=== PATIENT | male | born 1950 | race Caucasian/White ===

== ENCOUNTER → 2020-08-16 11:00 | Outpatient (BNVA) | payer MEDICARE, SELFPAY | PROVIDERS: Family Provider Nurse Practitioner Family; PCP Nurse Practitioner Family; Visit Provider Nurse Practitioner Family | DX: Z20.828 Contact with and (suspected) exposure to other viral communicable diseases (principal); E11.9 Type 2 diabetes mellitus without complications; D64.9 Anemia, unspecified; I25.110 Atherosclerotic heart disease of native coronary artery with unstable angina pectoris | CPT/HCPCS: 80048; 82728; 83550; 84466; 85025; 85610; 87635 ==

== ENCOUNTER → 2020-08-17 06:33 | Day surgery (SDC) | payer MEDICARE, SELFPAY ==
[2020-08-17] VITALS (10 sets, daily range): BP systolic 128–151; BP diastolic 66–79; PULSE 84–93; RESP 18–24; TEMP 36.2–37.2; O2SAT 97–100; BMI 35.9
--- NOTE | 2020-08-17 08:54 | PC.NURSE ---
Lungs clear per auscultation prior to start. VSS. Education provided to patient of reaction. Verbalized understanding.
--- NOTE | 2020-08-17 09:39 | PC.NURSE ---
Patient to restroom for BM during transfusion. Stated toilet was full of blood.
[2020-08-17] MEDS: sodium chloride 0.9% (100 ml) 100 ML 150 ML ×2 (11:05→13:20)
--- NOTE | 2020-08-17 11:29 | PC.NURSE ---
Lungs remain clear per auscultation after first unit. 2nd unit removed from cooler and started after confirmed. IV access verified with saline flush. Pt tolerating transfusions well. VSS. Denies needs at this time.
--- NOTE | 2020-08-17 12:42 | PC.NURSE ---
Called Dr Velázquez's clinic to inquire if patient needs follow-up labs. Greer Myers nurse stated she will put in lab orders for collection on day of scope next week (). Patient aware. Will put in GI chart.
== END ==
PROVIDERS: PCP Nurse Practitioner Family; Visit Provider Nurse Practitioner Family
DX: D64.9 Anemia, unspecified (principal)
CPT/HCPCS: 36415; 36430; 86850; 86900; 86920; J2704; P9016

== ENCOUNTER 2020-08-23 07:59 | Day surgery (SDC) | payer MEDICARE, SELFPAY ==
[2020-08-21 09:52] VITALS: BMI 35.9
[2020-08-23 08:20] VITALS: BP 166/86; PULSE 87; RESP 18; TEMP 36.8; O2SAT 97
[2020-08-23] MEDS: sodium chloride 0.9% 1,000 ML 30 ML IV (08:31)
--- NOTE | 2020-08-23 08:33 | ANES.PREANE2 ---
Pre-Anesthetic Assessment Pre-Anesthetic Assessment: Height/Weight: Height 1.83 m Weight 120.202 kg Temp Pulse Resp BP Pulse Ox 98.2 F 87 18 166/86 97 08/23/20 08:20 08/23/20 08:20 08/23/20 08:20 08/23/20 08:20 08/23/20 08:20 Preop Diagnosis: panendoscopy Proposed Procedure: Operation Date: 08/23/20 09:00 Proposed Procedures p EGD [id number] D64.9 K62.5(Not Applicable) - Yusuf Caldwell MD s Colonoscopy(Not Applicable) - Yusuf Caldwell MD Was Beta Katya taken within 24 hours: Yes Last intake: Intake Last Liquid Date 08/22/20 Last Liquid Time 22:00 Last Solid Date 08/21/20 Last Solid Time 23:59 Social: Social History: No alcohol and No tobacco Exam: Pre-Anes Outpt Exam: alert, oriented x 3, clear to auscultation bilaterally and regular rate & rhythm Airway: Submandibular: Other (limited) Cervical ROM: Other (limited) MP: 3 Pulmonary: Pulmonary: None reported CV/HEM: CV/HEM: Anemia, CAD and HTN : : None reported Hepatic: Hepatic: None reported GI: Comments: Anemia of undetermined origin; transient lower GI bleed Metabolic: Metabolic: DM and Morbid obesity Musc/skel: Musc/skel: None reported Neuropsych: Neuropsych: None reported Anesthetic Plan: ASA status: 3 Anesthesia: MAC Meds/Allergies Current Medications: Current Medications Generic Name Dose Route Start Last Admin Trade Name Freq PRN Reason Stop Dose Admin Sodium Chloride 1,000 mls @ 30 ml s/hr 08/23/20 07:15 08/23/20 08:31 Sodium Chloride 0.9% IV 08/24/20 07:14 30 mls/hr .Q24H BEA Administration PFSH Anesthesia PFSH: Medical History (Updated 08/17/20 @ 15:59 by Yusuf Caldwell MD) ASHD (arteriosclerotic heart disease) Diabetes Dyslipidemia HTN (hypertension) Surgical History S/P PTCA (percutaneous transluminal coronary angioplasty) Family History Father , AGE 56 CAD (coronary artery disease) Myocardial infarction Social History Smoking and tobacco status: never smoked Household members: spouse Marital status: Data Anesthesia Cardiac Studies: No Data to Display
[2020-08-23 08:34] LABS: Glucose Point of Care 223 mg/dL (70-110)
[2020-08-23 08:47] LABS: Hematocrit 36.2 % (42.0-52.0); Hemoglobin 9.8 g/dL (11.7-16.6)
[2020-08-23 09:52] VITALS: BP 134/67; PULSE 86; RESP 16; TEMP 36.1; O2SAT 96
--- NOTE | 2020-08-23 10:00 | W.PM.OPSUD ---
Surgery/Procedure H&P Update DATE OF PROCEDURE: August 23, 2020 DATE H&P PERFORMED: 08/17/20 H&P UPDATE INFORMATION: I have reviewed H&P completed within last 30 days, I have examined patient prior to procedure and No changes to prior documentation PREOP DIAGNOSIS: panendoscopy PLANNED PROCEDURE: Operation Date: 08/23/20 09:00 Proposed Procedures p EGD [id number] D64.9 K62.5(Not Applicable) - Yusuf Caldwell MD s Colonoscopy(Not Applicable) - Yusuf Caldwell MD
--- NOTE | 2020-08-23 10:02 | CT_ITS ---
WS: [id number] CT CHEST, ABDOMEN AND PELVIS WITH CONTRAST. HISTORY: rectal mass TECHNIQUE: Contiguous 5 mm axial imaging performed through the chest, abdomen and pelvis with IV cont rast, oral contrast has been provided. Coronal and sagittal reformats chest. Coronal and sagittal ref ormats through the abdomen and pelvis. All CT scans at [facility] use at least one of the se dose optimization techniques: automated exposure control; mA and/or kV adjustment per patient size (includes targeted exams where dose is matched to clinical indication); or iterative reconstruction. CONTRAST: Omnipaque 300; 95 mL IV. DLP: 2919.2 mGy.cm COMPARISON: None available. Chest CT: Slightly lobulated 15 mm solid nodule in the superior RIGHT lower lobe. Nodule nearly abuts the major fissure. No additional nodules or pneumonia. Small mediastinal and hilar lymph nodes. No d efinite enlarged lymph nodes. Indeterminate lymph nodes greatest at the LEFT hilum measures up to 12 mm. Heart size is normal. No pericardial or pleural effusion. Abdomen CT: Liver, gallbladder, spleen, pancreas and adrenal glands are negative. There is a small cy st measuring 7 mm along the medial margin of the RIGHT lobe. Mild atherosclerosis aorta. Heavy calcification continues into the RIGHT iliac artery. No renal obstr uction or mass. Parapelvic cysts in the lower pole the LEFT kidney. No adenopathy or ascites. The appendix is normal. No GI tract obstruction. No significant diverticular disease. There is some v pat minimal asymmetric wall thickening at the rectum anteriorly. All thickening measures up to 12 mm. No adjacent lymph nodes or perirectal soft tissue stranding or infiltration. There are several very nonspecific lymph nodes with the largest measuring 12 mm anterior to the L5-S1 disc level. Pelvic CT: No free fluid. Small lymph nodes in the pelvic fat anterior to L5-S1 measuring up to 12 mm . Prostate gland is slightly enlarged encroaching into the posterior bladder. Central prostate gland calcifications. Thoracic and lumbar spine spondylitic changes. No osteoblastic or osteolytic bone disease. CT/CT chest abd pel w con* IMPRESSION: 1. Minimal asymmetric soft tissue thickening at the rectum, anterior wall akua uring up to 12 mm. 2. Indeterminate pelvic lymph nodes, just anterior to the L5-S1 disc space. Th e largest measures 12 mm. 3. RIGHT lower lobe pulmonary nodule measures 15 mm. Metastatic lesion versus primary lung cancer or benign lesion. This can be further evaluated by PET/CT f or [address] follow-up. 4. Indeterminate hilar lymph nodes with the largest on the LEFT measuring 12 m m. 5. No metastatic disease to the liver or adrenal glands.
[2020-08-23 10:19] VITALS: BP 147/81; PULSE 87; RESP 18; O2SAT 95
[2020-08-23 10:40] VITALS: BP 148/73; PULSE 89; RESP 18; O2SAT 96
[2020-08-23 10:51] LABS: Glucose Point of Care 205 mg/dL (70-110)
--- NOTE | 2020-08-23 11:12 | PC.NURSE ---
[address] notified. Pt visiting with spouse.
[2020-08-23] MEDS: iohexol 300 mg/mL 100 mL Btl IV (11:55)
[2020-08-23] MEDS: iohexol 300 mg/mL 50 mL Btl PO (11:56)
[2020-08-23 12:34] LABS: Carcinoembryonic Antigen 15.6 ng/mL (0.0-4.7)
--- NOTE | 2020-08-23 16:27 | ANE.PACU2 ---
Inpatient post-anesthesia follow up: Airway intact: Yes Vital signs: Temperature 97 F Pulse Rate 89 Respiratory Rate 18 Blood Pressure 148/73 Pulse Oximetry 96 Oxygen Delivery Me thod Room Air Oxygen Flow Rate 3 Fraction of Inspir ed Oxygen Hydration adequate: Yes Nausea and vomiting: No Pain level: 2 Mental status: Baseline
[2020-09-06 10:32] LABS: Miscellaneous Test See Scanned Lab Rpt
== END 2020-08-23 11:47 | disposition home or self-care (01) ==
PROVIDERS: Nurse Practitioner Family; PCP Nurse Practitioner Family; Visit Provider Surgery
PROC: 0DJ08ZZ Inspection of Upper Intestinal Tract, Via Natural or Artificial Opening Endoscopic (ICD-10-PCS; CPT 43235; principal; 2020-08-23 09:00)
PROC: 0DJD8ZZ Inspection of Lower Intestinal Tract, Via Natural or Artificial Opening Endoscopic (ICD-10-PCS; CPT 45378; 2020-08-23 09:00)
DX: K92.1 Melena (principal); D64.9 Anemia, unspecified; K25.9 Gastric ulcer, unspecified as acute or chronic, without hemorrhage or perforation; C20 Malignant neoplasm of rectum; K29.50 Unspecified chronic gastritis without bleeding; D12.2 Benign neoplasm of ascending colon; D12.5 Benign neoplasm of sigmoid colon; Z79.82 Long term (current) use of aspirin; Z79.84 Long term (current) use of oral hypoglycemic drugs; E11.9 Type 2 diabetes mellitus without complications; E78.5 Hyperlipidemia, unspecified; I10 Essential (primary) hypertension; E66.9 Obesity, unspecified; Z68.35 Body mass index [BMI] 35.0-35.9, adult; Z82.49 Family history of ischemic heart disease and other diseases of the circulatory system; I25.10 Atherosclerotic heart disease of native coronary artery without angina pectoris; E66.01 Morbid (severe) obesity due to excess calories
CPT/HCPCS: 12345; 36416; 43239; 45380; 45385; 71260; 74177; 82378; 82962; 85014; 85018; 88305; 88341; 88342; J2704; J7030; Q9967

== ENCOUNTER 2020-09-17 10:16 | Outpatient (CLI) | payer MEDICARE, SELFPAY ==
[2020-09-17 10:26] LABS: Hematocrit 32.9 % (42.0-52.0)
== END 2020-09-17 10:17 | disposition home or self-care (01) ==
LOC: LAB 10:18
PROVIDERS: Surgery; PCP Nurse Practitioner Family; Referring Provider Surgery; Visit Provider Internal Medicine Medical Oncology
DX: K62.5 Hemorrhage of anus and rectum (principal)
CPT/HCPCS: 85014; 85018

== ENCOUNTER 2020-09-20 12:47 | Outpatient (CLI) | payer MEDICARE, SELFPAY ==
[2020-09-20 15:10] LABS: Basophils # 0.1 10^3/uL (0.0-0.1); Basophils % 1.2 %; Eosinophils # 0.3 10^3/uL (0.0-0.8); Eosinophils % 3.8 %; Hematocrit 32.9 % (42.0-52.0); Hemoglobin 9.2 g/dL (11.7-16.6); Lymphocytes % 29.4 %; Mean Corpuscular Hemoglobin 20.3 pg (28.0-34.0); Mean Corpuscular Volume 72.6 fL (80-94); Monocytes # 0.5 10^3/uL (0.2-0.9); Monocytes % 7.8 %; Neutrophils # 3.91 10^3/uL (1.8-7.7); Neutrophils % 56.8 %; Nucleated Red Blood Cells % 0 %; Platelet Count 314 10^3/cmm (130-400); Red Blood Count 4.53 10^6/uL (4.1-5.3); Red Cell Distribution Width 21.2 % (12.1-15.1); White Blood Count 6.9 10^3/uL (4.0-10.0)
--- NOTE | 2020-09-20 15:19 | ONC CON_ITS ---
Dr. Abrams New Patient Note Patient: Genaro Robbins Unit #: [id number]: 1950 Dicatated By: Eliel Abrams M.D.Date of Visit: Sep 20, 2020 Onc MED New Patient/Consult Referring Physician: Dr. AMENA JANG M.D. Chief Complaint: Rectal cancer. 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 He had presented to Dr. Velázquez in August with shortness of breath and chest pain. He had been having rectal bleeding since around April or May, which he had presumed was due to hemorrhoids. He was found to be significantly anemic with hemoglobin 7.5 g and hematocrit 29%. The red cell indices were hypochromic/microcytic. His iron saturation was 3.5% and the ferritin was low at 15 ng/mL, consistent with iron deficiency. He was transfused 2 units PRBC and he also began on oral iron supplementation with ferrous sulfate. He was unable to tolerate it due to GI side effects. In the meantime, he was seen by Dr. Caldwell and he underwent EGD and colonoscopy on 08/23/2020. The EGD showed evidence of gastritis with multiple gastric erosions. The colonoscopy showed a 7 mm pedunculated polyp in the ascending colon, a 5 mm sessile polyp in the descending colon, and a 1 cm pedunculated polyp in the sigmoid colon. The rectum showed an ulcerated malignant appearing mass along the right lateral wall approximately 6 cm from the anal verge. The mass was palpable by digital rectal exam. Biopsy of the rectal mass showed moderately differentiated invasive adenocarcinoma. The descending colon polyp was noted to be hyperplastic. The other polyps were tubular adenomas without high-grade dysplasia or malignancy. Gastric biopsy showed mild chronic gastritis. Staging CT scans of the chest, abdomen, and pelvis showed asymmetric soft tissue thickening at the rectum, with the anterior wall measuring up to 12 mm. Indeterminate pelvic lymph nodes were noted just anterior to the L5-S1 disc space, the largest measuring 12 mm. A right lower lobe pulmonary nodule measured 1.5 cm, consistent with metastatic lesion, versus primary lung neoplasm, versus benign lesion. Indeterminant left hilar lymph nodes measured up to 12 mm. There was no evidence of other metastatic disease. His baseline CEA was elevated at 15.6 ng/mL. He had colorectal surgery consultation with Dr. Ranulfo Anguiano on 09/03/2021. Staging MRI of the pelvis on 09/13/2020 was consistent with a T3 primary lesion with suspected involvement in 3/5 mesorectal lymph nodes. He is seen for further management of the rectal cancer. He has felt significantly better following the PRBC transfusion. He still has some fatigue and some shortness of breath, but he is able to work. His ECOG score is 1. His appetite is not as good now, but his weight is stable. He has no fever or night sweats. He still has some shortness of breath. He has had no further chest pain. He has had occasional nausea. His acid reflux symptoms have generally been well controlled with Protonix. He said he had a fair amount of blood in his stool after the MRI procedure, but since then it has been pretty minimal. He has had no other problems with his bowel function. Bladder function also has been okay. He has no significant joint or bone pain. He does not complain of headache, and he has no focal neurologic symptoms. Past Medical History: His medical history includes allergic rhinitis, coronary artery disease, dyslipidemia, gastroesophageal reflux disease, hypertension, and type II diabetes. Past Surgical History: His surgical/procedural history includes colonoscopy in 2019 and coronary angioplasty/stent placement in 2017. Medications: amLODIPine Besylate 1 (2.5 mg) Tablet Oral b.i.d., Aspirin 1 (81 mg) Tablet, chewable Oral daily, Claritin 1 (10 mg) Tablet Oral daily, Crestor 1 (20 mg) Tablet Oral daily, Isosorbide Mononitrate ER 1 (30 mg) Tablet SR 24 HR Oral b.i.d., Lisinopril 1 (5 mg) Tablet Oral b.i.d., metFORMIN HCl 1 (1000 mg) Tablet Oral b.i.d., Metoprolol Succinate ER 1 (50 mg) Tablet SR 24 HR Oral daily, Nitroglycerin Tablet, sublingual Sublingual PRN, Pantoprazole Sodium 1 (40 mg) Tablet, enteric coated Oral daily Allergies: Sulfa Antibiotics Social History: Mr. Robbins is . 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 He is a non-smoker. He does not drink alcohol. Family History: Father of heart disease age 56. Mother at age 76, apparently of pulmonary embolism. Two brothers are in good health. Review Of Symptoms: Constitutional - He generally feels okay, he was feeling very terrible prior to blood transfusions. His energy is fare. 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 His appetite is good and his weight is stable. No fever, night sweats, or hot flashes. ECOG score is 1, Eyes - No change in vision, ENMT - No hearing loss or tinnitus. He has chronic seasonal allergies. No mouth sores. No sore throat or difficulty swallowing, Hematologic/Lymphatic - No abnormal bruising, Respiratory - He was having shortness of breath, but it has also improved since receiving blood transfusion. No cough. No pleuritic pain or hemoptysis, Cardiovascular - He was having chest pain prior to receiving blood transfusions, none since. No palpitations, Gastrointestinal - No nausea or vomiting. No heartburn or acid reflux. No diarrhea or constipation. He has had blood in the stool, Genitourinary (M) - No dysuria or hematuria. No urinary frequency. No urgency or incontinence, Musculoskeletal - No joint or bone pain, Integumentary - No skin eruption, Neurologic - No headaches. He was having dizziness, now resolved. No numbness or tingling. No other focal neurologic symptoms, Psychiatric - No anxiety. He's had some mild depression with diagnosis. No insomnia. Vital Signs: Performed on Sep 20, 2020 13:43: 0, 36.73 (HIGH), 2.42 sq.m, 72 in, 96 %, 96 /min, 18 /min, 153/73 mm(hg) (HIGH), 98.5 F, and 270.8 lbs (HIGH). Physical Examination: Constitutional - He appears to be in good general health, Eyes - Sclerae nonicteric. Conjunctivae clear, ENMT - No lesions noted in the oral cavity, Neck - No mass or thyromegaly, Hematologic/Lymphatic - No cervical, clavicular, or axillary adenopathy, Respiratory - Lungs are clear with good air movement bilaterally, Cardiovascular - Heart rhythm is regular. There is II/ systolic murmur. There is no gallop or rub noted, Abdomen - Soft and non-tender. Liver and spleen are not enlarged. There is no abdominal mass or ascites noted and there is no inguinal adenopathy, Back/Spine - No spine or CVA tenderness noted, Extremities - Slight edema. Pedal pulses are palpable bilaterally, Integumentary - No rashes. No suspicious skin lesions noted, Neurologic - No focal neurologic deficits noted. Historic Problem List: 1. Moderately differentiated invasive adenocarcinoma of the rectum, by clinical evaluation stage at least T3, N1. 2. CT evidence of 1.5 cm right lower lobe pulmonary nodule, clinical significance of which is uncertain. 3. Iron deficiency anemia, presumed to be due to GI blood loss. He has been intolerant of oral iron due to GI side effects. 4. Hypertension. 5. Dyslipidemia. 6. Type 2 diabetes. 7. Coronary artery disease with previous angioplasty/stent placement. 8. GERD. Problems Addressed with this Encounter and Plan: 1. Moderately differentiated invasive adenocarcinoma of the rectum. By clinical evaluation his disease appears to be stage T3, N1. M staging is uncertain due to CT evidence of 1.5 cm right lower lobe pulmonary nodule. The colonoscopy findings and pathology results, as well as the findings on the CT and MRI scans were reviewed with the patient and his . We discussed the clinical implications. I have also discussed the case with Dr. Anguiano. With T3, N1 disease he is recommended to undergo neoadjuvant therapy, and I will plan to utilize a total neoadjuvant regimen, per NCCN guidelines. This will include 3 to 4 months of neoadjuvant chemotherapy with modified FOLFOX followed by radiation. I assume this will include standard long course radiation concurrently with Xeloda for chemosensitization, but that will be determined following further discussion with the radiation oncologist. He will need to undergo placement of Port-A-Cath venous access device for the chemotherapy, and that will be arranged with Dr. Caldwell. In addition, due to the right lower lobe pulmonary nodule, I am going to schedule for staging PET/CT, as a metastatic lesion would potentially alter treatment recommendations. I did review anticipated side effects with the chemotherapy which may include nausea/vomiting, diarrhea, alopecia, fatigue, low blood counts, and neuropathy, among others. At this point, I am anticipating starting his chemotherapy in the latter part of next week. 2. Iron deficiency anemia with intolerance to oral iron. His laboratory studies will be rechecked today and he will be given parenteral iron replacement with Injectafer as indicated. Signed By: Eliel Abrams M.D. <<Signature on File>>
[2020-09-20 15:38] LABS: Alanine Aminotransferase 21 U/L (0-41); Albumin Level 3.9 g/dL (3.5-5.2); Alkaline Phosphatase 69 IU/L (40-130); Anion Gap 12.1 (5-19); Aspartate Amino Transferase 21 U/L (0-40); Blood Urea Nitrogen 13 mg/dL (8-23); Calcium 8.8 mg/dL (8.5-10.5); Carbon Dioxide 26 mmol/L (22-29); Chloride 99 mmol/L (98-107); Ferritin 21 ng/mL (30-400); Globulin 3.4 g/dL (1.3-4.6); Glomerular Filtration Rate 111.5 mL/min (90-130); Glucose 291 mg/dL (65-115); Iron 18 ug/dL (59-158); Osmolality Calculated 287 mOsm/kg (285-295); Percent Saturation 4.6 % (20-50); Potassium 4.1 mmol/L (3.5-5.1); Sodium 133 mmol/L (136-145); Total Bilirubin 0.2 mg/dL (0.15-1.2); Total Iron Binding Capacity 388 mcg/dl; Total Protein 7.3 g/dL (6.6-8.7); Unsaturated Iron Binding 370 ug/dL (112-347)
[2020-09-21 16:34] LABS: Coronavirus Test Green County Not Detected
== END 2020-09-20 12:48 | disposition home or self-care (01) ==
LOC: ONCMED 12:56
PROVIDERS: PCP Nurse Practitioner Family; Visit Provider Internal Medicine Medical Oncology
DX: C20 Malignant neoplasm of rectum (principal); Z20.822 Contact with and (suspected) exposure to COVID-19; R91.1 Solitary pulmonary nodule; D50.9 Iron deficiency anemia, unspecified; I10 Essential (primary) hypertension; E78.5 Hyperlipidemia, unspecified; E11.9 Type 2 diabetes mellitus without complications; I25.10 Atherosclerotic heart disease of native coronary artery without angina pectoris; K21.9 Gastro-esophageal reflux disease without esophagitis; Z95.5 Presence of coronary angioplasty implant and graft; Z95.1 Presence of aortocoronary bypass graft
CPT/HCPCS: 36415; 80053; 82728; 83540; 83550; 85025; 87635; 99205

== ENCOUNTER 2020-09-21 10:15 | Outpatient (CLI) | payer MEDICARE, SELFPAY ==
[2020-09-21] MEDS: ferric carboxy (IVPB) 750 MG in sodium chloride 0.9% (100 ml) 100 ML 460 MG IV (10:35)
[2020-09-21] MEDS: sodium chloride 0.9% (100 ml) 100 ML 400 ML (10:35)
== END 2020-09-21 10:16 | disposition home or self-care (01) ==
PROVIDERS: PCP Nurse Practitioner Family; Visit Provider Internal Medicine Medical Oncology
DX: C20 Malignant neoplasm of rectum (principal); D50.9 Iron deficiency anemia, unspecified
CPT/HCPCS: 96365; 96372; J1439

== ENCOUNTER 2020-09-26 10:57 | Day surgery (SDC) | payer MEDICARE, SELFPAY ==
[2020-09-25 14:29] VITALS: BMI 35.2
--- NOTE | 2020-09-26 | SCC_ITS ---
Procedure Done: Placement of PowerPort in the left subclavian vein 87.5 seconds of fluoroscopic guidance, for a cumulative dose of 12.55 mGy, was provided to Dr. Caldwell by the radiology department. C-arm images of the chest were saved for the patient's permanent record. [facility]
--- NOTE | 2020-09-26 | SC_ITS ---
WS: [id number] C-ARM RADIOGRAPHS CHEST; 2 IMAGES HISTORY: OR PICS COMPARISON: None available. Intraoperative imaging during Port-A-Cath placement through the LEFT subclavian vein. SC/C-arm FL for CVA [id number] IMPRESSION: Intraoperative imaging during Port-A-Cath placement.
--- NOTE | 2020-09-26 10:26 | P.HP_ITS ---
Same Day Surgery H&P Indication for Procedure/HPI DATE OF PROCEDURE: September 26, 2020 CHIEF COMPLAINT/INDICATIONFOR SURGICAL PROCEDURE: port a cath placement PREOP DIAGNOSIS: Rectal cancer PLANNED PROCEDRUE: Operation Date: 09/26/20 12:35 Proposed Procedures p Portacath Placement 36916 c20(Not Applicable) - Yusuf Caldwell MD Medications/Allergies* Home Medications Medication Instructions Recorded Confirmed Type aspirin 81 mg tablet,delayed 81 mg PO DAILY 02/15/20 09/25/20 History release metformin 1,000 mg tablet 1,000 mg PO BID 02/15/20 09/25/20 History rosuvastatin 20 mg PO BEDTIME 08/17/20 09/25/20 History Allergies/Adverse Reactions Allergy/AdvReac Type Severity Reaction Status Date / Time Sulfa (Sulfonamide Allergy ALGY-Rash Verified 09/25/20 14:29 Antibiotics) Pertinent History/Comorbid Conditions* Medical History (Updated 08/17/20 @ 15:59 by Yusuf Caldwell MD) ASHD (arteriosclerotic heart disease) Diabetes Dyslipidemia HTN (hypertension) Surgical History (Updated 08/23/20 @ 09:54 by Yusuf Caldwell MD) H/O esophagogastroduodenoscopy History of colonoscopy with polypectomy S/P PTCA (percutaneous transluminal coronary angioplasty) Family History (Updated 02/15/20 @ 09:51 by Lyly Sanchez RN) Father, AGE 56 CAD (coronary artery disease) Father Myocardial infarction Father Social History Smoking and tobacco status: never smoked Household members: spouse Marital status: Pertinent Exam Findings alert, oriented x 3 and regular rate & rhythm Recommendations Surgery/Procedure today Coding Level of Care Code Acute 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
[2020-09-26 11:11] VITALS: BP 179/78; PULSE 82; RESP 20; TEMP 36.8; O2SAT 97
[2020-09-26] MEDS: sodium chloride 0.9% 1,000 ML 30 ML IV (11:25)
--- NOTE | 2020-09-26 11:25 | ANES.PREANE2 ---
Pre-Anesthetic Assessment Pre-Anesthetic Assessment: Height/Weight: Height 1.83 m Weight 117.934 kg Temp Pulse Resp BP Pulse Ox 98.2 F 82 20 H 179/78 97 09/26/20 11:11 09/26/20 11:11 09/26/20 11:11 09/26/20 11:11 09/26/20 11:11 Preop Diagnosis: Rectal cancer Proposed Procedure: Operation Date: 09/26/20 12:35 Proposed Procedures p Portacath Placement 36150 c20(Not Applicable) - Yusuf Caldwell MD Familial anesthetic complications: none Was Beta Katya taken within 24 hours: Yes Last intake: Intake Last Liquid Date 09/25/20 Last Liquid Time 22:00 Last Solid Date 09/25/20 Last Solid Time 20:00 Social: Social History: No alcohol and No tobacco Exam: Pre-Anes Outpt Exam: alert, oriented x 3, clear to auscultation bilaterally and regular rate & rhythm Airway: Cervical ROM: WNL MP: 3 Dentition: Full CV/HEM: CV/HEM: Anemia, CAD and HTN GI: GI: GERD Metabolic: Metabolic: DM and Morbid obesity Anesthetic Plan: ASA status: 3 Anesthesia: MAC Risk of > 500 ml blood loss (7ml/kg in children): No Meds/Allergies Current Medications: Current Medications Generic Name Dose Route Start Last Admin Trade Name Freq PRN Reason Stop Dose Admin Sodium Chloride 1,000 mls @ 30 ml s/hr 09/26/20 10:45 09/26/20 11:25 Sodium Chloride 0.9% IV 09/27/20 10:44 30 mls/hr .Q24H BEA Administration PFSH Anesthesia PFSH: Medical History ASHD (arteriosclerotic heart disease) Diabetes Dyslipidemia HTN (hypertension) Surgical History H/O esophagogastroduodenoscopy History of colonoscopy with polypectomy S/P PTCA (percutaneous transluminal coronary angioplasty) Family History Father , AGE 56 CAD (coronary artery disease) Myocardial infarction Social History Smoking and tobacco status: never smoked Household members: spouse Marital status: Data Anesthesia Cardiac Studies: No Data to Display
--- NOTE | 2020-09-26 11:29 | ANES.PREANE2 ---
Pre-Anesthetic Assessment Pre-Anesthetic Assessment: Height/Weight: Height 1.83 m Weight 117.934 kg Temp Pulse Resp BP Pulse Ox 98.2 F 82 20 H 179/78 97 09/26/20 11:11 09/26/20 11:11 09/26/20 11:11 09/26/20 11:11 09/26/20 11:11 Preop Diagnosis: Rectal cancer Proposed Procedure: Operation Date: 09/26/20 12:35 Proposed Procedures p Portacath Placement [id number] c20(Not Applicable) - Yusuf Caldwell MD Last intake: Intake Last Liquid Date 09/25/20 Last Liquid Time 22:00 Last Solid Date 09/25/20 Last Solid Time 20:00 PFSH Anesthesia PFSH: Medical History (Updated 09/26/20 @ 11:56 by Yusuf Caldwell MD) ASHD (arteriosclerotic heart disease) Diabetes Dyslipidemia HTN (hypertension) Surgical History (Updated 09/26/20 @ 11:56 by Yusuf Caldwell MD) H/O esophagogastroduodenoscopy History of colonoscopy with polypectomy Port-A-Cath in place (09/26/20) S/P PTCA (percutaneous transluminal coronary angioplasty) Family History Father , AGE 56 CAD (coronary artery disease) Myocardial infarction Social History Smoking and tobacco status: never smoked Household members: spouse Marital status: Data Anesthesia Cardiac Studies: No Data to Display
[2020-09-26] MEDS: lidocaine 1% INJ 20 mL SUBCUT (12:00)
[2020-09-26] MEDS: heparin, porcine 1,000 unit/mL INJ 10 mL 10000 UNIT (12:14)
--- NOTE | 2020-09-26 12:28 | PM.OP ---
Operative Report Date of procedure: September 26, 2020 Pre-op Diagnosis: Rectal cancer Post-op diagnosis: same Procedure Done: Placement of PowerPort in the left subclavian vein Fluoroscopic guidance and interpretation for placement of catheter Pathology: none sent Surgeon: Yusuf Caldwell Anesthesia: MAC Condition: stable Disposition: same day Procedure: The patient was taken to the Operating Room and the chest and neck bilaterally were prepped and draped in a sterile manner after the antibiotic had been administered and shoulder rolls had been placed. A total of 10 mL of 1% lidocaine with 0.5% Marcaine was infiltrated under the clavicle on the left side at the site of the planned entry into the subclavian vein. An introducer needle was then used to access the subclavian vein under the clavicle and after withdrawing blood syringe was removed and a guidewire passed under fluoroscopy into the superior vena cava. The site of the planned port was then marked on the chest and a 15 blade was used to make a 3 cm skin incision this was extended into the subcutaneous tissue using electrocautery and a subcutaneous pocket over the pectoralis fascia was created 2-0 Vicryl suture was used to suture the port to the pectoral fascia in the pocket on 3 sides. The catheter, after having been flushed with hep saline, was attached to the tunneler and a tunnel created between the port site and the subclavian vein entry site. Under fluoroscopy the dilator sheath was passed over the guidewire into the proximal superior vena cava. The inner dilator was removed and the sheath left behind and~ the catheter was introduced through the peel-away sheath with the tip in the superior vena cava. The peel-away sheath was removed. The proximal end of the catheter was cut to the right size and was attached to the port. Using a Means needle the port was accessed, it withdrew blood easily and flushed easily. A final 5cc of heparin was used to flush the PowerPort. The subcutaneous tissue was approximated using interrupted 3-0 Vicryl sutures and the skin at the introducer site and the port site was closed using subcuticular running 4-0 Monocryl sutures. Surgical glue was applied and the patient was stable throughout the procedure. Fluoroscopic guidance and interpretation was performed for introduction of the guidewire in the left subclavian vein, passage of dilator and placement of catheter tip in the distal superior vena cava.
[2020-09-26 12:41] VITALS: BP 155/79; PULSE 82; RESP 18; TEMP 36.7; O2SAT 96
[2020-09-26 12:55] VITALS: BP 131/75; PULSE 86; RESP 18; O2SAT 96
[2020-09-26 13:20] LABS: Glucose Point of Care 188 mg/dL (70-110)
--- NOTE | 2020-09-26 18:36 | ANE.PACU2 ---
Inpatient post-anesthesia follow up: Airway intact: Yes Vital signs: Temperature 98.1 F Pulse Rate 86 Respiratory Rate 18 Blood Pressure 131/75 Pulse Oximetry 96 Oxygen Delivery Me thod Room Air Oxygen Flow Rate Fraction of Inspir ed Oxygen Hydration adequate: Yes Nausea and vomiting: No Pain level: 2 Mental status: Baseline
== END 2020-09-26 13:10 | disposition home or self-care (01) ==
PROVIDERS: PCP Nurse Practitioner Family; Visit Provider Surgery
PROC: (CPT 36561; principal; 2020-09-26 12:25)
DX: C20 Malignant neoplasm of rectum (principal); I25.10 Atherosclerotic heart disease of native coronary artery without angina pectoris; I10 Essential (primary) hypertension; E11.9 Type 2 diabetes mellitus without complications; E66.01 Morbid (severe) obesity due to excess calories; Z68.35 Body mass index [BMI] 35.0-35.9, adult; E78.5 Hyperlipidemia, unspecified
CPT/HCPCS: 36561; 12345; 36416; 77001; 82962; C1788; J0690; J1644; J2250; J2405; J2704; J3010; J3490; J7030

== ENCOUNTER 2020-10-04 05:35 | Outpatient (RCR) | payer MEDICARE, SELFPAY ==
[2020-09-27 08:45] LABS: Basophils # 0.1 10^3/uL (0.0-0.1); Basophils % 1.2 %; Eosinophils # 0.3 10^3/uL (0.0-0.8); Eosinophils % 4.1 %; Hemoglobin 8.9 g/dL (11.7-16.6); Lymphocytes # 1.9 10^3/uL (0.8-4.8); Lymphocytes % 22.8 %; Mean Corpuscular HGB Conc 27.8 g/dL (30.0-36.0); Mean Corpuscular Hemoglobin 21.7 pg (28.0-34.0); Mean Platelet Volume 9.6 fL (7.4-10.4); Monocytes # 0.6 10^3/uL (0.2-0.9); Neutrophils # 5.03 10^3/uL (1.8-7.7); Neutrophils % 61.9 %; Nucleated Red Blood Cells % 0 %; Platelet Count 274 10^3/cmm (130-400); Red Cell Distribution Width 24.6 % (12.1-15.1); White Blood Count 8.1 10^3/uL (4.0-10.0)
[2020-09-27 09:06] LABS: Alanine Aminotransferase 28 U/L (0-41); Albumin Level 3.5 g/dL (3.5-5.2); Alkaline Phosphatase 66 IU/L (40-130); Anion Gap 15.3 (5-19); Aspartate Amino Transferase 22 U/L (0-40); Blood Urea Nitrogen 12 mg/dL (8-23); Calcium 8.4 mg/dL (8.5-10.5); Carbon Dioxide 22 mmol/L (22-29); Chloride 104 mmol/L (98-107); Globulin 3.1 g/dL (1.3-4.6); Glomerular Filtration Rate 111.5 mL/min (90-130); Glucose 280 mg/dL (65-115); Osmolality Calculated 294 mOsm/kg (285-295); Potassium 4.3 mmol/L (3.5-5.1); Sodium 137 mmol/L (136-145); Total Bilirubin 0.3 mg/dL (0.15-1.2); Total Protein 6.6 g/dL (6.6-8.7)
[2020-09-27] MEDS: palonosetron 0.25 mg/5 mL SDV IVP (10:00)
[2020-09-27] MEDS: dextrose 5% 250 ML 75 ML IV (10:00)
[2020-10-04] MEDS: ferric carboxy (IVPB) 750 MG in sodium chloride 0.9% (100 ml) 100 ML 460 MG IV (13:15)
[2020-10-04 13:29] LABS: Basophils # 0.1 10^3/uL (0.0-0.1); Basophils % 1.3 %; Eosinophils # 0.3 10^3/uL (0.0-0.8); Eosinophils % 5.8 %; Hematocrit 32.9 % (42.0-52.0); Hemoglobin 9.3 g/dL (11.7-16.6); Lymphocytes # 2.2 10^3/uL (0.8-4.8); Lymphocytes % 39.6 %; Mean Corpuscular HGB Conc 28.3 g/dL (30.0-36.0); Mean Corpuscular Hemoglobin 22.4 pg (28.0-34.0); Mean Corpuscular Volume 79.1 fL (80-94); Mean Platelet Volume 10.1 fL (7.4-10.4); Monocytes # 0.3 10^3/uL (0.2-0.9); Monocytes % 5.6 %; Neutrophils # 2.54 10^3/uL (1.8-7.7); Neutrophils % 46.1 %; Nucleated Red Blood Cells % 0.5 %; Platelet Count 221 10^3/cmm (130-400); Red Blood Count 4.16 10^6/uL (4.1-5.3); Red Cell Distribution Width 26.2 % (12.1-15.1); White Blood Count 5.5 10^3/uL (4.0-10.0)
[2020-10-04 14:09] LABS: Alanine Aminotransferase 28 U/L (0-41); Albumin Level 3.5 g/dL (3.5-5.2); Alkaline Phosphatase 54 IU/L (40-130); Anion Gap 14.3 (5-19); Aspartate Amino Transferase 24 U/L (0-40); Blood Urea Nitrogen 12 mg/dL (8-23); Calcium 8.5 mg/dL (8.5-10.5); Carbon Dioxide 23 mmol/L (22-29); Chloride 105 mmol/L (98-107); Glomerular Filtration Rate 95.6 mL/min (90-130); Glucose 256 mg/dL (65-115); Osmolality Calculated 295 mOsm/kg (285-295); Potassium 4.3 mmol/L (3.5-5.1); Sodium 138 mmol/L (136-145); Total Bilirubin 0.3 mg/dL (0.15-1.2); Total Protein 6.5 g/dL (6.6-8.7)
--- NOTE | 2020-10-04 18:52 | ONC FU_ITS ---
Dr. Abrams Patient Follow-Up Note Patient: Genaro Robbins Unit #: [id number]: [id number] Dicatated By: Eliel Abrams M.D.Date of Visit:Oct 04, 2020 Onc Med Follow-up/Prog Note Chief Complaint: Rectal cancer. 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 He had presented with iron deficiency anemia in association with rectal bleeding. His initial CBC showed hemoglobin low at 7.5 g and hematocrit 29%. His iron saturation was 3.5% and the ferritin was low at 15 ng/mL, consistent with iron deficiency. He was transfused 2 units PRBC and he also began on oral iron supplementation with ferrous sulfate. He was unable to tolerate it due to GI side effects. In the meantime, he was seen by Dr. Caldwell and he underwent EGD and colonoscopy on 08/23/2020. The EGD showed evidence of gastritis with multiple gastric erosions. The colonoscopy showed a 7 mm pedunculated polyp in the ascending colon, a 5 mm sessile polyp in the descending colon, and a 1 cm pedunculated polyp in the sigmoid colon. The rectum showed an ulcerated malignant appearing mass along the right lateral wall approximately 6 cm from the anal verge. The mass was palpable by digital rectal exam. Biopsy of the rectal mass showed moderately differentiated invasive adenocarcinoma. The descending colon polyp was noted to be hyperplastic. The other polyps were tubular adenomas without high-grade dysplasia or malignancy. Gastric biopsy showed mild chronic gastritis. Staging CT scans of the chest, abdomen, and pelvis showed asymmetric soft tissue thickening at the rectum, with the anterior wall measuring up to 12 mm. Indeterminate pelvic lymph nodes were noted just anterior to the L5-S1 disc space, the largest measuring 12 mm. A right lower lobe pulmonary nodule measured 1.5 cm, consistent with metastatic lesion, versus primary lung neoplasm, versus benign lesion. Indeterminant left hilar lymph nodes measured up to 12 mm. There was no evidence of other metastatic disease. His baseline CEA was elevated at 15.6 ng/mL. He had colorectal surgery consultation with Dr. Ranulfo Anguiano on 09/03/2021. Staging MRI of the pelvis on 09/13/2020 was consistent with a T3 primary lesion with suspected involvement in 3/5 mesorectal lymph nodes. He began cycle 1 of neoadjuvant chemotherapy with modified FOLFOX on 09/27/2020. His staging PET/CT on 09/22/2020 showed circumferential rectal thickening with SUV 12.1, consistent with known primary malignancy. Subcentimeter perirectal lymph nodes were too small to characterize. A 1.0 presacral lymph node had SUV 4.3, consistent with local metastatic disease. The right lower lobe pulmonary nodule measuring 1.7 x 1.8 cm and SUV 2.5. This was felt to be suggestive of a benign finding, but followup was felt to be warranted. Also noted were 4 mm nodules in the left upper lobe and lateral right upper lobe, too small to characterize. There were no other areas of abnormal uptake on that study. With those findings he was recommended to proceed with total neoadjuvant therapy. His other medical illnesses include hypertension, dyslipidemia, type 2 diabetes, coronary artery disease, and GERD. He has had previous angioplasty/stent placement. He is a non-smoker. INTERIM HISTORY: He began cycle 1 of neoadjuvant chemotherapy with modified FOLFOX on 09/27/2020. He experienced no nausea/vomiting or other acute toxicity with the chemotherapy. At day 3 he developed diarrhea, lasting just 1 day, total of 5 loose stools. It resolved with loperamide. Bowel function is otherwise been normal. He has had no bleeding since Thursday night. He felt a little weak and dizzy for a few days. He also developed significant cold sensitivity in his fingers and in his tongue. It has not yet completely resolved. He has had good appetite and is and she has since then come back to normal. He was able to work on Thursday, Thursday, and Thursday. During the course of this evaluation, we discovered that his blood sugars had become significantly more elevated, and he is now going to be starting treatment with glipizide. We also found that he was still significantly anemic. As he had been intolerant of oral iron, he was given an infusion of Injectafer last week and a second Injectafer infusion today. He tolerated these without any adverse effects. Medications: amLODIPine Besylate 1 (2.5 mg) Tablet Oral b.i.d., Aspirin 1 (81 mg) Tablet, chewable Oral daily, Claritin 1 (10 mg) Tablet Oral daily, Crestor 1 (20 mg) Tablet Oral daily, Isosorbide Mononitrate ER 1 (30 mg) Tablet SR 24 HR Oral b.i.d., Lisinopril 1 (5 mg) Tablet Oral b.i.d., metFORMIN HCl 1 (1000 mg) Tablet Oral b.i.d., Metoprolol Succinate ER 1 (50 mg) Tablet SR 24 HR Oral daily, Nitroglycerin Tablet, sublingual Sublingual PRN, Pantoprazole Sodium 1 (40 mg) Tablet, enteric coated Oral daily Allergies: Sulfa Antibiotics Vital Signs: Performed on Oct 04, 2020 14:17 Height - 72.00 in Weight - 263 lbs (LOW) BSA - 2.39 sq.m BMI - 35.67 (HIGH) Temperature - 97.0 F (LOW) Pulse - 76 /min Respiration - 18 /min BP - 130/80 mm(hg) O2 Sat - 98 % Pain - 0 Physical Examination: Constitutional - He looks good generally, Eyes - Sclerae nonicteric. Conjunctivae clear, ENMT - No lesions noted in the oral cavity, Respiratory - Lungs are clear with good air movement bilaterally, Cardiovascular - Heart rhythm is regular. There is II/ systolic murmur. There is no gallop or rub noted, Abdomen - Soft with no mass or hepatosplenomegaly noted, Extremities - No edema, Neurologic - No focal deficits. Lab/Imaging: Test performed on Oct 04, 2020 13:04 Sodium 138 mmol/L Potassium 4.3 mmol/L Chloride 105 mmol/L CO2 23 mmol/L Anion Gap 14.3 BUN 12 mg/dL Creatinine 0.8 mg/dL Cr Clearance (Est) 149.2800 mL/min eGFR 95.6 mL/min Glucose 256 mg/dL Osmolality - Calculated 295 mOsm/kg Calcium 8.5 mg/dL Protein, Total 6.5 g/dL Albumin 3.5 g/dL Globulin 3.0 g/dL Bilirubin, Total 0.3 mg/dL ALT (SGPT) 28 U/L AST (SGOT) 24 U/L Alkaline Phosphatase 54 IU/L WBC 5.5 10 3/uL RBC 4.16 10 6/uL HGB 9.3 g/dL HCT 32.9 % MCV 79.1 fL MCH 22.4 pg MCHC 28.3 g/dL RDW 26.2 % Platelet Count 221 10 3/cmm MPV 10.1 fL Neutrophils 2.54 10 3/uL Lymphocytes 2.2 10 3/uL Monocytes 0.3 10 3/uL Eosinophils 0.3 10 3/uL Basophils 0.1 10 3/uL Neutrophil % 46.1 % Lymphocyte % 39.6 % Monocyte % 5.6 % Eosinophil % 5.8 % Basophils % 1.3 % NRBC % 0.5 % Problem List: 1. Moderately differentiated invasive adenocarcinoma of the rectum, by clinical evaluation stage at least T3, N1. 2. CT evidence of 1.5 cm right lower lobe pulmonary nodule, clinical significance of which is uncertain. 3. Iron deficiency anemia, presumed to be due to GI blood loss. He had been intolerant of oral iron due to GI side effects. 4. Hypertension. 5. Dyslipidemia. 6. Type 2 diabetes. 7. Coronary artery disease with previous angioplasty/stent placement. 8. GERD. Problems Addressed with this Encounter and Plan: 1. Moderately differentiated invasive adenocarcinoma of the rectum. By clinical evaluation his disease appeared to be stage T3, N1. He was recommended to undergo total neoadjuvant therapy. He began cycle 1 of modified FOLFOX chemotherapy on 09/27/2020. Side effects thus far have included mild fatigue, transient diarrhea, and mild neuropathy (cold sensitivity). Overall, he appears to be tolerating treatment well. He is scheduled to return in 1 week for cycle 2 of modified FOLFOX. Assuming his neuropathy symptoms have resolved, it will be administered at full dosages. 2. He had CT evidence of 1.5 cm right lower lobe pulmonary nodule. It showed low-grade FDG uptake by PET, SUV 2.4, suggestive of benign etiology. Follow-up, though, was recommended. 3. Iron deficiency anemia with intolerance to oral iron. He has now completed parenteral iron replacement with 2 infusions of Injectafer. He has had no adverse effects from the infusions. Signed By: Eliel Abrams M.D. <<Signature on File>>
== END 2020-10-07 23:59 | disposition home or self-care (01) ==
LOC: ONCMED 05:35
PROVIDERS: PCP Nurse Practitioner Family; Visit Provider Internal Medicine Medical Oncology
DX: Z51.11 Encounter for antineoplastic chemotherapy (principal); C20 Malignant neoplasm of rectum; R91.1 Solitary pulmonary nodule; D50.9 Iron deficiency anemia, unspecified; Z79.899 Other long term (current) drug therapy
CPT/HCPCS: 80053; 85025; 96365; 96367; 96368; 96413; 96415; 96416; 99214; J0640; J1100; J1439; J2469; J9190; J9263

== ENCOUNTER 2020-10-25 07:00 | Outpatient (RCR) | payer MEDICARE, SELFPAY ==
[2020-10-11 09:12] LABS: Basophils % 0.5 %; Eosinophils # 0.3 10^3/uL (0.0-0.8); Eosinophils % 4.9 %; Hematocrit 35.5 % (42.0-52.0); Hemoglobin 10.4 g/dL (11.7-16.6); Lymphocytes # 1.4 10^3/uL (0.8-4.8); Lymphocytes % 25.2 %; Mean Corpuscular HGB Conc 29.3 g/dL (30.0-36.0); Mean Corpuscular Hemoglobin 24.8 pg (28.0-34.0); Mean Corpuscular Volume 84.7 fL (80-94); Mean Platelet Volume 9.4 fL (7.4-10.4); Monocytes # 0.5 10^3/uL (0.2-0.9); Monocytes % 9.2 %; Neutrophils # 3.31 10^3/uL (1.8-7.7); Neutrophils % 59.7 %; Nucleated Red Blood Cells % 0 %; Platelet Count 206 10^3/cmm (130-400); Red Blood Count 4.19 10^6/uL (4.1-5.3); Red Cell Distribution Width 31.8 % (12.1-15.1); White Blood Count 5.6 10^3/uL (4.0-10.0)
[2020-10-11 09:32] LABS: Alanine Aminotransferase 30 U/L (0-41); Albumin Level 3.9 g/dL (3.5-5.2); Alkaline Phosphatase 61 IU/L (40-130); Anion Gap 13.1 (5-19); Aspartate Amino Transferase 26 U/L (0-40); Blood Urea Nitrogen 9 mg/dL (8-23); Calcium 8.6 mg/dL (8.5-10.5); Carbon Dioxide 23 mmol/L (22-29); Chloride 108 mmol/L (98-107); Globulin 2.9 g/dL (1.3-4.6); Glomerular Filtration Rate 111.5 mL/min (90-130); Glucose 156 mg/dL (65-115); Osmolality Calculated 292 mOsm/kg (285-295); Potassium 4.1 mmol/L (3.5-5.1); Sodium 140 mmol/L (136-145); Total Bilirubin 0.4 mg/dL (0.15-1.2); Total Protein 6.8 g/dL (6.6-8.7)
[2020-10-11] MEDS: dextrose 5% 250 ML 75 ML IV (10:15)
[2020-10-11] MEDS: palonosetron 0.25 mg/5 mL SDV IVP (10:18)
--- NOTE | 2020-10-11 19:10 | ONC FU_ITS ---
Dr. Abrams Patient Follow-Up Note Patient: Genaro Robbins Unit #: [id number]: 1950 Dicatated By: Eliel Abrams M.D.Date of Visit:Oct 11, 2020 Onc Med Follow-up/Prog Note Chief Complaint: Rectal cancer. 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 He had presented with iron deficiency anemia in association with rectal bleeding. His initial CBC showed hemoglobin low at 7.5 g and hematocrit 29%. His iron saturation was 3.5% and the ferritin was low at 15 ng/mL, consistent with iron deficiency. He was transfused 2 units PRBC and he also began on oral iron supplementation with ferrous sulfate. He was unable to tolerate it due to GI side effects. In the meantime, he was seen by Dr. Caldwell and he underwent EGD and colonoscopy on 08/23/2020. The EGD showed evidence of gastritis with multiple gastric erosions. The colonoscopy showed a 7 mm pedunculated polyp in the ascending colon, a 5 mm sessile polyp in the descending colon, and a 1 cm pedunculated polyp in the sigmoid colon. The rectum showed an ulcerated malignant appearing mass along the right lateral wall approximately 6 cm from the anal verge. The mass was palpable by digital rectal exam. Biopsy of the rectal mass showed moderately differentiated invasive adenocarcinoma. The descending colon polyp was noted to be hyperplastic. The other polyps were tubular adenomas without high-grade dysplasia or malignancy. Gastric biopsy showed mild chronic gastritis. Staging CT scans of the chest, abdomen, and pelvis showed asymmetric soft tissue thickening at the rectum, with the anterior wall measuring up to 12 mm. Indeterminate pelvic lymph nodes were noted just anterior to the L5-S1 disc space, the largest measuring 12 mm. A right lower lobe pulmonary nodule measured 1.5 cm, consistent with metastatic lesion, versus primary lung neoplasm, versus benign lesion. Indeterminant left hilar lymph nodes measured up to 12 mm. There was no evidence of other metastatic disease. His baseline CEA was elevated at 15.6 ng/mL. He had colorectal surgery consultation with Dr. Ranulfo Anguiano on 09/03/2021. Staging MRI of the pelvis on 09/13/2020 was consistent with a T3 primary lesion with suspected involvement in 3/5 mesorectal lymph nodes. He began cycle 1 of neoadjuvant chemotherapy with modified FOLFOX on 09/27/2020. His staging PET/CT on 09/22/2020 showed circumferential rectal thickening with SUV 12.1, consistent with known primary malignancy. Subcentimeter perirectal lymph nodes were too small to characterize. A 1.0 presacral lymph node had SUV 4.3, consistent with local metastatic disease. The right lower lobe pulmonary nodule measuring 1.7 x 1.8 cm and SUV 2.5. This was felt to be suggestive of a benign finding, but followup was felt to be warranted. Also noted were 4 mm nodules in the left upper lobe and lateral right upper lobe, too small to characterize. There were no other areas of abnormal uptake on that study. With those findings he was recommended to proceed with total neoadjuvant therapy. His other medical illnesses include hypertension, dyslipidemia, type 2 diabetes, coronary artery disease, and GERD. He has had previous angioplasty/stent placement. He is a non-smoker. INTERIM HISTORY: He began cycle 1 of neoadjuvant chemotherapy with modified FOLFOX on 09/27/2020. He experienced no nausea/vomiting or other acute toxicity with the chemotherapy. He developed some transient diarrhea at day 3. He also developed peripheral neuropathy symptoms, primarily cold sensitivity, but that was beginning to improve by day 8. As he still had moderately severe anemia and he was intolerant of oral iron, he also was given parenteral iron replacement with 2 infusions of Injectafer. He tolerated these well. He is seen for a scheduled visit. He is feeling much better. His energy has improved, particularly during the past 3 days. He is basically back to normal activity. ECOG score is 0. Appetite also is pretty good now. He has no fever or night sweats. He had neuropathy symptoms in his tongue, but those are mostly resolved. He is otherwise not had mouth sores. He has no shortness of breath, cough, or chest pain. He has not been having nausea. He has had a little diarrhea. He has had no further blood in the stool since his pump was unhooked at day 3. He has no complaints. He has a little stiffness in his joints, no significant joint or bone pain. He does not complain of headache or dizziness. He has very minimal residual neuropathy. Medications: amLODIPine Besylate 1 (2.5 mg) Tablet Oral b.i.d., Aspirin 1 (81 mg) Tablet, chewable Oral daily, Claritin 1 (10 mg) Tablet Oral daily, Crestor 1 (20 mg) Tablet Oral daily, glipiZIDE XL 1 (2.5 mg) Tablet SR 24 HR Oral daily, Isosorbide Mononitrate ER 1 (30 mg) Tablet SR 24 HR Oral b.i.d., Lisinopril 1 (5 mg) Tablet Oral b.i.d., metFORMIN HCl 1 (1000 mg) Tablet Oral b.i.d., Metoprolol Succinate ER 1 (50 mg) Tablet SR 24 HR Oral daily, Nitroglycerin Tablet, sublingual Sublingual PRN, Pantoprazole Sodium 1 (40 mg) Tablet, enteric coated Oral daily Allergies: Sulfa Antibiotics Vital Signs: Performed on Oct 11, 2020 09:33 Height - 72.00 in Weight - 267 lbs (HIGH) BSA - 2.41 sq.m BMI - 36.21 (HIGH) Temperature - 147 F (HIGH) Pulse - 84 /min Respiration - 18 /min BP - 147/68 mm(hg) (HIGH) O2 Sat - 98 % Pain - 2 Physical Examination: Constitutional - He looks good generally, Eyes - Sclerae nonicteric. Conjunctivae clear, ENMT - No lesions noted in the oral cavity, Hematologic/Lymphatic - No cervical, clavicular, or axillary adenopathy, Respiratory - Lungs are clear with good air movement bilaterally, Cardiovascular - Heart rhythm is regular. There is no murmur, gallop, or rub noted, Abdomen - Soft. Liver and spleen are not enlarged. There is no abdominal mass or ascites noted and there is no inguinal adenopathy, Extremities - No edema, Neurologic - No focal deficits. Lab/Imaging: Test performed on Oct 11, 2020 08:45 Sodium 140 mmol/L Potassium 4.1 mmol/L Chloride 108 mmol/L CO2 23 mmol/L Anion Gap 13.1 BUN 9 mg/dL Creatinine 0.7 mg/dL Cr Clearance (Est) 170.6000 mL/min eGFR 111.5 mL/min Glucose 156 mg/dL Osmolality - Calculated 292 mOsm/kg Calcium 8.6 mg/dL Protein, Total 6.8 g/dL Albumin 3.9 g/dL Globulin 2.9 g/dL Bilirubin, Total 0.4 mg/dL ALT (SGPT) 30 U/L AST (SGOT) 26 U/L Alkaline Phosphatase 61 IU/L WBC 5.6 10 3/uL RBC 4.19 10 6/uL HGB 10.4 g/dL HCT 35.5 % MCV 84.7 fL MCH 24.8 pg MCHC 29.3 g/dL RDW 31.8 % Platelet Count 206 10 3/cmm MPV 9.4 fL Neutrophils 3.31 10 3/uL Lymphocytes 1.4 10 3/uL Monocytes 0.5 10 3/uL Eosinophils 0.3 10 3/uL Basophils 0.0 10 3/uL Neutrophil % 59.7 % Lymphocyte % 25.2 % Monocyte % 9.2 % Eosinophil % 4.9 % Basophils % 0.5 % NRBC % 0 % Problem List: 1. Moderately differentiated invasive adenocarcinoma of the rectum, by clinical evaluation stage at least T3, N1. 2. CT evidence of 1.5 cm right lower lobe pulmonary nodule, clinical significance of which is uncertain. 3. Iron deficiency anemia, presumed to be due to GI blood loss. He had been intolerant of oral iron due to GI side effects. 4. Hypertension. 5. Dyslipidemia. 6. Type 2 diabetes. 7. Coronary artery disease with previous angioplasty/stent placement. 8. GERD. Problems Addressed with this Encounter and Plan: 1. Moderately differentiated invasive adenocarcinoma of the rectum. By clinical evaluation his disease appeared to be stage T3, N1. He was recommended to undergo total neoadjuvant therapy. He began cycle 1 of modified FOLFOX chemotherapy on 09/27/2020. Side effects were limited to mild fatigue, transient diarrhea, and neuropathy (cold sensitivity). Overall, he tolerated treatment well, though he still has minimal residual neuropathy symptoms. He has had significant clinical improvement. He will proceed now with cycle 2 of modified FOLFOX. Due to the neuropathy, it will be administered with a 1 level dose reduction in the oxaliplatin. He will be scheduled for a follow-up visit in 2 weeks. 2. Iron deficiency anemia with intolerance to oral iron. He was given parenteral iron replacement with 2 infusions of Injectafer. He does appear to be showing some response, though he remains mildly anemic. He may require additional parenteral iron replacement if the anemia does not completely correct. 3. He had CT evidence of 1.5 cm right lower lobe pulmonary nodule. It showed low-grade FDG uptake by PET, SUV 2.4, suggestive of benign etiology. It will require follow-up. 4. Type 2 diabetes. His blood sugars are better controlled now with addition of glipizide. Signed By: Eliel Abrams M.D. <<Signature on File>>
[2020-10-25 09:34] LABS: Basophils # 0.1 10^3/uL (0.0-0.1); Eosinophils # 0.2 10^3/uL (0.0-0.8); Eosinophils % 3.8 %; Hematocrit 38.2 % (42.0-52.0); Hemoglobin 11.6 g/dL (11.7-16.6); Lymphocytes % 40.4 %; Mean Corpuscular HGB Conc 30.4 g/dL (30.0-36.0); Mean Corpuscular Hemoglobin 25.8 pg (28.0-34.0); Mean Corpuscular Volume 85.1 fL (80-94); Mean Platelet Volume 9.8 fL (7.4-10.4); Monocytes # 0.6 10^3/uL (0.2-0.9); Monocytes % 11.1 %; Neutrophils # 2.15 10^3/uL (1.8-7.7); Neutrophils % 42.7 %; Nucleated Red Blood Cells % 0 %; Platelet Count 166 10^3/cmm (130-400); Red Blood Count 4.49 10^6/uL (4.1-5.3)
[2020-10-25 09:50] LABS: Alanine Aminotransferase 38 U/L (0-41); Alkaline Phosphatase 59 IU/L (40-130); Anion Gap 14.9 (5-19); Aspartate Amino Transferase 29 U/L (0-40); Blood Urea Nitrogen 10 mg/dL (8-23); Calcium 8.9 mg/dL (8.5-10.5); Carbon Dioxide 24 mmol/L (22-29); Chloride 103 mmol/L (98-107); Globulin 2.9 g/dL (1.3-4.6); Glomerular Filtration Rate 133.2 mL/min (90-130); Glucose 191 mg/dL (65-115); Osmolality Calculated 288 mOsm/kg (285-295); Potassium 4.9 mmol/L (3.5-5.1); Sodium 137 mmol/L (136-145); Total Bilirubin 0.4 mg/dL (0.15-1.2); Total Protein 6.9 g/dL (6.6-8.7)
[2020-10-25 10:18] LABS: Slide Review Slide Review Perform
[2020-10-25] MEDS: dextrose 5% 250 ML 75 ML (11:00)
[2020-10-25] MEDS: palonosetron 0.25 mg/5 mL SDV IVP (11:00)
[2020-10-25 12:14] LABS: Carcinoembryonic Antigen 15.6 ng/mL (0.0-4.7)
--- NOTE | 2020-10-25 18:03 | ONC FU_ITS ---
Dr. Abrams Patient Follow-Up Note Patient: Genaro Robbins Unit #: [id number]: 1950 Dicatated By: Eliel Abrams M.D.Date of Visit:Oct 25, 2020 Onc Med Follow-up/Prog Note Chief Complaint: Rectal cancer. 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 He had presented with iron deficiency anemia in association with rectal bleeding. His initial CBC showed hemoglobin low at 7.5 g and hematocrit 29%. His iron saturation was 3.5% and the ferritin was low at 15 ng/mL, consistent with iron deficiency. He was transfused 2 units PRBC and he also began on oral iron supplementation with ferrous sulfate. He was unable to tolerate it due to GI side effects. In the meantime, he was seen by Dr. Caldwell and he underwent EGD and colonoscopy on 08/23/2020. The EGD showed evidence of gastritis with multiple gastric erosions. The colonoscopy showed a 7 mm pedunculated polyp in the ascending colon, a 5 mm sessile polyp in the descending colon, and a 1 cm pedunculated polyp in the sigmoid colon. The rectum showed an ulcerated malignant appearing mass along the right lateral wall approximately 6 cm from the anal verge. The mass was palpable by digital rectal exam. Biopsy of the rectal mass showed moderately differentiated invasive adenocarcinoma. The descending colon polyp was noted to be hyperplastic. The other polyps were tubular adenomas without high-grade dysplasia or malignancy. Gastric biopsy showed mild chronic gastritis. Staging CT scans of the chest, abdomen, and pelvis showed asymmetric soft tissue thickening at the rectum, with the anterior wall measuring up to 12 mm. Indeterminate pelvic lymph nodes were noted just anterior to the L5-S1 disc space, the largest measuring 12 mm. A right lower lobe pulmonary nodule measured 1.5 cm, consistent with metastatic lesion, versus primary lung neoplasm, versus benign lesion. Indeterminant left hilar lymph nodes measured up to 12 mm. There was no evidence of other metastatic disease. His baseline CEA was elevated at 15.6 ng/mL. He had colorectal surgery consultation with Dr. Ranulfo Anguiano on 09/03/2021. Staging MRI of the pelvis on 09/13/2020 was consistent with a T3 primary lesion with suspected involvement in 3/5 mesorectal lymph nodes. He began cycle 1 of neoadjuvant chemotherapy with modified FOLFOX on 09/27/2020. His staging PET/CT on 09/22/2020 showed circumferential rectal thickening with SUV 12.1, consistent with known primary malignancy. Subcentimeter perirectal lymph nodes were too small to characterize. A 1.0 presacral lymph node had SUV 4.3, consistent with local metastatic disease. The right lower lobe pulmonary nodule measuring 1.7 x 1.8 cm and SUV 2.5. This was felt to be suggestive of a benign finding, but followup was felt to be warranted. Also noted were 4 mm nodules in the left upper lobe and lateral right upper lobe, too small to characterize. There were no other areas of abnormal uptake on that study. With those findings he was recommended to proceed with total neoadjuvant therapy. His other medical illnesses include hypertension, dyslipidemia, type 2 diabetes, coronary artery disease, and GERD. He has had previous angioplasty/stent placement. He is a non-smoker. INTERIM HISTORY: He began cycle 1 of neoadjuvant chemotherapy with modified FOLFOX on 09/27/2020. He experienced no nausea/vomiting or other acute toxicity with the chemotherapy. He developed some transient diarrhea at day 3. He also developed peripheral neuropathy symptoms, primarily cold sensitivity, but that was beginning to improve by day 8. As he still had moderately severe anemia and he was intolerant of oral iron, he also was given parenteral iron replacement with 2 infusions of Injectafer. He tolerated these well. He then continued with cycle 2 of modified FOLFOX on 10/11/2020. He did require 1 level dose reduction in the oxaliplatin due to the neuropathy. He is seen for a scheduled visit. He has been feeling good generally. He had fatigue and anorexia for a few days after his treatment. His energy is otherwise been close to normal, and he has normal activity. His ECOG score is 0. He has not had fever or night sweats. He did have treatment for oral candidiasis, but that is better now. He has otherwise not had mouth sores. He has no shortness of breath, cough, or chest pain. He colonel he has no GI or complaints. In particular, he has not had diarrhea and he has not been aware of any further rectal bleeding. Recently has had some pain in the right hip area. He otherwise just has mild generalized joint pain. He continues to have some numbness/tingling in his fingers, though he says it has gotten 90% better over the last 3 to 4 days. Medications: amLODIPine Besylate 1 (2.5 mg) Tablet Oral b.i.d., Aspirin 1 (81 mg) Tablet, chewable Oral daily, Claritin 1 (10 mg) Tablet Oral daily, Crestor 1 (20 mg) Tablet Oral daily, glipiZIDE XL 1 (2.5 mg) Tablet SR 24 HR Oral daily, Isosorbide Mononitrate ER 1 (30 mg) Tablet SR 24 HR Oral b.i.d., Lisinopril 1 (5 mg) Tablet Oral b.i.d., metFORMIN HCl 1 (1000 mg) Tablet Oral b.i.d., Metoprolol Succinate ER 1 (50 mg) Tablet SR 24 HR Oral daily, Nitroglycerin Tablet, sublingual Sublingual PRN, Pantoprazole Sodium 1 (40 mg) Tablet, enteric coated Oral daily Allergies: Sulfa Antibiotics Vital Signs: Performed on Oct 25, 2020 10:28 Height - 72.00 in Weight - 264.8 lbs (LOW) BSA - 2.40 sq.m BMI - 35.91 (HIGH) Temperature - 98.0 F (LOW) Pulse - 79 /min Respiration - 18 /min BP - 163/75 mm(hg) (HIGH) O2 Sat - 97 % Pain - 0 Fatigue - 0 Physical Examination: Constitutional - He looks good generally, Eyes - Sclerae nonicteric. Conjunctivae clear, ENMT - No lesions noted in the oral cavity, Hematologic/Lymphatic - No cervical, clavicular, or axillary adenopathy, Respiratory - Lungs are clear with good air movement bilaterally, Cardiovascular - Heart rhythm is regular. There is no murmur, gallop, or rub noted, Abdomen - Soft. Liver and spleen are not enlarged. There is no abdominal mass or ascites noted and there is no inguinal adenopathy, Extremities - No edema, Neurologic - No focal deficits. Lab/Imaging: Test performed on Oct 25, 2020 09:15 Sodium 137 mmol/L Potassium 4.9 mmol/L Chloride 103 mmol/L CO2 24 mmol/L Anion Gap 14.9 BUN 10 mg/dL Creatinine 0.6 mg/dL Cr Clearance (Est) 199.0400 mL/min eGFR 133.2 mL/min Glucose 191 mg/dL Osmolality - Calculated 288 mOsm/kg Calcium 8.9 mg/dL Protein, Total 6.9 g/dL Albumin 4.0 g/dL Globulin 2.9 g/dL Bilirubin, Total 0.4 mg/dL ALT (SGPT) 38 U/L AST (SGOT) 29 U/L Alkaline Phosphatase 59 IU/L WBC 5.0 10 3/uL RBC 4.49 10 6/uL HGB 11.6 g/dL HCT 38.2 % MCV 85.1 fL MCH 25.8 pg MCHC 30.4 g/dL Platelet Count 166 10 3/cmm MPV 9.8 fL Neutrophils 2.15 10 3/uL Lymphocytes 2.0 10 3/uL Monocytes 0.6 10 3/uL Eosinophils 0.2 10 3/uL Basophils 0.1 10 3/uL Neutrophil % 42.7 % Lymphocyte % 40.4 % Monocyte % 11.1 % Eosinophil % 3.8 % Basophils % 1.0 % NRBC % 0 % CBC Slide Review Slide Review Perform SLIDE REVIEW AGREES WITH AUTOMATED RESULTS ST CEA 15.6 ng/mL Problem List: 1. Moderately differentiated invasive adenocarcinoma of the rectum, by clinical evaluation stage at least T3, N1. 2. CT evidence of 1.5 cm right lower lobe pulmonary nodule, clinical significance of which is uncertain. 3. Iron deficiency anemia, presumed to be due to GI blood loss. He had been intolerant of oral iron due to GI side effects. 4. Hypertension. 5. Dyslipidemia. 6. Type 2 diabetes. 7. Coronary artery disease with previous angioplasty/stent placement. 8. GERD. Problems Addressed with this Encounter and Plan: 1. Moderately differentiated invasive adenocarcinoma of the rectum. By clinical evaluation his disease appeared to be stage T3, N1. He was recommended to undergo total neoadjuvant therapy. He began cycle 1 of modified FOLFOX chemotherapy on 09/27/2020. Side effects were limited to mild fatigue, transient diarrhea, and neuropathy (cold sensitivity). Overall, he tolerated treatment well, though at cycle 2 he had some residual neuropathy symptoms, and he was given a one level dose reduction in the oxaliplatin with that cycle. At this point he continues to have mild neuropathy symptoms. Other treatment related side effects have been limited to fatigue and anorexia lasting just a few days after treatment. Overall, he is tolerating the chemotherapy well, and he does appear to have significant clinical improvement. He will proceed now with cycle 3 of modified FOLFOX. The dosages will remain the same. He will be scheduled for a follow-up visit in 2 weeks. 2. Iron deficiency anemia with intolerance to oral iron. He was given parenteral iron replacement with 2 infusions of Injectafer. He is continuing to show response, though he remains mildly anemic. He will be given further parenteral iron replacement as needed. 3. He had CT evidence of 1.5 cm right lower lobe pulmonary nodule. It showed low-grade FDG uptake by PET, SUV 2.4, suggestive of benign etiology. It will require follow-up. Signed By: Eliel Abrams M.D. <<Signature on File>>
== END 2020-11-04 23:59 | disposition home or self-care (01) ==
LOC: ONCMED 07:00
PROVIDERS: Nurse Practitioner; PCP Nurse Practitioner Family; Visit Provider Internal Medicine Medical Oncology
DX: Z51.11 Encounter for antineoplastic chemotherapy (principal); C20 Malignant neoplasm of rectum; R91.1 Solitary pulmonary nodule; D50.0 Iron deficiency anemia secondary to blood loss (chronic); I10 Essential (primary) hypertension; E78.5 Hyperlipidemia, unspecified; E11.59 Type 2 diabetes mellitus with other circulatory complications; I25.10 Atherosclerotic heart disease of native coronary artery without angina pectoris; Z95.5 Presence of coronary angioplasty implant and graft; K21.9 Gastro-esophageal reflux disease without esophagitis; Z79.899 Other long term (current) drug therapy
CPT/HCPCS: 80053; 82378; 85025; 96367; 96368; 96413; 96415; 96416; 99214; J0640; J1100; J2469; J9190; J9263

== ENCOUNTER 2020-11-22 05:24 | Outpatient (RCR) | payer MEDICARE, SELFPAY ==
[2020-11-08 09:12] LABS: Basophils # 0.1 10^3/uL (0.0-0.1); Eosinophils # 0.2 10^3/uL (0.0-0.8); Eosinophils % 3.5 %; Hematocrit 38.6 % (42.0-52.0); Hemoglobin 12.1 g/dL (11.7-16.6); Lymphocytes # 1.6 10^3/uL (0.8-4.8); Lymphocytes % 31.3 %; Mean Corpuscular HGB Conc 31.3 g/dL (30.0-36.0); Mean Corpuscular Hemoglobin 27.8 pg (28.0-34.0); Mean Corpuscular Volume 88.5 fL (80-94); Mean Platelet Volume 10.1 fL (7.4-10.4); Monocytes # 0.6 10^3/uL (0.2-0.9); Monocytes % 12.3 %; Neutrophils # 2.66 10^3/uL (1.8-7.7); Neutrophils % 51.1 %; Nucleated Red Blood Cells % 0 %; Platelet Count 154 10^3/cmm (130-400); Red Blood Count 4.36 10^6/uL (4.1-5.3); White Blood Count 5.2 10^3/uL (4.0-10.0)
[2020-11-08 09:37] LABS: Alanine Aminotransferase 57 U/L (0-41); Alkaline Phosphatase 57 IU/L (40-130); Anion Gap 13.6 (5-19); Aspartate Amino Transferase 45 U/L (0-40); Blood Urea Nitrogen 9 mg/dL (8-23); Carbon Dioxide 24 mmol/L (22-29); Chloride 103 mmol/L (98-107); Globulin 2.8 g/dL (1.3-4.6); Glomerular Filtration Rate 95.6 mL/min (90-130); Glucose 216 mg/dL (65-115); Osmolality Calculated 287 mOsm/kg (285-295); Potassium 4.6 mmol/L (3.5-5.1); Sodium 136 mmol/L (136-145); Total Bilirubin 0.3 mg/dL (0.15-1.2); Total Protein 6.8 g/dL (6.6-8.7)
[2020-11-08 09:47] LABS: Slide Review Slide Review Perform
[2020-11-08] MEDS: dextrose 5% 250 ML 75 ML IV (11:47)
[2020-11-08] MEDS: palonosetron 0.25 mg/5 mL SDV IVP (11:47)
[2020-11-08 12:10] LABS: Ferritin 453 ng/mL (30-400); Iron 76 ug/dL (59-158); Percent Saturation 26.4 % (20-50); Total Iron Binding Capacity 287 mcg/dl; Unsaturated Iron Binding 211 ug/dL (112-347)
--- NOTE | 2020-11-14 09:36 | ONC FU_ITS ---
[facility] Patient Note Patient: Genaro Robbins Unit #: [id number]: 1950 Dictated By: Velvet GaffneyDate of Visit: Nov 08, 2020 Onc MED Follow-Up/Prog Note Chief Complaint: Rectal cancer. 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 He had presented with iron deficiency anemia in association with rectal bleeding. His initial CBC showed hemoglobin low at 7.5 g and hematocrit 29%. His iron saturation was 3.5% and the ferritin was low at 15 ng/mL, consistent with iron deficiency. He was transfused 2 units PRBC and he also began on oral iron supplementation with ferrous sulfate. He was unable to tolerate it due to GI side effects. In the meantime, he was seen by Dr. Caldwell and he underwent EGD and colonoscopy on 08/23/2020. The EGD showed evidence of gastritis with multiple gastric erosions. The colonoscopy showed a 7 mm pedunculated polyp in the ascending colon, a 5 mm sessile polyp in the descending colon, and a 1 cm pedunculated polyp in the sigmoid colon. The rectum showed an ulcerated malignant appearing mass along the right lateral wall approximately 6 cm from the anal verge. The mass was palpable by digital rectal exam. Biopsy of the rectal mass showed moderately differentiated invasive adenocarcinoma. The descending colon polyp was noted to be hyperplastic. The other polyps were tubular adenomas without high-grade dysplasia or malignancy. Gastric biopsy showed mild chronic gastritis. Staging CT scans of the chest, abdomen, and pelvis showed asymmetric soft tissue thickening at the rectum, with the anterior wall measuring up to 12 mm. Indeterminate pelvic lymph nodes were noted just anterior to the L5-S1 disc space, the largest measuring 12 mm. A right lower lobe pulmonary nodule measured 1.5 cm, consistent with metastatic lesion, versus primary lung neoplasm, versus benign lesion. Indeterminant left hilar lymph nodes measured up to 12 mm. There was no evidence of other metastatic disease. His baseline CEA was elevated at 15.6 ng/mL. He had colorectal surgery consultation with Dr. Ranulfo Anguiano on 09/03/2021. Staging MRI of the pelvis on 09/13/2020 was consistent with a T3 primary lesion with suspected involvement in 3/5 mesorectal lymph nodes. He began cycle 1 of neoadjuvant chemotherapy with modified FOLFOX on 09/27/2020. His staging PET/CT on 09/22/2020 showed circumferential rectal thickening with SUV 12.1, consistent with known primary malignancy. Subcentimeter perirectal lymph nodes were too small to characterize. A 1.0 presacral lymph node had SUV 4.3, consistent with local metastatic disease. The right lower lobe pulmonary nodule measuring 1.7 x 1.8 cm and SUV 2.5. This was felt to be suggestive of a benign finding, but followup was felt to be warranted. Also noted were 4 mm nodules in the left upper lobe and lateral right upper lobe, too small to characterize. There were no other areas of abnormal uptake on that study. With those findings he was recommended to proceed with total neoadjuvant therapy. His other medical illnesses include hypertension, dyslipidemia, type 2 diabetes, coronary artery disease, and GERD. He has had previous angioplasty/stent placement. He is a non-smoker. INTERIM HISTORY: He began cycle 1 of neoadjuvant chemotherapy with modified FOLFOX on 09/27/2020. He experienced no nausea/vomiting or other acute toxicity with the chemotherapy. He developed some transient diarrhea at day 3. He also developed peripheral neuropathy symptoms, primarily cold sensitivity, but that was beginning to improve by day 8. As he still had moderately severe anemia and he was intolerant of oral iron, he also was given parenteral iron replacement with 2 infusions of Injectafer. He tolerated these well. He then continued with cycle 2 of modified FOLFOX on 10/11/2020. He did require 1 level dose reduction in the oxaliplatin due to the neuropathy. Mr. Robbins is here today for follow-up. He states overall he feels really good. He has had no fever or chills. He states his appetite is good. He has had some mild nausea which he states is relieved with Pepcid and Gas-X. He has had no vomiting. 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 It is not completely resolved at this point. He is having some numbness and tingling in his fingertips. 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 Mrs. Claros states she is noticed that he has had some hard time buttoning shirt once in it while. 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 He states his bowels are good. He has had no hematochezia. He states he has not had any signs of blood in his stool for several weeks now. His energy is better but he still tires easily but recovers well with rest. He has no new concerns today. His ECOG is 0. Past Medical History: Allergic rhinitis Coronary artery disease Dyslipidemia Gastroesophageal reflux disease Hypertension Type II diabetes Past Surgical History: Covid 19 vaccine in 2020 Colonoscopy in 2019 Flu vaccine in 2019 Coronary angioplasty/stent placement in 2016 Allergies: Sulfa Antibiotics Medications: amLODIPine Besylate 1 (2.5 mg) Tablet Oral b.i.d. Aspirin 1 (81 mg) Tablet, chewable Oral daily Claritin 1 (10 mg) Tablet Oral daily Crestor 1 (20 mg) Tablet Oral daily glipiZIDE XL 1 (2.5 mg) Tablet SR 24 HR Oral daily Isosorbide Mononitrate ER 1 (30 mg) Tablet SR 24 HR Oral b.i.d. Lisinopril 1 (5 mg) Tablet Oral b.i.d. metFORMIN HCl 1 (1000 mg) Tablet Oral b.i.d. Metoprolol Succinate ER 1 (50 mg) Tablet SR 24 HR Oral daily Nitroglycerin Tablet, sublingual Sublingual PRN Pantoprazole Sodium 1 (40 mg) Tablet, enteric coated Oral daily Family History: Mr. Robbins's mother is : Pulmonary Embolism. Mr. Robbins's father is : coronary artery disease. Mr. Robbins has 2 brothers: 2 alive. Father of heart disease age 56. Mother at age 76, apparently of pulmonary embolism. Two brothers are in good health. Social History: Mr. Robbins is . Mr. Robbins has never smoked. He has no history of drinking. 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 He is a non-smoker. He does not drink alcohol. Review Of Symptoms: Constitutional Denies fevers, chills, night sweats, excessive fatigue or weight loss. Allergic/Immunologic No reactions. Eyes Denies significant visual changes. No diplopia. No amaurosis. ENMT Denies changes in hearing, sore throat, mouth sores, difficulty or changes in swallowing ability, and/or sinus drainage. Hematologic/Lymphatic Denies easy bruising or bleeding. The patient denies any tender or palpable lymph nodes. Respiratory Denies dyspnea on exertion, chest pain, cough or hemoptysis. Denies orthopnea. Cardiovascular Denies anginal chest pain, palpitations or orthopnea. Gastrointestinal Denies nausea, vomiting, diarrhea, GI bleeding, or constipation. Denies change in bowel habits and/or stool color, no heartburn or early satiety. Genitourinary (M) Denies hematuria, dysuria, increased frequency, urgency, hesitancy or incontinence. Musculoskeletal Denies joint pain, swelling or redness. No decreased range of motion. Integumentary Denies chronic rashes, inflammation, ulcerations or skin changes. Neurologic Denies headache, blurred vision, and no areas of focal weakness or numbness. Normal gait. No sensory problems. Psychiatric Denies insomnia, depression, jabari or mood swings. Vital Signs: Performed on Nov 08, 2020 10:53 Height - 72.00 in Weight - 263 lbs (LOW) BSA - 2.39 sq.m BMI - 35.67 (HIGH) Temperature - 97.7 F (LOW) Pulse - 75 /min Respiration - 18 /min BP - 144/73 mm(hg) (HIGH) O2 Sat - 95 % (LOW) Pain - 0 Fatigue - 0,0 - Fully active, able to carry on all predisease activities without restrictions. (ECOG) Physical Examination: Constitutional Alert, oriented, no acute distress. Skin pink, warm and dry. Head Normocephalic; atraumatic. Eyes Conjunctivae and sclerae are clear and without icterus. Pupils are reactive and equal. ENMT No oral exudates, ulcers, masses, thrush or mucositis. Oropharynx clear. Tongue normal. Neck Supple without masses or thyromegaly. No jugular venous distension. Hematologic/Lymphatic No petechiae or purpura. No tender or palpable lymph nodes in the cervical or supraclavicular areas. Respiratory Lungs are clear to auscultation without rhonchi or wheezing. Cardiovascular Regular rate and rhythm of heart without murmurs,clicks, gallops or rubs. Abdomen Non-tender, non-distended, no masses or ascites. Good bowel sounds noted in all quads. No guarding or rebound tenderness. No pulsatile masses. Back/Spine Non-tender to palpation. Extremities No visible deformities, no cyanosis, clubbing or edema. Musculoskeletal No tenderness or swelling, normal range of motion without obvious weakness. Integumentary No rashes or lesions. Neurologic No sensory or motor deficits, normal cerebellar function, normal gait. Psychiatric Alert and oriented times three. Coherent speech. Verbalizes understanding of our discussions today. Laboratory:Test performed on Nov 08, 2020 08:51 Ferritin 453 ng/mL Iron 76 mcg/dL Sodium 136 mmol/L Iron Binding Capacity (TIBC) 287 mcg/dl Potassium 4.6 mmol/L % Iron Saturation 26.4 % Chloride 103 mmol/L CO2 24 mmol/L UIBC 211 mcg/dL Anion Gap 13.6 BUN 9 mg/dL Creatinine 0.8 mg/dL Cr Clearance (Est) 149.2800 mL/min eGFR 95.6 mL/min Glucose 216 mg/dL Osmolality - Calculated 287 mOsm/kg Calcium 9.0 mg/dL Protein, Total 6.8 g/dL Albumin 4.0 g/dL Globulin 2.8 g/dL Bilirubin, Total 0.3 mg/dL ALT (SGPT) 57 U/L AST (SGOT) 45 U/L Alkaline Phosphatase 57 IU/L WBC 5.2 10 3/uL RBC 4.36 10 6/uL HGB 12.1 g/dL HCT 38.6 % MCV 88.5 fL MCH 27.8 pg MCHC 31.3 g/dL RDW 25.0 % Platelet Count 154 10 3/cmm MPV 10.1 fL Neutrophils 2.66 10 3/uL Lymphocytes 1.6 10 3/uL Monocytes 0.6 10 3/uL Eosinophils 0.2 10 3/uL Basophils 0.1 10 3/uL Neutrophil % 51.1 % Lymphocyte % 31.3 % Monocyte % 12.3 % Eosinophil % 3.5 % Basophils % 1.0 % NRBC % 0 % CBC Slide Review Slide Review Perform SLIDE REVIEW AGREES WITH AUTOMATED RESULTS ST Test performed on Oct 25, 2020 09:15 CEA 15.6 ng/mL Impression: 1. Moderately differentiated invasive adenocarcinoma of the rectum, by clinical evaluation stage at least T3, N1. 2. CT evidence of 1.5 cm right lower lobe pulmonary nodule, clinical significance of which is uncertain. 3. Iron deficiency anemia, presumed to be due to GI blood loss. He had been intolerant of oral iron due to GI side effects. 4. Hypertension. 5. Dyslipidemia. 6. Type 2 diabetes. 7. Coronary artery disease with previous angioplasty/stent placement. 8. GERD. Plan: 1. Moderately differentiated invasive adenocarcinoma of the rectum. By clinical evaluation his disease appeared to be stage T3, N1. He was recommended to undergo total neoadjuvant therapy. He began cycle 1 of modified FOLFOX chemotherapy on 09/27/2020. Side effects were limited to mild fatigue, transient diarrhea, and neuropathy (cold sensitivity). Overall, he tolerated treatment well, though at cycle 2 he had some residual neuropathy symptoms, and he was given a one level dose reduction in the oxaliplatin with that cycle. At this point he continues to have mild neuropathy symptoms. Other treatment related side effects have been limited to fatigue and anorexia lasting just a few days after treatment. Overall, he is tolerating the chemotherapy well, and he does appear to have significant clinical improvement. A. Proceed now with cycle 4 of modified FOLFOX. I did dose reduce the oxaliplatin 65 mg per metered squared given severity of his peripheral neuropathy and that is not resolving between treatments now. B. Labs from today reviewed in detail discussed with . Mrs. Robbins and a copy was given to them. WBC 5.2, hemoglobin 12.1, platelets 254,000 ANC is 2660. Potassium 4.6 random glucose 216 creatinine 0.8 LFTs reveal an ALT of 57 AST is 45 alkaline phosphatase normal at 57. His CEA from October 25, 2020 was 15.6 which is the same as his baseline at diagnosis. 2. Iron deficiency anemia with intolerance to oral iron. He was given parenteral iron replacement with 2 infusions of Injectafer, With the last dose being given on October 04, 2020. His hemoglobin is now corrected at 12.1. His iron studies were pending at time of visit. 3. Intermittent nausea related to chemotherapy A. Is currently controlled with Pepcid and simethicone. He is advised to continue continue to use this as needed. We did discuss the option of putting him on a PPI daily but he states he does not feel he needs it currently. 4. Follow-up plan A. We will plan to see him back in 2 weeks with CBC CMP. B. Mr. Robbins was instructed to contact us in the interim should questions or problems arise. C. He had CT evidence of 1.5 cm right lower lobe pulmonary nodule. It showed low-grade FDG uptake by PET, SUV 2.4, suggestive of benign etiology. It will require follow-up. Signed By: Velvet Gaffney-, [facility] Eliel Abrams MD <<Signature on File>>
[2020-11-22 08:24] LABS: Basophils # 0.1 10^3/uL (0.0-0.1); Basophils % 1.3 %; Eosinophils # 0.2 10^3/uL (0.0-0.8); Eosinophils % 4.4 %; Hematocrit 39.7 % (42.0-52.0); Hemoglobin 13.1 g/dL (11.7-16.6); Lymphocytes # 1.6 10^3/uL (0.8-4.8); Lymphocytes % 28.7 %; Mean Corpuscular Hemoglobin 29.3 pg (28.0-34.0); Mean Corpuscular Volume 88.8 fL (80-94); Mean Platelet Volume 9.6 fL (7.4-10.4); Monocytes # 0.7 10^3/uL (0.2-0.9); Monocytes % 13.4 %; Neutrophils # 2.81 10^3/uL (1.8-7.7); Neutrophils % 50.9 %; Nucleated Red Blood Cells % 0 %; Platelet Count 151 10^3/cmm (130-400); Red Blood Count 4.47 10^6/uL (4.1-5.3); Red Cell Distribution Width 26.5 % (12.1-15.1); White Blood Count 5.5 10^3/uL (4.0-10.0)
[2020-11-22 08:45] LABS: Carcinoembryonic Antigen 10.5 ng/mL (0.0-4.7)
[2020-11-22 08:56] LABS: Alanine Aminotransferase 43 U/L (0-41); Albumin Level 3.8 g/dL (3.5-5.2); Alkaline Phosphatase 69 IU/L (40-130); Anion Gap 17.1 (5-19); Aspartate Amino Transferase 31 U/L (0-40); Blood Urea Nitrogen 12 mg/dL (8-23); Calcium 8.9 mg/dL (8.5-10.5); Carbon Dioxide 22 mmol/L (22-29); Chloride 103 mmol/L (98-107); Globulin 3.1 g/dL (1.3-4.6); Glomerular Filtration Rate 95.6 mL/min (90-130); Glucose 227 mg/dL (65-115); Osmolality Calculated 293 mOsm/kg (285-295); Potassium 4.1 mmol/L (3.5-5.1); Sodium 138 mmol/L (136-145); Total Bilirubin 0.3 mg/dL (0.15-1.2); Total Protein 6.9 g/dL (6.6-8.7)
[2020-11-22] MEDS: dextrose 5% 250 ML 75 ML IV (10:03)
[2020-11-22] MEDS: palonosetron 0.25 mg/5 mL SDV IVP (10:03)
--- NOTE | 2020-11-22 14:14 | ONC FU_ITS ---
Dr. Abrams Patient Follow-Up Note Patient: Genaro Robbins Unit #: [id number]: [id number] Dicatated By: Eliel Abrams M.D.Date of Visit:Nov 22, 2020 Onc Med Follow-up/Prog Note Chief Complaint: Rectal cancer. 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 He had presented with iron deficiency anemia in association with rectal bleeding. His initial CBC showed hemoglobin low at 7.5 g and hematocrit 29%. His iron saturation was 3.5% and the ferritin was low at 15 ng/mL, consistent with iron deficiency. He was transfused 2 units PRBC and he also began on oral iron supplementation with ferrous sulfate. He was unable to tolerate it due to GI side effects. In the meantime, he was seen by Dr. Caldwell and he underwent EGD and colonoscopy on 08/23/2020. The EGD showed evidence of gastritis with multiple gastric erosions. The colonoscopy showed a 7 mm pedunculated polyp in the ascending colon, a 5 mm sessile polyp in the descending colon, and a 1 cm pedunculated polyp in the sigmoid colon. The rectum showed an ulcerated malignant appearing mass along the right lateral wall approximately 6 cm from the anal verge. The mass was palpable by digital rectal exam. Biopsy of the rectal mass showed moderately differentiated invasive adenocarcinoma. The descending colon polyp was noted to be hyperplastic. The other polyps were tubular adenomas without high-grade dysplasia or malignancy. Gastric biopsy showed mild chronic gastritis. Staging CT scans of the chest, abdomen, and pelvis showed asymmetric soft tissue thickening at the rectum, with the anterior wall measuring up to 12 mm. Indeterminate pelvic lymph nodes were noted just anterior to the L5-S1 disc space, the largest measuring 12 mm. A right lower lobe pulmonary nodule measured 1.5 cm, consistent with metastatic lesion, versus primary lung neoplasm, versus benign lesion. Indeterminant left hilar lymph nodes measured up to 12 mm. There was no evidence of other metastatic disease. His baseline CEA was elevated at 15.6 ng/mL. He had colorectal surgery consultation with Dr. Ranulfo Anguiano on 09/03/2021. Staging MRI of the pelvis on 09/13/2020 was consistent with a T3 primary lesion with suspected involvement in 3/5 mesorectal lymph nodes. He began cycle 1 of neoadjuvant chemotherapy with modified FOLFOX on 09/27/2020. His staging PET/CT on 09/22/2020 showed circumferential rectal thickening with SUV 12.1, consistent with known primary malignancy. Subcentimeter perirectal lymph nodes were too small to characterize. A 1.0 presacral lymph node had SUV 4.3, consistent with local metastatic disease. The right lower lobe pulmonary nodule measuring 1.7 x 1.8 cm and SUV 2.5. This was felt to be suggestive of a benign finding, but followup was felt to be warranted. Also noted were 4 mm nodules in the left upper lobe and lateral right upper lobe, too small to characterize. There were no other areas of abnormal uptake on that study. With those findings he was recommended to proceed with total neoadjuvant therapy. His other medical illnesses include hypertension, dyslipidemia, type 2 diabetes, coronary artery disease, and GERD. He has had previous angioplasty/stent placement. He is a non-smoker. INTERIM HISTORY: He began cycle 1 of neoadjuvant chemotherapy with modified FOLFOX on 09/27/2020. He experienced no nausea/vomiting or other acute toxicity with the chemotherapy. He developed some transient diarrhea at day 3. He also developed peripheral neuropathy symptoms, primarily cold sensitivity, but that was beginning to improve by day 8. As he still had moderately severe anemia and he was intolerant of oral iron, he also was given parenteral iron replacement with 2 infusions of Injectafer. He tolerated these well. He then continued with cycle 2 of modified FOLFOX on 10/11/2020. He did require 1 level dose reduction in the oxaliplatin due to the neuropathy. He then proceeded with cycle 3 on 10/25/2020 and with cycle 4 on 11/08/2020. At that point he did require a second dose reduction in the oxaliplatin, again for neuropathy. He is seen for a scheduled visit. He has been feeling pretty good generally. He has some limitation in his activity, but he is working 3 days a week. ECOG score is 1. He has good appetite. He has no fever or night sweats. He continues to have neuropathy, but mainly just cold sensitivity. Involves his hands and mouth. The symptoms persisted until 3 days ago. He continues to have soreness in his mouth. He has no shortness of breath, cough, or chest pain. He has just very mild nausea. He is having some reflux at night, and he is taking Pepcid along with the pantoprazole. He has just occasional diarrhea. Bladder function has been okay. He has no significant joint or bone pain. Medications: amLODIPine Besylate 1 (2.5 mg) Tablet Oral b.i.d., Aspirin 1 (81 mg) Tablet, chewable Oral daily, Claritin 1 (10 mg) Tablet Oral daily, Crestor 1 (20 mg) Tablet Oral daily, glipiZIDE XL 1 (2.5 mg) Tablet SR 24 HR Oral daily, Isosorbide Mononitrate ER 1 (30 mg) Tablet SR 24 HR Oral b.i.d., Lisinopril 1 (5 mg) Tablet Oral b.i.d., metFORMIN HCl 1 (1000 mg) Tablet Oral b.i.d., Metoprolol Succinate ER 1 (50 mg) Tablet SR 24 HR Oral daily, Nitroglycerin Tablet, sublingual Sublingual PRN, Pantoprazole Sodium 1 (40 mg) Tablet, enteric coated Oral daily Allergies: Sulfa Antibiotics Vital Signs: Performed on Nov 22, 2020 09:09 Height - 72.00 in Weight - 260.6 lbs (LOW) BSA - 2.38 sq.m BMI - 35.34 (HIGH) Temperature - 98 F (LOW) Pulse - 91 /min Respiration - 18 /min BP - 154/73 mm(hg) (HIGH) O2 Sat - 97 % Pain - 0 Fatigue - 4 Physical Examination: Constitutional - He looks good generally, Eyes - Sclerae nonicteric. Conjunctivae clear, ENMT - No lesions noted in the oral cavity, Hematologic/Lymphatic - No cervical, clavicular, or axillary adenopathy, Respiratory - Lungs are clear with good air movement bilaterally, Cardiovascular - Heart rhythm is regular. There is no murmur, gallop, or rub noted, Abdomen - Soft. Liver and spleen are not enlarged. There is no abdominal mass or ascites noted and there is no inguinal adenopathy, Extremities - No edema, Neurologic - No focal neurologic deficits noted. Lab/Imaging: Test performed on Nov 22, 2020 08:09 Sodium 138 mmol/L Potassium 4.1 mmol/L Chloride 103 mmol/L CO2 22 mmol/L Anion Gap 17.1 BUN 12 mg/dL Creatinine 0.8 mg/dL Cr Clearance (Est) 149.2800 mL/min eGFR 95.6 mL/min Glucose 227 mg/dL Osmolality - Calculated 293 mOsm/kg Calcium 8.9 mg/dL Protein, Total 6.9 g/dL Albumin 3.8 g/dL Globulin 3.1 g/dL Bilirubin, Total 0.3 mg/dL ALT (SGPT) 43 U/L AST (SGOT) 31 U/L Alkaline Phosphatase 69 IU/L WBC 5.5 10 3/uL RBC 4.47 10 6/uL HGB 13.1 g/dL HCT 39.7 % MCV 88.8 fL MCH 29.3 pg MCHC 33.0 g/dL RDW 26.5 % Platelet Count 151 10 3/cmm MPV 9.6 fL Neutrophils 2.81 10 3/uL Lymphocytes 1.6 10 3/uL Monocytes 0.7 10 3/uL Eosinophils 0.2 10 3/uL Basophils 0.1 10 3/uL Neutrophil % 50.9 % Lymphocyte % 28.7 % Monocyte % 13.4 % Eosinophil % 4.4 % Basophils % 1.3 % NRBC % 0 % CEA 10.5 ng/mL Problem List: 1. Moderately differentiated invasive adenocarcinoma of the rectum, by clinical evaluation stage at least T3, N1. 2. CT evidence of 1.5 cm right lower lobe pulmonary nodule, clinical significance of which is uncertain. 3. Iron deficiency anemia, presumed to be due to GI blood loss. He had been intolerant of oral iron due to GI side effects. 4. Hypertension. 5. Dyslipidemia. 6. Type 2 diabetes. 7. Coronary artery disease with previous angioplasty/stent placement. 8. GERD. Problems Addressed with this Encounter and Plan: 1. Moderately differentiated invasive adenocarcinoma of the rectum. By clinical evaluation his disease appeared to be stage T3, N1. He was recommended to undergo total neoadjuvant therapy. He began cycle 1 of modified FOLFOX chemotherapy on 09/27/2020. Side effects were limited to mild fatigue, transient diarrhea, and neuropathy (cold sensitivity). Overall, he tolerated treatment well, though at cycle 2 he had some residual neuropathy symptoms, and he was given a 1 level dose reduction in the oxaliplatin with that cycle. He continued with cycle 3 on 10/25/2020 and with cycle 4 on 11/08/2020. At that point he required a second dose reduction in the oxaliplatin, again because of neuropathy. Overall he appears to be doing well clinically, though he continues to have neuropathy symptoms, mainly just cold sensitivity. His CEA level has come down somewhat, though it is still elevated. He will proceed now with cycle 5 of modified FOLFOX. The dosages will remain the same. He will be scheduled for a follow-up visit in 2 weeks. I will plan restaging CT scans after the 6th cycle. 2. Iron deficiency anemia with intolerance to oral iron. He was given parenteral iron replacement with 2 infusions of Injectafer. He has had a good response. 3. He had CT evidence of 1.5 cm right lower lobe pulmonary nodule. It showed low-grade FDG uptake by PET, SUV 2.4, suggestive of benign etiology. It will require follow-up. Signed By: Eliel Abrams M.D. <<Signature on File>>
== END 2020-12-05 23:59 | disposition home or self-care (01) ==
LOC: ONCMED 05:24
PROVIDERS: Nurse Practitioner; PCP Nurse Practitioner Family; Visit Provider Internal Medicine Medical Oncology
DX: Z51.11 Encounter for antineoplastic chemotherapy (principal); C20 Malignant neoplasm of rectum; D50.0 Iron deficiency anemia secondary to blood loss (chronic); I10 Essential (primary) hypertension; E78.5 Hyperlipidemia, unspecified; E11.59 Type 2 diabetes mellitus with other circulatory complications; I25.10 Atherosclerotic heart disease of native coronary artery without angina pectoris; Z95.5 Presence of coronary angioplasty implant and graft; K21.9 Gastro-esophageal reflux disease without esophagitis; Z79.899 Other long term (current) drug therapy
CPT/HCPCS: 80053; 82378; 82728; 83540; 83550; 85025; 96367; 96368; 96413; 96415; 96416; 96417; 99214; 99215; J0640; J1100; J2469; J9190; J9263

== ENCOUNTER 2021-01-03 05:35 | Outpatient (RCR) | payer MEDICARE, SELFPAY ==
[2020-12-06 09:25] LABS: Basophils % 0.5 %; Eosinophils # 0.2 10^3/uL (0.0-0.8); Eosinophils % 3.8 %; Hematocrit 37.9 % (42.0-52.0); Hemoglobin 12.7 g/dL (11.7-16.6); Lymphocytes # 1.5 10^3/uL (0.8-4.8); Lymphocytes % 27.6 %; Mean Corpuscular HGB Conc 33.5 g/dL (30.0-36.0); Mean Corpuscular Hemoglobin 30.5 pg (28.0-34.0); Mean Corpuscular Volume 90.9 fL (80-94); Monocytes # 0.7 10^3/uL (0.2-0.9); Monocytes % 11.8 %; Neutrophils # 3.07 10^3/uL (1.8-7.7); Neutrophils % 55.2 %; Nucleated Red Blood Cells % 0 %; Platelet Count 142 10^3/cmm (130-400); Red Blood Count 4.17 10^6/uL (4.1-5.3); Red Cell Distribution Width 24.9 % (12.1-15.1); White Blood Count 5.6 10^3/uL (4.0-10.0)
[2020-12-06 09:43] LABS: Albumin Level 3.7 g/dL (3.5-5.2); Alkaline Phosphatase 63 IU/L (40-130); Anion Gap 15.9 (5-19); Blood Urea Nitrogen 9 mg/dL (8-23); Calcium 8.5 mg/dL (8.5-10.5); Carbon Dioxide 23 mmol/L (22-29); Chloride 105 mmol/L (98-107); Globulin 2.9 g/dL (1.3-4.6); Glomerular Filtration Rate 133.2 mL/min (90-130); Glucose 168 mg/dL (65-115); Osmolality Calculated 293 mOsm/kg (285-295); Potassium 3.9 mmol/L (3.5-5.1); Sodium 140 mmol/L (136-145); Total Bilirubin 0.3 mg/dL (0.15-1.2); Total Protein 6.6 g/dL (6.6-8.7)
[2020-12-06 11:00] LABS: Alanine Aminotransferase 42 U/L (0-41)
[2020-12-06 11:01] LABS: Aspartate Amino Transferase 30 U/L (0-40)
[2020-12-06] MEDS: sodium chloride 0.9% 500 ML 999 ML IV (11:28)
[2020-12-06] MEDS: palonosetron 0.25 mg/5 mL SDV IV (12:07)
[2020-12-06] MEDS: dextrose 5% 250 ML 75 ML IV (12:07)
[2020-12-06] MEDS: sodium chloride 0.9% 1,000 ML 30 ML IV (16:51)
--- NOTE | 2020-12-14 08:30 | CT_ITS ---
WS: [id number] CT scan of the chest With IV contrast, CT scan of the abdomen and pelvis with IV contrast and oral contrast. Additional two-dimensional coronal and sagittal reconstruction was performed. Clinical Data: RECTAL CANCER FOLLOWUP Comparison: CT chest abdomen and pelvis, 08/23/2020. DLP: 2559.[address] scans at [facility] use at least one of these dose optimization techniques: automat ed exposure control; mA and/or kV adjustment per patient size (includes targeted exams where dose is matched to clinical indication); or iterative reconstruction. Findings: Chest: No masses or effusions are seen. The right lower lobe nodule seen on the prior study is now 0.6 cm a nd is seen best on axial image 37 of 75. The heart size is normal with no pericardial effusion. No pn eumonia or pneumothorax is seen. A left infusion port is noted. The trachea bifurcates normally into the bronchi. The pulmonary arterial system and thoracic aorta demonstrate no abnormalities or dilatations. There is no axillary or significant mediastinal adenopathy. The bony thorax shows no metastatic lesio ns. Abdomen/pelvis: The liver, gallbladder, spleen, adrenal glands and pancreas are normal. There is an small cyst on the medial aspect of the right lobe of the liver unchanged. The kidneys show equal bilateral contrast excretion with no masses, hydronephrosis or renal calculi. The left pararenal cysts are again seen. The abdominal aorta is normal in size with calcification in the wall.. No appendicitis or diverticulitis is seen. Oral contrast is in the stomach and small bowel and there is no bowel dilatation. No abscess, significant adenopathy, ascites, mass, obstruction or free air is seen. The bladder is unremarkable. The prostate has calcification within. No inguinal hernia is seen. No re ctal masses are seen. The bones of the lower thorax, lumbar spine, pelvis, and hips show no metastati c lesions. There is osteoarthritic change of the lumbar spine.. CT/CT chest abd pel w con* Impression: 1. Decrease in size of right lower lobe nodule to 0.6 cm. 2. No evidence of metastatic disease in the chest, abdomen or pelvis.
[2020-12-14] MEDS: iohexol 300 mg/mL 50 mL Btl PO (09:41)
[2020-12-14] MEDS: iohexol 300 mg/mL 100 mL Btl IV (10:15)
--- NOTE | 2020-12-18 06:30 | ONC FU_ITS ---
[facility]ons[facility] Patient Note Patient: Genaro Robbins Unit #: [id number]: 1950 Dictated By: Velvet GaffneyDate of Visit: Dec 06, 2020 Onc MED Follow-Up/Prog Note Chief Complaint: Rectal cancer. 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 He had presented with iron deficiency anemia in association with rectal bleeding. His initial CBC showed hemoglobin low at 7.5 g and hematocrit 29%. His iron saturation was 3.5% and the ferritin was low at 15 ng/mL, consistent with iron deficiency. He was transfused 2 units PRBC and he also began on oral iron supplementation with ferrous sulfate. He was unable to tolerate it due to GI side effects. In the meantime, he was seen by Dr. Caldwell and he underwent EGD and colonoscopy on 08/23/2020. The EGD showed evidence of gastritis with multiple gastric erosions. The colonoscopy showed a 7 mm pedunculated polyp in the ascending colon, a 5 mm sessile polyp in the descending colon, and a 1 cm pedunculated polyp in the sigmoid colon. The rectum showed an ulcerated malignant appearing mass along the right lateral wall approximately 6 cm from the anal verge. The mass was palpable by digital rectal exam. Biopsy of the rectal mass showed moderately differentiated invasive adenocarcinoma. The descending colon polyp was noted to be hyperplastic. The other polyps were tubular adenomas without high-grade dysplasia or malignancy. Gastric biopsy showed mild chronic gastritis. Staging CT scans of the chest, abdomen, and pelvis showed asymmetric soft tissue thickening at the rectum, with the anterior wall measuring up to 12 mm. Indeterminate pelvic lymph nodes were noted just anterior to the L5-S1 disc space, the largest measuring 12 mm. A right lower lobe pulmonary nodule measured 1.5 cm, consistent with metastatic lesion, versus primary lung neoplasm, versus benign lesion. Indeterminant left hilar lymph nodes measured up to 12 mm. There was no evidence of other metastatic disease. His baseline CEA was elevated at 15.6 ng/mL. He had colorectal surgery consultation with Dr. Ranulfo Anguiano on 09/03/2021. Staging MRI of the pelvis on 09/13/2020 was consistent with a T3 primary lesion with suspected involvement in 3/5 mesorectal lymph nodes. He began cycle 1 of neoadjuvant chemotherapy with modified FOLFOX on 09/27/2020. His staging PET/CT on 09/22/2020 showed circumferential rectal thickening with SUV 12.1, consistent with known primary malignancy. Subcentimeter perirectal lymph nodes were too small to characterize. A 1.0 presacral lymph node had SUV 4.3, consistent with local metastatic disease. The right lower lobe pulmonary nodule measuring 1.7 x 1.8 cm and SUV 2.5. This was felt to be suggestive of a benign finding, but followup was felt to be warranted. Also noted were 4 mm nodules in the left upper lobe and lateral right upper lobe, too small to characterize. There were no other areas of abnormal uptake on that study. With those findings he was recommended to proceed with total neoadjuvant therapy. His other medical illnesses include hypertension, dyslipidemia, type 2 diabetes, coronary artery disease, and GERD. He has had previous angioplasty/stent placement. He is a non-smoker. INTERIM HISTORY: He began cycle 1 of neoadjuvant chemotherapy with modified FOLFOX on 09/27/2020. He experienced no nausea/vomiting or other acute toxicity with the chemotherapy. He developed some transient diarrhea at day 3. He also developed peripheral neuropathy symptoms, primarily cold sensitivity, but that was beginning to improve by day 8. As he still had moderately severe anemia and he was intolerant of oral iron, he also was given parenteral iron replacement with 2 infusions of Injectafer. He tolerated these well. He then continued with cycle 2 of modified FOLFOX on 10/11/2020. He did require 1 level dose reduction in the oxaliplatin due to the neuropathy. He then proceeded with cycle 3 on 10/25/2020 and with cycle 4 on 11/08/2020. At that point he did require a second dose reduction in the oxaliplatin, again for neuropathy. Mr. Robbins is here today for follow-up. He is due for cycle 6 modified FOLFOX. He continues to tolerate it well overall. He has had some cold-induced neuropathy but typically resolves prior to his next treatment. He has had slight residual but not enough to affect his activities of daily living. He states it mainly involves his hands in his mouth. Persists for 3 to 4 days post treatment. He states his appetite is good. He continues to work 3 days a week and tolerating this well. He denies any new concerns. He has had no new pain. He denies any fever or chills. He states his breathing is normal for him. He denies any orthopnea or hemoptysis. He denies any nausea or vomiting. He has had some acid reflux at night but this is controlled well with pantoprazole along with occasional Pepcid. He states is not gotten any worse. He has occasional diarrhea but this is controlled with [id number] Imodium if needed. He denies any constipation. He denies any bladder concerns. He denies any significant joint or bone or muscle pain. His ECOG is 1. Past Medical History: Allergic rhinitis Coronary artery disease Dyslipidemia Gastroesophageal reflux disease Hypertension Type II diabetes Past Surgical History: Covid 19 vaccine in 2020 Colonoscopy in 2019 Flu vaccine in 2019 Coronary angioplasty/stent placement in 2017 Allergies: Sulfa Antibiotics Medications: amLODIPine Besylate 1 (2.5 mg) Tablet Oral b.i.d. Aspirin 1 (81 mg) Tablet, chewable Oral daily Claritin 1 (10 mg) Tablet Oral daily Crestor 1 (20 mg) Tablet Oral daily glipiZIDE XL 1 (2.5 mg) Tablet SR 24 HR Oral daily Isosorbide Mononitrate ER 1 (30 mg) Tablet SR 24 HR Oral b.i.d. Lisinopril 1 (5 mg) Tablet Oral b.i.d. metFORMIN HCl 1 (1000 mg) Tablet Oral b.i.d. Metoprolol Succinate ER 1 (50 mg) Tablet SR 24 HR Oral daily Nitroglycerin Tablet, sublingual Sublingual PRN Pantoprazole Sodium 1 (40 mg) Tablet, enteric coated Oral daily Family History: Mr. Robbins's mother is : Pulmonary Embolism. Mr. Robbins's father is : coronary artery disease. Mr. Robbins has 2 brothers: 2 alive. Father of heart disease age 56. Mother at age 76, apparently of pulmonary embolism. Two brothers are in good health. Social History: Mr. Robbins is . Mr. Robbins has never smoked. He has no history of drinking. 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 He is a non-smoker. He does not drink alcohol. Review Of Symptoms: Constitutional Denies fevers, chills, night sweats, excessive fatigue or weight loss. Allergic/Immunologic No reactions. Eyes Denies significant visual changes. No diplopia. No amaurosis. ENMT Denies changes in hearing, sore throat, mouth sores, difficulty or changes in swallowing ability, and/or sinus drainage. Hematologic/Lymphatic Denies easy bruising or bleeding. The patient denies any tender or palpable lymph nodes. Respiratory Denies dyspnea on exertion, chest pain, cough or hemoptysis. Denies orthopnea. Cardiovascular Denies anginal chest pain, palpitations or orthopnea. Gastrointestinal Denies nausea, vomiting, diarrhea, GI bleeding, or constipation. Denies change in bowel habits and/or stool color, no heartburn or early satiety. Genitourinary (M) Denies hematuria, dysuria, increased frequency, urgency, hesitancy or incontinence. Musculoskeletal Denies joint pain, swelling or redness. No decreased range of motion. Integumentary Denies chronic rashes, inflammation, ulcerations or skin changes. Neurologic Denies headache, blurred vision, and no areas of focal weakness or numbness. Normal gait. No sensory problems. Psychiatric Denies insomnia, depression, jabari or mood swings. Vital Signs: Performed on Dec 06, 2020 10:17 Height - 72.00 in Weight - 261.4 lbs (HIGH) BSA - 2.39 sq.m BMI - 35.45 (HIGH) Temperature - 97.6 F (LOW) Pulse - 71 /min Respiration - 17 /min BP - 147/76 mm(hg) (HIGH) O2 Sat - 98 % Pain - 0,0 - Fully active, able to carry on all predisease activities without restrictions. (ECOG) Physical Examination: Constitutional Alert, oriented, no acute distress. Skin pink, warm and dry. Head Normocephalic; atraumatic. Eyes Conjunctivae and sclerae are clear and without icterus. Pupils are reactive and equal. Neck Supple without masses or thyromegaly. No jugular venous distension. Hematologic/Lymphatic No petechiae or purpura. No tender or palpable lymph nodes in the cervical or supraclavicular areas. Respiratory Lungs are clear to auscultation without rhonchi or wheezing. Cardiovascular Regular rate and rhythm of heart without murmurs,clicks, gallops or rubs. Abdomen Non-tender, non-distended, no masses or ascites. Good bowel sounds noted in all quads. No guarding or rebound tenderness. No pulsatile masses. Back/Spine Non-tender to palpation. Extremities No visible deformities, no cyanosis, clubbing or edema. Musculoskeletal No tenderness or swelling, normal range of motion without obvious weakness. Integumentary No rashes or lesions. Neurologic No sensory or motor deficits, normal cerebellar function, normal gait. Psychiatric Alert and oriented times three. Coherent speech. Verbalizes understanding of our discussions today. Laboratory:Test performed on Dec 06, 2020 09:00 Sodium 140 mmol/L Potassium 3.9 mmol/L Chloride 105 mmol/L CO2 23 mmol/L Anion Gap 15.9 BUN 9 mg/dL Creatinine 0.6 mg/dL Cr Clearance (Est) 199.0400 mL/min eGFR 133.2 mL/min Glucose 168 mg/dL Osmolality - Calculated 293 mOsm/kg Calcium 8.5 mg/dL Protein, Total 6.6 g/dL Albumin 3.7 g/dL Globulin 2.9 g/dL Bilirubin, Total 0.3 mg/dL ALT (SGPT) 42 U/L AST (SGOT) 30 U/L Alkaline Phosphatase 63 IU/L WBC 5.6 10 3/uL RBC 4.17 10 6/uL HGB 12.7 g/dL HCT 37.9 % MCV 90.9 fL MCH 30.5 pg MCHC 33.5 g/dL RDW 24.9 % Platelet Count 142 10 3/cmm MPV 10.0 fL Neutrophils 3.07 10 3/uL Lymphocytes 1.5 10 3/uL Monocytes 0.7 10 3/uL Eosinophils 0.2 10 3/uL Basophils 0.0 10 3/uL Neutrophil % 55.2 % Lymphocyte % 27.6 % Monocyte % 11.8 % Eosinophil % 3.8 % Basophils % 0.5 % NRBC % 0 % Test performed on Nov 22, 2020 08:09 CEA 10.5 ng/mL Test performed on Nov 08, 2020 08:51 Ferritin 453 ng/mL Iron 76 mcg/dL Iron Binding Capacity (TIBC) 287 mcg/dl % Iron Saturation 26.4 % UIBC 211 mcg/dL CBC Slide Review Slide Review Perform SLIDE REVIEW AGREES WITH AUTOMATED RESULTS ST Impression: 1. Moderately differentiated invasive adenocarcinoma of the rectum, by clinical evaluation stage at least T3, N1. 2. CT evidence of 1.5 cm right lower lobe pulmonary nodule, clinical significance of which is uncertain. 3. Iron deficiency anemia, presumed to be due to GI blood loss. He had been intolerant of oral iron due to GI side effects. 4. Hypertension. 5. Dyslipidemia. 6. Type 2 diabetes. 7. Coronary artery disease with previous angioplasty/stent placement. 8. GERD. Plan: 1. Moderately differentiated invasive adenocarcinoma of the rectum. By clinical evaluation his disease appeared to be stage T3, N1. He was recommended to undergo total neoadjuvant therapy. He began cycle 1 of modified FOLFOX chemotherapy on 09/27/2020. Side effects were limited to mild fatigue, transient diarrhea, and neuropathy (cold sensitivity). Overall, he tolerated treatment well, though at cycle 2 he had some residual neuropathy symptoms, and he was given a 1 level dose reduction in the oxaliplatin with that cycle. He continued with cycle 3 on 10/25/2020 and with cycle 4 on 11/08/2020. At that point he required a second dose reduction in the oxaliplatin, again because of neuropathy. Overall he appears to be doing well clinically, though he continues to have neuropathy symptoms, mainly just cold sensitivity. His CEA level has come down somewhat, though it is still elevated. His last level on November 22, 2020 was 10.5. A. Proceed with cycle 6 FOLFOX. His oxaliplatin dosing has been reduced to 65 mg per metered squared. It will remain the same at that today. B. He will continue antiemetics with Dex and Aloxi as this is working well with him. C. Today's labs reviewed in detail and discussed with Mr. Mrs. Robbins and a copy was given to them. WBC 5.6, hemoglobin 12.7, platelets 142,000 ANC is 3070. Potassium 3.9, random glucose 168 creatinine 0.6 LFTs are normal. Last CEA on 11/22/2020 was 10.5. His weight is stable to 61 today[address] D[address] His last CT of the chest abdomen pelvis with contrast was on 08/23/2020. He is due for restaging after his sixth cycle of FOLFOX which is today. E. He will have refill of his oxycodone 5 mg 1 to 2 tablets for trial of his neuropathy pain. A prescription was authorized per Dr. Abrams's written prescription for #10 for trial. Mr. Albert will let us know how this is working for him. 2. Iron deficiency anemia with intolerance to oral iron. A. He was given parenteral iron replacement with 2 infusions of Injectafer. He has had a good response. His hemoglobin is 12.7 today. 3. He had CT evidence of 1.5 cm right lower lobe pulmonary nodule. It showed low-grade FDG uptake by PET, SUV 2.4, suggestive of benign etiology. It will require follow-up. A. He is due for CT of the chest abdomen pelvis after this cycle. 4. Follow-up plan A. He will have restaging imaging with CT of the chest abdomen pelvis with contrast prior to his next visit in 2 weeks. B. He will be due for CBC CMP CEA and follow-up visit for consideration of chemotherapy and review of his restaging imaging in 2 weeks. C. Mr. Robbins was instructed to contact us in the interim should questions or problems arise. Signed By: Velvet Gaffney-, [facility] Eliel Abrams MD <<Signature on File>>
[2020-12-20 08:28] LABS: Basophils # 0.1 10^3/uL (0.0-0.1); Basophils % 0.9 %; Eosinophils # 0.2 10^3/uL (0.0-0.8); Eosinophils % 3.5 %; Hematocrit 39.7 % (42.0-52.0); Hemoglobin 13.2 g/dL (11.7-16.6); Lymphocytes # 1.6 10^3/uL (0.8-4.8); Lymphocytes % 28.9 %; Mean Corpuscular HGB Conc 33.2 g/dL (30.0-36.0); Mean Corpuscular Hemoglobin 31.3 pg (28.0-34.0); Mean Corpuscular Volume 94.1 fL (80-94); Mean Platelet Volume 9.5 fL (7.4-10.4); Monocytes # 0.6 10^3/uL (0.2-0.9); Monocytes % 11.3 %; Neutrophils # 3.08 10^3/uL (1.8-7.7); Neutrophils % 54.3 %; Nucleated Red Blood Cells % 0 %; Platelet Count 150 10^3/cmm (130-400); Red Blood Count 4.22 10^6/uL (4.1-5.3); Red Cell Distribution Width 22.8 % (12.1-15.1); White Blood Count 5.7 10^3/uL (4.0-10.0)
[2020-12-20 08:55] LABS: Carcinoembryonic Antigen 11.6 ng/mL (0.0-4.7)
[2020-12-20 09:06] LABS: Alanine Aminotransferase 55 U/L (0-41); Albumin Level 4.1 g/dL (3.5-5.2); Alkaline Phosphatase 66 IU/L (40-130); Anion Gap 15.6 (5-19); Aspartate Amino Transferase 47 U/L (0-40); Blood Urea Nitrogen 7 mg/dL (8-23); Calcium 8.5 mg/dL (8.5-10.5); Carbon Dioxide 23 mmol/L (22-29); Chloride 106 mmol/L (98-107); Globulin 2.5 g/dL (1.3-4.6); Glomerular Filtration Rate 111.5 mL/min (90-130); Glucose 152 mg/dL (65-115); Osmolality Calculated 293 mOsm/kg (285-295); Potassium 3.6 mmol/L (3.5-5.1); Sodium 141 mmol/L (136-145); Total Bilirubin 0.3 mg/dL (0.15-1.2); Total Protein 6.6 g/dL (6.6-8.7)
[2020-12-20] MEDS: dextrose 5% 250 ML 75 ML IV (10:30)
[2020-12-20] MEDS: palonosetron 0.25 mg/5 mL SDV IV (10:30)
--- NOTE | 2021-01-03 00:31 | ONC FU_ITS ---
[facility] Patient Note Patient: Genaro Robbins Unit #: [id number]: 1950 Dictated By: Velvet GaffneyDate of Visit: Dec 20, 2020 Onc MED Follow-Up/Prog Note Chief Complaint: Rectal cancer. 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 He had presented with iron deficiency anemia in association with rectal bleeding. His initial CBC showed hemoglobin low at 7.5 g and hematocrit 29%. His iron saturation was 3.5% and the ferritin was low at 15 ng/mL, consistent with iron deficiency. He was transfused 2 units PRBC and he also began on oral iron supplementation with ferrous sulfate. He was unable to tolerate it due to GI side effects. In the meantime, he was seen by Dr. Caldwell and he underwent EGD and colonoscopy on 08/23/2020. The EGD showed evidence of gastritis with multiple gastric erosions. The colonoscopy showed a 7 mm pedunculated polyp in the ascending colon, a 5 mm sessile polyp in the descending colon, and a 1 cm pedunculated polyp in the sigmoid colon. The rectum showed an ulcerated malignant appearing mass along the right lateral wall approximately 6 cm from the anal verge. The mass was palpable by digital rectal exam. Biopsy of the rectal mass showed moderately differentiated invasive adenocarcinoma. The descending colon polyp was noted to be hyperplastic. The other polyps were tubular adenomas without high-grade dysplasia or malignancy. Gastric biopsy showed mild chronic gastritis. Staging CT scans of the chest, abdomen, and pelvis showed asymmetric soft tissue thickening at the rectum, with the anterior wall measuring up to 12 mm. Indeterminate pelvic lymph nodes were noted just anterior to the L5-S1 disc space, the largest measuring 12 mm. A right lower lobe pulmonary nodule measured 1.5 cm, consistent with metastatic lesion, versus primary lung neoplasm, versus benign lesion. Indeterminant left hilar lymph nodes measured up to 12 mm. There was no evidence of other metastatic disease. His baseline CEA was elevated at 15.6 ng/mL. He had colorectal surgery consultation with Dr. Ranulfo Anguiano on 09/03/2021. Staging MRI of the pelvis on 09/13/2020 was consistent with a T3 primary lesion with suspected involvement in 3/5 mesorectal lymph nodes. He began cycle 1 of neoadjuvant chemotherapy with modified FOLFOX on 09/27/2020. His staging PET/CT on 09/22/2020 showed circumferential rectal thickening with SUV 12.1, consistent with known primary malignancy. Subcentimeter perirectal lymph nodes were too small to characterize. A 1.0 presacral lymph node had SUV 4.3, consistent with local metastatic disease. The right lower lobe pulmonary nodule measuring 1.7 x 1.8 cm and SUV 2.5. This was felt to be suggestive of a benign finding, but followup was felt to be warranted. Also noted were 4 mm nodules in the left upper lobe and lateral right upper lobe, too small to characterize. There were no other areas of abnormal uptake on that study. With those findings he was recommended to proceed with total neoadjuvant therapy. His other medical illnesses include hypertension, dyslipidemia, type 2 diabetes, coronary artery disease, and GERD. He has had previous angioplasty/stent placement. He is a non-smoker. INTERIM HISTORY: He began cycle 1 of neoadjuvant chemotherapy with modified FOLFOX on 09/27/2020. He experienced no nausea/vomiting or other acute toxicity with the chemotherapy. He developed some transient diarrhea at day 3. He also developed peripheral neuropathy symptoms, primarily cold sensitivity, but that was beginning to improve by day 8. As he still had moderately severe anemia and he was intolerant of oral iron, he also was given parenteral iron replacement with 2 infusions of Injectafer. He tolerated these well. He then continued with cycle 2 of modified FOLFOX on 10/11/2020. He did require 1 level dose reduction in the oxaliplatin due to the neuropathy. He then proceeded with cycle 3 on 10/25/2020 and with cycle 4 on 11/08/2020. At that point he did require a second dose reduction in the oxaliplatin, again for neuropathy. Mr. Robbins had follow-up CT of the chest abdomen pelvis with contrast on December 14, 2020. The impression overall was decrease in the size the right lower lobe nodule to 0.6 cm; no evidence of metastatic disease in the chest, abdomen or pelvis. The right lower lobe nodule measured 1.7 x 1.8 cm on his PET/CT from September 22, 2020. There was no report of the rectal thickening. On the CT from December 14, 2020. After discussing his PET CT results with Dr. Abrams, Dr. Abrams has recommended that Mr. Robbins proceed with 8 cycles of chemotherapy then most likely repeat his pelvic MRI for closer monitoring of the rectal thickening. After the eighth cycle of of chemotherapy and the MRI has been obtained we will plan to send him for radiation therapy with concurrent Xeloda at 875 mg per metered squared twice daily while on the Xeloda. Mr. Robbins is here today for follow-up. He is due for cycle 7 modified FOLFOX. He states it mainly involves his hands in his mouth. Persists for 3 to 4 days post treatment. He has had significant neuropathy so much so that his oxaliplatin dose was reduced again after completion of cycle 3. He had required a dose reduction after the first cycle due to the neuropathy as well. He is now at the second dose reduction. He states that his fingers are better but he still has neuropathy. He states his most significant for 3 to 5 days after treatment and is almost gone by the time he comes back for his next treatment. He states otherwise he is doing well. He denies any nausea or vomiting. He states he is eating good. He continues to work 3 days a week and tolerates this well. He has had some acid reflux at night but this is controlled well with pantoprazole along with occasional Pepcid. He states is not gotten any worse. He has occasional diarrhea but this is controlled with [id number] Imodium if needed. He denies any constipation. He denies any bladder concerns. He denies any significant joint or bone or muscle pain. His ECOG is 1. Past Medical History: Allergic rhinitis Coronary artery disease Dyslipidemia Gastroesophageal reflux disease Hypertension Type II diabetes Past Surgical History: Covid 19 vaccine in 2020 Colonoscopy in 2019 Flu vaccine in 2019 Coronary angioplasty/stent placement in 2016 Allergies: Sulfa Antibiotics Medications: amLODIPine Besylate 1 (2.5 mg) Tablet Oral b.i.d. Aspirin 1 (81 mg) Tablet, chewable Oral daily Claritin 1 (10 mg) Tablet Oral daily Crestor 1 (20 mg) Tablet Oral daily glipiZIDE XL 1 (2.5 mg) Tablet SR 24 HR Oral daily Isosorbide Mononitrate ER 1 (30 mg) Tablet SR 24 HR Oral b.i.d. Lisinopril 1 (5 mg) Tablet Oral b.i.d. metFORMIN HCl 1 (1000 mg) Tablet Oral b.i.d. Metoprolol Succinate ER 1 (50 mg) Tablet SR 24 HR Oral daily Nitroglycerin Tablet, sublingual Sublingual PRN Pantoprazole Sodium 1 (40 mg) Tablet, enteric coated Oral daily Family History: Mr. Robbins's mother is : Pulmonary Embolism. Mr. Robbins's father is : coronary artery disease. Mr. Robbins has 2 brothers: 2 alive. Father of heart disease age 56. Mother at age 76, apparently of pulmonary embolism. Two brothers are in good health. Social History: Mr. Robbins is . Mr. Robbins has never smoked. He has no history of drinking. 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 He is a non-smoker. He does not drink alcohol. Review Of Symptoms: Vital Signs: Performed on Dec 20, 2020 14:25 Height - 72.00 in Temperature - 97.7 F (LOW) Pulse - 87 /min Respiration - 18 /min BP - 191/79 mm(hg) (HIGH) O2 Sat - 99 % Pain - 0 Performed on Dec 20, 2020 08:00 Height - 72.00 in Weight - 261 lbs (LOW) BSA - 2.39 sq.m BMI - 35.40 (HIGH) Temperature - 98.2 F (LOW) Pulse - 79 /min Respiration - 18 /min BP - 172/80 mm(hg) (HIGH) O2 Sat - 99 % Pain - 0,0 - Fully active, able to carry on all predisease activities without restrictions. (ECOG) Physical Examination: Constitutional Alert, oriented, no acute distress. Skin pink, warm and dry. Head Normocephalic; atraumatic. Eyes Conjunctivae and sclerae are clear and without icterus. Pupils are reactive and equal. Neck Supple without masses or thyromegaly. No jugular venous distension. Hematologic/Lymphatic No petechiae or purpura. No tender or palpable lymph nodes in the cervical or supraclavicular areas. Respiratory Lungs are clear to auscultation without rhonchi or wheezing. Cardiovascular Regular rate and rhythm of heart without murmurs,clicks, gallops or rubs. Back/Spine Non-tender to palpation. Extremities No visible deformities, no cyanosis, clubbing or edema. Musculoskeletal No tenderness or swelling, normal range of motion without obvious weakness. Integumentary No rashes or lesions. Neurologic No sensory or motor deficits, normal cerebellar function, normal gait. Psychiatric Alert and oriented times three. Coherent speech. Verbalizes understanding of our discussions today. Laboratory:Test performed on Dec 20, 2020 08:10 Sodium 141 mmol/L Potassium 3.6 mmol/L Chloride 106 mmol/L CO2 23 mmol/L Anion Gap 15.6 BUN 7 mg/dL Creatinine 0.7 mg/dL Cr Clearance (Est) 170.6000 mL/min eGFR 111.5 mL/min Glucose 152 mg/dL Osmolality - Calculated 293 mOsm/kg Calcium 8.5 mg/dL Protein, Total 6.6 g/dL Albumin 4.1 g/dL Globulin 2.5 g/dL Bilirubin, Total 0.3 mg/dL ALT (SGPT) 55 U/L AST (SGOT) 47 U/L Alkaline Phosphatase 66 IU/L WBC 5.7 10 3/uL RBC 4.22 10 6/uL HGB 13.2 g/dL HCT 39.7 % MCV 94.1 fL MCH 31.3 pg MCHC 33.2 g/dL RDW 22.8 % Platelet Count 150 10 3/cmm MPV 9.5 fL Neutrophils 3.08 10 3/uL Lymphocytes 1.6 10 3/uL Monocytes 0.6 10 3/uL Eosinophils 0.2 10 3/uL Basophils 0.1 10 3/uL Neutrophil % 54.3 % Lymphocyte % 28.9 % Monocyte % 11.3 % Eosinophil % 3.5 % Basophils % 0.9 % NRBC % 0 % CEA 11.6 ng/mL Test performed on Nov 08, 2020 08:51 Ferritin 453 ng/mL Iron 76 mcg/dL Iron Binding Capacity (TIBC) 287 mcg/dl % Iron Saturation 26.4 % UIBC 211 mcg/dL CBC Slide Review Slide Review Perform SLIDE REVIEW AGREES WITH AUTOMATED RESULTS ST Impression: 1. Moderately differentiated invasive adenocarcinoma of the rectum, by clinical evaluation stage at least T3, N1. 2. CT evidence of 1.5 cm right lower lobe pulmonary nodule, clinical significance of which is uncertain. 3. Iron deficiency anemia, presumed to be due to GI blood loss. He had been intolerant of oral iron due to GI side effects. 4. Hypertension. 5. Dyslipidemia. 6. Type 2 diabetes. 7. Coronary artery disease with previous angioplasty/stent placement. 8. GERD. Plan: 1. Moderately differentiated invasive adenocarcinoma of the rectum. By clinical evaluation his disease appeared to be stage T3, N1. He was recommended to undergo total neoadjuvant therapy. He began cycle 1 of modified FOLFOX chemotherapy on 09/27/2020. Side effects were limited to mild fatigue, transient diarrhea, and neuropathy (cold sensitivity). Overall, he tolerated treatment well, though at cycle 2 he had some residual neuropathy symptoms, and he was given a 1 level dose reduction in the oxaliplatin with that cycle. He continued with cycle 3 on 10/25/2020 and with cycle 4 on 11/08/2020. At that point he required a second dose reduction in the oxaliplatin, again because of neuropathy. Overall he appears to be doing well clinically, though he continues to have neuropathy symptoms, mainly just cold sensitivity. His CEA level has come down somewhat, though it is still elevated. His last level on November 22, 2020 was 10.5. Mr. Robbins had follow-up CT of the chest abdomen pelvis with contrast on December 14, 2020. The impression overall was decrease in the size the right lower lobe nodule to 0.6 cm; no evidence of metastatic disease in the chest, abdomen or pelvis. The right lower lobe nodule measured 1.7 x 1.8 cm on his PET/CT from September 22, 2020. There was no report of the rectal thickening. On the CT from December 14, 2020. After discussing his PET CT results with Dr. Abrams, Dr. Abrams has recommended that Mr. Robbins proceed with 8 cycles of chemotherapy then most likely repeat his pelvic MRI for closer monitoring of the rectal thickening. After the eighth cycle of of chemotherapy and the MRI has been obtained we will plan to send him for radiation therapy with concurrent Xeloda at 875 mg per metered squared twice daily while on the Xeloda. A. Proceed with cycle 7 FOLFOX. His oxaliplatin dosing has been reduced to 65 mg per metered squared. It will remain the same at that today. B. He will continue antiemetics with Dex and Aloxi as this is working well with him. C. Today's labs reviewed in detail and discussed with Mr. Mrs. Robbins and a copy was given to them. WBC 5.7, hemoglobin 13.2, platelets 150,000, ANC is 3080. Potassium 3.6 creatinine 0.7 random glucose 153 ALT is 55 AST is 46 alk phos is 66. His CEA is 11.6. D. His last CT of the chest abdomen pelvis with contrast was on 12/14/2020. It did show improvement in his lung nodule it was decreased at 2.6 cm and had previously been reported on the PET CT from September 22, 2020 at 1.7 x 1.8 cm. He is due for An MRI of the pelvis with and without contrast. This has been requested for the [facility] where his last MRI with and without contrast was on September 15, 2020. 2. Iron deficiency anemia with intolerance to oral iron. A. He was given parenteral iron replacement with 2 infusions of Injectafer with the last dose being on October 04, 2020. B. He has had good response. His hemoglobin is 13.2 today. 3. He had CT evidence of 1.5 cm right lower lobe pulmonary nodule. It showed low-grade FDG uptake by PET, SUV 2.4, suggestive of benign etiology. Review of this pulmonary nodule was included in his recent CT of the chest abdomen pelvis. The CT nodule did show improvement in size down to 0.6 cm. 4. Follow-up plan A. He will be due for CBC CMP and follow-up visit for consideration of cycle 8 chemotherapy. B. After improvement of his CT of the chest abdomen pelvis as noted above. The plan will be to complete 8 cycles of the IV chemotherapy. He will then be referred to radiation oncology and the plan will be for him to have concurrent chemoradiation with Xeloda (capecitabine) at 825 mg twice daily while on radiation therapy. C. Mr. Robbins was instructed to contact us in the interim should questions or problems arise. Total time spent in review of Mr. Robbins follow-up CT reports, discussion (along with Dr. Abrams) with Mr. Mrs. Robbins regarding the findings, determining plan of care and follow-up plan as well as answering questions regarding chemotherapy and the follow-up plan as well as post visit documentation was 60 minutes. Signed By: Velvet Gaffney-SHANAE, AOCNP Eliel Abrams MD <<Signature on File>>
[2021-01-03 09:52] LABS: Basophils # 0.1 10^3/uL (0.0-0.1); Basophils % 0.9 %; Eosinophils # 0.1 10^3/uL (0.0-0.8); Eosinophils % 1.8 %; Hemoglobin 12.7 g/dL (11.7-16.6); Lymphocytes # 1.7 10^3/uL (0.8-4.8); Lymphocytes % 31.1 %; Mean Corpuscular HGB Conc 33.4 g/dL (30.0-36.0); Mean Corpuscular Hemoglobin 32.2 pg (28.0-34.0); Mean Corpuscular Volume 96.4 fL (80-94); Mean Platelet Volume 9.5 fL (7.4-10.4); Monocytes # 0.7 10^3/uL (0.2-0.9); Monocytes % 12.8 %; Neutrophils # 2.86 10^3/uL (1.8-7.7); Neutrophils % 52.1 %; Nucleated Red Blood Cells % 0 %; Platelet Count 146 10^3/cmm (130-400); Red Blood Count 3.94 10^6/uL (4.1-5.3); Red Cell Distribution Width 19.2 % (12.1-15.1); White Blood Count 5.5 10^3/uL (4.0-10.0)
[2021-01-03 10:23] LABS: Alanine Aminotransferase 26 U/L (0-41); Albumin Level 3.7 g/dL (3.5-5.2); Alkaline Phosphatase 60 IU/L (40-130); Aspartate Amino Transferase 28 U/L (0-40); Blood Urea Nitrogen 10 mg/dL (8-23); Calcium 8.1 mg/dL (8.5-10.5); Carbon Dioxide 25 mmol/L (22-29); Chloride 107 mmol/L (98-107); Globulin 2.9 g/dL (1.3-4.6); Glomerular Filtration Rate 95.6 mL/min (90-130); Glucose 113 mg/dL (65-115); Osmolality Calculated 294 mOsm/kg (285-295); Sodium 142 mmol/L (136-145); Total Bilirubin 0.4 mg/dL (0.15-1.2); Total Protein 6.6 g/dL (6.6-8.7)
[2021-01-03] MEDS: sodium chloride 0.9% 250 ML 75 ML IV (11:55)
[2021-01-03] MEDS: palonosetron 0.25 mg/5 mL SDV IV (11:57)
--- NOTE | 2021-01-15 13:15 | ONC FU_ITS ---
[facility] Patient Note Patient: Genaro Robbins Unit #: [id number]: 1950 Dictated By: Velvet GaffneyDate of Visit: Jan 03, 2021 Onc MED Follow-Up/Prog Note Chief Complaint: Rectal cancer. 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 He had presented with iron deficiency anemia in association with rectal bleeding. His initial CBC showed hemoglobin low at 7.5 g and hematocrit 29%. His iron saturation was 3.5% and the ferritin was low at 15 ng/mL, consistent with iron deficiency. He was transfused 2 units PRBC and he also began on oral iron supplementation with ferrous sulfate. He was unable to tolerate it due to GI side effects. In the meantime, he was seen by Dr. Caldwell and he underwent EGD and colonoscopy on 08/23/2020. The EGD showed evidence of gastritis with multiple gastric erosions. The colonoscopy showed a 7 mm pedunculated polyp in the ascending colon, a 5 mm sessile polyp in the descending colon, and a 1 cm pedunculated polyp in the sigmoid colon. The rectum showed an ulcerated malignant appearing mass along the right lateral wall approximately 6 cm from the anal verge. The mass was palpable by digital rectal exam. Biopsy of the rectal mass showed moderately differentiated invasive adenocarcinoma. The descending colon polyp was noted to be hyperplastic. The other polyps were tubular adenomas without high-grade dysplasia or malignancy. Gastric biopsy showed mild chronic gastritis. Staging CT scans of the chest, abdomen, and pelvis showed asymmetric soft tissue thickening at the rectum, with the anterior wall measuring up to 12 mm. Indeterminate pelvic lymph nodes were noted just anterior to the L5-S1 disc space, the largest measuring 12 mm. A right lower lobe pulmonary nodule measured 1.5 cm, consistent with metastatic lesion, versus primary lung neoplasm, versus benign lesion. Indeterminant left hilar lymph nodes measured up to 12 mm. There was no evidence of other metastatic disease. His baseline CEA was elevated at 15.6 ng/mL. He had colorectal surgery consultation with Dr. Ranulfo Anguiano on 09/03/2021. Staging MRI of the pelvis on 09/13/2020 was consistent with a T3 primary lesion with suspected involvement in 3/5 mesorectal lymph nodes. He began cycle 1 of neoadjuvant chemotherapy with modified FOLFOX on 09/27/2020. His staging PET/CT on 09/22/2020 showed circumferential rectal thickening with SUV 12.1, consistent with known primary malignancy. Subcentimeter perirectal lymph nodes were too small to characterize. A 1.0 presacral lymph node had SUV 4.3, consistent with local metastatic disease. The right lower lobe pulmonary nodule measuring 1.7 x 1.8 cm and SUV 2.5. This was felt to be suggestive of a benign finding, but followup was felt to be warranted. Also noted were 4 mm nodules in the left upper lobe and lateral right upper lobe, too small to characterize. There were no other areas of abnormal uptake on that study. With those findings he was recommended to proceed with total neoadjuvant therapy. His other medical illnesses include hypertension, dyslipidemia, type 2 diabetes, coronary artery disease, and GERD. He has had previous angioplasty/stent placement. He is a non-smoker. INTERIM HISTORY: He began cycle 1 of neoadjuvant chemotherapy with modified FOLFOX on 09/27/2020. He experienced no nausea/vomiting or other acute toxicity with the chemotherapy. He developed some transient diarrhea at day 3. He also developed peripheral neuropathy symptoms, primarily cold sensitivity, but that was beginning to improve by day 8. As he still had moderately severe anemia and he was intolerant of oral iron, he also was given parenteral iron replacement with 2 infusions of Injectafer. He tolerated these well. He then continued with cycle 2 of modified FOLFOX on 10/11/2020. He did require 1 level dose reduction in the oxaliplatin due to the neuropathy. He then proceeded with cycle 3 on 10/25/2020 and with cycle 4 on 11/08/2020. At that point he did require a second dose reduction in the oxaliplatin, again for neuropathy. Mr. Robbins had follow-up CT of the chest abdomen pelvis with contrast on December 14, 2020. The impression overall was decrease in the size the right lower lobe nodule to 0.6 cm; no evidence of metastatic disease in the chest, abdomen or pelvis. The right lower lobe nodule measured 1.7 x 1.8 cm on his PET/CT from September 22, 2020. There was no report of the rectal thickening. On the CT from December 14, 2020. After discussing his PET CT results with Dr. Abrams, Dr. Abrams has recommended that Mr. Robbins proceed with 8 cycles of chemotherapy then most likely repeat his pelvic MRI for closer monitoring of the rectal thickening. After the eighth cycle of of chemotherapy and the MRI has been obtained we will plan to send him for radiation therapy with concurrent Xeloda at 875 mg per metered squared twice daily while on the Xeloda. Mr. Robbins is here today for follow-up. He is due for cycle 8 modified FOLFOX. He has had reduction of the oxaliplatin dosing due to significant neuropathy. This is his last planned cycle of treatment. He is due for repeat MRI of the pelvis with the next 1-2 weeks. 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 He has trouble touching anything cold and that he has significant neuropathy. He cannot drink any cold liquids either. He had slight diarrhea but states it was manageable. He denies any abdominal pain. He denies any fever or chills. He denies mouth sores, sore throat or difficulty swallowing. He had no nausea or vomiting. He denies any constipation. He states his energy is good. 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 His ECOG is 0. Past Medical History: Allergic rhinitis Coronary artery disease Dyslipidemia Gastroesophageal reflux disease Hypertension Type II diabetes Past Surgical History: Covid 19 vaccine in 2020 Colonoscopy in 2019 Flu vaccine in 2019 Coronary angioplasty/stent placement in 2016 Allergies: Sulfa Antibiotics Medications: amLODIPine Besylate 1 (2.5 mg) Tablet Oral b.i.d. Aspirin 1 (81 mg) Tablet, chewable Oral daily Claritin 1 (10 mg) Tablet Oral daily Crestor 1 (20 mg) Tablet Oral daily glipiZIDE XL 1 (2.5 mg) Tablet SR 24 HR Oral daily Isosorbide Mononitrate ER 1 (30 mg) Tablet SR 24 HR Oral b.i.d. Lisinopril 1 (5 mg) Tablet Oral b.i.d. metFORMIN HCl 1 (1000 mg) Tablet Oral b.i.d. Metoprolol Succinate ER 1 (50 mg) Tablet SR 24 HR Oral daily Nitroglycerin Tablet, sublingual Sublingual PRN Pantoprazole Sodium 1 (40 mg) Tablet, enteric coated Oral daily Family History: Mr. Robbins's mother is : Pulmonary Embolism. Mr. Robbins's father is : coronary artery disease. Mr. Robbins has 2 brothers: 2 alive. Father of heart disease age 56. Mother at age 76, apparently of pulmonary embolism. Two brothers are in good health. Social History: Mr. Robbins is . Mr. Robbins has never smoked. He has no history of drinking. 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 He is a non-smoker. He does not drink alcohol. Review Of Symptoms: <See Above> Vital Signs: Performed on Jan 03, 2021 10:58 Height - 72.00 in Weight - 261.8 lbs (HIGH) BSA - 2.39 sq.m BMI - 35.51 (HIGH) Temperature - 97.7 F (LOW) Pulse - 80 /min Respiration - 18 /min BP - 158/71 mm(hg) (HIGH) O2 Sat - 98 % Pain - 0,1 - No physically strenuous activity, but ambulatory and able to carry out light or sedentary work (e.g. office work, light house work). (ECOG) Physical Examination: Constitutional Alert, oriented, no acute distress. Skin pink, warm and dry. Head Normocephalic; atraumatic. Eyes Conjunctivae and sclerae are clear and without icterus. Pupils are reactive and equal. ENMT No oral exudates, ulcers, masses, thrush or mucositis. Oropharynx clear. Tongue normal. Neck Supple without masses or thyromegaly. No jugular venous distension. Hematologic/Lymphatic No petechiae or purpura. No tender or palpable lymph nodes in the cervical or supraclavicular areas. Respiratory Lungs are clear to auscultation without rhonchi or wheezing. Cardiovascular Regular rate and rhythm of heart without murmurs,clicks, gallops or rubs. Abdomen Non-tender, non-distended, no masses or ascites. Good bowel sounds noted in all quads. No guarding or rebound tenderness. No pulsatile masses. Back/Spine Non-tender to palpation. Extremities No visible deformities, no cyanosis, clubbing or edema. Musculoskeletal No tenderness or swelling, normal range of motion without obvious weakness. Integumentary No rashes or lesions. Neurologic No sensory or motor deficits, normal cerebellar function, normal gait. Psychiatric Alert and oriented times three. Coherent speech. Verbalizes understanding of our discussions today. Laboratory:Test performed on Jan 03, 2021 09:15 Sodium 142 mmol/L Potassium 4.0 mmol/L Chloride 107 mmol/L CO2 25 mmol/L Anion Gap 14.0 BUN 10 mg/dL Creatinine 0.8 mg/dL Cr Clearance (Est) 149.2800 mL/min eGFR 95.6 mL/min Glucose 113 mg/dL Osmolality - Calculated 294 mOsm/kg Calcium 8.1 mg/dL Protein, Total 6.6 g/dL Albumin 3.7 g/dL Globulin 2.9 g/dL Bilirubin, Total 0.4 mg/dL ALT (SGPT) 26 U/L AST (SGOT) 28 U/L Alkaline Phosphatase 60 IU/L WBC 5.5 10 3/uL RBC 3.94 10 6/uL HGB 12.7 g/dL HCT 38.0 % MCV 96.4 fL MCH 32.2 pg MCHC 33.4 g/dL RDW 19.2 % Platelet Count 146 10 3/cmm MPV 9.5 fL Neutrophils 2.86 10 3/uL Lymphocytes 1.7 10 3/uL Monocytes 0.7 10 3/uL Eosinophils 0.1 10 3/uL Basophils 0.1 10 3/uL Neutrophil % 52.1 % Lymphocyte % 31.1 % Monocyte % 12.8 % Eosinophil % 1.8 % Basophils % 0.9 % NRBC % 0 % Test performed on Dec 20, 2020 08:10 CEA 11.6 ng/mL Test performed on Nov 08, 2020 08:51 Ferritin 453 ng/mL Iron 76 mcg/dL Iron Binding Capacity (TIBC) 287 mcg/dl % Iron Saturation 26.4 % UIBC 211 mcg/dL CBC Slide Review Slide Review Perform SLIDE REVIEW AGREES WITH AUTOMATED RESULTS ST Impression: 1. Moderately differentiated invasive adenocarcinoma of the rectum, by clinical evaluation stage at least T3, N1. 2. CT evidence of 1.5 cm right lower lobe pulmonary nodule, clinical significance of which is uncertain. 3. Iron deficiency anemia, presumed to be due to GI blood loss. He had been intolerant of oral iron due to GI side effects. 4. Hypertension. 5. Dyslipidemia. 6. Type 2 diabetes. 7. Coronary artery disease with previous angioplasty/stent placement. 8. GERD. Plan/Problems Addressed at this Visit: 1. Moderately differentiated invasive adenocarcinoma of the rectum. By clinical evaluation his disease appeared to be stage T3, N1. He was recommended to undergo total neoadjuvant therapy. He began cycle 1 of modified FOLFOX chemotherapy on 09/27/2020. Side effects were limited to mild fatigue, transient diarrhea, and neuropathy (cold sensitivity). Overall, he tolerated treatment well, though at cycle 2 he had some residual neuropathy symptoms, and he was given a 1 level dose reduction in the oxaliplatin with that cycle. He continued with cycle 3 on 10/25/2020 and with cycle 4 on 11/08/2020. At that point he required a second dose reduction in the oxaliplatin, again because of neuropathy. Overall he appears to be doing well clinically, though he continues to have neuropathy symptoms, mainly just cold sensitivity. His CEA level has come down somewhat, though it is still elevated. His last level on November 22, 2020 was 10.5. Mr. Robbins had follow-up CT of the chest abdomen pelvis with contrast on December 14, 2020. The impression overall was decrease in the size the right lower lobe nodule to 0.6 cm; no evidence of metastatic disease in the chest, abdomen or pelvis. The right lower lobe nodule measured 1.7 x 1.8 cm on his PET/CT from September 22, 2020. There was no report of the rectal thickening. On the CT from December 14, 2020. After discussing his PET CT results with Dr. Abrams, Dr. Abrams has recommended that Mr. Robbins proceed with 8 cycles of chemotherapy then most likely repeat his pelvic MRI for closer monitoring of the rectal thickening. After the eighth cycle of of chemotherapy and the MRI has been obtained we will plan to send him for radiation therapy with concurrent Xeloda at 875 mg per metered squared twice daily while on the Xeloda. A. Proceed with cycle 8 FOLFOX. The oxaliplatin will be omitted due to the severity and persistence of his cold-induced neuropathy. B. He will continue antiemetics with Dex and Aloxi as this is working well with him. C. Today's labs reviewed in detail and discussed with Mr. Mrs. Robbins and a copy was given to them. WBC 5.5, hemoglobin 12.7, platelets 246,000 ANC is 2860. Potassium 4.0 random glucose 113 creatinine 0.8 LFTs are normal his CEA from 12/20/2020 was 11.6. D. His last CT of the chest abdomen pelvis with contrast was on 12/14/2020. It did show improvement in his lung nodule it was decreased at 2.6 cm and had previously been reported on the PET CT from September 22, 2020 at 1.7 x 1.8 cm. He is due for An MRI of the pelvis with and without contrast. This has been requested for the [facility] where his last MRI with and without contrast was on September 15, 2020. 2. Iron deficiency anemia with intolerance to oral iron. A. He was given parenteral iron replacement with 2 infusions of Injectafer with the last dose being on October 04, 2020. B. He has had good response. His hemoglobin is 12.7 today. 3. He had CT evidence of 1.5 cm right lower lobe pulmonary nodule. It showed low-grade FDG uptake by PET, SUV 2.4, suggestive of benign etiology. Review of this pulmonary nodule was included in his recent CT of the chest abdomen pelvis. The CT nodule did show improvement in size down to 0.6 cm. 4. Follow-up plan A. We will plan to see him back in [address] Abrams to review his MRI of the pelvis and determine further plan of care. B. I have asked that he return with a CBC CMP and CEA at that time. C. Mr. Robbins instructed to contact us in interim should questions or problems arise. Signed By: Velvet Gaffney-, AOCNP Eliel Abrams MD <<Signature on File>>
== END 2021-01-04 23:59 | disposition home or self-care (01) ==
LOC: ONCMED 05:35
PROVIDERS: PCP Nurse Practitioner Family; Visit Provider Nurse Practitioner
DX: Z51.11 Encounter for antineoplastic chemotherapy (principal); C20 Malignant neoplasm of rectum; D50.0 Iron deficiency anemia secondary to blood loss (chronic); J30.9 Allergic rhinitis, unspecified; E11.59 Type 2 diabetes mellitus with other circulatory complications; I25.10 Atherosclerotic heart disease of native coronary artery without angina pectoris; E78.5 Hyperlipidemia, unspecified; K21.9 Gastro-esophageal reflux disease without esophagitis; I10 Essential (primary) hypertension; Z79.899 Other long term (current) drug therapy
CPT/HCPCS: 71260; 74177; 80053; 82378; 85025; 96361; 96367; 96368; 96375; 96411; 96413; 96415; 96416; 99214; 99215; J0640; J1100; J2469; J7030; J7040; J7050; J9190; J9263; Q9967

== ENCOUNTER 2021-01-24 06:27 | Outpatient (RCR) | payer MEDICARE, SELFPAY ==
[2021-01-24 15:02] LABS: Basophils # 0.1 10^3/uL (0.0-0.1); Basophils % 1.1 %; Eosinophils # 0.1 10^3/uL (0.0-0.8); Eosinophils % 0.6 %; Hematocrit 41.4 % (42.0-52.0); Hemoglobin 13.5 g/dL (11.7-16.6); Lymphocytes # 1.2 10^3/uL (0.8-4.8); Lymphocytes % 15.7 %; Mean Corpuscular HGB Conc 32.6 g/dL (30.0-36.0); Mean Corpuscular Volume 101.2 fL (80-94); Mean Platelet Volume 10.5 fL (7.4-10.4); Monocytes # 0.8 10^3/uL (0.2-0.9); Monocytes % 10.7 %; Neutrophils # 5.29 10^3/uL (1.8-7.7); Neutrophils % 67.7 %; Nucleated Red Blood Cells % 0 %; Platelet Count 224 10^3/cmm (130-400); Red Blood Count 4.09 10^6/uL (4.1-5.3); Red Cell Distribution Width 15.9 % (12.1-15.1); White Blood Count 7.8 10^3/uL (4.0-10.0)
[2021-01-24 15:29] LABS: Carcinoembryonic Antigen 12.1 ng/mL (0.0-4.7)
[2021-01-24 15:43] LABS: Alanine Aminotransferase 30 U/L (0-41); Albumin Level 4.1 g/dL (3.5-5.2); Alkaline Phosphatase 71 IU/L (40-130); Anion Gap 16.2 (5-19); Aspartate Amino Transferase 36 U/L (0-40); Blood Urea Nitrogen 13 mg/dL (8-23); Calcium 8.4 mg/dL (8.5-10.5); Carbon Dioxide 23 mmol/L (22-29); Chloride 106 mmol/L (98-107); Globulin 2.7 g/dL (1.3-4.6); Glomerular Filtration Rate 95.6 mL/min (90-130); Glucose 263 mg/dL (65-115); Osmolality Calculated 301 mOsm/kg (285-295); Potassium 4.2 mmol/L (3.5-5.1); Sodium 141 mmol/L (136-145); Total Bilirubin 0.4 mg/dL (0.15-1.2); Total Protein 6.8 g/dL (6.6-8.7)
--- NOTE | 2021-01-25 08:25 | ONC FU_ITS ---
Dr. Abrams Patient Follow-Up Note Patient: Genaro Robbins Unit #: [id number]: 1950 Dicatated By: Eliel Abrams M.D.Date of Visit:January 24, 2021 Onc Med Follow-up/Prog Note Chief Complaint: Rectal cancer. 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 He had presented with iron deficiency anemia in association with rectal bleeding. His initial CBC showed hemoglobin low at 7.5 g and hematocrit 29%. His iron saturation was 3.5% and the ferritin was low at 15 ng/mL, consistent with iron deficiency. He was transfused 2 units PRBC and he also began on oral iron supplementation with ferrous sulfate. He was unable to tolerate it due to GI side effects. In the meantime, he was seen by Dr. Caldwell and he underwent EGD and colonoscopy on 08/23/2020. The EGD showed evidence of gastritis with multiple gastric erosions. The colonoscopy showed a 7 mm pedunculated polyp in the ascending colon, a 5 mm sessile polyp in the descending colon, and a 1 cm pedunculated polyp in the sigmoid colon. The rectum showed an ulcerated malignant appearing mass along the right lateral wall approximately 6 cm from the anal verge. The mass was palpable by digital rectal exam. Biopsy of the rectal mass showed moderately differentiated invasive adenocarcinoma. The descending colon polyp was noted to be hyperplastic. The other polyps were tubular adenomas without high-grade dysplasia or malignancy. Gastric biopsy showed mild chronic gastritis. Staging CT scans of the chest, abdomen, and pelvis showed asymmetric soft tissue thickening at the rectum, with the anterior wall measuring up to 12 mm. Indeterminate pelvic lymph nodes were noted just anterior to the L5-S1 disc space, the largest measuring 12 mm. A right lower lobe pulmonary nodule measured 1.5 cm, consistent with metastatic lesion, versus primary lung neoplasm, versus benign lesion. Indeterminant left hilar lymph nodes measured up to 12 mm. There was no evidence of other metastatic disease. His baseline CEA was elevated at 15.6 ng/mL. He had colorectal surgery consultation with Dr. Ranulfo Anguiano on 09/03/2021. Staging MRI of the pelvis on 09/13/2020 was consistent with a T3 primary lesion with suspected involvement in 3/5 mesorectal lymph nodes. He began cycle 1 of neoadjuvant chemotherapy with modified FOLFOX on 09/27/2020. His staging PET/CT on 09/22/2020 showed circumferential rectal thickening with SUV 12.1, consistent with known primary malignancy. Subcentimeter perirectal lymph nodes were too small to characterize. A 1.0 presacral lymph node had SUV 4.3, consistent with local metastatic disease. The right lower lobe pulmonary nodule measuring 1.7 x 1.8 cm and SUV 2.5. This was felt to be suggestive of a benign finding, but followup was felt to be warranted. Also noted were 4 mm nodules in the left upper lobe and lateral right upper lobe, too small to characterize. There were no other areas of abnormal uptake on that study. With those findings he was recommended to proceed with total neoadjuvant therapy. His other medical illnesses include hypertension, dyslipidemia, type 2 diabetes, coronary artery disease, and GERD. He has had previous angioplasty/stent placement. He is a non-smoker. INTERIM HISTORY: He began cycle 1 of neoadjuvant chemotherapy with modified FOLFOX on 09/27/2020. He experienced no nausea/vomiting or other acute toxicity with the chemotherapy. He developed some transient diarrhea at day 3. He also developed peripheral neuropathy symptoms, primarily cold sensitivity, but that was beginning to improve by day 8. As he still had moderately severe anemia and he was intolerant of oral iron, he also was given parenteral iron replacement with 2 infusions of Injectafer. He tolerated these well. He then continued with cycle 2 of modified FOLFOX on 10/11/2020. He did require 1 level dose reduction in the oxaliplatin due to the neuropathy. He then proceeded with cycle 3 on 10/25/2020 and with cycle 4 on 11/08/2020. At that point he did require a second dose reduction in the oxaliplatin, again for neuropathy. He then continued treatment at 2-week intervals. He completed his 8th cycle of modified FOLFOX on 01/03/2021, and with that cycle the oxaliplatin was omitted because of worsening neuropathy. His repeat MRI of the pelvis on 01/17/2021 showed residual mass in the rectum beginning at 7.9 cm from the anal verge and extending for a length of 4.4 cm. The thickest part of the tumor had decreased from 1.7 cm to 0.9 cm. A new focal oval thickening measuring 1.0 cm was noted. By MR criteria it was categorized as a T3b primary lesion. The shortest distance of tumor to MRF or anticipated CRM was measured at 7.5 mm. A total of 5 lymph nodes were identified, for which appeared to be suspicious for local regional node involvement. These had shown moderate decrease in size compared to the pretreatment study. He is seen now for a follow-up visit. He still has some fatigue, but he has had improvement in his activity tolerance and he is doing quite a bit of work now. ECOG score is 1. He has good appetite. He has no fever or night sweats. He still complains of some soreness on his tongue, attributable to thrush. He has been managing it with nystatin and/or fluconazole, though not on a consistent basis. He has no shortness of breath, cough, or chest pain. He has just occasional acid reflux. He has no other GI complaints. Bowel function lately has been good and he has had no recurrence of rectal bleeding. He has no complaints with bladder function. He has had some pain in his lower back on the right side/right hip area. He does not complain of headache or dizziness. 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 Medications: amLODIPine Besylate 1 (2.5 mg) Tablet Oral b.i.d., Aspirin 1 (81 mg) Tablet, chewable Oral daily, Claritin 1 (10 mg) Tablet Oral daily, Crestor 1 (20 mg) Tablet Oral daily, glipiZIDE XL 1 (5 mg) Tablet SR 24 HR Oral b.i.d., Isosorbide Mononitrate ER 1 (30 mg) Tablet SR 24 HR Oral b.i.d., Lisinopril 1 (5 mg) Tablet Oral b.i.d., metFORMIN HCl 1 (1000 mg) Tablet Oral b.i.d., Metoprolol Succinate ER 1 (50 mg) Tablet SR 24 HR Oral b.i.d., Nitroglycerin Tablet, sublingual Sublingual PRN, Pantoprazole Sodium 1 (40 mg) Tablet, enteric coated Oral daily Allergies: Sulfa Antibiotics Vital Signs: Performed on January 24, 2021 15:48 Height - 72.00 in Weight - 258.2 lbs (LOW) BSA - 2.37 sq.m BMI - 35.02 (HIGH) Temperature - 98.2 F (LOW) Pulse - 82 /min Respiration - 18 /min BP - 169/82 mm(hg) (HIGH) O2 Sat - 98 % Pain - 3 Fatigue - 3 Physical Examination: Constitutional - He looks good generally, Eyes - Sclerae nonicteric. Conjunctivae clear, ENMT - There is a slight coating on his tongue. There are no other lesions noted in the oral cavity, Hematologic/Lymphatic - No cervical, clavicular, or axillary adenopathy, Respiratory - Lungs are clear with good air movement bilaterally, Cardiovascular - Heart rhythm is regular. There is no murmur, gallop, or rub noted, Abdomen - Soft. Liver and spleen are not enlarged. There is no abdominal mass or ascites noted and there is no inguinal adenopathy, Extremities - No edema, Neurologic - No focal neurologic deficits noted. Lab/Imaging: Test performed on January 24, 2021 14:18 Sodium 141 mmol/L Potassium 4.2 mmol/L Chloride 106 mmol/L CO2 23 mmol/L Anion Gap 16.2 BUN 13 mg/dL Creatinine 0.8 mg/dL Cr Clearance (Est) 149.2800 mL/min eGFR 95.6 mL/min Glucose 263 mg/dL Osmolality - Calculated 301 mOsm/kg Calcium 8.4 mg/dL Protein, Total 6.8 g/dL Albumin 4.1 g/dL Globulin 2.7 g/dL Bilirubin, Total 0.4 mg/dL ALT (SGPT) 30 U/L AST (SGOT) 36 U/L Alkaline Phosphatase 71 IU/L WBC 7.8 10 3/uL RBC 4.09 10 6/uL HGB 13.5 g/dL HCT 41.4 % MCV 101.2 fL MCH 33.0 pg MCHC 32.6 g/dL RDW 15.9 % Platelet Count 224 10 3/cmm MPV 10.5 fL Neutrophils 5.29 10 3/uL Lymphocytes 1.2 10 3/uL Monocytes 0.8 10 3/uL Eosinophils 0.1 10 3/uL Basophils 0.1 10 3/uL Neutrophil % 67.7 % Lymphocyte % 15.7 % Monocyte % 10.7 % Eosinophil % 0.6 % Basophils % 1.1 % NRBC % 0 % CEA 12.1 ng/mL Problem List: 1. Moderately differentiated invasive adenocarcinoma of the rectum, by clinical evaluation stage at least T3, N1. 2. CT evidence of 1.5 cm right lower lobe pulmonary nodule, clinical significance of which is uncertain. 3. Iron deficiency anemia, presumed to be due to GI blood loss. He had been intolerant of oral iron due to GI side effects. 4. Hypertension. 5. Dyslipidemia. 6. Type 2 diabetes. 7. Coronary artery disease with previous angioplasty/stent placement. 8. GERD. Problems Addressed with this Encounter and Plan: 1. 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 By clinical evaluation his disease appeared to be stage T3, N1. He was recommended to undergo total neoadjuvant therapy. He began initial treatment with 8 cycles of modified FOLFOX from 09/27/2020 through 01/03/2021. Side effects included fatigue and neuropathy. The neuropathy was severe enough to necessitate 2 dose reductions in the oxaliplatin, and it was omitted with the 8th cycle. His repeat MRI does show some evidence of response, though not dramatic. His clinical staging is T3b, N1, and possibly M1a depending on the status of the pulmonary nodule. He will proceed now with chemoradiation and he willbe referred to Dr. Romero for radiation oncology consultation. I will plan to utilize Xeloda for the chemosensitization. He will then be reevaluated for surgery when the chemoradiation is completed. 2. He had CT evidence of 1.5 cm right lower lobe pulmonary nodule. It showed low-grade FDG uptake by PET, SUV 2.4, suggestive of benign etiology. Repeat CT scans on 12/14/2020 did show a significant decrease in the right lower lobe pulmonary nodule to 0.6 cm, suggestive of a metastatic lesion with response to chemotherapy. There was no evidence of other metastatic disease. His chest CT will now be repeated. If it appears likely that it is a metastatic lesion, it would potentially be amenable to resection or to SBRT. 3. Iron deficiency anemia with intolerance to oral iron. He was given parenteral iron replacement with 2 infusions of Injectafer. He has had a good response. Signed By: Eliel Abrams M.D. <<Signature on File>>
== END 2021-01-31 07:45 | disposition home or self-care (01) ==
LOC: ONCMED 06:27
PROVIDERS: PCP Nurse Practitioner Family; Visit Provider Internal Medicine Medical Oncology
DX: C20 Malignant neoplasm of rectum (principal); C78.01 Secondary malignant neoplasm of right lung; D50.0 Iron deficiency anemia secondary to blood loss (chronic); I10 Essential (primary) hypertension; E78.5 Hyperlipidemia, unspecified; E11.59 Type 2 diabetes mellitus with other circulatory complications; I25.10 Atherosclerotic heart disease of native coronary artery without angina pectoris; K21.9 Gastro-esophageal reflux disease without esophagitis; Z79.899 Other long term (current) drug therapy; Z92.21 Personal history of antineoplastic chemotherapy; Z92.3 Personal history of irradiation
CPT/HCPCS: 36591; 80053; 82378; 85025; 99214

== ENCOUNTER 2021-01-31 07:48 | Outpatient (CLI) | payer MEDICARE, SELFPAY ==
--- NOTE | 2021-01-31 08:00 | CT_ITS ---
WS: [id number] CT CHEST WITH INTRAVENOUS CONTRAST HISTORY: LUNG NODULE TECHNIQUE: Contiguous 5 mm axial imaging performed on the thorax. Coronal and sagittal reformats are submitted. All CT scans at use at least one of these dose optimization techniq ues: automated exposure control; mA and/or kV adjustment per patient size (includes targeted exams wh ere dose is matched to clinical indication); or iterative reconstruction. CONTRAST: Omnipaque 300; 95 mL IV. DLP: 1061.71 mGy.cm COMPARISON: PET/CT 09/22/2020, 12 08/23/2020 and 12/14/2020. Lungs and central airway: Previously described nodule in the RIGHT lower lobe has decreased in size f rom 15 to 5 mm since 08/23/2020. New scattered irregular opacification is now present in the posterio r RIGHT upper lobe. Multifocal areas of nodularity increased opacification. No additional abnormaliti es. Pleura: Normal. No pleural effusion. Heart and pericardium: Normal size heart with no pericardial effusion. Mediastinum and stepan: Small mediastinal and hilar lymph nodes. Lymph nodes have not changed since 12/14. There is a subcarinal lymph node with a calcification. This lymph node has a maximum diameter of 13 mm without significant increase in size. Additional RIGHT hilar lymph node at 14 mm. Vessels: Normal size aorta and pulmonary artery. Nonocclusive filling defect within segmental branchi ng of the RIGHT lower lobe pulmonary artery. Chest wall and lower neck: Left-sided Mediport. Upper abdomen: Mild hepatic steatosis. Stable low-attenuation 12 mm lesion in the medial RIGHT lobe o f the liver. No adrenal masses. Osseous structures: No destructive process. CT/CT chest w con* [id number] IMPRESSION: 1. Significant decrease in size nodule in the RIGHT lower lobe since 0. Pulmonary nodule has decreased from 15 to 5 mm. 2. New irregular and micronodular opacifications in the posterior RIGHT upper lobe. Probably pneumonia. 3. Nonocclusive segmental branch RIGHT lower lobe pulmonary artery emboli. 4. Mediastinal and hilar lymph nodes are unchanged and indeterminate. The larg est measures 14 mm at the RIGHT hilum. Notified Eliel Abrams MD at 01/31/2021 10:09 AM.
[2021-01-31] MEDS: iohexol 300 mg/mL 100 mL Btl IV (08:24)
== END 2021-01-31 07:49 | disposition home or self-care (01) ==
PROVIDERS: PCP Nurse Practitioner Family; Visit Provider Internal Medicine Medical Oncology
DX: C20 Malignant neoplasm of rectum (principal); R91.1 Solitary pulmonary nodule; I26.99 Other pulmonary embolism without acute cor pulmonale
CPT/HCPCS: 71260

== ENCOUNTER 2021-01-31 08:52 | Outpatient (RCR) | payer MEDICARE, SELFPAY ==
--- NOTE | 2021-01-31 17:28 | N.ONRAD NP_ITS ---
Radiation Oncology New Patient Visit Patient: Genaro Robbins MR#: [id number] : 1950> Age: 70> Sex: Male> Dictated by: Dr. Pascual Schwab Date of Service: 01/31/2021 Referring Physician(s) : Diagnosis: C20 - malignant neoplasm of rectum, Diagnosed 09/20/2020 (active), stage x, t3, n1b. Radiotherapy to date: Summary > No prior radiation therapy. Chief Complaint / History of Present Illness: Stage IV (T3 N1 M1) adenocarcinoma the rectum associated with a likely solitary right lung metastasis at diagnosis. He has been on preoperative neoadjuvant systemic chemotherapy alone with FOLFOX. We are now asked to see him regarding preoperative radiation with Xeloda followed by consideration of surgical resection of his primary lesion and possible SBRT to the solitary lung nodule. 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 Colonoscopy in August 2020 revealed a malignant rectal mass biopsy which confirmed moderately differentiated invasive adenocarcinoma staging evaluation with CT scan of the chest abdomen pelvis revealed thickening of the rectum indeterminate pelvic lymph nodes and a 15 mm right lower lobe pulmonary nodule consistent with a metastatic lesion. Following this he underwent neoadjuvant chemotherapy with FOLFOX treatment required dose reduction of oxaliplatin due to neuropathy. Follow-up MRI scan of the pelvis from January 2021 revealed residual mass in the rectum with reduced mural thickening and persistent regional lymph nodes suspicious for patrick involvement which showed some decrease in size when compared to pretreatment imaging He just underwent repeat CT scan of the chest today January 31, 2021 this revealed the right lung nodule had decreased in size from 15 down to 5 mm inferior to this there was a nodular irregular infiltrate consistent with a regional localized pneumonia or pneumonitic process. As well there was a nonocclusive right lower lobe segmental filling defect in the pulmonary artery consistent with a localized pulmonary embolus As result of these findings Dr. Abrams has instituted antibiotics and anticoagulant therapy today. Following his neoadjuvant chemotherapy his neuropathy has nearly completely resolved. 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 At [employer]. 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 He has stable weight appetite and energy level. He has 1 episode of diarrhea every 2 weeks he has had 2 episodes of mild rectal bleeding with good normal caliber of stools. Current Medications: AmLODIPine Besylate, aspirin, claritin, crestor, dexamethasone, fluorouracil, glipiZIDE XL, isosorbide Mononitrate ER, leucovorin Calcium, lisinopril, lORazepam, metFORMIN HCl, metoprolol Succinate ER, nitroglycerin, novoLOG, ondansetron HCl, oxaliplatin, oxyCODONE HCl, palonosetron HCl, pantoprazole Sodium, prochlorperazine Maleate. Allergies: Sulfa Antibiotics. Medical History: - Allergic rhinitis, - coronary artery disease, - dyslipidemia, - gastroesophageal reflux disease, - hypertension, - type II diabetes. No history of collagen vascular disease. No previous radiation therapy. Surgical History: Colonoscopy on 08/23/2020, coronary angioplasty/stent placement in 2017, covid 19 vaccine in 11/2020 and flu vaccine in 06/2020. Family History: Father is having experienced coronary artery disease. Mother is having experienced Pulmonary Embolism. Brother is alive. Brother is alive. Father of heart disease age 56. Mother at age 76, apparently of pulmonary embolism. Two brothers are in good health. Social History: Last screened on 01/31/2021 - Never smoked. Last screened on 01/31/2021 - Never drank. Current Complaints / Review of Systems: . Vital Signs: Performed on 01/31/2021 9:10 AM BMI - 35.208 kg/m2 (high), Height - 72.00 in, Weight - 259.6 lbs, Temperature - 98.4 f, Pulse - 84, Respiration - 18, O2 Sat - 98 %, Pain - 0, Fatigue - 0 and BP - 131/ 74 mm(hg). Physical Exam: Robust pleasant gentleman in no acute distress. Oral cavity revealed excellent dentition. Lymph nodes he had no palpable cervical or supraclavicular adenopathy. He had a port placed in the left infraclavicular space. Lungs were clear to auscultation. Heart was regular murmur gallop. Abdominal examination unremarkable. Extremities revealed no clubbing cyanosis or edema. Performance Status: 0 - Fully active, able to carry on all predisease activities without restrictions. (ECOG) Pathology: Primary, c20 - malignant neoplasm of rectum, Diagnosed 09/20/2020 (active) stage x, t3, n1b. Lab: Test performed on 11/08/2020 8:51 AM Ferritin - 453 ng/ml (high), Test performed on 01/24/2021 2:18 PM RBC - 4.09 10 6/ul (low), HCT - 41.4 % (low), MCV - 101.2 fl (high), RDW - 15.9 % (high), MPV - 10.5 fl (high), Cr Clearance (Est) - 149.2800 ml/min (high), Glucose - 263 mg/dl (high), Osmolality - Calculated - 301 mosm/kg (high), Calcium - 8.4 mg/dl (low) and CEA - 12.1 ng/ml (high). Imaging: See HPI Impression: In summary my impression is that of stage IV (T3 N1 M1) adenocarcinoma of the rectum. He has oligometastatic disease confined to the right lung with good response of that nodule to chemotherapy. He now has a new infiltrate below this level consistent with a localized pneumonia. He also has a tiny pulmonary embolus on that side as well seen on the CT scan obtained earlier today. Dr Abrams has begun antibiotics and anticoagulant for these findings. At this time I recommend preoperative pelvic radiation therapy with sensitizing Xeloda chemotherapy. Following this he will be assessed for primary resection of his lesion. I recommend local aggressive treatment as he has oligometastatic disease confined to a single lung nodule. Following all of this treatment to the primary we would then reevaluate for the consideration of SBRT focal radiation to the solitary lung nodule that thus far has responded to systemic chemotherapy. I discussed this with the patient and his and Dr. Abrams. He will return next week for simulation for the pelvis with Dr. Romero and initiate this treatment with Xeloda over a 5-week course of therapy. At this thank you for allowing us to participate in his evaluation. Plan: Signed by: 01/31/2021 5:26:56 PM <<Signature on File>> Time spent with patient: CPT Code: CPT Code:
== END 2021-02-04 23:59 | disposition home or self-care (01) ==
LOC: ONCMED 08:52
PROVIDERS: PCP Nurse Practitioner Family; Visit Provider Internal Medicine Medical Oncology
DX: C20 Malignant neoplasm of rectum (principal); R91.1 Solitary pulmonary nodule; D50.9 Iron deficiency anemia, unspecified; G62.0 Drug-induced polyneuropathy; T45.1X5A Adverse effect of antineoplastic and immunosuppressive drugs, initial encounter; J30.9 Allergic rhinitis, unspecified; I25.10 Atherosclerotic heart disease of native coronary artery without angina pectoris; E78.5 Hyperlipidemia, unspecified; K21.9 Gastro-esophageal reflux disease without esophagitis; E11.9 Type 2 diabetes mellitus without complications; Z92.21 Personal history of antineoplastic chemotherapy; Z79.899 Other long term (current) drug therapy; Z79.2 Long term (current) use of antibiotics; Z79.01 Long term (current) use of anticoagulants; I26.99 Other pulmonary embolism without acute cor pulmonale
CPT/HCPCS: 71260; 99205

== ENCOUNTER 2021-03-06 05:48 | Outpatient (RCR) | payer MEDICARE, SELFPAY ==
--- NOTE | 2021-02-07 | CT_ITS ---
Radiation Therapy Planning CT images; total exam DLP: 2913.08 mGy-cm MTDD
--- NOTE | 2021-02-25 08:50 | ONCRAD TMN_ITS ---
Radiation Oncology Treatment Management Note Patient Name: Genaro Robbins Date of : 1950 Date of Service: 02/25/2021 Attending Physician: Gregory Romero M.D. Genaro Robbins is a 70 year old white male diagnosed with a clinical stage IIIB (T3N1b) moderately differentiated adenocarcinoma of the rectum. He has completed eight cycles of neoadjuvant modified FOLFOX (September 27, 2020 through January 03, 2021). The patient has received 6 Gy of a prescribed 50 Jimenez with an intensity modulated radiotherapy plan utilizing a step and shoot treatment technique. He has been prescribed daily oral chemotherapy consisting of capecitabine (1000 mg/m2). Upon review of systems, he denied any gastrointestinal complaints related to radiotherapy. On physical examination, the patient weighed 265 lbs. His temperature was 98.7 ???F with a blood pressure of 149/79 mmHg. His pulse was 85 bpm and the respiratory rate was 18. No erythema within the treatment flores. Continue pelvic radiotherapy as prescribed. Signed by: Dr. Gregory Romero 02/25/2021 8:48:49 AM
--- NOTE | 2021-03-04 08:44 | ONCRAD TMN_ITS ---
Radiation Oncology Treatment Management Note Patient Name: Genaro Robbins Date of : 1950 Date of Service: 03/04/2021 Attending Physician: Gregory Romero M.D. Genaro Robbins is a 70 year old white male diagnosed with a clinical stage IIIB (T3N1b) moderately differentiated adenocarcinoma of the rectum. He has completed eight cycles of neoadjuvant modified FOLFOX (September 27, 2020 through January 03, 2021). The patient has received 16 Gy of a prescribed 50 Jimenez with an intensity modulated radiotherapy plan utilizing a step and shoot treatment technique. He has been prescribed daily oral chemotherapy consisting of capecitabine (1000 mg/m2). Upon review of systems, he denied any gastrointestinal complaints related to radiotherapy. On physical examination, the patient weighed 269 lbs. His temperature was 98.3 ???F with a blood pressure of 140/73 mmHg. His pulse was 68 bpm and the respiratory rate was 18. No erythema within the treatment flores. Continue pelvic radiotherapy as planned. Signed by: Dr. Gregory Romero 03/04/2021 8:42:17 AM
[2021-03-06 08:57] LABS: Basophils % 0.8 %; Eosinophils # 0.2 10^3/uL (0.0-0.8); Eosinophils % 5.4 %; Hematocrit 35.9 % (42.0-52.0); Lymphocytes # 0.8 10^3/uL (0.8-4.8); Lymphocytes % 21.1 %; Mean Corpuscular HGB Conc 33.4 g/dL (30.0-36.0); Mean Corpuscular Hemoglobin 33.5 pg (28.0-34.0); Mean Corpuscular Volume 100.3 fL (80-94); Mean Platelet Volume 10.7 fL (7.4-10.4); Monocytes # 0.4 10^3/uL (0.2-0.9); Monocytes % 10.7 %; Neutrophils # 2.13 10^3/uL (1.8-7.7); Nucleated Red Blood Cells % 0 %; Platelet Count 143 10^3/cmm (130-400); Red Blood Count 3.58 10^6/uL (4.1-5.3); Red Cell Distribution Width 13.7 % (12.1-15.1); White Blood Count 3.6 10^3/uL (4.0-10.0)
[2021-03-06 09:15] LABS: Alanine Aminotransferase 40 U/L (0-41); Albumin Level 3.6 g/dL (3.5-5.2); Alkaline Phosphatase 58 IU/L (40-130); Anion Gap 16.7 (5-19); Aspartate Amino Transferase 33 U/L (0-40); Blood Urea Nitrogen 9 mg/dL (8-23); Calcium 7.7 mg/dL (8.5-10.5); Carbon Dioxide 22 mmol/L (22-29); Chloride 103 mmol/L (98-107); Globulin 2.4 g/dL (1.3-4.6); Glomerular Filtration Rate 111.5 mL/min (90-130); Glucose 210 mg/dL (65-115); Osmolality Calculated 291 mOsm/kg (285-295); Potassium 3.7 mmol/L (3.5-5.1); Sodium 138 mmol/L (136-145); Total Bilirubin 0.4 mg/dL (0.15-1.2)
--- NOTE | 2021-03-11 23:51 | ONC FU_ITS ---
Gregory Gonsalez Patient Note Patient: Genaro Robbins Unit #: [id number]: 1950 Dictated By: Velvet GaffneyDate of Visit: Feb 21, 2021 Onc MED Follow-Up/Prog Note Chief Complaint: Rectal cancer. 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 He had presented with iron deficiency anemia in association with rectal bleeding. His initial CBC showed hemoglobin low at 7.5 g and hematocrit 29%. His iron saturation was 3.5% and the ferritin was low at 15 ng/mL, consistent with iron deficiency. He was transfused 2 units PRBC and he also began on oral iron supplementation with ferrous sulfate. He was unable to tolerate it due to GI side effects. In the meantime, he was seen by Dr. Caldwell and he underwent EGD and colonoscopy on 08/23/2020. The EGD showed evidence of gastritis with multiple gastric erosions. The colonoscopy showed a 7 mm pedunculated polyp in the ascending colon, a 5 mm sessile polyp in the descending colon, and a 1 cm pedunculated polyp in the sigmoid colon. The rectum showed an ulcerated malignant appearing mass along the right lateral wall approximately 6 cm from the anal verge. The mass was palpable by digital rectal exam. Biopsy of the rectal mass showed moderately differentiated invasive adenocarcinoma. The descending colon polyp was noted to be hyperplastic. The other polyps were tubular adenomas without high-grade dysplasia or malignancy. Gastric biopsy showed mild chronic gastritis. Staging CT scans of the chest, abdomen, and pelvis showed asymmetric soft tissue thickening at the rectum, with the anterior wall measuring up to 12 mm. Indeterminate pelvic lymph nodes were noted just anterior to the L5-S1 disc space, the largest measuring 12 mm. A right lower lobe pulmonary nodule measured 1.5 cm, consistent with metastatic lesion, versus primary lung neoplasm, versus benign lesion. Indeterminant left hilar lymph nodes measured up to 12 mm. There was no evidence of other metastatic disease. His baseline CEA was elevated at 15.6 ng/mL. He had colorectal surgery consultation with Dr. Ranulfo Anguiano on 09/03/2021. Staging MRI of the pelvis on 09/13/2020 was consistent with a T3 primary lesion with suspected involvement in 3/5 mesorectal lymph nodes. He began cycle 1 of neoadjuvant chemotherapy with modified FOLFOX on 09/27/2020. His staging PET/CT on 09/22/2020 showed circumferential rectal thickening with SUV 12.1, consistent with known primary malignancy. Subcentimeter perirectal lymph nodes were too small to characterize. A 1.0 presacral lymph node had SUV 4.3, consistent with local metastatic disease. The right lower lobe pulmonary nodule measuring 1.7 x 1.8 cm and SUV 2.5. This was felt to be suggestive of a benign finding, but followup was felt to be warranted. Also noted were 4 mm nodules in the left upper lobe and lateral right upper lobe, too small to characterize. There were no other areas of abnormal uptake on that study. With those findings he was recommended to proceed with total neoadjuvant therapy. His other medical illnesses include hypertension, dyslipidemia, type 2 diabetes, coronary artery disease, and GERD. He has had previous angioplasty/stent placement. He is a non-smoker. INTERIM HISTORY: He began cycle 1 of neoadjuvant chemotherapy with modified FOLFOX on 09/27/2020. He experienced no nausea/vomiting or other acute toxicity with the chemotherapy. He developed some transient diarrhea at day 3. He also developed peripheral neuropathy symptoms, primarily cold sensitivity, but that was beginning to improve by day 8. As he still had moderately severe anemia and he was intolerant of oral iron, he also was given parenteral iron replacement with 2 infusions of Injectafer. He tolerated these well. He then continued with cycle 2 of modified FOLFOX on 10/11/2020. He did require 1 level dose reduction in the oxaliplatin due to the neuropathy. He then proceeded with cycle 3 on 10/25/2020 and with cycle 4 on 11/08/2020. At that point he did require a second dose reduction in the oxaliplatin, again for neuropathy. He then continued treatment at 2-week intervals. He completed his 8th cycle of modified FOLFOX on 01/03/2021, and with that cycle the oxaliplatin was omitted because of worsening neuropathy. His repeat MRI of the pelvis on 01/17/2021 showed residual mass in the rectum beginning at 7.9 cm from the anal verge and extending for a length of 4.4 cm. The thickest part of the tumor had decreased from 1.7 cm to 0.9 cm. A new focal oval thickening measuring 1.0 cm was noted. By MR criteria it was categorized as a T3b primary lesion. The shortest distance of tumor to MRF or anticipated CRM was measured at 7.5 mm. A total of 5 lymph nodes were identified, for which appeared to be suspicious for local regional node involvement. These had shown moderate decrease in size compared to the pretreatment study. Mr. Robbins has been referred to Dr. Romero in radiation oncology for combined chemoradiation. We will utilize Xeloda for chemosensitization. He will be referred for surgery when their chemoradiation is complete. He is here today to begin his first cycle of capecitabine (Xeloda). He states overall he is doing well. 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 He has no concerns at this time. He is aware that he will take it twice daily on the days of radiation only. He denies any concerns today. He has had no increase in fatigue. 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 He does tire easily but recovers well with rest. He denies any mouth sores, sore throat or difficulty swallowing. He has had no fever or chills or any signs of infection. He denies any nausea or vomiting. His appetite is good. He denies any diarrhea or constipation. He denies any worsening of his peripheral neuropathy but states he still feels it in his fingers and toes at times but sometimes his fingers are worse. It is not affecting with his ADLs at this point but he notices it is still there. He has occasional numbness in his mouth as well seems to think that is getting some better. He states the neuropathy is no worse overall. His ECOG is 0 Past Medical History: Allergic rhinitis Coronary artery disease Dyslipidemia Gastroesophageal reflux disease Hypertension Type II diabetes Past Surgical History: Covid 19 vaccine in 2020 Colonoscopy in 2019 Flu vaccine in 2019 Coronary angioplasty/stent placement in 2017 Allergies: Sulfa Antibiotics Medications: amLODIPine Besylate 1 (2.5 mg) Tablet Oral b.i.d. Aspirin 1 (81 mg) Tablet, chewable Oral daily Claritin 1 (10 mg) Tablet Oral daily Crestor 1 (20 mg) Tablet Oral daily glipiZIDE XL 1 (5 mg) Tablet SR 24 HR Oral b.i.d. Isosorbide Mononitrate ER 1 (30 mg) Tablet SR 24 HR Oral b.i.d. Lisinopril 1 (5 mg) Tablet Oral b.i.d. metFORMIN HCl 1 (1000 mg) Tablet Oral b.i.d. Metoprolol Succinate ER 1 (50 mg) Tablet SR 24 HR Oral b.i.d. Nitroglycerin Tablet, sublingual Sublingual PRN Pantoprazole Sodium 1 (40 mg) Tablet, enteric coated Oral daily Family History: Mr. Robbins's mother is : Pulmonary Embolism. Mr. Robbins's father is : coronary artery disease. Mr. Robbins has 2 brothers: 2 alive. Father of heart disease age 56. Mother at age 76, apparently of pulmonary embolism. Two brothers are in good health. Social History: Mr. Robbins is . Mr. Robbins has never smoked. He has no history of drinking. 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 He is a non-smoker. He does not drink alcohol. Review Of Symptoms: <See Above> Vital Signs: Performed on Feb 21, 2021 15:09 Height - 72.00 in Weight - 268.6 lbs (HIGH) BSA - 2.41 sq.m BMI - 36.43 (HIGH) Temperature - 98.9 F (HIGH) Pulse - 91 /min Respiration - 18 /min BP - 170/70 mm(hg) (HIGH) O2 Sat - 97 % Pain - 0 Fatigue - 0,0 - Fully active, able to carry on all predisease activities without restrictions. (ECOG) Physical Examination: Constitutional Alert, oriented, no acute distress. Skin pink, warm and dry. Head Normocephalic; atraumatic. Eyes Conjunctivae and sclerae are clear and without icterus. Pupils are reactive and equal. Neck Supple without masses or thyromegaly. No jugular venous distension. Hematologic/Lymphatic No petechiae or purpura. No tender or palpable lymph nodes in the cervical or supraclavicular areas. Respiratory Lungs are clear to auscultation without rhonchi or wheezing. Cardiovascular Regular rate and rhythm of heart without murmurs,clicks, gallops or rubs. Back/Spine Non-tender to palpation. Musculoskeletal No tenderness or swelling, normal range of motion without obvious weakness. Integumentary No rashes or lesions. Neurologic No sensory or motor deficits, normal cerebellar function, normal gait. Psychiatric Alert and oriented times three. Coherent speech. Verbalizes understanding of our discussions today. Laboratory:Test performed on January 24, 2021 14:18 Sodium 141 mmol/L Potassium 4.2 mmol/L Chloride 106 mmol/L CO2 23 mmol/L Anion Gap 16.2 BUN 13 mg/dL Creatinine 0.8 mg/dL Cr Clearance (Est) 149.2800 mL/min eGFR 95.6 mL/min Glucose 263 mg/dL Osmolality - Calculated 301 mOsm/kg Calcium 8.4 mg/dL Protein, Total 6.8 g/dL Albumin 4.1 g/dL Globulin 2.7 g/dL Bilirubin, Total 0.4 mg/dL ALT (SGPT) 30 U/L AST (SGOT) 36 U/L Alkaline Phosphatase 71 IU/L WBC 7.8 10 3/uL RBC 4.09 10 6/uL HGB 13.5 g/dL HCT 41.4 % MCV 101.2 fL MCH 33.0 pg MCHC 32.6 g/dL RDW 15.9 % Platelet Count 224 10 3/cmm MPV 10.5 fL Neutrophils 5.29 10 3/uL Lymphocytes 1.2 10 3/uL Monocytes 0.8 10 3/uL Eosinophils 0.1 10 3/uL Basophils 0.1 10 3/uL Neutrophil % 67.7 % Lymphocyte % 15.7 % Monocyte % 10.7 % Eosinophil % 0.6 % Basophils % 1.1 % NRBC % 0 % CEA 12.1 ng/mL Test performed on Nov 08, 2020 08:51 Ferritin 453 ng/mL Iron 76 mcg/dL Iron Binding Capacity (TIBC) 287 mcg/dl % Iron Saturation 26.4 % UIBC 211 mcg/dL CBC Slide Review Slide Review Perform SLIDE REVIEW AGREES WITH AUTOMATED RESULTS ST Impression: 1. Moderately differentiated invasive adenocarcinoma of the rectum, by clinical evaluation stage at least T3, N1. 2. CT evidence of 1.5 cm right lower lobe pulmonary nodule, clinical significance of which is uncertain. 3. Iron deficiency anemia, presumed to be due to GI blood loss. He had been intolerant of oral iron due to GI side effects. 4. Hypertension. 5. Dyslipidemia. 6. Type 2 diabetes. 7. Coronary artery disease with previous angioplasty/stent placement. 8. GERD. Plan/Problems Addressed at this Visit: 1. 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 By clinical evaluation his disease appeared to be stage T3, N1. He was recommended to undergo total neoadjuvant therapy. He began initial treatment with 8 cycles of modified FOLFOX from 09/27/2020 through 01/03/2021. Side effects included fatigue and neuropathy. The neuropathy was severe enough to necessitate 2 dose reductions in the oxaliplatin, and it was omitted with the 8th cycle. His repeat MRI does show some evidence of response, though not dramatic. His clinical staging is T3b, N1, and possibly M1a depending on the status of the pulmonary nodule. He will proceed now with chemoradiation and he willbe referred to Dr. Romero for radiation oncology consultation. I will plan to utilize Xeloda for the chemosensitization. He will then be reevaluated for surgery when the chemoradiation is completed. A. Begin capecitabine today at 2000 mg twice daily on the days of radiation only. B. AVOID GRAPEFRUIT PRODUCTS WITH XELODA. C. He will need baseline CBC CMP and CEA D. He will have weekly visits as well as CBC CMP for evaluation of the capecitabine while he is on radiation therapy. E. Once he completes chemoradiation he will be referred for possible surgery. 2. He had CT evidence of 1.5 cm right lower lobe pulmonary nodule. It showed low-grade FDG uptake by PET, SUV 2.4, suggestive of benign etiology. Repeat CT scans on 12/14/2020 did show a significant decrease in the right lower lobe pulmonary nodule to 0.6 cm, suggestive of a metastatic lesion with response to chemotherapy. There was no evidence of other metastatic disease. His chest CT will now be repeated. If it appears likely that it is a metastatic lesion, it would potentially be amenable to resection or to SBRT. 3. Iron deficiency anemia with intolerance to oral iron. He was given parenteral iron replacement with 2 infusions of Injectafer. He has had a good response. His last hemoglobin on January 24, 2021 was 13.5. 4. He wishes to obtain his capecitabine through his local retail pharmacy. 5. Chemotherapy teaching A. The patient and family were informed of chemotherapy plan and specific drugs were discussed. We also discussed how chemotherapy works and identified common side effects including alopecia; myelosuppression-including neutropenia, anemia, thrombocytopenia; peripheral neuropathy; fatigue; nausea; diarrhea; constipation; bleeding or bruising; skin changes-rash/dryness-PPE/fissures/skin peeling; mouth sores; drug hypersensitivity/allergic reactions or anaphylaxis and increased risk of blood clots. They have also been informed how to contact the clinic with side effects or symptoms, including but not limited to fever greater than 100.4???, chills, sore throat, bleeding or bruising that is not explained or mouth sores, cough, nasal discharge, diarrhea, constipation, nausea and/or vomiting not relieved with medications on hand at home, as well as any other concern or question they may have. Our hours are 8:00 a.m. to 4:30 p.m. on Thursday through and 8-12:00 on Thursday. However, someone is auto transmission mechanic 24 hours per day and they have been advised to contact the [facility] at if it is after hours. We have also discussed potential long-term side effects of chemotherapy including secondary cancers, infertility, pulmonary complications, cardiac complications, and again peripheral neuropathy. We have discussed that they certainly need to let us know before taking any antioxidants or herbal or further dietary supplements, as we are unsure of how these agents react with chemotherapy and we request that they avoid these products for now. They were informed that it is okay to take multivitamins at normal doses. They verbally state that they understand to take all medications as directed by their healthcare provider unless otherwise indicated. Instructions for oral care with baking soda and salt water rinses as well as a guide for use of [id number] medication were provided with the treatment plan. They have been given a written patient treatment plan, of which a copy is in the chart, as well as specific drug information. They have no questions and verbalized understanding and are willing to proceed with chemotherapy at this time. Signed By: Velvet Gaffney-, CNP Eliel Abrams MD <<Signature on File>>
== END 2021-03-06 23:59 | disposition home or self-care (01) ==
LOC: ONCMED 05:48
PROVIDERS: Absent Provider Radiology Radiation Oncology; PCP Nurse Practitioner Family; Visit Provider Internal Medicine Medical Oncology
DX: Z51.0 Encounter for antineoplastic radiation therapy (principal); C20 Malignant neoplasm of rectum; D50.0 Iron deficiency anemia secondary to blood loss (chronic); J30.9 Allergic rhinitis, unspecified; E11.59 Type 2 diabetes mellitus with other circulatory complications; I25.10 Atherosclerotic heart disease of native coronary artery without angina pectoris; E78.5 Hyperlipidemia, unspecified; K21.9 Gastro-esophageal reflux disease without esophagitis; I10 Essential (primary) hypertension; R91.1 Solitary pulmonary nodule; Z95.5 Presence of coronary angioplasty implant and graft; Z79.899 Other long term (current) drug therapy
CPT/HCPCS: 36591; 77300; 77301; 77334; 77336; 77338; 77386; 77470; 80053; 85025; 99214; Q9967

== ENCOUNTER 2021-04-04 14:00 | Outpatient (RCR) | payer MEDICARE, SELFPAY ==
--- NOTE | 2021-03-07 16:27 | ONC FU_ITS ---
Dr. Abrams Patient Follow-Up Note Patient: Genaro Robbins Unit #: [id number]: [id number] Dicatated By: Eliel Abrams M.D.Date of Visit:Mar 07, 2021 Onc Med Follow-up/Prog Note Chief Complaint: Rectal cancer. 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 He had presented with iron deficiency anemia in association with rectal bleeding. His initial CBC showed hemoglobin low at 7.5 g and hematocrit 29%. His iron saturation was 3.5% and the ferritin was low at 15 ng/mL, consistent with iron deficiency. He was transfused 2 units PRBC and he also began on oral iron supplementation with ferrous sulfate. He was unable to tolerate it due to GI side effects. In the meantime, he was seen by Dr. Caldwell and he underwent EGD and colonoscopy on 08/23/2020. The EGD showed evidence of gastritis with multiple gastric erosions. The colonoscopy showed a 7 mm pedunculated polyp in the ascending colon, a 5 mm sessile polyp in the descending colon, and a 1 cm pedunculated polyp in the sigmoid colon. The rectum showed an ulcerated malignant appearing mass along the right lateral wall approximately 6 cm from the anal verge. The mass was palpable by digital rectal exam. Biopsy of the rectal mass showed moderately differentiated invasive adenocarcinoma. The descending colon polyp was noted to be hyperplastic. The other polyps were tubular adenomas without high-grade dysplasia or malignancy. Gastric biopsy showed mild chronic gastritis. Staging CT scans of the chest, abdomen, and pelvis showed asymmetric soft tissue thickening at the rectum, with the anterior wall measuring up to 12 mm. Indeterminate pelvic lymph nodes were noted just anterior to the L5-S1 disc space, the largest measuring 12 mm. A right lower lobe pulmonary nodule measured 1.5 cm, consistent with metastatic lesion, versus primary lung neoplasm, versus benign lesion. Indeterminant left hilar lymph nodes measured up to 12 mm. There was no evidence of other metastatic disease. His baseline CEA was elevated at 15.6 ng/mL. He had colorectal surgery consultation with Dr. Ranulfo Anguiano on 09/03/2021. Staging MRI of the pelvis on 09/13/2020 was consistent with a T3 primary lesion with suspected involvement in 3/5 mesorectal lymph nodes. He began cycle 1 of neoadjuvant chemotherapy with modified FOLFOX on 09/27/2020. His staging PET/CT on 09/22/2020 showed circumferential rectal thickening with SUV 12.1, consistent with known primary malignancy. Subcentimeter perirectal lymph nodes were too small to characterize. A 1.0 presacral lymph node had SUV 4.3, consistent with local metastatic disease. The right lower lobe pulmonary nodule measuring 1.7 x 1.8 cm and SUV 2.5. This was felt to be suggestive of a benign finding, but followup was felt to be warranted. Also noted were 4 mm nodules in the left upper lobe and lateral right upper lobe, too small to characterize. There were no other areas of abnormal uptake on that study. With those findings he was recommended to proceed with total neoadjuvant therapy. His other medical illnesses include hypertension, dyslipidemia, type 2 diabetes, coronary artery disease, and GERD. He has had previous angioplasty/stent placement. He is a non-smoker. INTERIM HISTORY: He began cycle 1 of neoadjuvant chemotherapy with modified FOLFOX on 09/27/2020. He experienced no nausea/vomiting or other acute toxicity with the chemotherapy. He developed some transient diarrhea at day 3. He also developed peripheral neuropathy symptoms, primarily cold sensitivity, but that was beginning to improve by day 8. As he still had moderately severe anemia and he was intolerant of oral iron, he also was given parenteral iron replacement with 2 infusions of Injectafer. He tolerated these well. He then continued with cycle 2 of modified FOLFOX on 10/11/2020. He did require 1 level dose reduction in the oxaliplatin due to the neuropathy. He then proceeded with cycle 3 on 10/25/2020 and with cycle 4 on 11/08/2020. At that point he did require a second dose reduction in the oxaliplatin, again for neuropathy. He then continued treatment at 2-week intervals. He completed his 8th cycle of modified FOLFOX on 01/03/2021, and with that cycle the oxaliplatin was omitted because of worsening neuropathy. His repeat MRI of the pelvis on 01/17/2021 showed residual mass in the rectum beginning at 7.9 cm from the anal verge and extending for a length of 4.4 cm. The thickest part of the tumor had decreased from 1.7 cm to 0.9 cm. A new focal oval thickening measuring 1.0 cm was noted. By MR criteria it was categorized as a T3b primary lesion. The shortest distance of tumor to MRF or anticipated CRM was measured at 7.5 mm. A total of 5 lymph nodes were identified, for which appeared to be suspicious for local regional node involvement. These had shown moderate decrease in size compared to the pretreatment study. On 02/21/2021 he began chemoradiation utilizing capecitabine for chemosensitization. His capecitabine dosage calculated to 2000 mg twice daily. He is seen for a follow-up visit. Thus far he is tolerating his chemoradiation well. He has been having some diarrhea, but with maximum 2-3 stools per 24 hours. He is managing it adequately with loperamide. He says he is starting to get a little bit tired. He is still working. ECOG score is 0. He has good appetite. He has no fever or night sweats. He has not had sore mouth or sore throat. He has no shortness of breath, cough, or chest pain. He has had just occasional nausea. He has no complaints. He has been having some joint pain, mainly in the hips. He does not complain of headache or dizziness. He is still having neuropathy symptoms, worse in the hands than the feet. Medications: amLODIPine Besylate 1 (2.5 mg) Tablet Oral b.i.d., Aspirin 1 (81 mg) Tablet, chewable Oral daily, Claritin 1 (10 mg) Tablet Oral daily, Crestor 1 (20 mg) Tablet Oral daily, glipiZIDE XL 1 (5 mg) Tablet SR 24 HR Oral b.i.d., Isosorbide Mononitrate ER 1 (30 mg) Tablet SR 24 HR Oral b.i.d., Lisinopril 1 (5 mg) Tablet Oral b.i.d., metFORMIN HCl 1 (1000 mg) Tablet Oral b.i.d., Metoprolol Succinate ER 1 (50 mg) Tablet SR 24 HR Oral b.i.d., Nitroglycerin Tablet, sublingual Sublingual PRN, Pantoprazole Sodium 1 (40 mg) Tablet, enteric coated Oral daily Allergies: Sulfa Antibiotics Vital Signs: Performed on Mar 07, 2021 08:54 Height - 72.00 in Weight - 272.6 lbs (HIGH) BSA - 2.43 sq.m BMI - 36.97 (HIGH) Temperature - 97.2 F (LOW) Pulse - 74 /min Respiration - 18 /min BP - 150/80 mm(hg) (HIGH) O2 Sat - 98 % Pain - 0 Physical Examination: Constitutional - He looks good generally, Eyes - Sclerae nonicteric. Conjunctivae clear, ENMT - No lesions noted in the oral cavity, Hematologic/Lymphatic - No cervical, clavicular, or axillary adenopathy, Respiratory - Lungs are clear with good air movement bilaterally, Cardiovascular - Heart rhythm is regular. There is no murmur, gallop, or rub noted, Abdomen - Soft. Liver and spleen are not enlarged. There is no abdominal mass or ascites noted and there is no inguinal adenopathy, Extremities - No edema, Neurologic - No focal neurologic deficits noted. Lab/Imaging: CBC shows hemoglobin 12.0 g, white blood cell count 3600, and platelet count 143,000. The absolute neutrophil count is 2100. Comprehensive metabolic profile is unremarkable. Problem List: 1. Moderately differentiated invasive adenocarcinoma of the rectum, by clinical evaluation stage at least T3, N1. 2. CT evidence of 1.5 cm right lower lobe pulmonary nodule, clinical significance of which is uncertain. 3. Iron deficiency anemia, presumed to be due to GI blood loss. He had been intolerant of oral iron due to GI side effects. 4. Hypertension. 5. Dyslipidemia. 6. Type 2 diabetes. 7. Coronary artery disease with previous angioplasty/stent placement. 8. GERD. Problems Addressed with this Encounter and Plan: 1. 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 By clinical evaluation his disease appeared to be stage T3, N1. He was recommended to undergo total neoadjuvant therapy. He began initial treatment with 8 cycles of modified FOLFOX from 09/27/2020 through 01/03/2021. Side effects included fatigue and neuropathy. The neuropathy was severe enough to necessitate 2 dose reductions in the oxaliplatin, and it was omitted with the 8th cycle. His repeat MRI did show some evidence of response, though not dramatic. His clinical staging was T3b, N1, and possibly M1a depending on the status of the pulmonary nodule. On 02/22/2020 when he began chemoradiation utilizing capecitabine for chemosensitization. His capecitabine dosage calculated to 2000 mg twice daily. He has mild fatigue and he also is having some diarrhea, though it is being managed adequately with loperamide. He also has mild neutropenia now. Overall, he is tolerating treatment with acceptable toxicity. For now he will continue the capecitabine at 2000 mg twice daily on days of radiation. He will require a dose reduction if there is further decline in his blood counts or worsening of diarrhea. His blood count will be rechecked next week and I will see him again in 2 weeks. 2. He had CT evidence of 1.5 cm right lower lobe pulmonary nodule. It showed low-grade FDG uptake by PET, SUV 2.4, suggestive of benign etiology. Repeat CT scans on 12/14/2020 did show a significant decrease in the right lower lobe pulmonary nodule to 0.6 cm, suggestive of a metastatic lesion with response to chemotherapy. There was no evidence of other metastatic disease. His chest CT will now be repeated. If it appears likely that it is a metastatic lesion, it would potentially be amenable to resection or to SBRT. Signed By: Eliel Abrams M.D. <<Signature on File>>
--- NOTE | 2021-03-12 08:51 | ONCRAD TMN_ITS ---
Radiation Oncology Treatment Management Note Patient Name: Genaro Robbins Date of : 1950 Date of Service: 03/12/2021 Attending Physician: Gregory Romero M.D. Genaro Robbins is a 70 year old white male diagnosed with a clinical stage IIIB (T3N1b) moderately differentiated adenocarcinoma of the rectum. He has completed eight cycles of neoadjuvant modified FOLFOX (September 27, 2020 through January 03, 2021). The patient has received 26 Gy of a prescribed 50 Jimenez with an intensity modulated radiotherapy plan utilizing a step and shoot treatment technique. He has been prescribed daily oral chemotherapy consisting of capecitabine (1000 mg/m2). Upon review of systems, he denied any gastrointestinal complaints related to radiotherapy. On physical examination, the patient weighed 269 lbs. His temperature was 97.7 ???F with a blood pressure of 169/87 mmHg. His pulse was 71 bpm and the respiratory rate was 18. No erythema within the treatment flores. Continue pelvic radiotherapy as prescribed. Signed by: Dr. Gregory Romero 03/12/2021 8:50:29 AM
[2021-03-12 09:17] LABS: Basophils # 0.1 10^3/uL (0.0-0.1); Basophils % 1.2 %; Eosinophils # 0.2 10^3/uL (0.0-0.8); Eosinophils % 4.1 %; Hemoglobin 11.7 g/dL (11.7-16.6); Lymphocytes # 0.6 10^3/uL (0.8-4.8); Lymphocytes % 15.1 %; Mean Corpuscular HGB Conc 33.4 g/dL (30.0-36.0); Mean Corpuscular Hemoglobin 33.5 pg (28.0-34.0); Mean Corpuscular Volume 100.3 fL (80-94); Mean Platelet Volume 10.2 fL (7.4-10.4); Monocytes # 0.4 10^3/uL (0.2-0.9); Monocytes % 9.5 %; Neutrophils # 2.65 10^3/uL (1.8-7.7); Neutrophils % 64.5 %; Platelet Count 165 10^3/cmm (130-400); Red Blood Count 3.49 10^6/uL (4.1-5.3); Red Cell Distribution Width 14.4 % (12.1-15.1); White Blood Count 4.1 10^3/uL (4.0-10.0)
[2021-03-12 09:50] LABS: Slide Review Slide Review Perform
--- NOTE | 2021-03-18 08:44 | ONCRAD TMN_ITS ---
Radiation Oncology Treatment Management Note Patient Name: Genaro Robbins Date of : 1950 Date of Service: 03/18/2021 Attending Physician: Gregory Romero M.D. Genaro Robbins is a 70 year old white male diagnosed with a clinical stage IIIB (T3N1b) moderately differentiated adenocarcinoma of the rectum. He has completed eight cycles of neoadjuvant modified FOLFOX (September 27, 2020 through January 03, 2021). The patient has received 34 Gy of a prescribed 50 Jimenez with an intensity modulated radiotherapy plan utilizing a step and shoot treatment technique. He has been prescribed daily oral chemotherapy consisting of capecitabine (1000 mg/m2). Upon review of systems, he denied any gastrointestinal complaints related to radiotherapy. On physical examination, the patient weighed 270 lbs. His temperature was 97.9 ???F with a blood pressure of 166/80 mmHg. His pulse was 72 bpm and the respiratory rate was 18. No erythema within the treatment flores. Continue pelvic radiotherapy as planned. Signed by: Dr. Gregory Romero 03/18/2021 8:43:29 AM
[2021-03-20 08:36] LABS: Basophils % 1.1 %; Eosinophils # 0.1 10^3/uL (0.0-0.8); Eosinophils % 3.8 %; Hematocrit 35.6 % (42.0-52.0); Hemoglobin 11.9 g/dL (11.7-16.6); Lymphocytes # 0.5 10^3/uL (0.8-4.8); Lymphocytes % 14.8 %; Mean Corpuscular HGB Conc 33.4 g/dL (30.0-36.0); Mean Corpuscular Hemoglobin 34.4 pg (28.0-34.0); Mean Corpuscular Volume 102.9 fL (80-94); Mean Platelet Volume 9.8 fL (7.4-10.4); Monocytes # 0.5 10^3/uL (0.2-0.9); Neutrophils # 2.28 10^3/uL (1.8-7.7); Neutrophils % 62.7 %; Nucleated Red Blood Cells % 0 %; Platelet Count 150 10^3/cmm (130-400); Red Blood Count 3.46 10^6/uL (4.1-5.3); Red Cell Distribution Width 15.8 % (12.1-15.1); White Blood Count 3.6 10^3/uL (4.0-10.0)
[2021-03-20 09:03] LABS: Alanine Aminotransferase 30 U/L (0-41); Albumin Level 3.8 g/dL (3.5-5.2); Alkaline Phosphatase 51 IU/L (40-130); Anion Gap 14.3 (5-19); Aspartate Amino Transferase 35 U/L (0-40); Blood Urea Nitrogen 10 mg/dL (8-23); Calcium 8.2 mg/dL (8.5-10.5); Carbon Dioxide 25 mmol/L (22-29); Chloride 103 mmol/L (98-107); Globulin 2.7 g/dL (1.3-4.6); Glomerular Filtration Rate 111.5 mL/min (90-130); Glucose 187 mg/dL (65-115); Osmolality Calculated 290 mOsm/kg (285-295); Potassium 4.3 mmol/L (3.5-5.1); Sodium 138 mmol/L (136-145); Total Bilirubin 0.5 mg/dL (0.15-1.2); Total Protein 6.5 g/dL (6.6-8.7)
--- NOTE | 2021-03-22 06:25 | ONC FU_ITS ---
Dr. Abrams Patient Follow-Up Note Patient: Genaro Robbins Unit #: [id number]: 1950 Dicatated By: Eliel Abrams M.D.Date of Visit:Mar 21, 2021 Onc Med Follow-up/Prog Note Chief Complaint: Rectal cancer. 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 He had presented with iron deficiency anemia in association with rectal bleeding. His initial CBC showed hemoglobin low at 7.5 g and hematocrit 29%. His iron saturation was 3.5% and the ferritin was low at 15 ng/mL, consistent with iron deficiency. He was transfused 2 units PRBC and he also began on oral iron supplementation with ferrous sulfate. He was unable to tolerate it due to GI side effects. In the meantime, he was seen by Dr. Caldwell and he underwent EGD and colonoscopy on 08/23/2020. The EGD showed evidence of gastritis with multiple gastric erosions. The colonoscopy showed a 7 mm pedunculated polyp in the ascending colon, a 5 mm sessile polyp in the descending colon, and a 1 cm pedunculated polyp in the sigmoid colon. The rectum showed an ulcerated malignant appearing mass along the right lateral wall approximately 6 cm from the anal verge. The mass was palpable by digital rectal exam. Biopsy of the rectal mass showed moderately differentiated invasive adenocarcinoma. The descending colon polyp was noted to be hyperplastic. The other polyps were tubular adenomas without high-grade dysplasia or malignancy. Gastric biopsy showed mild chronic gastritis. Staging CT scans of the chest, abdomen, and pelvis showed asymmetric soft tissue thickening at the rectum, with the anterior wall measuring up to 12 mm. Indeterminate pelvic lymph nodes were noted just anterior to the L5-S1 disc space, the largest measuring 12 mm. A right lower lobe pulmonary nodule measured 1.5 cm, consistent with metastatic lesion, versus primary lung neoplasm, versus benign lesion. Indeterminant left hilar lymph nodes measured up to 12 mm. There was no evidence of other metastatic disease. His baseline CEA was elevated at 15.6 ng/mL. He had colorectal surgery consultation with Dr. Ranulfo Anguiano on 09/03/2021. Staging MRI of the pelvis on 09/13/2020 was consistent with a T3 primary lesion with suspected involvement in 3/5 mesorectal lymph nodes. He began cycle 1 of neoadjuvant chemotherapy with modified FOLFOX on 09/27/2020. His staging PET/CT on 09/22/2020 showed circumferential rectal thickening with SUV 12.1, consistent with known primary malignancy. Subcentimeter perirectal lymph nodes were too small to characterize. A 1.0 presacral lymph node had SUV 4.3, consistent with local metastatic disease. The right lower lobe pulmonary nodule measuring 1.7 x 1.8 cm and SUV 2.5. This was felt to be suggestive of a benign finding, but followup was felt to be warranted. Also noted were 4 mm nodules in the left upper lobe and lateral right upper lobe, too small to characterize. There were no other areas of abnormal uptake on that study. With those findings he was recommended to proceed with total neoadjuvant therapy. His other medical illnesses include hypertension, dyslipidemia, type 2 diabetes, coronary artery disease, and GERD. He has had previous angioplasty/stent placement. He is a non-smoker. INTERIM HISTORY: He began cycle 1 of neoadjuvant chemotherapy with modified FOLFOX on 09/27/2020. He experienced no nausea/vomiting or other acute toxicity with the chemotherapy. He developed some transient diarrhea at day 3. He also developed peripheral neuropathy symptoms, primarily cold sensitivity, but that was beginning to improve by day 8. As he still had moderately severe anemia and he was intolerant of oral iron, he also was given parenteral iron replacement with 2 infusions of Injectafer. He tolerated these well. He then continued with cycle 2 of modified FOLFOX on 10/11/2020. He did require 1 level dose reduction in the oxaliplatin due to the neuropathy. He then proceeded with cycle 3 on 10/25/2020 and with cycle 4 on 11/08/2020. At that point he did require a second dose reduction in the oxaliplatin, again for neuropathy. He then continued treatment at 2-week intervals. He completed his 8th cycle of modified FOLFOX on 01/03/2021, and with that cycle the oxaliplatin was omitted because of worsening neuropathy. His repeat MRI of the pelvis on 01/17/2021 showed residual mass in the rectum beginning at 7.9 cm from the anal verge and extending for a length of 4.4 cm. The thickest part of the tumor had decreased from 1.7 cm to 0.9 cm. A new focal oval thickening measuring 1.0 cm was noted. By MR criteria it was categorized as a T3b primary lesion. The shortest distance of tumor to MRF or anticipated CRM was measured at 7.5 mm. A total of 5 lymph nodes were identified, for which appeared to be suspicious for local regional node involvement. These had shown moderate decrease in size compared to the pretreatment study. On 02/21/2021 he began chemoradiation utilizing capecitabine for chemosensitization. His capecitabine dosage calculated to 2000 mg twice daily. He is seen for a follow-up visit. He is now nearing the completion of his chemoradiation. He continues to tolerate the treatment well. He does get a little bit tired, but he is still working. ECOG score 0. He has good appetite. He has no fever or night sweats. He has had no mouth sores. He has no shortness of breath, cough, or chest pain. He has not been having nausea. He has some diarrhea, estimated 2-3 times per week. It is managed adequately with Imodium. He does have more frequent urination now. He continues to have some pain in his right lower back/hip area when he is walking or standing. He has no other joint or bone pain. He does not complain of headache or dizziness. He still has some residual neuropathy, mainly in his hands. Medications: amLODIPine Besylate 1 (2.5 mg) Tablet Oral b.i.d., Aspirin 1 (81 mg) Tablet, chewable Oral daily, Claritin 1 (10 mg) Tablet Oral daily, Crestor 1 (20 mg) Tablet Oral daily, glipiZIDE XL 1 (5 mg) Tablet SR 24 HR Oral b.i.d., Isosorbide Mononitrate ER 1 (30 mg) Tablet SR 24 HR Oral b.i.d., Lisinopril 1 (5 mg) Tablet Oral b.i.d., metFORMIN HCl 1 (1000 mg) Tablet Oral b.i.d., Metoprolol Succinate ER 1 (50 mg) Tablet SR 24 HR Oral b.i.d., Nitroglycerin Tablet, sublingual Sublingual PRN, Pantoprazole Sodium 1 (40 mg) Tablet, enteric coated Oral daily Allergies: Sulfa Antibiotics Vital Signs: Performed on Mar 21, 2021 08:38 Height - 72.00 in Weight - 269.6 lbs (LOW) BSA - 2.42 sq.m BMI - 36.56 (HIGH) Temperature - 98.0 F (LOW) Pulse - 76 /min Respiration - 18 /min BP - 173/83 mm(hg) (HIGH) O2 Sat - 98 % Pain - 0 Fatigue - 5 Physical Examination: Constitutional - He looks good generally, Eyes - Sclerae nonicteric. Conjunctivae clear, ENMT - No lesions noted in the oral cavity, Hematologic/Lymphatic - No cervical, clavicular, or axillary adenopathy, Respiratory - Lungs are clear with good air movement bilaterally, Cardiovascular - Heart rhythm is regular. There is no murmur, gallop, or rub noted, Abdomen - Soft. Liver and spleen are not enlarged. There is no abdominal mass or ascites noted and there is no inguinal adenopathy, Extremities - No edema, Neurologic - No focal neurologic deficits noted. Lab/Imaging: CBC shows hemoglobin 11.9 g, white blood cell count 3600, and platelet count 150,000. Comprehensive metabolic profile is unremarkable. Problem List: 1. Moderately differentiated invasive adenocarcinoma of the rectum, by clinical evaluation stage at least T3, N1. 2. CT evidence of 1.5 cm right lower lobe pulmonary nodule, clinical significance of which is uncertain. 3. Iron deficiency anemia, presumed to be due to GI blood loss. He had been intolerant of oral iron due to GI side effects. 4. Hypertension. 5. Dyslipidemia. 6. Type 2 diabetes. 7. Coronary artery disease with previous angioplasty/stent placement. 8. GERD. 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 By clinical evaluation his disease appeared to be stage T3, N1. He was recommended to undergo total neoadjuvant therapy. He began initial treatment with 8 cycles of modified FOLFOX from 09/27/2020 through 01/03/2021. Side effects included fatigue and neuropathy. The neuropathy was severe enough to necessitate 2 dose reductions in the oxaliplatin, and it was omitted with the 8th cycle. His repeat MRI did show some evidence of response, though not dramatic. His clinical staging was T3b, N1. His initial CT scans had shown a 1.5 cm right lower lobe pulmonary nodule. It had low-grade FDG uptake by PET with SUV 2.4, suggestive of benign etiology. However, his repeat chest CT on 12/14/2020 did show a significant decrease in the size of the nodule to 0.6 cm, which was more suggestive of a metastatic lesion showing response to chemotherapy, and thus stage M1a disease. On 02/21/2021 when he began chemoradiation utilizing capecitabine for chemosensitization. His capecitabine dosage calculated to 2000 mg twice daily. He has mild fatigue and he also is having some diarrhea, though it is being managed adequately with loperamide. He also has mild neutropenia now. Overall, he has been tolerating treatment with acceptable toxicity. His blood counts remain adequate. He will continue capecitabine at 2000 mg twice daily on days of radiation. He will be scheduled for restaging CT scans 2 weeks following completion of treatment, at which point I will contact Dr. Anguiano to arrange for further follow-up, including further management of the pulmonary nodule. Signed By: Eliel Abrams M.D. <<Signature on File>>
--- NOTE | 2021-03-25 10:38 | ONCRAD TMN_ITS ---
Radiation Oncology Weekly Treatment Management Patient: Itzel Narayan MR#: [id number] : 1950> Attending Physician: Dr. Thomas Torres Date of Service: 03/25/2021 Referring Physician(s) : Diagnosis: C20 - Malignant neoplasm of rectum, Diagnosed 09/20/2020 (Active) Stage X, T3, N1b Radiotherapy to date: Course: Rectal Ca 2020, Treatment Site: Rectal Ca, Ref. ID: [id number], Energy: 15X, Dose/Fx (cGy): 200, #Fx: , Dose Correction (cGy): 0, Total Dose (cGy): 4,400, Start Date: 02/21/2021, Elapsed Days: 32 Reason for visit: The patient is being seen today as part of their regularly scheduled weekly on treatment visits to assess for acute toxicities from radiotherapy. Review of Systems: Doing well with minimal side effects. He has isolated episodes of diarrhea 2 to 3 days/week. The diarrhea resolves with 1 Imodium. He has noticed slight frequency related to the bladder. No dysuria, pyuria, or hematuria. Nocturia is 0. Vital Signs: Performed on 03/25/2021 8:42 AM BMI - 36.158 kg/m2 (high), Height - 72.00 in, Weight - 266.6 lbs, Temperature - 97.6 f, Pulse - 69, Respiration - 20, O2 Sat - 98 %, Pain - 0 and BP - 153/ 81 mm(hg)(high/). Physical Exam: He is alert and oriented. There is no skin reaction of the anterior pelvic wall or inguinal areas. Scrotal and penis appear normal. Exam of the intergluteal fold area and perineum reveals no skin reaction or lesions. Imaging: Radiation therapy imaging related to accurate target localization (i.e. KV, MV and CBCT) was reviewed. Appropriate changes, if any, were made to ensure treatment accuracy. Plan: Continue treatment as planned. He finishes in 3 more sessions. He states that a scan is planned for next week. I recommended he call Dr. Treadwell's nurse and inform her of the date of treatment completion as well as the date of the scan and then schedule an appointment. He did inform me that he is going for a 1 week [place] at the end of April. That should work well with the surgery schedule but I told him he would probably have surgery pretty soon after that vacation. Signed by: Dr. Thomas Torres 03/25/2021 10:36:13 AM
[2021-04-04 11:30] LABS: Eosinophils # 0.2 10^3/uL (0.0-0.8); Eosinophils % 4.5 %; Hematocrit 34.9 % (42.0-52.0); Hemoglobin 11.6 g/dL (11.7-16.6); Lymphocytes # 0.5 10^3/uL (0.8-4.8); Lymphocytes % 12.1 %; Mean Corpuscular HGB Conc 33.2 g/dL (30.0-36.0); Mean Corpuscular Hemoglobin 34.3 pg (28.0-34.0); Mean Corpuscular Volume 103.3 fL (80-94); Mean Platelet Volume 9.8 fL (7.4-10.4); Monocytes # 0.5 10^3/uL (0.2-0.9); Monocytes % 12.3 %; Neutrophils # 2.61 10^3/uL (1.8-7.7); Neutrophils % 68.5 %; Nucleated Red Blood Cells % 0 %; Platelet Count 157 10^3/cmm (130-400); Red Blood Count 3.38 10^6/uL (4.1-5.3); Red Cell Distribution Width 17.2 % (12.1-15.1); White Blood Count 3.8 10^3/uL (4.0-10.0)
[2021-04-04 12:08] LABS: Carcinoembryonic Antigen 7.4 ng/mL (0.0-4.7)
[2021-04-04 12:19] LABS: Alanine Aminotransferase 33 U/L (0-41); Albumin Level 3.8 g/dL (3.5-5.2); Alkaline Phosphatase 50 IU/L (40-130); Anion Gap 12.8 (5-19); Aspartate Amino Transferase 37 U/L (0-40); Blood Urea Nitrogen 7 mg/dL (8-23); Calcium 8.3 mg/dL (8.5-10.5); Carbon Dioxide 25 mmol/L (22-29); Chloride 104 mmol/L (98-107); Globulin 2.4 g/dL (1.3-4.6); Glomerular Filtration Rate 133.2 mL/min (90-130); Glucose 122 mg/dL (65-115); Osmolality Calculated 285 mOsm/kg (285-295); Potassium 3.8 mmol/L (3.5-5.1); Sodium 138 mmol/L (136-145); Total Bilirubin 0.5 mg/dL (0.15-1.2); Total Protein 6.2 g/dL (6.6-8.7)
--- NOTE | 2021-04-04 12:36 | CT_ITS ---
WS: [id number] Exam: CT chest abd pel w con* Date/Time of Exam: 04/04/2021 12:43 PM Reason For Exam: RECTAL CANCER, PULMONARY NODULE DLP: 2374.[address] scans at [facility] use at least one of these dose optimization techniques: automat ed exposure control; mA and/or kV adjustment per patient size (includes targeted exams where dose is matched to clinical indication); or iterative reconstruction. Comparison 12/14/2020. Also compared to most recent chest CT 01/31/2021 CT scan of the chest with contrast. A residual 9 mm nodular infiltrate is seen in the right upper lobe. Previously noted remaining infilt rates and nodules in the right lung have resolved. The left lung is clear. No pleural or pericardial effusion. Stable appearing mediastinal lymph nodes. The airway is patent. The thoracic aorta is sonja l in caliber. There may be a small amount of nonoccluding from this within a segmental arterial branc h to the right lower lobe. The central pulmonary arteries are clear. No destructive bone lesions are seen. Degenerative changes and spondylosis of the dorsal spine. CT/CT chest abd pel w con* IMPRESSION: 1. Residual 9 mm nodular infiltrate in the right upper lobe. Remaining nodules and infiltrates have resolved since prior study. 2. Stable appearing lymph nodes in the mediastinum. 3. No new suspicious mass identified. 4. Questionable tiny amount of nonocclusive chronic thrombus identified within a segmental artery branch the right lower lobe. The central pulmonary arteries are clear. CT scan of the abdomen and pelvis with IV contrast. There was no evidence of nodule or mass in the liver. A 12 mm cyst is seen manjinder g the medial margin of the right hepatic lobe. Normal gallbladder. The stomach, spleen, and pancreas appear normal. The abdominal aorta is normal in caliber. Normal adrenal glands and kidneys. Small bowel loops are not dilated. No free a ir. No lymphadenopathy. Normal appendix visualized. No significant large bowel abnormality demonstrated. No mass or lymphadenopathy in the pelvis. Unremarkabl e urinary bladder and prostate gland. No destructive bone lesions are seen. The abdominal wall is intact. Moderately advanced spinal canal stenosis at L3-4 an d L4-5. IMPRESSION: 1. No mass, lymphadenopathy or acute finding in the abdomen or pelvis. 2. Additional nonacute findings which are stable.
[2021-04-04] MEDS: iohexol 300 mg/mL 50 mL Btl PO (12:39)
[2021-04-04] MEDS: iohexol 300 mg/mL 100 mL Btl IV (14:18)
== END 2021-04-06 23:59 | disposition home or self-care (01) ==
LOC: ONCMED 14:00
PROVIDERS: Internal Medicine Medical Oncology; Absent Provider Radiology Radiation Oncology; PCP Nurse Practitioner Family; Visit Provider Specialist
DX: Z51.0 Encounter for antineoplastic radiation therapy (principal); C20 Malignant neoplasm of rectum; C78.01 Secondary malignant neoplasm of right lung; D50.0 Iron deficiency anemia secondary to blood loss (chronic); I10 Essential (primary) hypertension; E78.5 Hyperlipidemia, unspecified; E11.59 Type 2 diabetes mellitus with other circulatory complications; I25.10 Atherosclerotic heart disease of native coronary artery without angina pectoris; Z95.5 Presence of coronary angioplasty implant and graft; K21.9 Gastro-esophageal reflux disease without esophagitis; Z79.899 Other long term (current) drug therapy
CPT/HCPCS: 36415; 36591; 71260; 74177; 77336; 77386; 80053; 82378; 85025; 99214; Q9967

== ENCOUNTER 2021-04-11 05:59 | Outpatient (RCR) | payer MEDICARE, SELFPAY ==
--- NOTE | 2021-04-12 10:47 | ONC FU_ITS ---
Dr. Abrams Patient Follow-Up Note Patient: Genaro Robbins Unit #: [id number]: 1950 Dicatated By: Eliel Abrams M.D.Date of Visit:Apr 11, 2021 Onc Med Follow-up/Prog Note Chief Complaint: Rectal cancer. 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 He had presented with iron deficiency anemia in association with rectal bleeding. His initial CBC showed hemoglobin low at 7.5 g and hematocrit 29%. His iron saturation was 3.5% and the ferritin was low at 15 ng/mL, consistent with iron deficiency. He was transfused 2 units PRBC and he also began on oral iron supplementation with ferrous sulfate. He was unable to tolerate it due to GI side effects. In the meantime, he was seen by Dr. Caldwell and he underwent EGD and colonoscopy on 08/23/2020. The EGD showed evidence of gastritis with multiple gastric erosions. The colonoscopy showed a 7 mm pedunculated polyp in the ascending colon, a 5 mm sessile polyp in the descending colon, and a 1 cm pedunculated polyp in the sigmoid colon. The rectum showed an ulcerated malignant appearing mass along the right lateral wall approximately 6 cm from the anal verge. The mass was palpable by digital rectal exam. Biopsy of the rectal mass showed moderately differentiated invasive adenocarcinoma. The descending colon polyp was noted to be hyperplastic. The other polyps were tubular adenomas without high-grade dysplasia or malignancy. Gastric biopsy showed mild chronic gastritis. Staging CT scans of the chest, abdomen, and pelvis showed asymmetric soft tissue thickening at the rectum, with the anterior wall measuring up to 12 mm. Indeterminate pelvic lymph nodes were noted just anterior to the L5-S1 disc space, the largest measuring 12 mm. A right lower lobe pulmonary nodule measured 1.5 cm, consistent with metastatic lesion, versus primary lung neoplasm, versus benign lesion. Indeterminant left hilar lymph nodes measured up to 12 mm. There was no evidence of other metastatic disease. His baseline CEA was elevated at 15.6 ng/mL. He had colorectal surgery consultation with Dr. Ranulfo Anguiano on 09/03/2021. Staging MRI of the pelvis on 09/13/2020 was consistent with a T3 primary lesion with suspected involvement in 3/5 mesorectal lymph nodes. He began cycle 1 of neoadjuvant chemotherapy with modified FOLFOX on 09/27/2020. His staging PET/CT on 09/22/2020 showed circumferential rectal thickening with SUV 12.1, consistent with known primary malignancy. Subcentimeter perirectal lymph nodes were too small to characterize. A 1.0 presacral lymph node had SUV 4.3, consistent with local metastatic disease. The right lower lobe pulmonary nodule measuring 1.7 x 1.8 cm and SUV 2.5. This was felt to be suggestive of a benign finding, but followup was felt to be warranted. Also noted were 4 mm nodules in the left upper lobe and lateral right upper lobe, too small to characterize. There were no other areas of abnormal uptake on that study. With those findings he was recommended to proceed with total neoadjuvant therapy. From 09/27/2020 through 01/03/2021 he completed 8 cycles of modified FOLFOX. He required dose reductions in the oxaliplatin for neuropathy, and with cycle 8 it had to be omitted. During that time, he was given parenteral iron replacement with Injectafer for the iron deficiency anemia. His repeat MRI of the pelvis on 01/17/2021 showed residual mass in the rectum beginning at 7.9 cm from the anal verge and extending for a length of 4.4 cm. The thickest part of the tumor had decreased from 1.7 cm to 0.9 cm. A new focal oval thickening measuring 1.0 cm was noted. By MR criteria it was categorized as a T3b primary lesion. The shortest distance of tumor to MRF or anticipated CRM was measured at 7.5 mm. A total of 5 lymph nodes were identified, for which appeared to be suspicious for local regional node involvement. These had shown moderate decrease in size compared to the pretreatment study. Restaging chest CT on 01/31/2021 showed significant decrease in the right lower lobe pulmonary nodule measuring 5 mm compared to 15 mm on the August 2020 study. New scattered irregular opacifications in the posterior right upper lobe were felt to be most likely inflammatory in nature. Small mediastinal and hilar lymph nodes were unchanged from prior studies. A nonocclusive filling defect was noted within the segmental branching right lower lobe pulmonary artery. With those findings, he was given empiric antibiotic therapy with Levaquin. He also was started on anticoagulation with apixaban, but it was stopped after a couple of doses because of increased bleeding. On 02/21/2021 he began chemoradiation utilizing capecitabine for chemosensitization. He completed radiation on 03/28/2021 to a total dose of 5000 cGy, administered in 25 fractions. He tolerated the treatment very well. His other medical illnesses include hypertension, dyslipidemia, type 2 diabetes, coronary artery disease, and GERD. He has had previous angioplasty/stent placement. He is a non-smoker. INTERIM HISTORY: Restaging CT scans of the chest, abdomen, and pelvis on 04/04/2021 showed residual 9 mm nodular infiltrate in the right upper lobe at the site of the previous right upper lobe nodule. The remaining nodules and infiltrates were noted to have resolved. The mediastinal lymph nodes appeared stable. There is no mass or lymphadenopathy noted within the abdomen or pelvis. There was still a questionable tiny amount of nonocclusive chronic thrombus identified within a segmental artery branch to the right lower lobe. He is seen for a follow-up visit. He has been feeling good generally. He still has pretty good energy and activity tolerance, and he has still been working. He had developed pretty significant diarrhea towards the end of his radiation, but that has continued to gradually improve since he finished treatment. He is using Imodium just occasionally. Recently has had some lower back pain on the right side. He continues to have significant neuropathy, worse in the feet than the hands. It is tolerable, though. Medications: amLODIPine Besylate 1 (2.5 mg) Tablet Oral b.i.d., Aspirin 1 (81 mg) Tablet, chewable Oral daily, Claritin 1 (10 mg) Tablet Oral daily, Crestor 1 (20 mg) Tablet Oral daily, glipiZIDE XL 1 (5 mg) Tablet SR 24 HR Oral b.i.d., Isosorbide Mononitrate ER 1 (30 mg) Tablet SR 24 HR Oral b.i.d., Lisinopril 1 (5 mg) Tablet Oral b.i.d., metFORMIN HCl 1 (1000 mg) Tablet Oral b.i.d., Metoprolol Succinate ER 1 (50 mg) Tablet SR 24 HR Oral b.i.d., Nitroglycerin Tablet, sublingual Sublingual PRN, Pantoprazole Sodium 1 (40 mg) Tablet, enteric coated Oral daily Allergies: Sulfa Antibiotics Vital Signs: Performed on Apr 11, 2021 08:43 Height - 72.00 in Weight - 265.8 lbs (LOW) BSA - 2.40 sq.m BMI - 36.05 (HIGH) Temperature - 98 F (LOW) Pulse - 69 /min Respiration - 18 /min BP - 169/79 mm(hg) (HIGH) O2 Sat - 97 % Pain - 0 Fatigue - 2 Lab/Imaging: Test performed on Apr 04, 2021 11:10 Sodium 138 mmol/L Potassium 3.8 mmol/L Chloride 104 mmol/L CO2 25 mmol/L Anion Gap 12.8 BUN 7 mg/dL Creatinine 0.6 mg/dL Cr Clearance (Est) 190.8100 mL/min eGFR 133.2 mL/min Glucose 122 mg/dL Osmolality - Calculated 285 mOsm/kg Calcium 8.3 mg/dL Protein, Total 6.2 g/dL Albumin 3.8 g/dL Globulin 2.4 g/dL Bilirubin, Total 0.5 mg/dL ALT (SGPT) 33 U/L AST (SGOT) 37 U/L Alkaline Phosphatase 50 IU/L WBC 3.8 10 3/uL RBC 3.38 10 6/uL HGB 11.6 g/dL HCT 34.9 % MCV 103.3 fL MCH 34.3 pg MCHC 33.2 g/dL RDW 17.2 % Platelet Count 157 10 3/cmm MPV 9.8 fL Neutrophils 2.61 10 3/uL Lymphocytes 0.5 10 3/uL Monocytes 0.5 10 3/uL Eosinophils 0.2 10 3/uL Basophils 0.0 10 3/uL Neutrophil % 68.5 % Lymphocyte % 12.1 % Monocyte % 12.3 % Eosinophil % 4.5 % Basophils % 1.0 % NRBC % 0 % CEA 7.4 ng/mL Problem List: 1. Moderately differentiated invasive adenocarcinoma of the rectum, by clinical evaluation stage at least T3, N1. 2. There was CT evidence of 1.5 cm right lower lobe pulmonary nodule, initially of uncertain clinical significance. 3. Iron deficiency anemia, presumed to be due to GI blood loss. He had been intolerant of oral iron due to GI side effects. 4. Hypertension. 5. Dyslipidemia. 6. Type 2 diabetes. 7. Coronary artery disease with previous angioplasty/stent placement. 8. GERD. Problems Addressed with this Encounter and Plan: 1. 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 By clinical evaluation his disease appeared to be stage a least T3, N1. He was recommended to undergo total neoadjuvant therapy. He began initial treatment with 8 cycles of modified FOLFOX from 09/27/2020 through 01/03/2021. Side effects included fatigue and neuropathy. The neuropathy was severe enough to necessitate 2 dose reductions in the oxaliplatin, and it was omitted with the 8th cycle. His repeat MRI did show some evidence of response, though not dramatic. His clinical staging was T3b, N1. On 02/21/2021 when he began chemoradiation utilizing capecitabine for chemosensitization. He completed radiation on 03/28/2021 to a total dose of 5000 cGy, administered in 25 fractions. He tolerated the treatment very well. I will now contact Dr. Anguiano to arrange for further surgical follow-up. 2. His initial CT scans had shown a 1.5 cm right lower lobe pulmonary nodule. It had low-grade FDG uptake by PET with SUV 2.4, suggestive of benign etiology. However, his followup chest CT scans have shown a significant decrease in the size of the nodule, which is highly suggestive of a metastatic lesion showing response to chemotherapy, and thus stage M1a disease. On my review of the current CT scan, the degree of improvement is underestimated by measurement, and based on the appearance of the residual opacity in that area it is unclear to what extent there may be residual malignancy. I also will confer with Dr. Anguiano regarding management of the suspected pulmonary metastatic lesion, options for which would include surgical resection versus SBRT. 3. There was evidence of nonocclusive pulmonary artery embolism on his January [address] He began on anticoagulation with apixaban, but it was stopped after 2 doses becasue of increased bleeding. He has since then been taking aspirin prophylactically. Signed By: Eliel Abrams M.D. <<Signature on File>>
== END 2021-05-07 23:59 | disposition home or self-care (01) ==
LOC: ONCMED 05:59
PROVIDERS: Absent Provider Radiology Radiation Oncology; PCP Nurse Practitioner Family; Visit Provider Internal Medicine Medical Oncology
DX: C20 Malignant neoplasm of rectum (principal); C78.01 Secondary malignant neoplasm of right lung; D50.0 Iron deficiency anemia secondary to blood loss (chronic); I10 Essential (primary) hypertension; E78.5 Hyperlipidemia, unspecified; E11.59 Type 2 diabetes mellitus with other circulatory complications; I25.10 Atherosclerotic heart disease of native coronary artery without angina pectoris; Z95.5 Presence of coronary angioplasty implant and graft; K21.9 Gastro-esophageal reflux disease without esophagitis; Z86.711 Personal history of pulmonary embolism; Z79.82 Long term (current) use of aspirin; Z79.899 Other long term (current) drug therapy; Z92.3 Personal history of irradiation
CPT/HCPCS: 99215

== ENCOUNTER 2021-05-23 10:17 | Outpatient (CLI) | payer MEDICARE, SELFPAY ==
--- NOTE | 2021-05-23 10:24 | USCV_ITS ---
Genaro Robbins Age: 71 Gender: M : 1950 Exam Date: 05/23/2021 10:34 Ordering Phys: Jacki Velázquez MD ([email or web address]) Technologist: Chica Franco Exam Location: [facility] Indication: ANGIA BP: 130 / 80 HR: 73 Rhythm: Sinus Technical Quality: Adequate MEASUREMENTS (Male / Female) Normal Values 2D ECHO LV Diastolic Diameter PLAX 4.9 cm 4.2 - 5.9 / 3.9 - 5.3 cm LV Systolic Diameter PLAX 3.0 cm IVS Diastolic Thickness 2.0 cm 0.6 - 1.0 / 0.6 - 0.9 cm IVS Systolic Thickness 1.9 cm LVPW Diastolic Thickness 1.8 cm 0.6 - 1.0 / 0.6 - 0.9 cm LVPW Systolic Thickness 2.1 cm LVOT Diameter 2.0 cm LV Ejection Fraction 2D Teich 68.3 % LV Ejection Fraction MOD 2C 47.0 % LV Ejection Fraction 2C AL 43.9 % LA Diameter 3.1 cm LA Width 2.7 cm LA Height 5.0 cm RA Width 3.0 cm RA Height 4.4 cm Aorta at Sinotubular Diameter 2.7 cm M-MODE Aortic Annulus Diameter 2.6 cm LA Ao Ratio MM 1.3 MV E Point Septal Separation 0.6 cm DOPPLER AV Peak Velocity 189.0 cm/s LVOT Peak Velocity 103.0 cm/s AV Area Cont Eq vti 1.8 cm squared AV Area Cont Eq pk 1.8 cm squared MV Peak Velocity 90.0 cm/s MV Area PHT 4.9 cm squared Mitral E to A Ratio 0.8 MV E' Velocity 39.0 cm/s Mitral E to MV E' Ratio 9.5 Mitral E to LV E' Lateral Ratio 9.1 Mitral E to LV E' Septal Ratio 9.9 TR Peak Velocity 210.4 cm/s TR Peak Gradient 17.7 mmHg TR Mean Velocity 191.1 cm/s TR Mean Gradient 14.6 mmHg TR Velocity Time Integral 63.7 cm TV Peak E Velocity 45.0 cm/s Right Atrial Pressure 3.0 mmHg Pulmonary Artery Systolic Pressu 20.7 mmHg PV Peak Velocity 168.0 cm/s RV Acceleration Time 0.1 s RV Ejection Time 0.3 s RV AcT/ET 0.2 FINDINGS Left Ventricle Normal left ventricular cavity size. Normal left ventricular systolic function. No regional wall motion abnormalities. Left ventricular ejection fraction is estimated at 60 %. Grade I/IV diastolic dysfunction (abnormal relaxation filling pattern), normal to mildly elevated filling pressures. Right Ventricle The right ventricle is normal in size and function. Right Atrium The right atrium is normal in size. Left Atrium The left atrium is normal in size. Mitral Valve Structurally normal mitral valve without significant stenosis or prolapse. There is no mitral regurgitation. Aortic Valve Structurally normal aortic valve without significant sclerosis or stenosis. There is no aortic regurgitation. Tricuspid Valve Structurally normal tricuspid valve without significant stenosis or regurgitation. Pulmonary artery systolic pressure is normal. Pulmonic Valve Structurally normal pulmonic valve without significant stenosis. There is no pulmonic regurgitation. Pericardium Normal pericardium without effusion. Aorta Normal ascending aorta dimension. CONCLUSIONS 1-Normal left ventricular cavity size. Normal left ventricular systolic function. No regional wall motion abnormalities. Left ventricular ejection fraction is estimated at 60 %. Grade I/IV diastolic dysfunction (abnormal relaxation filling pattern), normal to mildly elevated filling pressures. 2-No significant valve abnormalities. 3-There is no pericardial effusion. 4-Pulmonary artery systolic pressure is within normal limits. 5-Right atrial pressure is around 5 mm of mercury. 6-No significant change since the prior echocardiogram study of 10/25/2017. Jacki Velázquez MD (Electronically Signed) Final Date: 24 May 2021 14:43 S
--- NOTE | 2021-05-23 10:31 | ECG_ITS ---
[facility] Test Date: 2021-05-23 Pat Name: Genaro Robbins Department: Room: Gender: Male [employer]: : 1950 Requested By: Jacki Velázquez Order Number: [id number] MD: JACKI VELÁZQUEZ Interpretive Statements NAME OF STUDY: LEXISCAN SESTAMIBI STRESS TEST INDICATION: Chest Pain/SURGICAL CLEARANCE, NOTE: Please note that this is the electrocardiogram portion of the Lexiscan/Sestamibi stress test. The perfusion scan will be documented separately. DATA: Baseline heart rate was 71 beats per minute. Baseline blood pressure was 148/83 millimeters of mercury. Target heart rate was 149. Maximum heart rate achieved was 99. which was 66 % of the predicted target heart rate. Maximum blood pressure was 156/99 millimeters of mercury. The reason for ending the test was completion of the protocol. The patient did not experience any symptoms. ELECTROCARDIOGRAM: BASELINE: Sinus rhythm. Normal axis. Otherwise, no ST-T changes suggestive of ischemia noted. No arrhythmia noted. EXERCISE: After Lexiscan injection, no ST-T changes suggestive of ischemic noted. No arrhythmia noted. CONCLUSION: Please note due to baseline abnormality of the EKG specificity and sensitivity of the EKG portion of LexiScan MIBI stress test will be low 1. EKG not suggestive of ischemia 2. Lexiscan injection unremarkable. 3. Perfusion scan will be documented separately. Electronically Signed On 05-24-2021 14:47:25 CDT by JACKI VELÁZQUEZ [email or web address]
--- NOTE | 2021-05-23 10:31 | NMCV_ITS ---
NM leonel perf SPECT r/s* [id number] Itzel Genaro Age: 71 Gender: M : 1950 Exam Date: 05/23/2021 11:49 Ordering Phys: Jacki Velázquez MD ([email or web address]) Technologist: AWILDA Ta Exam Location: [facility] Indications: PRE OP CHEST PAIN STRESS TEST Please see separate stress test [facility] for full findings IMAGE PROTOCOL Rest/Stress 1 Lexiscan Day Radiopharmaceutical Dose (mCi) Administration Site Administered by Rest: Tc-99m 10.9 IV AWILDA Ta Sestamibi Stress:Tc-99m 32.9 IV AWILDA Ta Sestamibi Rest: 23-May-2021 60 Discovery 630 Stress: 23-May-2021 30 Discovery 630 0.4mg Lexiscan. Supine position only as patient was unable to lay prone. SPECT RESULTS Technical Quality: Excellent Raw Data Analysis: Normal Image Corrections: No attenuation or motion correction applied Summed Stress Score: 5 Summed Rest Score: 0 Summed Difference Score: 5 PERFUSION FINDINGS Large area of patchy decreased tracer uptake noted in basal to distal inferior and inferolateral wall over the rest images which improved over stress images suggestive of artifact FUNCTIONAL RESULTS (calculated via Gated SPECT) Stress Image LV EF (%): 53 Stress EDV (mL):135 TID: 0.89 Stress ESV (mL):64 Rest Image LV EF (%): 55 FUNCTIONAL FINDINGS: There is normal left ventricular systolic function. IMPRESSIONS This study is negative for ischemia. EKG segment will be documented separately. Jacki Velázquez MD (Electronically Signed) Final Date: 24 May 2021 14:36 S
[2021-05-23 10:35] VITALS: BMI 35.8
[2021-05-23] MEDS: regadenoson 0.4 Mg/5 ml Syringe IVP (12:20)
[2021-05-23 12:49] VITALS: BP 144/80; PULSE 92
== END 2021-05-23 10:18 | disposition home or self-care (01) ==
LOC: RAD 10:20 → CDL 10:31
PROVIDERS: PCP Nurse Practitioner Family; Visit Provider Internal Medicine Cardiovascular Disease
DX: Z01.818 Encounter for other preprocedural examination (principal); I20.0 Unstable angina; R07.9 Chest pain, unspecified; Z20.822 Contact with and (suspected) exposure to COVID-19
CPT/HCPCS: 78452; 87635; 93017; 93306; A9500; J2785

== ENCOUNTER 2021-06-27 08:02 | Outpatient (CLI) | payer MEDICARE, SELFPAY ==
[2021-06-27 09:09] LABS: Basophils # 0.1 10^3/uL (0.0-0.1); Basophils % 0.7 %; Eosinophils # 0.4 10^3/uL (0.0-0.8); Eosinophils % 4.2 %; Hematocrit 39.3 % (42.0-52.0); Hemoglobin 12.9 g/dL (11.7-16.6); Lymphocytes # 1.7 10^3/uL (0.8-4.8); Lymphocytes % 17.2 %; Mean Corpuscular HGB Conc 32.8 g/dL (30.0-36.0); Mean Corpuscular Hemoglobin 31.6 pg (28.0-34.0); Mean Corpuscular Volume 96.3 fl (80-94); Mean Platelet Volume 9.4 fL (7.4-10.4); Monocytes # 0.8 10^3/uL (0.2-0.9); Monocytes % 8.5 %; Neutrophils # 6.54 10^3/uL (1.8-7.7); Neutrophils % 67.1 %; Nucleated Red Blood Cells % 0 %; Platelet Count 293 10^3/cmm (130-400); Red Blood Count 4.08 10^6/uL (4.1-5.3); White Blood Count 9.8 10^3/uL (4.0-10.0)
[2021-06-27 09:45] LABS: Carcinoembryonic Antigen 3.9 ng/mL (0.0-4.7)
[2021-06-27 09:56] LABS: Alanine Aminotransferase 35 U/L (0-41); Alkaline Phosphatase 72 IU/L (40-130); Anion Gap 18.1 (5-19); Aspartate Amino Transferase 24 U/L (0-40); Blood Urea Nitrogen 20 mg/dL (8-23); Calcium 9.2 mg/dL (8.5-10.5); Carbon Dioxide 21 mmol/L (22-29); Chloride 97 mmol/L (98-107); Globulin 3.7 g/dL (1.3-4.6); Glucose 187 mg/dL (65-115); Magnesium 1.5 mg/dL (1.7-2.3); Osmolality Calculated 280 mOsm/kg (285-295); Phosphorus 2.9 mg/dL (2.5-4.5); Potassium 5.1 mmol/L (3.5-5.1); Sodium 131 mmol/L (136-145); Total Bilirubin 0.2 mg/dL (0.15-1.2); Total Protein 7.7 g/dL (6.6-8.7)
[2021-06-27] MEDS: sodium chloride 0.9% 1,000 ML 999 ML IV (10:40)
--- NOTE | 2021-06-27 13:05 | ONC FU_ITS ---
Dr. Abrams Patient Follow-Up Note Patient: Genaro Robbins Unit #: [id number]: 1950 Dicatated By: Eliel Abrams M.D.Date of Visit:Jun 27, 2021 Onc Med Follow-up/Prog Note Chief Complaint: Rectal cancer. 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 He had presented with iron deficiency anemia in association with rectal bleeding. His initial CBC showed hemoglobin low at 7.5 g and hematocrit 29%. His iron saturation was 3.5% and the ferritin was low at 15 ng/mL, consistent with iron deficiency. He was transfused 2 units PRBC and he also began on oral iron supplementation with ferrous sulfate. He was unable to tolerate it due to GI side effects. In the meantime, he was seen by Dr. Caldwell and he underwent EGD and colonoscopy on 08/23/2020. The EGD showed evidence of gastritis with multiple gastric erosions. The colonoscopy showed a 7 mm pedunculated polyp in the ascending colon, a 5 mm sessile polyp in the descending colon, and a 1 cm pedunculated polyp in the sigmoid colon. The rectum showed an ulcerated malignant appearing mass along the right lateral wall approximately 6 cm from the anal verge. The mass was palpable by digital rectal exam. Biopsy of the rectal mass showed moderately differentiated invasive adenocarcinoma. The descending colon polyp was noted to be hyperplastic. The other polyps were tubular adenomas without high-grade dysplasia or malignancy. Gastric biopsy showed mild chronic gastritis. Staging CT scans of the chest, abdomen, and pelvis showed asymmetric soft tissue thickening at the rectum, with the anterior wall measuring up to 12 mm. Indeterminate pelvic lymph nodes were noted just anterior to the L5-S1 disc space, the largest measuring 12 mm. A right lower lobe pulmonary nodule measured 1.5 cm, consistent with metastatic lesion, versus primary lung neoplasm, versus benign lesion. Indeterminant left hilar lymph nodes measured up to 12 mm. There was no evidence of other metastatic disease. His baseline CEA was elevated at 15.6 ng/mL. He had colorectal surgery consultation with Dr. Ranulfo Anguiano on 09/03/2021. Staging MRI of the pelvis on 09/13/2020 was consistent with a T3 primary lesion with suspected involvement in 3/5 mesorectal lymph nodes. He began cycle 1 of neoadjuvant chemotherapy with modified FOLFOX on 09/27/2020. His staging PET/CT on 09/22/2020 showed circumferential rectal thickening with SUV 12.1, consistent with known primary malignancy. Subcentimeter perirectal lymph nodes were too small to characterize. A 1.0 presacral lymph node had SUV 4.3, consistent with local metastatic disease. The right lower lobe pulmonary nodule measuring 1.7 x 1.8 cm and SUV 2.5. This was felt to be suggestive of a benign finding, but followup was felt to be warranted. Also noted were 4 mm nodules in the left upper lobe and lateral right upper lobe, too small to characterize. There were no other areas of abnormal uptake on that study. With those findings he was recommended to proceed with total neoadjuvant therapy. From 09/27/2020 through 01/03/2021 he completed 8 cycles of modified FOLFOX. He required dose reductions in the oxaliplatin for neuropathy, and with cycle 8 it had to be omitted. During that time, he was given parenteral iron replacement with Injectafer for the iron deficiency anemia. His repeat MRI of the pelvis on 01/17/2021 showed residual mass in the rectum beginning at 7.9 cm from the anal verge and extending for a length of 4.4 cm. The thickest part of the tumor had decreased from 1.7 cm to 0.9 cm. A new focal oval thickening measuring 1.0 cm was noted. By MR criteria it was categorized as a T3b primary lesion. The shortest distance of tumor to MRF or anticipated CRM was measured at 7.5 mm. A total of 5 lymph nodes were identified, for which appeared to be suspicious for local regional node involvement. These had shown moderate decrease in size compared to the pretreatment study. Restaging chest CT on 01/31/2021 showed significant decrease in the right lower lobe pulmonary nodule measuring 5 mm compared to 15 mm on the August 2020 study. New scattered irregular opacifications in the posterior right upper lobe were felt to be most likely inflammatory in nature. Small mediastinal and hilar lymph nodes were unchanged from prior studies. A nonocclusive filling defect was noted within the segmental branching right lower lobe pulmonary artery. With those findings, he was given empiric antibiotic therapy with Levaquin. He also was started on anticoagulation with apixaban, but it was stopped after a couple of doses because of increased bleeding. On 02/21/2021 he began chemoradiation utilizing capecitabine for chemosensitization. He completed radiation on 03/28/2021 to a total dose of 5000 cGy, administered in 25 fractions. He tolerated the treatment very well. His other medical illnesses include hypertension, dyslipidemia, type 2 diabetes, coronary artery disease, and GERD. He has had previous angioplasty/stent placement. He is a non-smoker. INTERIM HISTORY: Restaging CT scans of the chest, abdomen, and pelvis on 04/04/2021 showed residual 9 mm nodular infiltrate in the right upper lobe at the site of the previous right upper lobe nodule. The remaining nodules and infiltrates were noted to have resolved. The mediastinal lymph nodes appeared stable. There was no mass or lymphadenopathy noted within the abdomen or pelvis. There was still a questionable tiny amount of nonocclusive chronic thrombus identified within a segmental artery branch to the right lower lobe. On 05/28/2021 he underwent robotic assisted laparoscopic low anterior resection with ileostomy placement. Grossly there was no evidence of metastatic disease. Pathology showed grade 2 invasive adenocarcinoma with invasion through the muscularis propria into the pericolorectal tissue. The residual tumor measured 1.9 cm in greatest dimension. There was evidence for lymphovascular invasion. The margins were uninvolved. The distance from the radial margin was 0.4 cm. The treatment effect was score 2. There was involvement in 5/12 lymph nodes. Pathologic staging was ypT3, ypN2a. He is seen for a follow-up visit. He has had somewhat of a difficult postoperative recovery with persistent weakness/fatigue and with some apparent diarrhea. Last week he did require some IV hydration for hyperkalemia. He still complains that he cannot bounce back with his energy, but he is up and around. His ECOG score is 2. Appetite also is not as good, but he is eating. He does not have fever or night sweats. He has had no mouth sores. He has no shortness of breath, cough, or chest pain. He has not been having nausea or acid reflux symptoms. He still has some soreness in the abdominal area, he does tend to have liquid stool. He has been taking some loperamide to slow it down. Bladder function has been okay. He complains of soreness in his tailbone area and also in his right hip area. He does not complain of headache. He has a little bit of orthostatic lightheadedness. He still has residual neuropathy in his hands and feet. Medications: amLODIPine Besylate 1 (2.5 mg) Tablet Oral b.i.d., Aspirin 1 (81 mg) Tablet, chewable Oral daily, Claritin 1 (10 mg) Tablet Oral daily, Crestor 1 (20 mg) Tablet Oral daily, glipiZIDE XL 1 (5 mg) Tablet SR 24 HR Oral b.i.d., Isosorbide Mononitrate ER 1 (30 mg) Tablet SR 24 HR Oral b.i.d., Lisinopril 1 (5 mg) Tablet Oral b.i.d., metFORMIN HCl 1 (1000 mg) Tablet Oral b.i.d., Metoprolol Succinate ER 1 (50 mg) Tablet SR 24 HR Oral b.i.d., Nitroglycerin Tablet, sublingual Sublingual PRN, Pantoprazole Sodium 1 (40 mg) Tablet, enteric coated Oral daily Allergies: Sulfa Antibiotics Vital Signs: Performed on Jun 27, 2021 08:12 Height - 72.00 in Weight - 243.8 lbs (LOW) BSA - 2.32 sq.m BMI - 33.07 (HIGH) Temperature - 96.4 F (LOW) Pulse - 113 /min (HIGH) Respiration - 18 /min BP - 139/79 mm(hg) O2 Sat - 98 % Pain - 0 Fatigue - 8 Physical Examination: Constitutional - He appears somewhat weak generally, Eyes - Sclerae nonicteric. Conjunctivae clear, ENMT - No lesions noted in the oral cavity, Hematologic/Lymphatic - No cervical, clavicular, or axillary adenopathy, Respiratory - Lungs are clear with good air movement bilaterally, Cardiovascular - Heart rhythm is regular. There is no murmur, gallop, or rub noted, Abdomen - Soft. There is mild abdominal tenderness, particularly in the right lower quadrant area. The incisions appear to be healing in the ostomy site looks okay. Liver and spleen are not enlarged. There is no abdominal mass or ascites noted and there is no inguinal adenopathy, Extremities - No edema, Neurologic - No focal neurologic deficits noted. Lab/Imaging: Test performed on Jun 27, 2021 08:46 Magnesium 1.5 mg/dL Phosphorus 2.9 mg/dL Sodium 131 mmol/L Potassium 5.1 mmol/L Chloride 97 mmol/L CO2 21 mmol/L Anion Gap 18.1 BUN 20 mg/dL Creatinine 1.0 mg/dL Cr Clearance (Est) 112.8500 mL/min Glucose 187 mg/dL Osmolality - Calculated 280 mOsm/kg Calcium 9.2 mg/dL Protein, Total 7.7 g/dL Albumin 4.0 g/dL Globulin 3.7 g/dL Bilirubin, Total 0.2 mg/dL ALT (SGPT) 35 U/L AST (SGOT) 24 U/L Alkaline Phosphatase 72 IU/L WBC 9.8 10 3/uL RBC 4.08 10 6/uL HGB 12.9 g/dL HCT 39.3 % MCV 96.3 fl MCH 31.6 pg MCHC 32.8 g/dL RDW 13.0 % Platelet Count 293 10 3/cmm MPV 9.4 fL Neutrophils 6.54 10 3/uL Lymphocytes 1.7 10 3/uL Monocytes 0.8 10 3/uL Eosinophils 0.4 10 3/uL Basophils 0.1 10 3/uL Neutrophil % 67.1 % Lymphocyte % 17.2 % Monocyte % 8.5 % Eosinophil % 4.2 % Basophils % 0.7 % NRBC % 0 % CEA 3.9 ng/mL Problem List: 1. Moderately differentiated invasive adenocarcinoma of the rectum, by clinical evaluation stage at least T3, N1. 2. There was CT evidence of 1.5 cm right lower lobe pulmonary nodule, initially of uncertain clinical significance. 3. Iron deficiency anemia, presumed to be due to GI blood loss. He had been intolerant of oral iron due to GI side effects. 4. Hypertension. 5. Dyslipidemia. 6. Type 2 diabetes. 7. Coronary artery disease with previous angioplasty/stent placement. 8. GERD. Problems Addressed with this Encounter and Plan: 1. 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 By clinical evaluation his disease appeared to be stage a least T3, N1. He was recommended to undergo total neoadjuvant therapy. He began initial treatment with 8 cycles of modified FOLFOX from 09/27/2020 through 01/03/2021. Side effects included fatigue and neuropathy. The neuropathy was severe enough to necessitate 2 dose reductions in the oxaliplatin, and it was omitted with the 8th cycle. His repeat MRI did show some evidence of response, though not dramatic. His clinical staging was T3b, N1. On 02/21/2021 when he began chemoradiation utilizing capecitabine for chemosensitization. He completed radiation on 03/28/2021 to a total dose of 5000 cGy, administered in 25 fractions. He tolerated the treatment very well. On 05/28/2021 he underwent robotic assisted laparoscopic low anterior resection with ileostomy placement. Grossly there was no evidence of metastatic disease. Pathology showed grade 2 invasive adenocarcinoma with invasion through the muscularis propria into the pericolorectal tissue. The residual tumor measured 1.9 cm in greatest dimension. There was evidence for lymphovascular invasion. The margins were uninvolved. The distance from the radial margin was 0.4 cm. The treatment effect was score 2. There was involvement in 5/12 lymph nodes. Pathologic staging was ypT3, ypN2a. He has been showing somewhat of a difficult postoperative recovery, and last week he did require IV fluids for hyperkalemia. His current laboratory studies show a slight decline in renal function, though remains adequate. Potassium is just slightly elevated. He will be given additional IV hydration today and he can receive further IV hydration at home, as indicated. He will continue symptomatic management with loperamide as needed, and he also will be given a prescription for immediate release oxycodone to take as needed. As he was given total neoadjuvant therapy, there is no indication for further treatment for the rectal cancer, and I will otherwise just plan to see him for a follow-up visit in 1 month. 2[address] His initial CT scans had shown a 1.5 cm right lower lobe pulmonary nodule. It had low-grade FDG uptake by PET with SUV 2.4, suggestive of benign etiology. However, his followup chest CT scans had shown a significant decrease in the size of the nodule, which was highly suggestive of a metastatic lesion showing response to chemotherapy, and thus stage M1a disease. He will require ongoing surveillance for the pulmonary nodule, and he will be referred for SBRT as indicated. 3. There was evidence of nonocclusive pulmonary artery embolism on his January [address] He began on anticoagulation with apixaban, but it was stopped after 2 doses becasue of increased bleeding. He has continued taking aspirin prophylactically. Signed By: Eliel Abrams M.D. <<Signature on File>>
== END 2021-06-27 08:03 | disposition home or self-care (01) ==
PROVIDERS: PCP Nurse Practitioner Family; Visit Provider Internal Medicine Medical Oncology
DX: C20 Malignant neoplasm of rectum (principal); R91.1 Solitary pulmonary nodule; D50.0 Iron deficiency anemia secondary to blood loss (chronic); I10 Essential (primary) hypertension; E78.5 Hyperlipidemia, unspecified; E11.59 Type 2 diabetes mellitus with other circulatory complications; I25.10 Atherosclerotic heart disease of native coronary artery without angina pectoris; Z95.5 Presence of coronary angioplasty implant and graft; Z79.899 Other long term (current) drug therapy; Z79.82 Long term (current) use of aspirin; Z92.21 Personal history of antineoplastic chemotherapy; Z92.3 Personal history of irradiation
CPT/HCPCS: 80053; 82378; 83735; 84100; 85025; 96360; 99214; J7030

== ENCOUNTER 2021-07-03 06:41 | Outpatient (CLI) | payer MEDICARE, SELFPAY ==
[2021-07-03] MEDS: sodium chloride 0.9% 1,000 ML 999 ML IV (14:00)
== END 2021-07-03 06:42 | disposition home or self-care (01) ==
PROVIDERS: PCP Nurse Practitioner Family; Visit Provider Internal Medicine Medical Oncology
DX: C20 Malignant neoplasm of rectum (principal); D50.9 Iron deficiency anemia, unspecified; Z79.899 Other long term (current) drug therapy
CPT/HCPCS: 96360; J7030

== ENCOUNTER 2021-07-05 08:09 | Outpatient (CLI) | payer MEDICARE, SELFPAY ==
[2021-07-05] MEDS: sodium chloride 0.9% 1,000 ML 999 ML IV (09:02)
== END 2021-07-05 08:10 | disposition home or self-care (01) ==
LOC: ONCMED 08:10
PROVIDERS: PCP Nurse Practitioner Family; Visit Provider Internal Medicine Medical Oncology
DX: C20 Malignant neoplasm of rectum (principal); D50.9 Iron deficiency anemia, unspecified; Z79.899 Other long term (current) drug therapy
CPT/HCPCS: 96360; J7030

== ENCOUNTER 2021-07-26 06:26 | Outpatient (RCR) | payer MEDICARE, SELFPAY ==
[2021-07-08] MEDS: sodium chloride 0.9% 1,000 ML 999 ML IV (08:43)
[2021-07-08 09:03] LABS: Basophils # 0.1 10^3/uL (0.0-0.1); Basophils % 0.5 %; Eosinophils # 0.3 10^3/uL (0.0-0.8); Eosinophils % 3.3 %; Hematocrit 39.1 % (42.0-52.0); Hemoglobin 12.8 g/dL (11.7-16.6); Lymphocytes # 1.5 10^3/uL (0.8-4.8); Lymphocytes % 16.4 %; Mean Corpuscular HGB Conc 32.7 g/dL (30.0-36.0); Mean Corpuscular Hemoglobin 31.8 pg (28.0-34.0); Mean Platelet Volume 9.5 fL (7.4-10.4); Monocytes # 0.8 10^3/uL (0.2-0.9); Monocytes % 8.9 %; Neutrophils # 6.34 10^3/uL (1.8-7.7); Neutrophils % 69.3 %; Nucleated Red Blood Cells % 0 %; Platelet Count 273 10^3/cmm (130-400); Red Blood Count 4.03 10^6/uL (4.1-5.3); White Blood Count 9.2 10^3/uL (4.0-10.0)
[2021-07-08 09:27] LABS: Alanine Aminotransferase 40 U/L (0-41); Albumin Level 3.9 g/dL (3.5-5.2); Alkaline Phosphatase 77 IU/L (40-130); Anion Gap 20.1 (5-19); Aspartate Amino Transferase 28 U/L (0-40); Blood Urea Nitrogen 36 mg/dL (8-23); Calcium 9.1 mg/dL (8.5-10.5); Carbon Dioxide 18 mmol/L (22-29); Chloride 100 mmol/L (98-107); Globulin 3.5 g/dL (1.3-4.6); Glucose 195 mg/dL (65-115); Osmolality Calculated 290 mOsm/kg (285-295); Potassium 5.1 mmol/L (3.5-5.1); Sodium 133 mmol/L (136-145); Total Bilirubin 0.2 mg/dL (0.15-1.2); Total Protein 7.4 g/dL (6.6-8.7)
[2021-07-10] MEDS: sodium chloride 0.9% 1,000 ML 999 ML IV (08:30)
[2021-07-15] MEDS: sodium chloride 0.9% 1,000 ML 999 ML IV (08:32)
[2021-07-17] MEDS: sodium chloride 0.9% 1,000 ML 999 ML IV (08:30)
[2021-07-19] MEDS: sodium chloride 0.9% 1,000 ML 999 ML IV (08:20)
[2021-07-24] MEDS: sodium chloride 0.9% 1,000 ML 999 ML IV (10:27)
[2021-07-26] MEDS: sodium chloride 0.9% 1,000 ML 999 ML IV (11:00)
[2021-07-26 11:20] LABS: Basophils # 0.1 10^3/uL (0.0-0.1); Eosinophils # 0.2 10^3/uL (0.0-0.8); Eosinophils % 3.8 %; Hematocrit 34.1 % (42.0-52.0); Hemoglobin 11.5 g/dL (11.7-16.6); Lymphocytes # 0.8 10^3/uL (0.8-4.8); Lymphocytes % 15.5 %; Mean Corpuscular HGB Conc 33.7 g/dL (30.0-36.0); Mean Corpuscular Hemoglobin 31.4 pg (28.0-34.0); Mean Corpuscular Volume 93.2 fl (80-94); Mean Platelet Volume 9.9 fL (7.4-10.4); Monocytes # 0.4 10^3/uL (0.2-0.9); Monocytes % 8.4 %; Neutrophils # 3.64 10^3/uL (1.8-7.7); Nucleated Red Blood Cells % 0 %; Platelet Count 193 10^3/cmm (130-400); Red Blood Count 3.66 10^6/uL (4.1-5.3); Red Cell Distribution Width 13.4 % (12.1-15.1); White Blood Count 5.2 10^3/uL (4.0-10.0)
[2021-07-26 11:48] LABS: Alanine Aminotransferase 36 U/L (0-41); Albumin Level 3.8 g/dL (3.5-5.2); Alkaline Phosphatase 58 IU/L (40-130); Anion Gap 18.5 (5-19); Aspartate Amino Transferase 29 U/L (0-40); Blood Urea Nitrogen 14 mg/dL (8-23); Calcium 8.3 mg/dL (8.5-10.5); Carbon Dioxide 18 mmol/L (22-29); Chloride 107 mmol/L (98-107); Globulin 3.1 g/dL (1.3-4.6); Glucose 183 mg/dL (65-115); Osmolality Calculated 293 mOsm/kg (285-295); Potassium 4.5 mmol/L (3.5-5.1); Sodium 139 mmol/L (136-145); Total Bilirubin 0.2 mg/dL (0.15-1.2); Total Protein 6.9 g/dL (6.6-8.7)
--- NOTE | 2021-07-26 12:48 | ONC FU_ITS ---
Dr. Abrams Patient Follow-Up Note Patient: Genaro Robbins Unit #: [id number]: 1950 Dicatated By: Eliel Abrams M.D.Date of Visit:Jul 26, 2021 Onc Med Follow-up/Prog Note Chief Complaint: Rectal cancer. 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 He had presented with iron deficiency anemia in association with rectal bleeding. His initial CBC showed hemoglobin low at 7.5 g and hematocrit 29%. His iron saturation was 3.5% and the ferritin was low at 15 ng/mL, consistent with iron deficiency. He was transfused 2 units PRBC and he also began on oral iron supplementation with ferrous sulfate. He was unable to tolerate it due to GI side effects. In the meantime, he was seen by Dr. Caldwell and he underwent EGD and colonoscopy on 08/23/2020. The EGD showed evidence of gastritis with multiple gastric erosions. The colonoscopy showed a 7 mm pedunculated polyp in the ascending colon, a 5 mm sessile polyp in the descending colon, and a 1 cm pedunculated polyp in the sigmoid colon. The rectum showed an ulcerated malignant appearing mass along the right lateral wall approximately 6 cm from the anal verge. The mass was palpable by digital rectal exam. Biopsy of the rectal mass showed moderately differentiated invasive adenocarcinoma. The descending colon polyp was noted to be hyperplastic. The other polyps were tubular adenomas without high-grade dysplasia or malignancy. Gastric biopsy showed mild chronic gastritis. Staging CT scans of the chest, abdomen, and pelvis showed asymmetric soft tissue thickening at the rectum, with the anterior wall measuring up to 12 mm. Indeterminate pelvic lymph nodes were noted just anterior to the L5-S1 disc space, the largest measuring 12 mm. A right lower lobe pulmonary nodule measured 1.5 cm, consistent with metastatic lesion, versus primary lung neoplasm, versus benign lesion. Indeterminant left hilar lymph nodes measured up to 12 mm. There was no evidence of other metastatic disease. His baseline CEA was elevated at 15.6 ng/mL. He had colorectal surgery consultation with Dr. Ranulfo Anguiano on 09/03/2021. Staging MRI of the pelvis on 09/13/2020 was consistent with a T3 primary lesion with suspected involvement in 3/5 mesorectal lymph nodes. He began cycle 1 of neoadjuvant chemotherapy with modified FOLFOX on 09/27/2020. His staging PET/CT on 09/22/2020 showed circumferential rectal thickening with SUV 12.1, consistent with known primary malignancy. Subcentimeter perirectal lymph nodes were too small to characterize. A 1.0 presacral lymph node had SUV 4.3, consistent with local metastatic disease. The right lower lobe pulmonary nodule measuring 1.7 x 1.8 cm and SUV 2.5. This was felt to be suggestive of a benign finding, but followup was felt to be warranted. Also noted were 4 mm nodules in the left upper lobe and lateral right upper lobe, too small to characterize. There were no other areas of abnormal uptake on that study. With those findings he was recommended to proceed with total neoadjuvant therapy. From 09/27/2020 through 01/03/2021 he completed 8 cycles of modified FOLFOX. He required dose reductions in the oxaliplatin for neuropathy, and with cycle 8 it had to be omitted. During that time, he was given parenteral iron replacement with Injectafer for the iron deficiency anemia. His repeat MRI of the pelvis on 01/17/2021 showed residual mass in the rectum beginning at 7.9 cm from the anal verge and extending for a length of 4.4 cm. The thickest part of the tumor had decreased from 1.7 cm to 0.9 cm. A new focal oval thickening measuring 1.0 cm was noted. By MR criteria it was categorized as a T3b primary lesion. The shortest distance of tumor to MRF or anticipated CRM was measured at 7.5 mm. A total of 5 lymph nodes were identified, for which appeared to be suspicious for local regional node involvement. These had shown moderate decrease in size compared to the pretreatment study. Restaging chest CT on 01/31/2021 showed significant decrease in the right lower lobe pulmonary nodule measuring 5 mm compared to 15 mm on the August 2020 study. New scattered irregular opacifications in the posterior right upper lobe were felt to be most likely inflammatory in nature. Small mediastinal and hilar lymph nodes were unchanged from prior studies. A nonocclusive filling defect was noted within the segmental branching right lower lobe pulmonary artery. With those findings, he was given empiric antibiotic therapy with Levaquin. He also was started on anticoagulation with apixaban, but it was stopped after a couple of doses because of increased bleeding. On 02/21/2021 he began chemoradiation utilizing capecitabine for chemosensitization. He completed radiation on 03/28/2021 to a total dose of 5000 cGy, administered in 25 fractions. He tolerated the treatment very well. His other medical illnesses include hypertension, dyslipidemia, type 2 diabetes, coronary artery disease, and GERD. He has had previous angioplasty/stent placement. He is a non-smoker. INTERIM HISTORY: Restaging CT scans of the chest, abdomen, and pelvis on 04/04/2021 showed residual 9 mm nodular infiltrate in the right upper lobe at the site of the previous right upper lobe nodule. The remaining nodules and infiltrates were noted to have resolved. The mediastinal lymph nodes appeared stable. There was no mass or lymphadenopathy noted within the abdomen or pelvis. There was still a questionable tiny amount of nonocclusive chronic thrombus identified within a segmental artery branch to the right lower lobe. On 05/28/2021 he underwent robotic assisted laparoscopic low anterior resection with ileostomy placement. Grossly there was no evidence of metastatic disease. Pathology showed grade 2 invasive adenocarcinoma with invasion through the muscularis propria into the pericolorectal tissue. The residual tumor measured 1.9 cm in greatest dimension. There was evidence for lymphovascular invasion. The margins were uninvolved. The distance from the radial margin was 0.4 cm. The treatment effect was score 2. There was involvement in 5/12 lymph nodes. Pathologic staging was ypT3, ypN2a. He initially had somewhat of a difficult postoperative recovery with persistent weakness/fatigue and with some diarrhea. He had required IV hydration for hyperkalemia. At his follow-up on 06/27/2021 his creatinine was back down to 1.0 mg/dL. His potassium is still borderline high and he was still not feeling very good. He did opt to continue some outpatient IV hydration. He is seen now for a follow-up visit. He is feeling much better now with improved energy/activity tolerance. His ECOG score is 1. His bowel function improved significantly after stopping metformin, and since then his blood sugars have not really been any higher. He has good appetite. He has not had fever or night sweats. He has not had sore mouth or throat. He does not complain of cough, and he has not been having shortness of breath or chest pain. He has no other GI or complaints. He has a little bit of pain in the right hip area posteriorly. He continues to have neuropathy, worse in his feet than in his hands. His hands are beginning to show some improvement. Medications: amLODIPine Besylate 1 (2.5 mg) Tablet Oral b.i.d., Aspirin 1 (81 mg) Tablet, chewable Oral daily, Claritin 1 (10 mg) Tablet Oral daily, Crestor 1 (20 mg) Tablet Oral daily, glipiZIDE XL 1 (5 mg) Tablet SR 24 HR Oral b.i.d., Isosorbide Mononitrate ER 1 (30 mg) Tablet SR 24 HR Oral b.i.d., Lisinopril 1 (5 mg) Tablet Oral b.i.d., metFORMIN HCl 1 (1000 mg) Tablet Oral b.i.d., Metoprolol Succinate ER 1 (50 mg) Tablet SR 24 HR Oral b.i.d., Nitroglycerin Tablet, sublingual Sublingual PRN, Pantoprazole Sodium 1 (40 mg) Tablet, enteric coated Oral daily Allergies: Sulfa Antibiotics Vital Signs: Performed on Jul 26, 2021 11:00 Height - 72.00 in Temperature - 98 F (LOW) Pulse - 73 /min Respiration - 16 /min BP - 127/61 mm(hg) O2 Sat - 99 % Pain - 0 Physical Examination: Constitutional - He looks good generally, Eyes - Sclerae nonicteric. Conjunctivae clear, ENMT - No lesions noted in the oral cavity, Hematologic/Lymphatic - No cervical, clavicular, or axillary adenopathy, Respiratory - Lungs are clear with good air movement bilaterally, Cardiovascular - Heart rhythm is regular. There is no murmur, gallop, or rub noted, Abdomen - Soft. The incisions appear well healed. The ostomy site looks good. Liver and spleen are not enlarged. There is no abdominal mass or ascites noted and there is no inguinal adenopathy, Extremities - No edema, Neurologic - No focal neurologic deficits noted. Lab/Imaging: Test performed on Jul 26, 2021 10:57 Sodium 139 mmol/L Potassium 4.5 mmol/L Chloride 107 mmol/L CO2 18 mmol/L Anion Gap 18.5 BUN 14 mg/dL Creatinine 0.8 mg/dL Cr Clearance (Est) 132.4700 mL/min Glucose 183 mg/dL Osmolality - Calculated 293 mOsm/kg Calcium 8.3 mg/dL Protein, Total 6.9 g/dL Albumin 3.8 g/dL Globulin 3.1 g/dL Bilirubin, Total 0.2 mg/dL ALT (SGPT) 36 U/L AST (SGOT) 29 U/L Alkaline Phosphatase 58 IU/L WBC 5.2 10 3/uL RBC 3.66 10 6/uL HGB 11.5 g/dL HCT 34.1 % MCV 93.2 fl MCH 31.4 pg MCHC 33.7 g/dL RDW 13.4 % Platelet Count 193 10 3/cmm MPV 9.9 fL Neutrophils 3.64 10 3/uL Lymphocytes 0.8 10 3/uL Monocytes 0.4 10 3/uL Eosinophils 0.2 10 3/uL Basophils 0.1 10 3/uL Neutrophil % 70.0 % Lymphocyte % 15.5 % Monocyte % 8.4 % Eosinophil % 3.8 % Basophils % 1.0 % NRBC % 0 % Problem List: 1. Moderately differentiated invasive adenocarcinoma of the rectum, by clinical evaluation stage at least T3, N1. 2. There was CT evidence of 1.5 cm right lower lobe pulmonary nodule, initially of uncertain clinical significance. 3. Iron deficiency anemia, presumed to be due to GI blood loss. He had been intolerant of oral iron due to GI side effects. 4. Hypertension. 5. Dyslipidemia. 6. Type 2 diabetes. 7. Coronary artery disease with previous angioplasty/stent placement. 8. GERD. 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 By clinical evaluation his disease appeared to be stage a least T3, N1. He was recommended to undergo total neoadjuvant therapy. He began initial treatment with 8 cycles of modified FOLFOX from 09/27/2020 through 01/03/2021. Side effects included fatigue and neuropathy. The neuropathy was severe enough to necessitate 2 dose reductions in the oxaliplatin, and it was omitted with the 8th cycle. His repeat MRI did show some evidence of response, though not dramatic. His clinical staging was T3b, N1. On 02/21/2021 when he began chemoradiation utilizing capecitabine for chemosensitization. He completed radiation on 03/28/2021 to a total dose of 5000 cGy, administered in 25 fractions. He tolerated the treatment very well. On 05/28/2021 he underwent robotic assisted laparoscopic low anterior resection with ileostomy placement. Grossly there was no evidence of metastatic disease. Pathology showed grade 2 invasive adenocarcinoma with invasion through the muscularis propria into the pericolorectal tissue. The residual tumor measured 1.9 cm in greatest dimension. There was evidence for lymphovascular invasion. The margins were uninvolved. The distance from the radial margin was 0.4 cm. The treatment effect was score 2. There was involvement in 5/12 lymph nodes. Pathologic staging was ypT3, ypN2a. His initial CT scans had shown a 1.5 cm right lower lobe pulmonary nodule. It had low-grade FDG uptake by PET with SUV 2.4, suggestive of benign etiology. However, his followup chest CT scans had shown a significant decrease in the size of the nodule, which was highly suggestive of a metastatic lesion showing response to chemotherapy, and thus stage M1a disease. As a single site of metastatic involvement, it would potentially be amenable to treatment with SBRT or surgical resection. As such, he will be scheduled now for restaging CT scans. He will have further evaluation as indicated. In the meantime, he is scheduled to see Dr. Anguiano again in the early part of August for scheduling his reanastomosis surgery. Signed By: Eliel Abrams M.D. <<Signature on File>>
== END 2021-08-06 23:59 | disposition home or self-care (01) ==
LOC: ONCMED 06:26
PROVIDERS: PCP Nurse Practitioner Family; Visit Provider Internal Medicine Medical Oncology
DX: C20 Malignant neoplasm of rectum (principal); C78.01 Secondary malignant neoplasm of right lung; D50.0 Iron deficiency anemia secondary to blood loss (chronic); I10 Essential (primary) hypertension; E78.5 Hyperlipidemia, unspecified; E11.59 Type 2 diabetes mellitus with other circulatory complications; I25.10 Atherosclerotic heart disease of native coronary artery without angina pectoris; Z95.5 Presence of coronary angioplasty implant and graft; K21.9 Gastro-esophageal reflux disease without esophagitis; Z79.899 Other long term (current) drug therapy; Z92.21 Personal history of antineoplastic chemotherapy; Z92.3 Personal history of irradiation
CPT/HCPCS: 80053; 85025; 96360; 99214; J7030

== ENCOUNTER 2021-08-07 06:32 | Outpatient (RCR) | payer MEDICARE, SELFPAY ==
[2021-08-07] MEDS: sodium chloride 0.9% 1,000 ML 999 ML IV (09:00)
== END 2021-08-08 09:00 | disposition home or self-care (01) ==
LOC: ONCMED 06:32
PROVIDERS: PCP Nurse Practitioner Family; Visit Provider Internal Medicine Medical Oncology
DX: C20 Malignant neoplasm of rectum (principal); Z79.899 Other long term (current) drug therapy
CPT/HCPCS: 96360; J7030

== ENCOUNTER 2021-08-08 09:28 | Outpatient (CLI) | payer MEDICARE, SELFPAY ==
--- NOTE | 2021-08-08 | CT_ITS ---
WS: [id number] CT CHEST, ABDOMEN AND PELVIS WITH CONTRAST HISTORY: RECTAL NEOPLASM, prior bowel resection with ileostomy. TECHNIQUE: Contiguous 5 mm axial imaging performed through the chest, abdomen and pelvis with IV cont rast, oral contrast has been provided. Coronal and sagittal reformats chest. Coronal and sagittal ref ormats through the abdomen and pelvis. All CT scans at [facility] use at least one of these d ose optimization techniques: automated exposure control; mA and/or kV adjustment per patient size (in cludes targeted exams where dose is matched to clinical indication); or iterative reconstruction. CONTRAST: Omnipaque 350; 95 mL IV. DLP: 2535.03 mGycm COMPARISON: 04/04/2021 and 12/14/2020, 08/23/[address]: Subsolid opacification in the RIGHT upper lobe described on the most recent examination has essentially resolved. Increasing size of the previously described lobulated soft tissue mass in the RIGHT lower lobe which abuts the inferior minor fissure. This may be several small confluent nodes or a single lobulated nodule measuring 1.5 x 0.9 cm. This nodule in the RIGHT lower lobe was present on the study of 08/23/2020 but nearly completely resolved on 04/04/2021. Now this nodule has increased i n size and return to size similar to 08/23/2020. No pleural effusion. Heart size is normal. There are very few small mediastinal and hilar lymph nodes. Mild atherosclerosis aorta. Abdomen CT: Mild diffuse low attenuation from the liver from hepatic steatosis. Again noted is a 13 m m low-attenuation nodule in the medial RIGHT lobe of the liver which is stable over multiple prior st udies. No metastatic disease is evident. Gallbladder and spleen are negative. Normal pancreas. No adr enal mass. Kidneys are normal size. Parapelvic cyst lower pole LEFT kidney. Mild atherosclerosis of t he aorta. No aneurysm. Ileostomy site in the RIGHT mid abdomen. There is no obstruction at the ileostomy site. Anastomotic s utures at the rectum are now evident at the rectum. No increasing soft tissue noted at the anastomoti c region. Presacral soft tissue thickening is probably postoperative or postradiation. There is very mild stranding in the mesorectal fat. The mesorectal fascia is slightly thickened but no nodules. Lym ph node noted within the RIGHT mesorectal fat on the prior study is no longer present. Presacral lymp h nodes that were best identified on a CT of 08/23/2020 have resolved completely. No retroperitoneal or iliac lymph nodes. Pelvic CT: Urinary bladder is well distended. Prostate gland is very slightly enlarged with central p rostate calcifications. No inguinal lymph nodes. Mild asymmetry of the seminal vesicles with the RIGH T being larger than the LEFT which is unchanged. No osteoblastic or osteolytic changes within the bones. CT/CT chest abd pel w con* IMPRESSION: 1. RIGHT lower lobe nodule which abuts the inferior RIGHT major fissure measur es 1.5 x 0.9 cm. This nodule nearly completely resolved on 04/04/2021 but now page s returned to a size similar to the study of 08/23/2020. PET/CT was indetermina te but thought to be benign. Due to the increase in size metastatic lesion shou ld be reconsidered. 2. Previously described subsolid opacification in the RIGHT upper lobe is no l onger present. 3. Rectal anastomotic sutures are now noted. No adjacent soft tissue mass. 4. Previously seen RIGHT mesorectal fat lymph node and the high presacral lymp h nodes have resolved. 5. No new lymph nodes in the pelvis.
[2021-08-08] MEDS: iohexol 350 mg/mL 100 mL Btl IV (12:12)
[2021-08-08] MEDS: iohexol 300 mg/mL 50 mL Btl PO (12:13)
== END 2021-08-08 09:29 | disposition home or self-care (01) ==
PROVIDERS: PCP Nurse Practitioner Family; Visit Provider Internal Medicine Medical Oncology
DX: C20 Malignant neoplasm of rectum (principal); R91.1 Solitary pulmonary nodule
CPT/HCPCS: 71260; 74177; Q9967

== ENCOUNTER 2021-09-04 06:31 | Outpatient (RCR) | payer MEDICARE, SELFPAY ==
[2021-08-09] MEDS: sodium chloride 0.9% 1,000 ML 999 ML IV (08:35)
[2021-08-09 09:04] LABS: Basophils # 0.1 10^3/uL (0.0-0.1); Basophils % 1.2 %; Eosinophils # 0.4 10^3/uL (0.0-0.8); Eosinophils % 6.2 %; Hematocrit 36.7 % (42.0-52.0); Hemoglobin 12.1 g/dL (11.7-16.6); Lymphocytes # 1.1 10^3/uL (0.8-4.8); Lymphocytes % 19.5 %; Mean Corpuscular Hemoglobin 31.7 pg (28.0-34.0); Mean Corpuscular Volume 96.1 fl (80-94); Mean Platelet Volume 9.8 fL (7.4-10.4); Monocytes # 0.6 10^3/uL (0.2-0.9); Monocytes % 9.9 %; Neutrophils # 3.42 10^3/uL (1.8-7.7); Neutrophils % 60.9 %; Nucleated Red Blood Cells % 0 %; Platelet Count 197 10^3/cmm (130-400); Red Blood Count 3.82 10^6/uL (4.1-5.3); Red Cell Distribution Width 13.9 % (12.1-15.1); White Blood Count 5.6 10^3/uL (4.0-10.0)
[2021-08-09 09:25] LABS: Alanine Aminotransferase 52 U/L (0-41); Albumin Level 3.8 g/dL (3.5-5.2); Alkaline Phosphatase 72 IU/L (40-130); Anion Gap 16.8 (5-19); Aspartate Amino Transferase 41 U/L (0-40); Blood Urea Nitrogen 17 mg/dL (8-23); Calcium 8.8 mg/dL (8.5-10.5); Carbon Dioxide 21 mmol/L (22-29); Chloride 104 mmol/L (98-107); Glucose 214 mg/dL (65-115); Osmolality Calculated 292 mOsm/kg (285-295); Potassium 4.8 mmol/L (3.5-5.1); Sodium 137 mmol/L (136-145); Total Bilirubin 0.3 mg/dL (0.15-1.2); Total Protein 6.8 g/dL (6.6-8.7)
--- NOTE | 2021-08-09 09:31 | N.ONRAD NP_ITS ---
Radiation Oncology Consultation Patient Name: Genaro Robbins Date of : 1950 Date of Service: 08/09/2021 Attending Physician: Gregory Romero M.D. Genaro Robbins was seen for consultation this morning at the request of Eliel Abrams M.D. regarding possible stereotactic ablative body radiotherapy for the management of his metastatic colon cancer. He was diagnosed with a clinical stage IIIB (T3N1b) moderately differentiated adenocarcinoma of the rectum. He completed eight cycles of neoadjuvant modified FOLFOX (September 27, 2020 through January 03, 2021) and chemoradiation (February 21, 2021 through March 28, 2021). A prescribed dose of 50 Gy was delivered in 25 fractions with concurrent Xeloda. A robotic extended low anterior resection with a laparoscopic loop ileostomy was performed by Ranulfo Anguiano M.D. on May 28, 2021. A 1.9 cm, grade adenocarcinoma invading through the muscularis propria into the pericolorectal tissue was identified with all surgical margins uninvolved by malignancy. A total of twelve lymph nodes were harvested with five harboring metastatic disease. Treatment effect was present with cancer showing evidence of tumor regression (partial response, score 2). Final pathological stage was yIIIB (T3a YN2A). A surveillance CT scan ordered on August 08, 2021 demonstrated an increase in size of a right lower lobe lung mass measuring 1.5 cm x 0.9 cm. The nodule was deviously identified in August 2020. Following neoadjuvant chemotherapy, the nodule was almost completely resolved. The patient was evaluated for stereotactic ablative body radiotherapy to the left upper lobe pulmonary nodule. I discussed with Mr. Robbins the role of surgery or stereotactic ablative body radiotherapy for the management of resectable metachronous metastases according to the National comprehensive cancer network guidelines. I also reviewed the SABR-COMET trial that enrolled patients with a controlled primary malignancy and 1-5 metastatic lesions to SBRT or palliative standard of care. This radiotherapy modality provided a 22-month median overall survival benefit in comparison to palliative management. I will request a thoracic surgery consultation. I would anticipate an ultra-hypofractionated course of stereotactic radiotherapy if surgery is not recommended. A 4-dimensional computed tomographic radiotherapy planning will be acquired to delineate the gross tumor volume preceding implementation of treatment. Potential toxicities of stereotactic body radiotherapy to the lung were reviewed. The patient has verbalized understanding and would like to proceed as recommended. His medical treatment plan was discussed with Eliel Abrams M.D. Signed by: Dr. Gregory Romero 08/09/2021 9:29:41 AM
[2021-08-09 10:55] LABS: Carcinoembryonic Antigen 5.1 ng/mL (0.0-4.7)
[2021-08-15] MEDS: sodium chloride 0.9% 1,000 ML 999 ML IV (12:45)
[2021-08-23] MEDS: sodium chloride 0.9% 1,000 ML 999 ML IV (08:45)
[2021-08-27] MEDS: sodium chloride 0.9% 1,000 ML 999 ML IV (08:30)
[2021-08-29] MEDS: sodium chloride 0.9% 1,000 ML 999 ML IV (08:30)
[2021-09-02] MEDS: sodium chloride 0.9% 1,000 ML 999 ML IV (08:33)
[2021-09-02 08:47] LABS: Basophils # 0.1 10^3/uL (0.0-0.1); Basophils % 1.4 %; Eosinophils # 0.8 10^3/uL (0.0-0.8); Eosinophils % 11.8 %; Hematocrit 36.8 % (42.0-52.0); Hemoglobin 12.3 g/dL (11.7-16.6); Lymphocytes # 1.1 10^3/uL (0.8-4.8); Lymphocytes % 16.5 %; Mean Corpuscular HGB Conc 33.4 g/dL (30.0-36.0); Mean Corpuscular Hemoglobin 31.5 pg (28.0-34.0); Mean Corpuscular Volume 94.1 fl (80-94); Mean Platelet Volume 10.2 fL (7.4-10.4); Monocytes # 0.5 10^3/uL (0.2-0.9); Neutrophils # 3.99 10^3/uL (1.8-7.7); Neutrophils % 60.4 %; Nucleated Red Blood Cells % 0 %; Platelet Count 201 10^3/cmm (130-400); Red Blood Count 3.91 10^6/uL (4.1-5.3); Red Cell Distribution Width 15.2 % (12.1-15.1); White Blood Count 6.6 10^3/uL (4.0-10.0)
[2021-09-02 09:09] LABS: Alanine Aminotransferase 39 U/L (0-41); Albumin Level 3.7 g/dL (3.5-5.2); Alkaline Phosphatase 75 IU/L (40-130); Anion Gap 14.7 (5-19); Aspartate Amino Transferase 26 U/L (0-40); Blood Urea Nitrogen 22 mg/dL (8-23); Calcium 8.4 mg/dL (8.5-10.5); Carbon Dioxide 19 mmol/L (22-29); Chloride 106 mmol/L (98-107); Globulin 2.9 g/dL (1.3-4.6); Glucose 241 mg/dL (65-115); Osmolality Calculated 291 mOsm/kg (285-295); Potassium 4.7 mmol/L (3.5-5.1); Sodium 135 mmol/L (136-145); Total Bilirubin 0.3 mg/dL (0.15-1.2); Total Protein 6.6 g/dL (6.6-8.7)
[2021-09-04] MEDS: sodium chloride 0.9% 1,000 ML 999 ML IV (08:36)
== END 2021-09-06 23:59 | disposition home or self-care (01) ==
LOC: ONCMED 06:31
PROVIDERS: PCP Nurse Practitioner Family; Visit Provider Internal Medicine Medical Oncology
DX: C20 Malignant neoplasm of rectum (principal); C78.01 Secondary malignant neoplasm of right lung; R59.0 Localized enlarged lymph nodes; Z79.899 Other long term (current) drug therapy
CPT/HCPCS: 80053; 82378; 85025; 96360; 99024; J7030

== ENCOUNTER 2021-09-27 14:35 | Outpatient (RCR) | payer MEDICARE, SELFPAY ==
[2021-09-10] MEDS: sodium chloride 0.9% 1,000 ML 999 ML IV (08:54)
[2021-09-27] MEDS: sodium chloride 0.9% 1,000 ML 999 ML IV (08:34)
== END 2021-10-07 23:59 | disposition home or self-care (01) ==
LOC: ONCMED 14:35
PROVIDERS: PCP Nurse Practitioner Family; Visit Provider Internal Medicine Medical Oncology
DX: C20 Malignant neoplasm of rectum (principal); D50.9 Iron deficiency anemia, unspecified; Z79.899 Other long term (current) drug therapy
CPT/HCPCS: 96360; J7030

== ENCOUNTER 2021-10-08 08:10 | Outpatient (RCR) | payer MEDICARE, SELFPAY ==
[2021-10-08] MEDS: sodium chloride 0.9% 1,000 ML 999 ML IV (08:34)
== END 2021-11-04 23:59 | disposition home or self-care (01) ==
LOC: ONCMED 08:10
PROVIDERS: PCP Nurse Practitioner Family; Visit Provider Internal Medicine Medical Oncology
DX: C20 Malignant neoplasm of rectum (principal); Z79.899 Other long term (current) drug therapy
CPT/HCPCS: 96360; J7030

== ENCOUNTER → 2021-10-14 11:01 | Outpatient (BNVA) | payer MEDICARE, SELFPAY | PROVIDERS: PCP Nurse Practitioner Family; Visit Provider Internal Medicine | DX: Z01.818 Encounter for other preprocedural examination (principal); Z20.822 Contact with and (suspected) exposure to COVID-19 | CPT/HCPCS: 87635 ==

== ENCOUNTER 2021-11-07 08:39 | Outpatient (CLI) | payer MEDICARE, SELFPAY ==
--- NOTE | 2021-11-07 09:15 | CT_ITS ---
WS: [id number] CT CHEST, ABDOMEN AND PELVIS WITH CONTRAST HISTORY: RECTAL CANCER TECHNIQUE: Contiguous 5 mm axial imaging performed through the chest, abdomen and pelvis with IV cont rast, oral contrast has been provided. Coronal and sagittal reformats chest. Coronal and sagittal ref ormats through the abdomen and pelvis. All CT scans at [facility] use at least one of these d ose optimization techniques: automated exposure control; mA and/or kV adjustment per patient size (in cludes targeted exams where dose is matched to clinical indication); or iterative reconstruction. CONTRAST: Omnipaque 300; 95 mL IV. DLP: 1865.90 mGy.cm COMPARISON: 08/08/2021, 04/04/[address]: Continued increase in size of a lobulated nodule in the RIGHT lower lobe abutting the major fissure. Nodule measures 21 x 15 mm as compared to 15 x 9 mm on the prior study. Highly suspicious f or metastatic site. No additional pulmonary nodule or mass. No pericardial or pleural effusion. Cardi ac chambers are very mildly enlarged. RIGHT hilar lymph node measures 11 mm, similar to the prior helen dy. There are small mediastinal and hilar lymph nodes otherwise. Again noted is a thin linear line in the proximal LEFT lower lobe pulmonary artery which is been present on prior studies probably repres ents a chronic thrombus. Small hiatal hernia. No osteoblastic or osteolytic bone disease chest. Abdomen CT: Liver is normal size. Very vague low-attenuation nodule in the RIGHT lobe of the liver, i mage 21 of series 5 measures 8 mm. There is in the additional subcapsular hypoechoic nodule measuring 11 mm in the RIGHT lobe which is stable. Portal vein is negative. No bile duct dilatation. Normal ga llbladder and spleen. Negative pancreas and adrenal glands. No renal mass or obstruction. Mild athero sclerosis aorta. No adenopathy or ascites. Soft tissue inflammation and a few foci air along the ante rior RIGHT abdominal wall subcutaneous tissue. This is inflammation measuring 2.8 x 5.4 cm. May be an injection site. No GI tract obstruction. Normally distended stomach. Normal small bowel. On only a couple images ther e is soft tissue continuity between the LEFT seminal vesicle in the rectal wall. There is mild soft t issue thickening. There was a fat plane in this area noted on the prior examination. That that knee p harriet is no longer present. Pelvic CT: No free fluid or adenopathy. CT/CT chest abd pel w con* IMPRESSION: 1. Continued increase in size of the RIGHT lower lobe lobulated pulmonary nodu le now measuring 21 x 15 mm as compared to 15 x 9 mm. Highly suspicious for met astatic site. 2. Increased soft tissue between the rectum and the LEFT seminal vesicle. No f at plane is present. Cannot exclude recurrent rectal neoplasm. Consider evaluat ion by colonoscopy or short-term CT follow-up. 3. No significant adenopathy within the chest, abdomen or pelvis. 4. Vague hypoechoic dense lesion in the RIGHT lobe of the liver too small to c haracterize. Could potentially be an early metastatic site. 5. Rectal sutures are stable. There is presacral soft tissue thickening which is unchanged.
[2021-11-07] MEDS: iohexol 300 mg/mL 100 mL Btl IV (11:22)
[2021-11-07] MEDS: iohexol 300 mg/mL 50 mL Btl PO (11:23)
[2021-11-07 11:34] LABS: Blood Urea Nitrogen 10 mg/dL (8-23)
== END 2021-11-07 08:40 | disposition home or self-care (01) ==
LOC: RAD 08:42
PROVIDERS: PCP Nurse Practitioner Family; Visit Provider Internal Medicine Medical Oncology
DX: C20 Malignant neoplasm of rectum (principal); R91.1 Solitary pulmonary nodule
CPT/HCPCS: 71260; 74177; 80053; 82565; 84520

== ENCOUNTER 2021-12-05 06:45 | Outpatient (RCR) | payer MEDICARE, SELFPAY ==
[2021-11-13 10:47] LABS: Basophils # 0.1 10^3/uL (0.0-0.1); Basophils % 1.4 %; Eosinophils # 0.3 10^3/uL (0.0-0.8); Eosinophils % 5.7 %; Hematocrit 36.7 % (42.0-52.0); Hemoglobin 11.9 g/dL (11.7-16.6); Lymphocytes # 0.9 10^3/uL (0.8-4.8); Lymphocytes % 17.7 %; Mean Corpuscular HGB Conc 32.4 g/dL (30.0-36.0); Mean Corpuscular Hemoglobin 31.6 pg (28.0-34.0); Mean Corpuscular Volume 97.6 fl (80-94); Mean Platelet Volume 10.2 fL (7.4-10.4); Monocytes # 0.5 10^3/uL (0.2-0.9); Monocytes % 10.9 %; Neutrophils # 3.08 10^3/uL (1.8-7.7); Neutrophils % 63.3 %; Nucleated Red Blood Cells % 0 %; Platelet Count 180 10^3/cmm (130-400); Red Blood Count 3.76 10^6/uL (4.1-5.3); Red Cell Distribution Width 12.9 % (12.1-15.1); White Blood Count 4.9 10^3/uL (4.0-10.0)
[2021-11-13 11:20] LABS: Carcinoembryonic Antigen 14.5 ng/mL (0.0-4.7)
[2021-11-13 11:31] LABS: Alanine Aminotransferase 16 U/L (0-41); Albumin Level 3.9 g/dL (3.5-5.2); Alkaline Phosphatase 66 IU/L (40-130); Aspartate Amino Transferase 15 U/L (0-40); Blood Urea Nitrogen 11 mg/dL (8-23); Carbon Dioxide 25 mmol/L (22-29); Chloride 103 mmol/L (98-107); Globulin 2.5 g/dL (1.3-4.6); Glucose 313 mg/dL (65-115); Osmolality Calculated 299 mOsm/kg (285-295); Sodium 139 mmol/L (136-145); Total Bilirubin 0.2 mg/dL (0.15-1.2); Total Protein 6.4 g/dL (6.6-8.7)
--- NOTE | 2021-11-16 10:18 | ONC FU_ITS ---
Dr. Abrams Patient Follow-Up Note Patient: Genaro Robbins Unit #: [id number]: 1950 Dicatated By: Eliel Abrams M.D.Date of Visit:Nov 13, 2021 Onc Med Follow-up/Prog Note Chief Complaint: Rectal cancer. 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 He had presented with iron deficiency anemia in association with rectal bleeding. His initial CBC showed hemoglobin low at 7.5 g and hematocrit 29%. His iron saturation was 3.5% and the ferritin was low at 15 ng/mL, consistent with iron deficiency. He was transfused 2 units PRBC and he also began on oral iron supplementation with ferrous sulfate. He was unable to tolerate it due to GI side effects. In the meantime, he was seen by Dr. Caldwell and he underwent EGD and colonoscopy on 08/23/2020. The EGD showed evidence of gastritis with multiple gastric erosions. The colonoscopy showed a 7 mm pedunculated polyp in the ascending colon, a 5 mm sessile polyp in the descending colon, and a 1 cm pedunculated polyp in the sigmoid colon. The rectum showed an ulcerated malignant appearing mass along the right lateral wall approximately 6 cm from the anal verge. The mass was palpable by digital rectal exam. Biopsy of the rectal mass showed moderately differentiated invasive adenocarcinoma. The descending colon polyp was noted to be hyperplastic. The other polyps were tubular adenomas without high-grade dysplasia or malignancy. Gastric biopsy showed mild chronic gastritis. Staging CT scans of the chest, abdomen, and pelvis showed asymmetric soft tissue thickening at the rectum, with the anterior wall measuring up to 12 mm. Indeterminate pelvic lymph nodes were noted just anterior to the L5-S1 disc space, the largest measuring 12 mm. A right lower lobe pulmonary nodule measured 1.5 cm, consistent with metastatic lesion, versus primary lung neoplasm, versus benign lesion. Indeterminant left hilar lymph nodes measured up to 12 mm. There was no evidence of other metastatic disease. His baseline CEA was elevated at 15.6 ng/mL. He had colorectal surgery consultation with Dr. Ranulfo Anguiano on 09/03/2021. Staging MRI of the pelvis on 09/13/2020 was consistent with a T3 primary lesion with suspected involvement in 3/5 mesorectal lymph nodes. His staging PET/CT on 09/22/2020 showed circumferential rectal thickening with SUV 12.1, consistent with known primary malignancy. Subcentimeter perirectal lymph nodes were too small to characterize. A 1.0 presacral lymph node had SUV 4.3, consistent with local metastatic disease. The right lower lobe pulmonary nodule measuring 1.7 x 1.8 cm and SUV 2.5. This was felt to be suggestive of a benign finding, but followup was felt to be warranted. Also noted were 4 mm nodules in the left upper lobe and lateral right upper lobe, too small to characterize. There were no other areas of abnormal uptake on that study. With those findings he was recommended to proceed with total neoadjuvant therapy. From 09/27/2020 through 01/03/2021 he completed 8 cycles of modified FOLFOX. He required dose reductions in the oxaliplatin for neuropathy, and with cycle 8 it had to be omitted. During that time, he was given parenteral iron replacement with Injectafer for the iron deficiency anemia. His repeat MRI of the pelvis on 01/17/2021 showed residual mass in the rectum beginning at 7.9 cm from the anal verge and extending for a length of 4.4 cm. The thickest part of the tumor had decreased from 1.7 cm to 0.9 cm. A new focal oval thickening measuring 1.0 cm was noted. By MR criteria it was categorized as a T3b primary lesion. The shortest distance of tumor to MRF or anticipated CRM was measured at 7.5 mm. A total of 5 lymph nodes were identified, for which appeared to be suspicious for local regional node involvement. These had shown moderate decrease in size compared to the pretreatment study. Restaging chest CT on 01/31/2021 showed significant decrease in the right lower lobe pulmonary nodule measuring 5 mm compared to 15 mm on the August 2020 study. New scattered irregular opacifications in the posterior right upper lobe were felt to be most likely inflammatory in nature. Small mediastinal and hilar lymph nodes were unchanged from prior studies. A nonocclusive filling defect was noted within the segmental branching right lower lobe pulmonary artery. With those findings, he was given empiric antibiotic therapy with Levaquin. He also was started on anticoagulation with apixaban, but it was stopped after a couple of doses because of increased bleeding. On 02/21/2021 he began radiation concurrently with capecitabine. He completed radiation on 03/28/2021 to a total dose of 5000 cGy, administered in 25 fractions. He tolerated the treatment very well. Restaging CT scans of the chest, abdomen, and pelvis on 04/04/2021 showed residual 9 mm nodular infiltrate in the right upper lobe at the site of the previous right upper lobe nodule. The remaining nodules and infiltrates were noted to have resolved. The mediastinal lymph nodes appeared stable. There was no mass or lymphadenopathy noted within the abdomen or pelvis. There was still a questionable tiny amount of nonocclusive chronic thrombus identified within a segmental artery branch to the right lower lobe. On 05/28/2021 he underwent robotic assisted laparoscopic low anterior resection with ileostomy placement. Grossly there was no evidence of metastatic disease. Pathology showed grade 2 invasive adenocarcinoma with invasion through the muscularis propria into the pericolorectal tissue. The residual tumor measured 1.9 cm in greatest dimension. There was evidence for lymphovascular invasion. The margins were uninvolved. The distance from the radial margin was 0.4 cm. The treatment effect was score 2. There was involvement in 5/12 lymph nodes. Pathologic staging was ypT3, ypN2a. At that point it was assumed that the right lower lobe pulmonary nodule represented a solitary site of metastatic disease, thus stage AGUSTIN (ypT3, ypN2a, M1a). His other medical illnesses include hypertension, dyslipidemia, type 2 diabetes, coronary artery disease, and GERD. He has had previous angioplasty/stent placement. He is a non-smoker. INTERIM HISTORY: During the postoperative recovery, he had further radiation oncology consultation with Dr. Romero as well as surgical consultation with Dr. Carter regarding management of the pulmonary nodule. Due to having a somewhat difficult postop recovery, he opted to do delay that treatment. On 10/15/2021 he underwent closure of the loop ileostomy. Restaging CT scans of the chest, abdomen, and pelvis on 11/07/2021 showed continued increase in the size of the right lower lobe pulmonary nodule measuring 2.1 x 1.5 cm compared to 1.5 x 0.9 cm in August 2021, highly suspicious for a metastatic site. There was noted to be increased soft tissue between the rectum and left seminal vesicle with recurrent rectal neoplasm not excluded. A vague hypoechoic dense lesion in the right lobe of the liver was too small to characterize. Again an early metastatic site was not excluded. He is seen for a follow-up visit. He has been feeling pretty good generally, though his activity is still somewhat limited following the recent surgery. His ECOG score is 1. He has good appetite. He has no fever or night sweats. He has having difficulty with the vision in his right eye. He has not had sore mouth or throat. He does not complain of cough, and he has not been having shortness of breath or chest pain. He is having some difficulty adjusting to the bowel reanastomosis, but he is managing it adequately with Citrucel. He has no other GI or complaints. He has no significant joint or bone pain. He does not complain of headache or dizziness. 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 Medications: amLODIPine Besylate 1 (2.5 mg) Tablet Oral b.i.d., Aspirin 1 (81 mg) Tablet, chewable Oral daily, Claritin 1 (10 mg) Tablet Oral daily, Crestor 1 (20 mg) Tablet Oral daily, glipiZIDE XL 1 (5 mg) Tablet SR 24 HR Oral b.i.d., Isosorbide Mononitrate ER 1 (30 mg) Tablet SR 24 HR Oral b.i.d., Lisinopril 1 (5 mg) Tablet Oral b.i.d., Metoprolol Succinate ER 1 (50 mg) Tablet SR 24 HR Oral b.i.d., Nitroglycerin Tablet, sublingual Sublingual PRN, oxyCODONE HCl 1 Tablet (of 10 mg) Oral q 6 hours PRN, Pantoprazole Sodium 1 (40 mg) Tablet, enteric coated Oral daily Allergies: Sulfa Antibiotics Vital Signs: Performed on Nov 13, 2021 14:11 Height - 72.00 in BP - 182/80 mm(hg) (HIGH) Performed on Nov 13, 2021 14:11 Height - 72.00 in BP - 205/98 mm(hg) (HIGH) Performed on Nov 13, 2021 14:10 Height - 72.00 in Weight - 259.8 lbs (HIGH) BSA - 2.38 sq.m BMI - 35.24 (HIGH) Temperature - 98.2 F (LOW) Pulse - 92 /min Respiration - 18 /min BP - 209/95 mm(hg) (HIGH) O2 Sat - 97 % Pain - 0 Fatigue - 5 Physical Examination: Constitutional - He looks good generally, Eyes - Sclerae nonicteric. Conjunctivae clear, ENMT - No lesions noted in the oral cavity, Hematologic/Lymphatic - No cervical, clavicular, or axillary adenopathy, Respiratory - Lungs are clear with good air movement bilaterally, Cardiovascular - Heart rhythm is regular with occasional premature beats. There is no murmur, gallop, or rub noted, Abdomen - Soft. There is still tenderness at the surgical site in the right upper quadrant. Liver and spleen are not enlarged. There is no abdominal mass or ascites noted and there is no inguinal adenopathy, Extremities - There is 2-3+ lower extremity edema bilaterally, Neurologic - No focal neurologic deficits noted. Lab/Imaging: Test performed on Nov 13, 2021 10:35 Sodium 139 mmol/L Potassium 4.0 mmol/L Chloride 103 mmol/L CO2 25 mmol/L Anion Gap 15.0 BUN 11 mg/dL Creatinine 0.8 mg/dL Cr Clearance (Est) 141.17 mL/min Glucose 313 mg/dL Osmolality - Calculated 299 mOsm/kg Calcium 9.0 mg/dL Protein, Total 6.4 g/dL Albumin 3.9 g/dL Globulin 2.5 g/dL Bilirubin, Total 0.2 mg/dL ALT (SGPT) 16 U/L AST (SGOT) 15 U/L Alkaline Phosphatase 66 IU/L WBC 4.9 10 3/uL RBC 3.76 10 6/uL HGB 11.9 g/dL HCT 36.7 % MCV 97.6 fl MCH 31.6 pg MCHC 32.4 g/dL RDW 12.9 % Platelet Count 180 10 3/cmm MPV 10.2 fL Neutrophils 3.08 10 3/uL Lymphocytes 0.9 10 3/uL Monocytes 0.5 10 3/uL Eosinophils 0.3 10 3/uL Basophils 0.1 10 3/uL Neutrophil % 63.3 % Lymphocyte % 17.7 % Monocyte % 10.9 % Eosinophil % 5.7 % Basophils % 1.4 % NRBC % 0 % CEA 14.5 ng/mL Problem List: 1. Moderately differentiated invasive adenocarcinoma of the rectum, stage AGUSTIN (ypT3, ypN2a, M1a). 2. There was CT evidence of 1.5 cm right lower lobe pulmonary nodule, initially of uncertain clinical significance. 3. Iron deficiency anemia, presumed to be due to GI blood loss. He had been intolerant of oral iron due to GI side effects. 4. Hypertension. 5. Dyslipidemia. 6. Type 2 diabetes. 7. Coronary artery disease with previous angioplasty/stent placement. 8. GERD. Problems Addressed with this Encounter and Plan: 1. 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 By clinical evaluation his disease appeared to be stage a least T3, N1. He was recommended to undergo total neoadjuvant therapy. He began initial treatment with 8 cycles of modified FOLFOX from 09/27/2020 through 01/03/2021. Side effects included fatigue and neuropathy. The neuropathy was severe enough to necessitate 2 dose reductions in the oxaliplatin, and it was omitted with the 8th cycle. His repeat MRI did show some evidence of response, though not dramatic. On 02/21/2021 when he began chemoradiation utilizing capecitabine for chemosensitization. He completed radiation on 03/28/2021 to a total dose of 5000 cGy, administered in 25 fractions. He tolerated the treatment very well. His restaging CT scans on 04/04/2021 showed a significant decrease in the right lower lobe pulmonary nodule, highly suggestive of a metastatic lesion showing response to chemotherapy. On 05/28/2021 he underwent robotic assisted laparoscopic low anterior resection with ileostomy placement. Grossly there was no evidence of metastatic disease. Pathology showed grade 2 invasive adenocarcinoma with invasion through the muscularis propria into the pericolorectal tissue. The residual tumor measured 1.9 cm in greatest dimension. There was evidence for lymphovascular invasion. The margins were uninvolved. The distance from the radial margin was 0.4 cm. The treatment effect was score 2. There was involvement in 5/12 lymph nodes. Pathologic staging was ypT3, ypN2a, and with the right lower lobe pulmonary nodule presumed metastatic, his disease was Stage AGUSTIN (ypT3, ypN2a, M1a). He underwent closure of the loop ileostomy on 10/15/2021. He had opted to defer treatment of the right lower lobe pulmonary metastatic lesion until after that procedure. As such, I will now have him see Dr. Romero again for the SBRT. As he has developed significant lower extremity edema, will have him start furosemide 20 mg daily. I will tentatively plan a follow-up visit in 1 month. 2. 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 He has not been taking gabapentin because it had caused significant sedation. As such, I will have him restart the gabapentin, but taking 600 mg just at bedtime, and I will have him start duloxetine, initially at 30 mg daily. Signed By: Eliel Abrams M.D. <<Signature on File>>
--- NOTE | 2021-11-25 | CT_ITS ---
Radiation Therapy Planning CT images; total exam DLP: 789.07 mGy-cm MTDD
--- NOTE | 2021-12-05 09:46 | N.ONRD TS_ITS ---
Stereotactic Ablative Radiotherapy Treatment Summary Patient Name: Genaro Robbins Date of : 1950 Date of Service: 12/05/2021 Attending Physician: Gregory Romero M.D. Genaro Robbins has completed stereotactic ablative body radiotherapy for the management of a metastatic rectal cancer. He was diagnosed with a clinical stage IIIB (T3N1b) moderately differentiated adenocarcinoma of the rectum. He completed eight cycles of neoadjuvant modified FOLFOX (September 27, 2020 through January 03, 2021) and chemoradiation (February 21, 2021 through March 28, 2021). A prescribed dose of 50 Gy was delivered in 25 fractions with concurrent Xeloda. A robotic extended low anterior resection with a laparoscopic loop ileostomy was performed by Ranulfo Anguiano M.D. on May 28, 2021. A 1.9 cm, grade adenocarcinoma invading through the muscularis propria into the pericolorectal tissue was identified with all surgical margins uninvolved by malignancy. A total of twelve lymph nodes were harvested with five harboring metastatic disease. Treatment effect was present with cancer showing evidence of tumor regression (partial response, score 2). Final pathological stage was yIIIB (T3aN2A). A surveillance CT scan ordered on August 08, 2021 demonstrated an increase in size of a right lower lobe lung mass measuring 1.5 cm x 0.9 cm. SABR was delivered between the dates of November 29, 2021 through December 05, 2021. A prescribed dose of 54 Gy was delivered in three fractions encompassing 7 elapsed days. The right lower-lobe lesion was treated utilizing an intensity modulated radiotherapy plan with a step and shoot treatment technique. The plan required seven gantry angles (10???, 160???, 180???, 210???, 240???, 290???, and 320??? with a collimator rotation of 0??? in a partial arc design. The field sizes measured spanned 5.3 cm x 5 cm to 5.8 cm x 6 cm. The SSDs measured a minimum of 83.3 cm to a maximum of 88.9 cm. The ports delivered 854 MU, 694 MU, 789 MU, 699 MU, 1024 MU, and 1119 MU corresponding to the gantry angles described. Low energy photons were prescribed. All treatments were performed with the [employer] linear accelerator and an isocentric technique. The dose was calculated by Anisotropic Analytic Algorithm with the plan normalized to deliver 100% of the prescription dose to 95% of the planning target volume. Signed by: Dr. Gregory Romero 12/05/2021 9:45:51 AM
--- NOTE | 2021-12-05 09:46 | ONCRAD TMN_ITS ---
Stereotactic Ablative Radiotherapy Treatment Management Note Patient Name: Genaro Robbins Date of : 1950 Date of Service: 12/05/2021 Attending Physician: Gregory Romero M.D. Genaro Robbins is a 71 year-old white male diagnosed with metastatic rectal cancer. He was diagnosed with a clinical stage IIIB (T3N1b) moderately differentiated adenocarcinoma of the rectum. He completed eight cycles of neoadjuvant modified FOLFOX (September 27, 2020 through January 03, 2021) and chemoradiation (February 21, 2021 through March 28, 2021). A prescribed dose of 50 Gy was delivered in 25 fractions with concurrent Xeloda. A robotic extended low anterior resection with a laparoscopic loop ileostomy was performed by Ranulfo Anguiano M.D. on May 28, 2021. A 1.9 cm, grade adenocarcinoma invading through the muscularis propria into the pericolorectal tissue was identified with all surgical margins uninvolved by malignancy. A total of twelve lymph nodes were harvested with five harboring metastatic disease. Treatment effect was present with cancer showing evidence of tumor regression (partial response, score 2). Final pathological stage was yIIIB (T3aN2A). A surveillance CT scan ordered on August 08, 2021 demonstrated an increase in size of a right lower lobe lung mass measuring 1.5 cm x 0.9 cm. The patient has received 54 Gy of a prescribed 54 Jimenez (SABR) delivered with an intensity modulated radiotherapy plan utilizing a step and shoot treatment technique. Upon review of systems, he denied any changes in his pulmonary function. On physical examination, the patient weighed 247 lbs. His temperature was 97.5 ???F and the blood pressure was 162/77 mmHg. The pulse was 68 bpm and his respiratory rate was 16. There was no erythema within the treatment flores. Stereotactic ablative body radiotherapy was completed today. He will return for post-radiotherapy evaluation in 1 month. Signed by: Dr. Gregory Romero 12/05/2021 9:45:43 AM
== END 2021-12-05 23:59 | disposition home or self-care (01) ==
LOC: ONCMED 06:45
PROVIDERS: Internal Medicine Medical Oncology; PCP Nurse Practitioner Family; Visit Provider Radiology Radiation Oncology
DX: Z51.0 Encounter for antineoplastic radiation therapy (principal); C20 Malignant neoplasm of rectum; C78.01 Secondary malignant neoplasm of right lung; D50.0 Iron deficiency anemia secondary to blood loss (chronic); E11.59 Type 2 diabetes mellitus with other circulatory complications; I25.10 Atherosclerotic heart disease of native coronary artery without angina pectoris; I10 Essential (primary) hypertension; E78.5 Hyperlipidemia, unspecified; K21.9 Gastro-esophageal reflux disease without esophagitis; Z95.5 Presence of coronary angioplasty implant and graft; Z79.899 Other long term (current) drug therapy
CPT/HCPCS: 36591; 77300; 77301; 77334; 77338; 77373; 77470; 80053; 82378; 85025; 99214

== ENCOUNTER 2022-01-10 09:18 | Oncology outpatient (recurring) (ONCR) | payer MEDICARE, SELFPAY ==
--- NOTE | 2022-01-10 08:46 | ONCRAD EPV_ITS ---
Radiation Oncology Follow-Up Note Patient Name: Genaro Robbins Date of : 1950 Date of Service: 01/10/2022 Attending Physician: Gregory Romero M.D. Genaro Robbins returned to my office this morning for a routinely scheduled follow-up appointment. He completed stereotactic ablative body radiotherapy in November for the management of a management of a metastatic rectal cancer. He was diagnosed with a clinical stage IIIB (T3N1b) moderately differentiated adenocarcinoma of the rectum. He completed eight cycles of neoadjuvant modified FOLFOX (September 27, 2020 through January 03, 2021) and chemoradiation (February 21, 2021 through March 28, 2021). A prescribed dose of 50 Gy was delivered in 25 fractions with concurrent Xeloda. A robotic extended low anterior resection with a laparoscopic loop ileostomy was performed by Ranulfo Anguiano M.D. on May 28, 2021. A 1.9 cm, grade adenocarcinoma invading through the muscularis propria into the pericolorectal tissue was identified with all surgical margins uninvolved by malignancy. A total of twelve lymph nodes were harvested with five harboring metastatic disease. Treatment effect was present with cancer showing evidence of tumor regression (partial response, score 2). Final pathological stage was yIIIB (T3aN2A). A surveillance CT scan ordered on August 08, 2021 demonstrated an increase in size of a right lower lobe lung mass measuring 1.5 cm x 0.9 cm. SABR was delivered between the dates of November 29, 2021 through December 05, 2021. A prescribed dose of 54 Gy was delivered in three fractions encompassing 7 elapsed days. On review of systems, he patient denied any new pulmonary complaints. On physical examination, he weighed 253 lbs. The temperature was 97.5???F and his blood pressure was 132/81 mmHg. The pulse was 83 bpm and his respiratory rate was 18 breaths per minute. Oxygen saturation while breathing room air was 98%. Brnchovesicular breath sounds were auscultated. In summary, Mr. Robbins returned for a routine post radiotherapy follow-up. There were no sequelae from treatment. He will continue follow-up with medical oncology. Signed by: Gregory Romero 01/10/2022 8:45:33 AM
== END 2022-02-04 23:59 | disposition home or self-care (01) ==
PROVIDERS: PCP Nurse Practitioner Family; Visit Provider Radiology Radiation Oncology
DX: C20 Malignant neoplasm of rectum (principal); C78.01 Secondary malignant neoplasm of right lung; D50.9 Iron deficiency anemia, unspecified; G62.0 Drug-induced polyneuropathy; T45.1X5A Adverse effect of antineoplastic and immunosuppressive drugs, initial encounter; Z79.899 Other long term (current) drug therapy; Z92.21 Personal history of antineoplastic chemotherapy; Z92.3 Personal history of irradiation; Z53.9 Procedure and treatment not carried out, unspecified reason
CPT/HCPCS: 96523; 99214; 99999

== ENCOUNTER 2022-02-14 08:29 | Oncology outpatient (recurring) (ONCR) | payer MEDICARE, SELFPAY ==
[2022-02-14 08:54] LABS: Basophils # 0.1 10^3/uL (0.0-0.1); Basophils % 1.2 %; Eosinophils # 0.7 10^3/uL (0.0-0.8); Eosinophils % 10.3 %; Hematocrit 38.7 % (42.0-52.0); Hemoglobin 13.4 g/dL (11.7-16.6); Lymphocytes # 1.1 10^3/uL (0.8-4.8); Lymphocytes % 16.9 %; Mean Corpuscular HGB Conc 34.6 g/dL (30.0-36.0); Mean Corpuscular Hemoglobin 31.6 pg (28.0-34.0); Mean Corpuscular Volume 91.3 fl (80-94); Mean Platelet Volume 9.9 fL (7.4-10.4); Monocytes # 0.7 10^3/uL (0.2-0.9); Monocytes % 10.6 %; Neutrophils # 3.87 10^3/uL (1.8-7.7); Neutrophils % 59.3 %; Nucleated Red Blood Cells % 0 %; Platelet Count 214 10^3/cmm (130-400); Red Blood Count 4.24 10^6/uL (4.1-5.3); Red Cell Distribution Width 13.8 % (12.1-15.1); White Blood Count 6.5 10^3/uL (4.0-10.0)
[2022-02-14 09:17] LABS: Carcinoembryonic Antigen 22.4 ng/mL (0.0-4.7)
[2022-02-14 09:28] LABS: Alanine Aminotransferase 22 U/L (0-41); Albumin Level 3.8 g/dL (3.5-5.2); Alkaline Phosphatase 78 IU/L (40-130); Anion Gap 16.2 (5-19); Aspartate Amino Transferase 17 U/L (0-40); Blood Urea Nitrogen 19 mg/dL (8-23); Calcium 8.9 mg/dL (8.5-10.5); Carbon Dioxide 24 mmol/L (22-29); Chloride 98 mmol/L (98-107); Globulin 3.2 g/dL (1.3-4.6); Glucose 237 mg/dL (65-115); Osmolality Calculated 288 mOsm/kg (285-295); Potassium 4.2 mmol/L (3.5-5.1); Sodium 134 mmol/L (136-145); Total Bilirubin 0.3 mg/dL (0.15-1.2)
== END 2022-03-06 23:59 | disposition home or self-care (01) ==
PROVIDERS: Internal Medicine Medical Oncology; PCP Nurse Practitioner Family; Visit Provider Radiology Radiation Oncology
DX: C20 Malignant neoplasm of rectum (principal)
CPT/HCPCS: 36591; 80053; 82378; 85025

== ENCOUNTER 2022-04-10 10:03 | Oncology outpatient (recurring) (ONCR) | payer MEDICARE, SELFPAY ==
[2022-04-10 10:30] VITALS: BP 132/69; PULSE 74; RESP 18; TEMP 36.7; O2SAT 98
== END 2022-05-07 23:59 | disposition home or self-care (01) ==
PROVIDERS: PCP Nurse Practitioner Family; Visit Provider Radiology Radiation Oncology
DX: Z45.2 Encounter for adjustment and management of vascular access device (principal)
CPT/HCPCS: 96523

== ENCOUNTER 2022-07-10 14:25 | Oncology outpatient (recurring) (ONCR) | payer MEDICARE, SELFPAY ==
[2022-07-10 15:49] LABS: Basophils # 0.1 10^3/uL (0.0-0.1); Eosinophils # 0.4 10^3/uL (0.0-0.8); Eosinophils % 7.4 %; Hematocrit 38.2 % (42.0-52.0); Hemoglobin 12.6 g/dL (11.7-16.6); Lymphocytes % 18.4 %; Mean Corpuscular Hemoglobin 31.6 pg (28.0-34.0); Mean Corpuscular Volume 95.7 fl (80-94); Mean Platelet Volume 9.6 fL (7.4-10.4); Monocytes # 0.5 10^3/uL (0.2-0.9); Monocytes % 9.7 %; Neutrophils # 3.23 10^3/uL (1.8-7.7); Neutrophils % 61.4 %; Nucleated Red Blood Cells % 0 %; Platelet Count 167 10^3/cmm (130-400); Red Blood Count 3.99 10^6/uL (4.1-5.3); Red Cell Distribution Width 13.8 % (12.1-15.1); White Blood Count 5.3 10^3/uL (4.0-10.0)
[2022-07-10 16:43] LABS: Carcinoembryonic Antigen 10.7 ng/mL (0.0-4.7)
[2022-07-10 16:59] LABS: Alanine Aminotransferase 28 U/L (0-41); Albumin Level 3.7 g/dL (3.5-5.2); Alkaline Phosphatase 63 U/L (40-130); Anion Gap 13.8 (5-19); Aspartate Amino Transferase 22 U/L (0-40); Blood Urea Nitrogen 17 mg/dL (8-23); Calcium 8.8 mg/dL (8.5-10.5); Carbon Dioxide 25 mmol/L (22-29); Chloride 99 mmol/L (98-107); Globulin 2.6 g/dL (1.3-4.6); Glucose 266 mg/dL (65-115); Osmolality Calculated 289 mOsm/kg (285-295); Potassium 3.8 mmol/L (3.5-5.1); Sodium 134 mmol/L (136-145); Total Bilirubin 0.3 mg/dL (0.15-1.2); Total Protein 6.3 g/dL (6.6-8.7)
== END 2022-08-06 23:59 | disposition home or self-care (01) ==
PROVIDERS: Nurse Practitioner; PCP Nurse Practitioner Family; Visit Provider Internal Medicine Medical Oncology
DX: C20 Malignant neoplasm of rectum; C78.01 Secondary malignant neoplasm of right lung; M62.81 Muscle weakness (generalized); M54.41 Lumbago with sciatica, right side; Z92.21 Personal history of antineoplastic chemotherapy; Z92.3 Personal history of irradiation
CPT/HCPCS: 36591; 80053; 82378; 85025; 99214

== ENCOUNTER 2022-08-15 08:41 | Oncology outpatient (recurring) (ONCR) | payer MEDICARE, SELFPAY | END 2022-09-06 23:59 | disposition home or self-care (01) | LOC: ONCMED 08:41 | PROVIDERS: PCP Nurse Practitioner Family; Visit Provider Internal Medicine Medical Oncology | DX: Z45.2 Encounter for adjustment and management of vascular access device; Z95.828 Presence of other vascular implants and grafts | CPT/HCPCS: 96523 ==

== ENCOUNTER 2022-09-27 10:04 | Outpatient (CLI) | payer MEDICARE, SELFPAY ==
--- NOTE | 2022-09-27 | PETR_ITS ---
PROCEDURE INFORMATION: Exam: PET/CT Skull Base to Mid-thigh Exam date and time: 09/27/2022 11:09 AM Age: 72 years old Clinical indication: Condition or disease; Primary cancer: Secondary malignant neoplasm of RT lung. He completed sbrt to the right lower lobe lung lesion on 12/05/2021. 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 By clinical evaluation his disease appeared to be stage a least t3, n1 at initial diagnosis in August 2020. However, based on surgical pathology and enlarging right lower lobe pulmonary nodule, his disease was ultimately determined to be stage bekah (ypt3, ypn2a, m1a). His treatment included neoadjuvant modified folfox for 8 cycles followed by chemoradiation, which he completed in March 2021. On 05/28/2021 he underwent robotic assisted laparoscopic low anterior resection with ileostomy placement. Grossly there was no evidence of metastatic disease. Pathology showed grade 2 invasive adenocarcinoma with invasion through the muscularis propria into the pericolorectal tissue. His restaging CT scans in November 2021 showed a vague hypodensity in the right hepatic lobe. That area showed mild fdg uptake on his subsequent pet/ct. He was then referred to Dr. Angelo, and he underwent an ablation procedure to the right hepatic lobe lesion. Prior surgery; Surgery type: Ileostomy, ablation RT hepatic lobe, sbrt RT lower lobe lung LABS AND CLINICAL REPORTS: Glucose: 200 mg/dl Treatment strategy for malignancy (PET staging): Restaging (PS) TECHNIQUE: Imaging protocol: Following at least four-hour fasting and following the injection of F-18-FDG, low dose CT images were obtained. Then, PET images were obtained. Attenuation corrected images were constructed using the CT scan. Fused images of PET and CT were reviewed. The standardized uptake values (SUV) reported below are maximum values within a region of interest, expressed in gm/ml. Exam includes orbital meatal line to mid-thigh. Radiopharmaceutical: 13.56 mCi F-18 FDG (Fluorodeoxyglucose), IV. Time of imaging post radiopharmaceutical administration: 1 hour Injection site: Left hand COMPARISON: PT PET Scan 02/22/2022 9:[address] chest abdomen pelvis from 09/11/2022 FINDINGS: Tubes, catheters and devices: Left-sided Port-A-Cath terminates in the distal SVC. Brain: Visualized brain has normal physiologic uptake. Pharynx: No abnormal uptake. Larynx: No abnormal uptake. Lungs, pleura and trachea: A 1 cm nodule in the superior segment of the right lower lobe on image [address] from 09/11/2022 but new since PET dated 02/22/2022. There is no associated FDG uptake. Evolving post treatment changes in the right lung base. Heart: Normal physiologic uptake. Mediastinal space: No abnormal uptake. Liver: Tiny site of increased FDG uptake within the right hepatic lobe with SUV max 5.7 on image 66. There is no FDG uptake in the region of the ablated right hepatic lobe lesion. Gallbladder and bile ducts: No abnormal uptake. Pancreas: No abnormal uptake. Spleen: No abnormal uptake. Adrenal glands: No abnormal uptake. Kidneys and ureters: Normal physiologic uptake. Stomach and bowel: No abnormal uptake. Vasculature: No abnormal uptake. Lymph nodes: No abnormal uptake. No lymphadenopathy in the head, neck, chest, abdomen, pelvis, and extremities. Bones/joints: No abnormal uptake in the visualized axial and appendicular skeleton. Soft tissues: No abnormal uptake in the visualized head, neck, chest, abdomen, pelvis, and extremities. Other findings: Postsurgical changes of low anterior resection. PET[facility] SUBSEQ [id number] IMPRESSION: 1. Tiny site of increased FDG uptake within the right hepatic lobe with SUV max 5.7 on image 66. A tiny metastatic lesion at this site is not excluded. Liver MRI could further evaluate. 2. No FDG uptake at the site of the ablated right hepatic lobe lesion. 3. A 1 cm nodule in the superior segment of the right lower lobe appears similar to CT from 09/11/2022 but new since PET dated 02/22/2022. Though there is no associated FDG uptake, a small pulmonary metastasis is not excluded. Recommend close attention on follow-up.
== END 2022-09-27 10:05 | disposition home or self-care (01) ==
LOC: RAD 09-29 05:54
PROVIDERS: PCP Nurse Practitioner Family; Visit Provider Internal Medicine Medical Oncology
DX: C78.01 Secondary malignant neoplasm of right lung (principal)
CPT/HCPCS: 78815; A9552

== ENCOUNTER 2022-10-02 12:59 | Outpatient (CLI) | payer MEDICARE, SELFPAY ==
--- NOTE | 2022-10-02 13:00 | MR_ITS ---
WS: [id number] MRI BRAIN WITH AND WITHOUT CONTRAST HISTORY: Rectal Cancer Staging COMPARISON: None available. TECHNIQUE: Multiplanar imaging performed through the brain with MultiHance 20 ml's IV. No acute infarcts are seen. Jimenez-white matter differentiation is well preserved. Moderate small vesse l ischemic changes in the periventricular and subcortical white matter. Changes are symmetric. No hem orrhage or mass effect. No prior infarct. Mild atrophy. No susceptibility artifacts or prior lacunar infarcts. Ventricles and extra-axial spaces are normal. Clivus and pituitary gland are normal. Visualized posterior fossa and brainstem are also normal. Postcontrast images are negative for masses or vascular malformations. Dural venous sinuses are normal. Paranasal sinuses: Well aerated with no significant disease. Mastoid air cells: Normal. Calvarium and scalp: Normal. MR/MR head wo/w con [id number] IMPRESSION: 1. No metastatic disease to the brain. 2. Moderate small vessel ischemic changes. 3. No prior infarct.
[2022-10-02] MEDS: gadobenate dimeglumine 20 mL vial IV (13:52)
== END 2022-10-02 13:00 | disposition home or self-care (01) ==
LOC: RAD 13:02
PROVIDERS: PCP Nurse Practitioner Family; Visit Provider Internal Medicine Medical Oncology
DX: C20 Malignant neoplasm of rectum (principal)
CPT/HCPCS: 70553; A9577

== ENCOUNTER 2022-10-30 11:27 | Oncology outpatient (recurring) (ONCR) | payer MEDICARE, SELFPAY ==
[2022-10-30 12:54] LABS: Basophils # 0.1 10^3/uL (0.0-0.1); Basophils % 1.1 %; Eosinophils # 0.4 10^3/uL (0.0-0.8); Eosinophils % 6.8 %; Hematocrit 38.1 % (42.0-52.0); Hemoglobin 12.3 g/dL (11.7-16.6); Lymphocytes # 1.2 10^3/uL (0.8-4.8); Lymphocytes % 22.8 %; Mean Corpuscular HGB Conc 32.3 g/dL (30.0-36.0); Mean Corpuscular Hemoglobin 30.8 pg (28.0-34.0); Mean Corpuscular Volume 95.5 fl (80-94); Mean Platelet Volume 10.2 fL (7.4-10.4); Monocytes # 0.6 10^3/uL (0.2-0.9); Neutrophils # 2.97 10^3/uL (1.8-7.7); Neutrophils % 56.4 %; Nucleated Red Blood Cells % 0 %; Platelet Count 191 10^3/cmm (130-400); Red Blood Count 3.99 10^6/uL (4.1-5.3); Red Cell Distribution Width 13.3 % (12.1-15.1); White Blood Count 5.3 10^3/uL (4.0-10.0)
[2022-10-30 13:14] LABS: Alanine Aminotransferase 40 U/L (0-41); Albumin Level 3.8 g/dL (3.5-5.2); Alkaline Phosphatase 65 U/L (40-130); Anion Gap 15.3 (5-19); Aspartate Amino Transferase 34 U/L (0-40); Blood Urea Nitrogen 14 mg/dL (8-23); Calcium 8.7 mg/dL (8.5-10.5); Carbon Dioxide 25 mmol/L (22-29); Chloride 103 mmol/L (98-107); Globulin 2.7 g/dL (1.3-4.6); Glucose 208 mg/dL (65-115); Osmolality Calculated 295 mOsm/kg (285-295); Potassium 4.3 mmol/L (3.5-5.1); Sodium 139 mmol/L (136-145); Total Bilirubin 0.3 mg/dL (0.15-1.2); Total Protein 6.5 g/dL (6.6-8.7)
[2022-10-30 14:12] LABS: Carcinoembryonic Antigen 15.9 ng/mL (0.0-4.7)
== END 2022-11-04 23:59 | disposition home or self-care (01) ==
PROVIDERS: PCP Nurse Practitioner Family; Visit Provider Internal Medicine Medical Oncology
DX: C20 Malignant neoplasm of rectum (principal); C78.01 Secondary malignant neoplasm of right lung; Z90.49 Acquired absence of other specified parts of digestive tract; C77.8 Secondary and unspecified malignant neoplasm of lymph nodes of multiple regions; C78.7 Secondary malignant neoplasm of liver and intrahepatic bile duct; R97.0 Elevated carcinoembryonic antigen [CEA]
CPT/HCPCS: 36591; 80053; 82378; 85025; 99214

== ENCOUNTER 2023-01-01 08:00 | Oncology outpatient (recurring) (ONCR) | payer MEDICARE, SELFPAY ==
[2022-12-18 15:36] VITALS: BP 148/74; PULSE 93; TEMP 37.3; O2SAT 97
[2022-12-18 15:51] LABS: Basophils # 0.1 10^3/uL (0.0-0.1); Eosinophils # 0.2 10^3/uL (0.0-0.8); Eosinophils % 3.1 %; Hematocrit 38.5 % (42.0-52.0); Hemoglobin 12.5 g/dL (11.7-16.6); Lymphocytes # 1.3 10^3/uL (0.8-4.8); Lymphocytes % 21.7 %; Mean Corpuscular HGB Conc 32.5 g/dL (30.0-36.0); Mean Corpuscular Hemoglobin 30.6 pg (28.0-34.0); Mean Corpuscular Volume 94.4 fl (80-94); Monocytes # 0.8 10^3/uL (0.2-0.9); Neutrophils # 3.44 10^3/uL (1.8-7.7); Neutrophils % 59.6 %; Nucleated Red Blood Cells % 0 %; Platelet Count 183 10^3/cmm (130-400); Red Blood Count 4.08 10^6/uL (4.1-5.3); White Blood Count 5.8 10^3/uL (4.0-10.0)
[2022-12-18 16:14] LABS: Carcinoembryonic Antigen 26.9 ng/mL (0.0-4.7)
[2022-12-18 16:26] LABS: Alanine Aminotransferase 54 U/L (0-41); Albumin Level 3.6 g/dL (3.5-5.2); Alkaline Phosphatase 59 U/L (40-130); Anion Gap 16.1 (5-19); Aspartate Amino Transferase 45 U/L (0-40); Blood Urea Nitrogen 16 mg/dL (8-23); Calcium 7.9 mg/dL (8.5-10.5); Carbon Dioxide 21 mmol/L (22-29); Chloride 101 mmol/L (98-107); Globulin 3.1 g/dL (1.3-4.6); Glucose 241 mg/dL (65-115); Osmolality Calculated 287 mOsm/kg (285-295); Potassium 4.1 mmol/L (3.5-5.1); Sodium 134 mmol/L (136-145); Total Bilirubin 0.2 mg/dL (0.15-1.2); Total Protein 6.7 g/dL (6.6-8.7)
[2023-01-01 08:30] LABS: Add Urine Microscopic? NO; Charge for UA Resulting for Rev
[2023-01-01 08:35] LABS: Basophils # 0.1 10^3/uL (0.0-0.1); Basophils % 0.8 %; Eosinophils # 0.4 10^3/uL (0.0-0.8); Eosinophils % 5.3 %; Hematocrit 37.1 % (42.0-52.0); Hemoglobin 12.4 g/dL (11.7-16.6); Lymphocytes # 1.1 10^3/uL (0.8-4.8); Lymphocytes % 15.5 %; Mean Corpuscular HGB Conc 33.4 g/dL (30.0-36.0); Mean Corpuscular Hemoglobin 31.7 pg (28.0-34.0); Mean Corpuscular Volume 94.9 fl (80-94); Mean Platelet Volume 9.7 fL (7.4-10.4); Monocytes # 0.7 10^3/uL (0.2-0.9); Monocytes % 9.2 %; Neutrophils # 4.82 10^3/uL (1.8-7.7); Neutrophils % 67.2 %; Nucleated Red Blood Cells % 0 %; Platelet Count 219 10^3/cmm (130-400); Red Blood Count 3.91 10^6/uL (4.1-5.3); White Blood Count 7.2 10^3/uL (4.0-10.0)
[2023-01-01 08:43] LABS: Bilirubin Urine Neg (Negative); Blood Urine Neg (Negative); Glucose Urine UA 4+ (Normal); Ketones Urine Negative (Negative); Leukocyte Esterase Urine Negative (Negative); Nitrate Urine Negative (Negative); Protein Urine Neg (Negative); Urine Appearance Clear (CLEAR); Urine Color Yellow (Yellow); Urobilinogen Urine Neg (Negative); pH Urine 5 (5-7)
[2023-01-01 08:52] LABS: Alanine Aminotransferase 29 U/L (0-41); Albumin Level 3.8 g/dL (3.5-5.2); Alkaline Phosphatase 64 U/L (40-130); Anion Gap 15.4 (5-19); Aspartate Amino Transferase 22 U/L (0-40); Blood Urea Nitrogen 16 mg/dL (8-23); Calcium 8.6 mg/dL (8.5-10.5); Carbon Dioxide 23 mmol/L (22-29); Chloride 103 mmol/L (98-107); Globulin 2.8 g/dL (1.3-4.6); Glucose 340 mg/dL (65-115); Osmolality Calculated 299 mOsm/kg (285-295); Potassium 4.4 mmol/L (3.5-5.1); Sodium 137 mmol/L (136-145); Total Bilirubin 0.3 mg/dL (0.15-1.2); Total Protein 6.6 g/dL (6.6-8.7)
[2023-01-01 10:33] VITALS: BMI 36.3
[2023-01-01] MEDS: sodium chloride 0.9% 250 ML 75 ML IV (11:16)
[2023-01-01] MEDS: insulin lispro 100 unit/1 mL SUBCUT (11:18)
[2023-01-01] MEDS: atropine 1 mg/mL SDV 1 mL 0.4 MG IV (12:37)
[2023-01-01] MEDS: palonosetron 0.25 mg/5 mL SDV IVP (12:38)
[2023-01-01] MEDS: leucovorin 960 MG in dextrose 5% 250 ML 166.67 MG IV (13:22)
[2023-01-01] MEDS: FLUOROURACIL IV (15:15)
[2023-01-01] MEDS: SODIUM CHLORIDE IV (15:15)
[2023-01-01] MEDS: ELASTOMERIC PUMP PUMP IV (15:15)
[2023-01-01 16:12] VITALS: BP 158/88; PULSE 74; RESP 18; TEMP 36.6; O2SAT 98
== END 2023-01-04 23:59 | disposition home or self-care (01) ==
PROVIDERS: PCP Nurse Practitioner Family; Visit Provider Internal Medicine Medical Oncology
DX: Z51.11 Encounter for antineoplastic chemotherapy (principal); C20 Malignant neoplasm of rectum
CPT/HCPCS: 36591; 80053; 81003; 82378; 85025; 96368; 96372; 96375; 96413; 96415; 96416; 96417; 99214; J0461; J0640; J1100; J1815; J2469; J7050; J7060; J9190; J9206; Q5107

== ENCOUNTER 2023-01-29 08:00 | Oncology outpatient (recurring) (ONCR) | payer MEDICARE, SELFPAY ==
[2023-01-08 09:00] VITALS: BP 121/78; PULSE 78; RESP 18; TEMP 36.8; O2SAT 99
[2023-01-08] MEDS: sodium chloride 0.9% 1,000 ML 999 ML IV (09:19)
[2023-01-08 09:32] LABS: Basophils % 0.7 %; Eosinophils # 0.3 10^3/uL (0.0-0.8); Eosinophils % 11.5 %; Hematocrit 36.5 % (42.0-52.0); Hemoglobin 11.8 g/dL (11.7-16.6); Lymphocytes # 0.8 10^3/uL (0.8-4.8); Lymphocytes % 30.7 %; Mean Corpuscular HGB Conc 32.3 g/dL (30.0-36.0); Mean Corpuscular Hemoglobin 30.1 pg (28.0-34.0); Mean Corpuscular Volume 93.1 fl (80-94); Mean Platelet Volume 9.9 fL (7.4-10.4); Monocytes # 0.1 10^3/uL (0.2-0.9); Monocytes % 3.3 %; Neutrophils # 1.43 10^3/uL (1.8-7.7); Neutrophils % 53.1 %; Nucleated Red Blood Cells % 0 %; Platelet Count 129 10^3/cmm (130-400); Red Blood Count 3.92 10^6/uL (4.1-5.3); Red Cell Distribution Width 13.4 % (12.1-15.1); White Blood Count 2.7 10^3/uL (4.0-10.0)
[2023-01-08 09:54] LABS: Alanine Aminotransferase 23 U/L (0-41); Albumin Level 3.6 g/dL (3.5-5.2); Alkaline Phosphatase 55 U/L (40-130); Anion Gap 14.3 (5-19); Aspartate Amino Transferase 22 U/L (0-40); Blood Urea Nitrogen 17 mg/dL (8-23); Calcium 7.5 mg/dL (8.5-10.5); Carbon Dioxide 23 mmol/L (22-29); Chloride 104 mmol/L (98-107); Globulin 2.7 g/dL (1.3-4.6); Glucose 207 mg/dL (65-115); Osmolality Calculated 292 mOsm/kg (285-295); Potassium 4.3 mmol/L (3.5-5.1); Sodium 137 mmol/L (136-145); Total Bilirubin 0.4 mg/dL (0.15-1.2); Total Protein 6.3 g/dL (6.6-8.7)
[2023-01-08 10:40] VITALS: BP 119/69; PULSE 97; RESP 16; TEMP 36.2; O2SAT 98
--- NOTE | 2023-01-08 13:28 | PC.NURSE ---
Patient called with lab results from today. requested a copy for their daughter to milk pickup driver today.
[2023-01-15 08:59] LABS: Eosinophils # 0.5 10^3/uL (0.0-0.8); Eosinophils % 15.7 %; Hematocrit 34.2 % (42.0-52.0); Hemoglobin 11.1 g/dL (11.7-16.6); Lymphocytes # 0.9 10^3/uL (0.8-4.8); Lymphocytes % 29.1 %; Mean Corpuscular HGB Conc 32.5 g/dL (30.0-36.0); Mean Corpuscular Hemoglobin 30.8 pg (28.0-34.0); Mean Platelet Volume 9.3 fL (7.4-10.4); Monocytes # 0.3 10^3/uL (0.2-0.9); Monocytes % 9.2 %; Neutrophils # 1.36 10^3/uL (1.8-7.7); Neutrophils % 44.3 %; Nucleated Red Blood Cells % 0 %; Platelet Count 216 10^3/cmm (130-400); Red Cell Distribution Width 14.3 % (12.1-15.1); White Blood Count 3.1 10^3/uL (4.0-10.0)
[2023-01-15 09:11] LABS: Alanine Aminotransferase 24 U/L (0-41); Albumin Level 3.5 g/dL (3.5-5.2); Alkaline Phosphatase 64 U/L (40-130); Anion Gap 13.4 (5-19); Aspartate Amino Transferase 27 U/L (0-40); Blood Urea Nitrogen 15 mg/dL (8-23); Calcium 8.6 mg/dL (8.5-10.5); Carbon Dioxide 25 mmol/L (22-29); Chloride 104 mmol/L (98-107); Globulin 2.8 g/dL (1.3-4.6); Glucose 240 mg/dL (65-115); Osmolality Calculated 295 mOsm/kg (285-295); Potassium 4.4 mmol/L (3.5-5.1); Sodium 138 mmol/L (136-145); Total Bilirubin 0.3 mg/dL (0.15-1.2); Total Protein 6.3 g/dL (6.6-8.7)
[2023-01-15] MEDS: palonosetron 0.25 mg/5 mL SDV IVP (11:28)
[2023-01-15] MEDS: sodium chloride 0.9% (100 ml) 100 ML 75 ML (12:23)
[2023-01-15] MEDS: atropine 1 mg/mL SDV 1 mL 0.4 MG IV (13:07)
[2023-01-15] MEDS: IRINOTECAN IV (13:09)
[2023-01-15] MEDS: DEXTROSE 5% IV (13:09)
[2023-01-15] MEDS: leucovorin 960 MG in dextrose 5% 250 ML 166.67 MG IV (13:10)
[2023-01-15] MEDS: FLUOROURACIL IV (15:34)
[2023-01-15] MEDS: SODIUM CHLORIDE IV (15:34)
[2023-01-15] MEDS: ELASTOMERIC PUMP PUMP IV (15:34)
--- NOTE | 2023-01-15 17:20 | PC.NURSE ---
Patients daughters are registered nurses with the ability to disconnecting the 5FU pump and will give him 1000ml normal saline for nausea and diarrhea symptoms at home. chelsea
[2023-01-15] MEDS: sodium chloride 0.9% 1,000 ML 75 ML IV (17:29)
[2023-01-22 08:40] VITALS: BP 126/74; PULSE 85; RESP 20; TEMP 36.5; O2SAT 97
[2023-01-22 09:31] LABS: Basophils # 0.1 10^3/uL (0.0-0.1); Basophils % 2.3 %; Eosinophils # 0.1 10^3/uL (0.0-0.8); Eosinophils % 4.2 %; Hematocrit 33.3 % (42.0-52.0); Hemoglobin 10.7 g/dL (11.7-16.6); Lymphocytes # 0.7 10^3/uL (0.8-4.8); Lymphocytes % 33.3 %; Mean Corpuscular HGB Conc 32.1 g/dL (30.0-36.0); Mean Corpuscular Hemoglobin 30.2 pg (28.0-34.0); Mean Corpuscular Volume 94.1 fl (80-94); Mean Platelet Volume 9.6 fL (7.4-10.4); Monocytes # 0.1 10^3/uL (0.2-0.9); Monocytes % 6.1 %; Neutrophils # 1.14 10^3/uL (1.8-7.7); Neutrophils % 53.6 %; Nucleated Red Blood Cells % 0 %; Platelet Count 174 10^3/cmm (130-400); Red Blood Count 3.54 10^6/uL (4.1-5.3); Red Cell Distribution Width 13.6 % (12.1-15.1); White Blood Count 2.1 10^3/uL (4.0-10.0)
--- NOTE | 2023-01-22 15:47 | PC.NURSE ---
Patient called with lab results, his daughter to come by and last picker a copy of todays results.
[2023-01-29 07:52] VITALS: BMI 35.1
[2023-01-29 08:04] VITALS: BP 116/67; PULSE 94; RESP 18; TEMP 36.4; O2SAT 96
[2023-01-29 08:11] LABS: Hematocrit 34.7 % (42.0-52.0); Hemoglobin 11.2 g/dL (11.7-16.6); Mean Corpuscular HGB Conc 32.3 g/dL (30.0-36.0); Mean Corpuscular Hemoglobin 30.8 pg (28.0-34.0); Mean Corpuscular Volume 95.3 fl (80-94); Mean Platelet Volume 9.7 fL (7.4-10.4); Platelet Count 230 10^3/cmm (130-400); Red Blood Count 3.64 10^6/uL (4.1-5.3); Red Cell Distribution Width 14.7 % (12.1-15.1); White Blood Count 2.4 10^3/uL (4.0-10.0)
[2023-01-29 08:33] LABS: Alanine Aminotransferase 30 U/L (0-41); Albumin Level 3.7 g/dL (3.5-5.2); Alkaline Phosphatase 77 U/L (40-130); Aspartate Amino Transferase 35 U/L (0-40); Blood Urea Nitrogen 17 mg/dL (8-23); Calcium 8.6 mg/dL (8.5-10.5); Carbon Dioxide 25 mmol/L (22-29); Chloride 103 mmol/L (98-107); Globulin 2.9 g/dL (1.3-4.6); Glucose 214 mg/dL (65-115); Osmolality Calculated 294 mOsm/kg (285-295); Sodium 138 mmol/L (136-145); Total Bilirubin 0.3 mg/dL (0.15-1.2); Total Protein 6.6 g/dL (6.6-8.7)
[2023-01-29 08:43] LABS: Anion Gap 14.7 (5-19); Potassium 4.7 mmol/L (3.5-5.1)
[2023-01-29 09:10] LABS: Carcinoembryonic Antigen 16.2 ng/mL (0.0-4.7)
[2023-01-29 09:34] LABS: Absolute Eosinophils 0.1 10^3/cmm (0.0-0.7); Absolute Segmented Neutrophil 0.8 10/cmm (1.6-7.1); Band Neutrophils Absolute 0.1 10^3/cmm (0.0-1.2); Eosinophils 7 %; Lymphocytes 39 %; Lymphocytes Absolute 1.2 10^3/cmm (1.2-3.4); Monocytes Absolute 0.1 10^3/cmm (0.1-0.6); Segmented Neutrophils 33 %; Slide Review Slide Review Perform; Total Cells Counted 100 (0-100)
[2023-01-29 09:35] LABS: Platelet Estimate Normal (Normal)
[2023-01-29 09:36] LABS: Absolute Neutrophil 0.9 10^3/cmm (1.4-6.5)
[2023-01-29 10:13] VITALS: BP 111/65; PULSE 89; RESP 18; TEMP 36.4; O2SAT 97
== END 2023-02-04 23:59 | disposition home or self-care (01) ==
PROVIDERS: PCP Nurse Practitioner Family; Visit Provider Internal Medicine Medical Oncology
DX: C20 Malignant neoplasm of rectum (principal); C78.01 Secondary malignant neoplasm of right lung; R19.7 Diarrhea, unspecified; D70.1 Agranulocytosis secondary to cancer chemotherapy; T45.1X5A Adverse effect of antineoplastic and immunosuppressive drugs, initial encounter; Z79.899 Other long term (current) drug therapy
CPT/HCPCS: 80053; 82378; 85007; 85025; 96361; 96367; 96368; 96374; 96375; 96413; 96415; 96416; 96417; 99214; J0461; J0640; J1100; J1642; J2469; J7030; J7060; J9190; J9206; Q5107

== ENCOUNTER 2023-02-06 11:30 | Oncology outpatient (recurring) (ONCR) | payer MEDICARE, SELFPAY ==
[2023-02-05 08:40] VITALS: BP 109/78; PULSE 67; RESP 18; TEMP 36.6; O2SAT 98
[2023-02-05 09:06] LABS: Basophils # 0.1 10^3/uL (0.0-0.1); Basophils % 1.7 %; Eosinophils # 0.7 10^3/uL (0.0-0.8); Eosinophils % 8.3 %; Hematocrit 36.8 % (42.0-52.0); Hemoglobin 11.9 g/dL (11.7-16.6); Lymphocytes # 1.3 10^3/uL (0.8-4.8); Lymphocytes % 16.1 %; Mean Corpuscular HGB Conc 32.3 g/dL (30.0-36.0); Mean Corpuscular Hemoglobin 30.5 pg (28.0-34.0); Mean Corpuscular Volume 94.4 fl (80-94); Mean Platelet Volume 9.6 fL (7.4-10.4); Monocytes # 0.9 10^3/uL (0.2-0.9); Neutrophils % 53.7 %; Nucleated Red Blood Cells % 0 %; Platelet Count 308 10^3/cmm (130-400); Red Cell Distribution Width 15.3 % (12.1-15.1); White Blood Count 7.8 10^3/uL (4.0-10.0)
[2023-02-05 09:37] LABS: Alanine Aminotransferase 33 U/L (0-41); Albumin Level 3.9 g/dL (3.5-5.2); Alkaline Phosphatase 76 U/L (40-130); Anion Gap 16.9 (5-19); Aspartate Amino Transferase 36 U/L (0-40); Blood Urea Nitrogen 19 mg/dL (8-23); Calcium 8.7 mg/dL (8.5-10.5); Carbon Dioxide 24 mmol/L (22-29); Chloride 103 mmol/L (98-107); Globulin 2.9 g/dL (1.3-4.6); Glucose 217 mg/dL (65-115); Osmolality Calculated 297 mOsm/kg (285-295); Potassium 4.9 mmol/L (3.5-5.1); Sodium 139 mmol/L (136-145); Total Bilirubin 0.3 mg/dL (0.15-1.2); Total Protein 6.8 g/dL (6.6-8.7)
[2023-02-05 09:39] LABS: Slide Review Slide Review Perform
[2023-02-05] MEDS: dextrose 5% 250 ML 75 ML IV (10:33)
[2023-02-05] MEDS: palonosetron 0.25 mg/5 mL SDV IVP (10:33)
[2023-02-05] MEDS: atropine 1 mg/mL SDV 1 mL 0.4 MG IV (12:20)
[2023-02-05] MEDS: leucovorin 960 MG in dextrose 5% 250 ML 166.67 MG IV (12:32)
[2023-02-05] MEDS: SODIUM CHLORIDE IV (14:32)
[2023-02-05] MEDS: ELASTOMERIC PUMP PUMP IV (14:32)
[2023-02-05] MEDS: FLUOROURACIL IV (14:32)
[2023-02-05 14:35] VITALS: BP 124/78; PULSE 67; RESP 18; TEMP 36.6; O2SAT 98
[2023-02-06] MEDS: pegfilgrastim 6 mg/0.6 mL Kit (onpro) SUBCUT (12:22)
[2023-02-06 12:25] VITALS: BP 124/64; PULSE 86; RESP 16; TEMP 36.9; O2SAT 98
== END 2023-02-06 23:59 | disposition home or self-care (01) ==
PROVIDERS: PCP Nurse Practitioner Family; Visit Provider Internal Medicine Medical Oncology
DX: C20 Malignant neoplasm of rectum (principal)
CPT/HCPCS: 80053; 85025; 96367; 96368; 96372; 96375; 96413; 96415; 96416; 96417; J0461; J0640; J1100; J1642; J2469; J2506; J7060; J9190; J9206; Q5107

== ENCOUNTER 2023-03-05 07:30 | Oncology outpatient (recurring) (ONCR) | payer MEDICARE, OTHER, SELFPAY ==
[2023-02-12 08:13] VITALS: BP 137/76; PULSE 99; RESP 16; TEMP 36.3; O2SAT 95; BMI 33.3
[2023-02-12 08:26] LABS: Hematocrit 34.8 % (42.0-52.0); Hemoglobin 11.3 g/dL (11.7-16.6); Mean Corpuscular HGB Conc 32.5 g/dL (30.0-36.0); Mean Corpuscular Hemoglobin 30.9 pg (28.0-34.0); Mean Corpuscular Volume 95.1 fl (80-94); Mean Platelet Volume 10.1 fL (7.4-10.4); Platelet Count 155 10^3/cmm (130-400); Red Blood Count 3.66 10^6/uL (4.1-5.3); Red Cell Distribution Width 15.2 % (12.1-15.1); White Blood Count 16.7 10^3/uL (4.0-10.0)
[2023-02-12] MEDS: sodium chloride 0.9% 1,000 ML 999 ML IV (08:29)
[2023-02-12 08:46] LABS: Alanine Aminotransferase 21 U/L (0-41); Albumin Level 3.7 g/dL (3.5-5.2); Alkaline Phosphatase 154 U/L (40-130); Aspartate Amino Transferase 19 U/L (0-40); Blood Urea Nitrogen 31 mg/dL (8-23); Calcium 8.4 mg/dL (8.5-10.5); Carbon Dioxide 21 mmol/L (22-29); Chloride 102 mmol/L (98-107); Globulin 2.8 g/dL (1.3-4.6); Glucose 209 mg/dL (65-115); Osmolality Calculated 295 mOsm/kg (285-295); Sodium 136 mmol/L (136-145); Total Bilirubin 0.5 mg/dL (0.15-1.2); Total Protein 6.5 g/dL (6.6-8.7)
[2023-02-12 09:31] LABS: Absolute Eosinophils 0.1 10^3/cmm (0.0-0.7); Absolute Neutrophil 14.7 10^3/cmm (1.4-6.5); Absolute Segmented Neutrophil 13.9 10/cmm (1.6-7.1); Band Neutrophils Absolute 0.8 10^3/cmm (0.0-1.2); Eosinophils 1 %; Lymphocytes 8 %; Lymphocytes Absolute 1.5 10^3/cmm (1.2-3.4); Macrocytosis 1+; Monocytes Absolute 0.3 10^3/cmm (0.1-0.6); Platelet Estimate Normal (Normal); Segmented Neutrophils 83 %; Total Cells Counted 100 (0-100)
[2023-02-12 10:00] VITALS: BP 117/63; PULSE 101; RESP 16; TEMP 36.7; O2SAT 100
[2023-02-19 07:56] VITALS: BP 127/76; PULSE 96; RESP 18; TEMP 35.7; O2SAT 99
[2023-02-19 08:25] LABS: Hematocrit 35.2 % (42.0-52.0); Hemoglobin 11.3 g/dL (11.7-16.6); Mean Corpuscular HGB Conc 32.1 g/dL (30.0-36.0); Mean Corpuscular Hemoglobin 30.9 pg (28.0-34.0); Mean Corpuscular Volume 96.2 fl (80-94); Mean Platelet Volume 10.2 fL (7.4-10.4); Platelet Count 175 10^3/cmm (130-400); Red Blood Count 3.66 10^6/uL (4.1-5.3); Red Cell Distribution Width 15.9 % (12.1-15.1); White Blood Count 18.4 10^3/uL (4.0-10.0)
[2023-02-19 08:51] LABS: Alanine Aminotransferase 25 U/L (0-41); Albumin Level 3.7 g/dL (3.5-5.2); Alkaline Phosphatase 156 U/L (40-130); Anion Gap 16.7 (5-19); Aspartate Amino Transferase 23 U/L (0-40); Blood Urea Nitrogen 25 mg/dL (8-23); Calcium 8.4 mg/dL (8.5-10.5); Carbon Dioxide 21 mmol/L (22-29); Chloride 104 mmol/L (98-107); Creatinine Clr Calc Pharmacy 72.7723; Globulin 2.9 g/dL (1.3-4.6); Glucose 170 mg/dL (65-115); Osmolality Calculated 292 mOsm/kg (285-295); Potassium 4.7 mmol/L (3.5-5.1); Sodium 137 mmol/L (136-145); Total Bilirubin 0.2 mg/dL (0.15-1.2); Total Protein 6.6 g/dL (6.6-8.7)
[2023-02-19 09:18] LABS: Slide Review Slide Review Perform
[2023-02-19 09:19] LABS: Absolute Segmented Neutrophil 14.4 10/cmm (1.6-7.1); Segmented Neutrophils 78 %; Total Cells Counted 100 (0-100)
[2023-02-19 09:20] LABS: Absolute Eosinophils 0.1 10^3/cmm (0.0-0.7); Absolute Neutrophil 15.8 10^3/cmm (1.4-6.5); Band Neutrophils Absolute 1.5 10^3/cmm (0.0-1.2); Eosinophils 1 %; Lymphocytes 9 %; Lymphocytes Absolute 1.7 10^3/cmm (1.2-3.4); Monocytes Absolute 0.4 10^3/cmm (0.1-0.6); Platelet Estimate Normal (Normal)
[2023-02-19 09:21] LABS: Anisocytosis Trace
[2023-02-19 09:56] LABS: Carcinoembryonic Antigen 11.9 ng/mL (0.0-4.7)
[2023-02-19] MEDS: sodium chloride 0.9% 250 ML IV (10:37)
[2023-02-19] MEDS: palonosetron 0.25 mg/5 mL SDV IVP (10:40)
[2023-02-19] MEDS: dextrose 5% 250 ML 100 ML IV (12:01)
[2023-02-19] MEDS: atropine 1 mg/mL SDV 1 mL 0.4 MG IV (12:01)
[2023-02-19] MEDS: leucovorin 960 MG in dextrose 5% 250 ML 166.67 MG IV (12:05)
[2023-02-19] MEDS: irinotecan 300 MG, irinotecan 40 MG in dextrose 5% 250 ML 178 MG IV (12:05)
[2023-02-19] MEDS: ELASTOMERIC PUMP PUMP IV (13:52)
[2023-02-19] MEDS: FLUOROURACIL IV (13:52)
[2023-02-19] MEDS: SODIUM CHLORIDE IV (13:52)
--- NOTE | 2023-02-19 16:30 | PC.NURSE ---
Heparin flush sent home with pt for family to deaccess chemo pump. THU
[2023-02-19 16:31] VITALS: BP 120/65; PULSE 88; TEMP 36.6; O2SAT 96
[2023-02-26 08:30] VITALS: BP 110/73; PULSE 96; RESP 18; TEMP 36.3; O2SAT 99
[2023-02-26 09:04] VITALS: BMI 28.8
[2023-02-26] MEDS: sodium chloride 0.9% 1,000 ML 999 ML IV (09:09)
[2023-02-26 10:33] VITALS: BP 144/66; PULSE 106; RESP 18; TEMP 36.3; O2SAT 99
[2023-03-05 07:32] VITALS: BP 143/77; PULSE 98; RESP 18; TEMP 36.8; O2SAT 97
[2023-03-05 07:44] LABS: Basophils # 0.1 10^3/uL (0.0-0.1); Basophils % 1.4 %; Eosinophils # 0.4 10^3/uL (0.0-0.8); Eosinophils % 12.3 %; Hematocrit 31.2 % (42.0-52.0); Lymphocytes % 27.5 %; Mean Corpuscular HGB Conc 32.1 g/dL (30.0-36.0); Mean Corpuscular Hemoglobin 30.4 pg (28.0-34.0); Mean Corpuscular Volume 94.8 fl (80-94); Mean Platelet Volume 8.9 fL (7.4-10.4); Monocytes # 0.5 10^3/uL (0.2-0.9); Monocytes % 12.9 %; Neutrophils # 1.58 10^3/uL (1.8-7.7); Neutrophils % 44.2 %; Nucleated Red Blood Cells % 0 %; Platelet Count 284 10^3/cmm (130-400); Red Blood Count 3.29 10^6/uL (4.1-5.3); Red Cell Distribution Width 16.7 % (12.1-15.1); White Blood Count 3.6 10^3/uL (4.0-10.0)
[2023-03-05 08:02] LABS: Alanine Aminotransferase 22 U/L (0-41); Albumin Level 3.5 g/dL (3.5-5.2); Alkaline Phosphatase 66 U/L (40-130); Anion Gap 17.6 (5-19); Aspartate Amino Transferase 24 U/L (0-40); Blood Urea Nitrogen 14 mg/dL (8-23); Calcium 9.4 mg/dL (8.5-10.5); Carbon Dioxide 21 mmol/L (22-29); Chloride 109 mmol/L (98-107); Globulin 2.9 g/dL (1.3-4.6); Glucose 158 mg/dL (65-115); Osmolality Calculated 300 mOsm/kg (285-295); Potassium 4.6 mmol/L (3.5-5.1); Sodium 143 mmol/L (136-145); Total Bilirubin 0.3 mg/dL (0.15-1.2); Total Protein 6.4 g/dL (6.6-8.7)
[2023-03-05] MEDS: dextrose 5% 250 ML 75 ML IV (10:14)
[2023-03-05] MEDS: palonosetron 0.25 mg/5 mL SDV IVP (10:15)
[2023-03-05] MEDS: atropine 1 mg/mL SDV 1 mL 0.4 MG IV (12:17)
[2023-03-05] MEDS: leucovorin 960 MG in dextrose 5% 250 ML 166.67 MG IV (12:22)
[2023-03-05] MEDS: IRINOTECAN IV (12:23)
[2023-03-05] MEDS: DEXTROSE 5% IV (12:23)
[2023-03-05] MEDS: fluorouraciL 3,750 MG, elastomeric pump 1 PUMP in sodium chloride 0.9% (100 ml) 17 ML IV (14:38)
[2023-03-05 14:45] VITALS: BP 128/74; PULSE 96; RESP 18; TEMP 36.2; O2SAT 95
== END 2023-03-05 23:59 | disposition home or self-care (01) ==
PROVIDERS: PCP Nurse Practitioner Family; Visit Provider Internal Medicine Medical Oncology
DX: C20 Malignant neoplasm of rectum (principal); C78.01 Secondary malignant neoplasm of right lung; Z51.11 Encounter for antineoplastic chemotherapy; D70.1 Agranulocytosis secondary to cancer chemotherapy; T45.1X5A Adverse effect of antineoplastic and immunosuppressive drugs, initial encounter; K12.31 Oral mucositis (ulcerative) due to antineoplastic therapy; R11.2 Nausea with vomiting, unspecified; K20.90 Esophagitis, unspecified without bleeding; K52.1 Toxic gastroenteritis and colitis; Z79.899 Other long term (current) drug therapy; Z87.891 Personal history of nicotine dependence; G89.3 Neoplasm related pain (acute) (chronic); Z79.891 Long term (current) use of opiate analgesic
CPT/HCPCS: 80053; 82378; 85007; 85025; 96360; 96367; 96368; 96375; 96413; 96415; 96416; 96417; 99214; J0461; J0640; J1100; J1642; J2469; J7030; J7050; J7060; J9190; J9206; Q5107

== ENCOUNTER 2023-03-06 06:00 | Oncology outpatient (recurring) (ONCR) | payer MEDICARE, SELFPAY ==
[2023-03-06] MEDS: pegfilgrastim 6 mg/0.6 mL Kit (onpro) SUBCUT (11:44)
== END 2023-03-06 23:59 | disposition home or self-care (01) ==
LOC: ONCMED 09:37
PROVIDERS: PCP Nurse Practitioner Family; Visit Provider Internal Medicine Medical Oncology
DX: C20 Malignant neoplasm of rectum (principal); C78.01 Secondary malignant neoplasm of right lung
CPT/HCPCS: 96372; 96377; J2506

== ENCOUNTER 2023-03-19 09:21 | Oncology outpatient (recurring) (ONCR) | payer MEDICARE, OTHER, SELFPAY ==
[2023-03-12 08:20] VITALS: BP 127/73; PULSE 84; RESP 18; TEMP 36.6; O2SAT 99
[2023-03-12] MEDS: sodium chloride 0.9% 1,000 ML 999 ML IV (08:22)
[2023-03-12 09:58] VITALS: BP 134/73; PULSE 77; RESP 18; TEMP 36.6; O2SAT 99
[2023-03-19 08:03] VITALS: BP 150/79; PULSE 98; RESP 18; TEMP 36.1; O2SAT 97
[2023-03-19 08:48] LABS: Carcinoembryonic Antigen 5.5 ng/mL (0.0-4.7)
[2023-03-19 08:59] LABS: Alanine Aminotransferase 17 U/L (0-41); Albumin Level 3.7 g/dL (3.5-5.2); Alkaline Phosphatase 102 U/L (40-130); Anion Gap 14.4 (5-19); Aspartate Amino Transferase 18 U/L (0-40); Blood Urea Nitrogen 12 mg/dL (8-23); Calcium 8.5 mg/dL (8.5-10.5); Carbon Dioxide 25 mmol/L (22-29); Chloride 104 mmol/L (98-107); Globulin 2.8 g/dL (1.3-4.6); Glucose 126 mg/dL (65-115); Osmolality Calculated 289 mOsm/kg (285-295); Potassium 4.4 mmol/L (3.5-5.1); Sodium 139 mmol/L (136-145); Total Bilirubin 0.3 mg/dL (0.15-1.2); Total Protein 6.5 g/dL (6.6-8.7)
[2023-03-19 09:19] LABS: Basophils # 0.1 10^3/uL (0.0-0.1); Basophils % 1.1 %; Eosinophils # 0.3 10^3/uL (0.0-0.8); Eosinophils % 2.3 %; Hematocrit 33.6 % (42.0-52.0); Hemoglobin 10.5 g/dL (11.7-16.6); Lymphocytes # 1.8 10^3/uL (0.8-4.8); Lymphocytes % 14.8 %; Mean Corpuscular HGB Conc 31.3 g/dL (30.0-36.0); Mean Corpuscular Hemoglobin 31.3 pg (28.0-34.0); Mean Platelet Volume 10.2 fL (7.4-10.4); Monocytes # 0.8 10^3/uL (0.2-0.9); Monocytes % 6.5 %; Neutrophils # 8.22 10^3/uL (1.8-7.7); Neutrophils % 66.4 %; Nucleated Red Blood Cells # 0.1 /100WBC; Nucleated Red Blood Cells % 0.4 %; Platelet Count 174 10^3/cmm (130-400); Red Blood Count 3.36 10^6/uL (4.1-5.3); Red Cell Distribution Width 18.5 % (12.1-15.1); White Blood Count 12.4 10^3/uL (4.0-10.0)
[2023-03-19 09:20] LABS: Slide Review Slide Review Perform
[2023-03-19] MEDS: dextrose 5% 250 ML 75 ML IV (10:54)
[2023-03-19] MEDS: palonosetron 0.25 mg/5 mL SDV IVP (10:54)
[2023-03-19] MEDS: atropine 1 mg/mL SDV 1 mL 0.4 MG IV (11:25)
[2023-03-19] MEDS: bevacizumab-awwb 400 MG, bevacizumab-awwb 160 MG in sodium chloride 0.9% (100 ml) 100 ML 225 MG IV (11:28)
[2023-03-19] MEDS: leucovorin 1,000 MG in dextrose 5% 250 ML 166.67 MG IV (12:12)
[2023-03-19] MEDS: FLUOROURACIL IV (14:01)
[2023-03-19] MEDS: ELASTOMERIC PUMP PUMP IV (14:01)
[2023-03-19] MEDS: SODIUM CHLORIDE IV (14:01)
== END 2023-04-06 23:59 | disposition home or self-care (01) ==
PROVIDERS: PCP Nurse Practitioner Family; Visit Provider Internal Medicine Medical Oncology
DX: C20 Malignant neoplasm of rectum (principal); C78.01 Secondary malignant neoplasm of right lung; D70.1 Agranulocytosis secondary to cancer chemotherapy; T45.1X5A Adverse effect of antineoplastic and immunosuppressive drugs, initial encounter; R53.0 Neoplastic (malignant) related fatigue; R11.2 Nausea with vomiting, unspecified; Z51.11 Encounter for antineoplastic chemotherapy; Z90.49 Acquired absence of other specified parts of digestive tract; C78.7 Secondary malignant neoplasm of liver and intrahepatic bile duct; K12.31 Oral mucositis (ulcerative) due to antineoplastic therapy; K20.90 Esophagitis, unspecified without bleeding; K52.1 Toxic gastroenteritis and colitis; Z79.899 Other long term (current) drug therapy
CPT/HCPCS: 80053; 82378; 85025; 96367; 96368; 96375; 96413; 96415; 96416; 96417; 99214; J0461; J0640; J1100; J1642; J2469; J7030; J7060; J9190; J9206; Q5107

== ENCOUNTER 2023-03-26 20:32 | Emergency (ER) | payer MEDICARE, OTHER, SELFPAY ==
[2023-03-26 20:46] VITALS: BMI 33.3
[2023-03-26 20:50] VITALS: BP 121/71; PULSE 95; RESP 16; TEMP 36.7; O2SAT 98
--- NOTE | 2023-03-26 21:16 | ECG_ITS ---
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 Measurements Intervals [place] Rate: 87 P: 12 MD: 187 QRS: -17 QRSD: 96 T: 32 QT: 378 QTc: 455 Interpretive Statements SINUS RHYTHM WITH SINUS ARRHYTHMIA MODERATE VOLTAGE CRITERIA FOR LVH, CONSIDER NORMAL VARIANT [MEETS CRITERIA IN ONE OF: R(aVL), S(V1), R(V5), R(V5/V6)+S(V1)] Compared to ECG 11/02/2017 13:31:47 Left-axis deviation no longer present Electronically Signed On 03-26-2023 22:26:13 CDT by Nickie Chilel M.D. [id number]
[2023-03-26 21:18] LABS: Basophils # 0.1 10^3/uL (0.0-0.1); Basophils % 1.4 %; Eosinophils # 0.2 10^3/uL (0.0-0.8); Eosinophils % 5.4 %; Hematocrit 30.5 % (42.0-52.0); Hemoglobin 9.8 g/dL (11.7-16.6); Lymphocytes # 0.8 10^3/uL (0.8-4.8); Lymphocytes % 19.2 %; Mean Corpuscular HGB Conc 32.1 g/dL (30.0-36.0); Mean Corpuscular Hemoglobin 31.7 pg (28.0-34.0); Mean Corpuscular Volume 98.7 fl (80-94); Mean Platelet Volume 10.1 fL (7.4-10.4); Monocytes # 0.2 10^3/uL (0.2-0.9); Monocytes % 4.4 %; Neutrophils # 2.93 10^3/uL (1.8-7.7); Neutrophils % 68.7 %; Nucleated Red Blood Cells % 0 %; Platelet Count 209 10^3/cmm (130-400); Red Blood Count 3.09 10^6/uL (4.1-5.3); Red Cell Distribution Width 17.6 % (12.1-15.1); White Blood Count 4.3 10^3/uL (4.0-10.0)
[2023-03-26 21:32] LABS: Alanine Aminotransferase 22 U/L (0-41); Albumin Level 3.6 g/dL (3.5-5.2); Alkaline Phosphatase 67 U/L (40-130); Anion Gap 13.6 (5-19); Aspartate Amino Transferase 22 U/L (0-40); Blood Urea Nitrogen 16 mg/dL (8-23); Calcium 8.3 mg/dL (8.5-10.5); Carbon Dioxide 25 mmol/L (22-29); Chloride 102 mmol/L (98-107); Globulin 2.5 g/dL (1.3-4.6); Glucose 201 mg/dL (65-115); Osmolality Calculated 289 mOsm/kg (285-295); Potassium 4.6 mmol/L (3.5-5.1); Sodium 136 mmol/L (136-145); Total Bilirubin 0.2 mg/dL (0.15-1.2); Total Protein 6.1 g/dL (6.6-8.7)
--- NOTE | 2023-03-26 21:32 | ED_ITS ---
HPI - General Adult General: Chief complaint: General Medical Stated complaint: Multi Blood Clots from Ct Time Seen by Provider: 03/26/23 21:31 History of Present Illness: 72-year-old male patient comes in today after being notified by his physician in [place] that his CT exam he had done today did show clots in the lung. Primary care provider had called in a prescription for Eliquis but the patient was not able to get it filled they recommended evaluation in the ER and starting the medication. Patient denies any chest pain or difficulty breathing. Patient reports feeling normal for self. Associated symptoms: Deny chest pain or dyspnea Review of Systems General: Reports: 10 or more systems reviewed and unremarkable except in HPI and below Card: Denies: chest pain Resp: Denies: dyspnea PFSH ED PFSH: Medical History ASHD (arteriosclerotic heart disease) Diabetes Dyslipidemia GERD (gastroesophageal reflux disease) HTN (hypertension) Malignant neoplasm of rectum Surgical History H/O esophagogastroduodenoscopy 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) History of colonoscopy with polypectomy History of low anterior resection of rectum (~05/2021) Port-A-Cath in place (09/26/20) S/P PTCA (percutaneous transluminal coronary angioplasty) Family History Father , AGE 56 CAD (coronary artery disease) Myocardial infarction Social History Smoking and tobacco status: never smoked Alcohol intake: never Household members: spouse Marital status: Physical Exam Const: COMMON NORMALS: alert HENMT: COMMON NORMALS: normocephalic HEAD & SCALP: normocephalic Neck/C-Spine: COMMON NORMALS: full ROM Resp: COMMON NORMALS: normal respiratory effort and clear to auscultation bilaterally AUSCULTATION: clear to auscultation bilaterally Cardio: COMMON NORMALS: regular rate and regular rhythm RATE: regular rate RHYTHM: regular rhythm Back/Pelvis: COMMON NORMALS: thoracic and lumbar spine normal to inspection Extremity: COMMON NORMALS: full ROM Neuro: SENSORIUM/ORIENTATION: Yes alert Skin: COMMON NORMALS: turgor normal GENERAL SKIN EXAM: turgor normal Course Vital Signs: Vital signs: Vital Signs Temperature 98.1 F 03/26/23 20:50 Pulse Rate 93 03/26/23 22:27 Respiratory Rate 21 H 03/26/23 22:27 Blood Pressure 123/85 03/26/23 22:27 Pulse Oximetry 99 03/26/23 22:27 Oxygen Delivery Me thod Room Air 03/26/23 22:27 MDM - General Adult Medical Decision Making 72-year-old male patient comes in today for evaluation of CT scan that noted pulmonary emboli. Patient was notified by his surgeon in [facility] that he was seen to have a pulmonary embolism and recommended that he be started on Eliquis and follow-up with his primary care. Family wanted the patient further evaluated in the emergency department. Patient denies any pain or discomfort. Patient has received the Eliquis from his pharmacist but has not yet started the medication. Differential diagnosis includes respiratory failure, cardiac strain, saddle PE. Patient was stable and no signs of severe distress was noted. Patient was given 10 mg of Eliquis. Laboratory values were unremarkable. I offered patient admission but he did not want to be admitted and wished to go home. Patient reported that he felt well and felt comfortable to go home to take his medication as directed by his specialist. Lab Data 03/26/23 20:59 03/26/23 20:59 Laboratory Results WBC 4.3 10^3/uL (4.0-10.0) 03/26/23 20:59 RBC 3.09 10^6/uL (4.1-5.3) L 03/26/23 20:59 Hgb 9.8 g/dL (11.7-16.6) L 03/26/23 20:59 Hct 30.5 % (42.0-52.0) L 03/26/23 20:59 MCV 98.7 fl (80-94) H 03/26/23 20:59 MCH 31.7 pg (28.0-34.0) 03/26/23 20:59 MCHC 32.1 g/dL (30.0-36.0) 03/26/23 20:59 RDW 17.6 % (12.1-15.1) H 03/26/23 20:59 Plt Count 209 10^3/cmm (130-400) 03/26/23 20:59 MPV 10.1 fL (7.4-10.4) 03/26/23 20:59 Neut % (Auto) 68.7 % 03/26/23 20:59 Lymph % (Auto) 19.2 % 03/26/23 20:59 Todd % (Auto) 4.4 % 03/26/23 20:59 Eos % (Auto) 5.4 % 03/26/23 20:59 Baso % (Auto) 1.4 % 03/26/23 20:59 Neut # (Auto) 2.93 10^3/uL (1.8-7.7) 03/26/23 20:59 Lymph # (Auto) 0.8 10^3/uL (0.8-4.8) 03/26/23 20:59 Todd # (Auto) 0.2 10^3/uL (0.2-0.9) 03/26/23 20:59 Eos # (Auto) 0.2 10^3/uL (0.0-0.8) 03/26/23 20:59 Baso # (Auto) 0.1 10^3/uL (0.0-0.1) 03/26/23 20:59 Nucleated RBC % (auto) 0 % 03/26/23: Nucleated RBCs # 0.0 /100WBC 03/26/23 20:59 Sodium 136 mmol/L (136-145) 03/26/23 20:59 Potassium 4.6 mmol/L (3.5-5.1) 03/26/23 20:59 Chloride 102 mmol/L (98-107) 03/26/23 20:59 Carbon Dioxide 25 mmol/L (22-29) 03/26/23 20:59 Anion Gap 13.6 (5-19) 03/26/23 20:59 BUN 16 mg/dL (8-23) 03/26/23 20:59 Creatinine 1.1 mg/dL (0.7-1.2) 03/26/23 20:59 GFR Calculation Not Reportable 03/26/23 20:59 Glucose 201 mg/dL (65-115) H 03/26/23 20:59 Calculated Osmolality 289 mOsm/kg (285-295) 03/26/23 20:59 Calcium 8.3 mg/dL (8.5-10.5) L 03/26/23 20:59 Total Bilirubin 0.2 mg/dL (0.15-1.2) 03/26/23 20:59 AST 22 U/L (0-40) 03/26/23 20:59 ALT 22 U/L (0-41) 03/26/23 20:59 Alkaline Phosphatase 67 U/L (40-130) 03/26/23 20:59 Total Protein 6.1 g/dL (6.6-8.7) L 03/26/23 20:59 Albumin 3.6 g/dL (3.5-5.2) 03/26/23 20:59 Globulin 2.5 g/dL (1.3-4.6) 03/26/23 20:59 EKG Data EKG 1: EKG interpretation date: 03/26/23 EKG interpretation time: 22:09 Prior EKG tracings: not available for review Interpretation: EKG shows a sinus rhythm with sinus arrhythmia, irregular rate [address] elevation or ectopy is noted. No prior exam was available for comparison. Computer generated interpretation: Sinus rhythm with sinus arrhythmia, 87 bpm, moderate voltage criteria for LVH consider normal variant. Discharge Plan Discharge Patient Disposition: Home Clinical Impression: Pulmonary embolus Qualifiers: Pulmonary embolism type: other Chronicity: unspecified Acute cor pulmonale presence: without acute cor pulmonale Qualified Code(s): I26.99 - Other pulmonary embolism without acute cor pulmonale Condition: Stable Prescriptions: No Action aspirin [Aspir-81] 81 mg tablet,delayed release (DR/EC) 81 mg PO DAILY gabapentin 300 mg capsule 300 mg PO QID PRN metformin 500 mg tablet 1,000 mg PO BID glipizide 10 mg tablet 10 mg PO BID cefdinir 300 mg capsule 300 mg PO BID 10 Days Qty: 20 0RF loperamide [Anti-Diarrheal (loperamide)] 2 mg tablet 2 mg PO Q4H MDD 8mg PRN (Reason: loose stool) Qty: 60 3RF Rx Instructions: take after each loose stool until symptoms controlled;max8mg daily dexamethasone 4 mg tablet 4 mg PO BID PRN Rx Instructions: take twice daily for 2 days then daily for 2 days nitroglycerin [Nitrostat] 0.4 mg tablet, sublingual 0.4 mg SUBLINGUAL Q5M PRN (Reason: chest pain) Qty: 20 2RF Rx Instructions: do not exceed 3 doses per episode lisinopril 5 mg tablet 5 mg PO BID Qty: 180 2RF rosuvastatin 20 mg tablet 20 mg PO BEDTIME Qty: 15 0RF Rx Instructions: MUST make follow-up for further refills amlodipine 2.5 mg tablet 2.5 mg PO BID Qty: 60 0RF Rx Instructions: MUST make follow-up for further refills metoprolol succinate 50 mg tablet extended release 24 hr 50 mg PO BID Qty: 60 0RF Rx Instructions: MUST make follow-up for further refills isosorbide mononitrate 30 mg tablet extended release 24 hr 30 mg PO BID Qty: 180 3RF insulin regular human 100 unit/mL (3 mL) insulin pen See Rx Instructions SUBCUT QID PRN (Reason: hyperglycemia) Qty: 15 0RF Rx Instructions: per sliding scale subcutaneously four times daily PRN for 48 hours post chemo ondansetron HCl 4 mg tablet 4 mg PO Q6H PRN (Reason: nausea and vomiting) Qty: 60 3RF mupirocin 2 % ointment 1 applic topical BID Qty: 15 0RF lidocaine HCl [Lidocaine Viscous] 2 % solution 5 ml PO QID PRN (Reason: pain) Qty: 80 1RF Rx Instructions: mix with 80ml Benadryl, 80ml Maalox, 80ml Nystatin; Magic Mouthwash nystatin 100,000 unit/mL suspension 100,000 unit PO QID Qty: 80 1RF Rx Instructions: to be added to magic mouthwash script lidocaine-prilocaine 2.5-2.5 % cream 1 applic topical .as needed PRN (Reason: port access) Qty: 30 3RF Rx Instructions: apply quarter size amount 45 min prior to port access, cover with plastic wrap sucralfate [Carafate] 1 gram tablet 1 g PO BID Qty: 60 0RF pantoprazole 40 mg tablet,delayed release (DR/EC) 40 mg PO DAILY Qty: 90 0RF fluconazole 150 mg tablet 150 mg PO DAILY Qty: 3 0RF diphenoxylate-atropine [Lomotil] 2.5-0.025 mg tablet 2 tab PO QID PRN (Reason: Diarrhea) Qty: 60 3RF Rx Instructions: 2 tablets orally 4 times daily until control of diarrhea has been achieved. furosemide 20 mg tablet See Rx Instructions .ROUTE .COMPLEX Qty: 90 2RF Dose Instruction: TAKE ONE TABLET BY MOUTH DAILY Rx Instructions: TAKE ONE TABLET BY MOUTH DAILY Compazine 10 mg tablet 10 mg PO Q4H PRN (Reason: Mild Nausea) Qty: 30 3RF lorazepam 1 mg tablet 0.5 - 1 mg PO Q6H PRN (Reason: Severe Nausea) Qty: 30 3RF Discharge Orders: Discharge ED (Routine); Ordered 03/26/23 Ordered By: Sean Conrad Referrals: Kayleen Shea APN [Primary Care Provider] - Discharge Diet: Usual diet Discharge Activity: Increase activity as tolerated Patient Instructions: Pulmonary Embolism (ED) Activity Restrictions/Additional Instructions: Take Eliquis as directed. Follow-up with primary care and oncologist. Return to ER for chest pain or increased difficulty breathing. Coding Level of Care Code ED Geographic Information Systems Manager for Precious Bah
[2023-03-26] MEDS: apixaban 5 mg Tablet 10 MG PO (22:10)
[2023-03-26 22:27] VITALS: BP 123/85; PULSE 93; RESP 21; O2SAT 99
[2023-03-26 22:44] VITALS: BP 118/60; PULSE 87; RESP 17; O2SAT 99
== END 2023-03-26 22:55 | disposition home or self-care (01) ==
PROVIDERS: Emergency Medicine; Emergency Provider Nurse Practitioner Family; PCP Nurse Practitioner Family
DX: I26.99 Other pulmonary embolism without acute cor pulmonale (principal); Z79.82 Long term (current) use of aspirin; Z79.84 Long term (current) use of oral hypoglycemic drugs; Z79.4 Long term (current) use of insulin; E11.9 Type 2 diabetes mellitus without complications; E78.5 Hyperlipidemia, unspecified; I10 Essential (primary) hypertension; Z85.048 Personal history of other malignant neoplasm of rectum, rectosigmoid junction, and anus; Z85.05 Personal history of malignant neoplasm of liver; Z98.61 Coronary angioplasty status
CPT/HCPCS: 36415; 80053; 85025; 93005; 99284

== ENCOUNTER 2023-05-07 08:00 | Oncology outpatient (recurring) (ONCR) | payer MEDICARE, SELFPAY ==
[2023-04-16 07:57] VITALS: BMI 33.5
[2023-04-16 07:59] VITALS: BP 138/80; PULSE 88; RESP 18; TEMP 36.3; O2SAT 99
[2023-04-16 08:13] LABS: Basophils # 0.2 10^3/uL (0.0-0.1); Basophils % 1.7 %; Eosinophils % 10.8 %; Hematocrit 34.9 % (42.0-52.0); Hemoglobin 11.2 g/dL (11.7-16.6); Lymphocytes # 1.5 10^3/uL (0.8-4.8); Mean Corpuscular HGB Conc 32.1 g/dL (30.0-36.0); Mean Corpuscular Hemoglobin 31.8 pg (28.0-34.0); Mean Corpuscular Volume 99.1 fl (80-94); Mean Platelet Volume 9.8 fL (7.4-10.4); Monocytes % 11.2 %; Neutrophils # 5.14 10^3/uL (1.8-7.7); Neutrophils % 57.7 %; Nucleated Red Blood Cells % 0 %; Platelet Count 198 10^3/cmm (130-400); Red Blood Count 3.52 10^6/uL (4.1-5.3); Red Cell Distribution Width 16.8 % (12.1-15.1); White Blood Count 8.9 10^3/uL (4.0-10.0)
[2023-04-16 08:48] LABS: Carcinoembryonic Antigen 4.8 ng/mL (0.0-4.7)
[2023-04-16 08:59] LABS: Alanine Aminotransferase 23 U/L (0-41); Albumin Level 3.8 g/dL (3.5-5.2); Alkaline Phosphatase 63 U/L (40-130); Anion Gap 16.1 (5-19); Aspartate Amino Transferase 26 U/L (0-40); Blood Urea Nitrogen 15 mg/dL (8-23); Calcium 8.7 mg/dL (8.5-10.5); Carbon Dioxide 23 mmol/L (22-29); Chloride 109 mmol/L (98-107); Globulin 2.9 g/dL (1.3-4.6); Glucose 124 mg/dL (65-115); Osmolality Calculated 298 mOsm/kg (285-295); Potassium 5.1 mmol/L (3.5-5.1); Sodium 143 mmol/L (136-145); Total Bilirubin 0.3 mg/dL (0.15-1.2); Total Protein 6.7 g/dL (6.6-8.7)
[2023-04-16] MEDS: dextrose 5% 250 ML 75 ML IV (09:52)
[2023-04-16] MEDS: palonosetron 0.25 mg/5 mL SDV IVP (09:53)
[2023-04-16] MEDS: bevacizumab-awwb 400 MG, bevacizumab-awwb 160 MG in sodium chloride 0.9% (100 ml) 100 ML 250 MG IV (10:24)
[2023-04-16] MEDS: atropine 1 mg/mL SDV 1 mL 0.4 MG IV (11:26)
[2023-04-16] MEDS: IRINOTECAN IV (11:37)
[2023-04-16] MEDS: DEXTROSE 5% IV (11:37)
[2023-04-16] MEDS: leucovorin 940 MG in dextrose 5% 250 ML 229.33 MG IV (11:39)
[2023-04-16 13:46] VITALS: BP 133/70; PULSE 82; RESP 18; TEMP 36.7; O2SAT 97
[2023-05-07 08:30] VITALS: BP 162/75; PULSE 77; RESP 16; TEMP 36.8; O2SAT 98
[2023-05-07 08:57] LABS: Basophils # 0.1 10^3/uL (0.0-0.1); Eosinophils # 0.6 10^3/uL (0.0-0.8); Eosinophils % 10.1 %; Hematocrit 33.3 % (37-53); Lymphocytes % 17.9 %; Mean Corpuscular HGB Conc 31.5 g/dL (30-55); Mean Corpuscular Hemoglobin 30.9 pg (27-33); Mean Corpuscular Volume 97.9 fl (82-101); Mean Platelet Volume 9.3 fL (7.4-10.4); Monocytes # 0.9 10^3/uL (0.2-0.9); Monocytes % 15.5 %; Neutrophils # 3.05 10^3/uL (1.8-7.7); Neutrophils % 53.2 %; Nucleated Red Blood Cells % 0 %; Platelet Count 282 10^3/cmm (157-399); Red Cell Distribution Width 16.2 % (12.1-15.1); White Blood Count 5.74 10^3/uL (3.29-11.43)
[2023-05-07 09:26] LABS: Carcinoembryonic Antigen 4.5 ng/mL (0.0-4.7)
[2023-05-07 09:41] LABS: Alanine Aminotransferase 20 U/L (0-41); Albumin Level 3.5 g/dL (3.5-5.2); Alkaline Phosphatase 65 U/L (40-130); Aspartate Amino Transferase 19 U/L (0-40); Blood Urea Nitrogen 17 mg/dL (8-23); Calcium 8.6 mg/dL (8.5-10.5); Carbon Dioxide 25 mmol/L (22-29); Globulin 2.7 g/dL (1.3-4.6); Glucose 178 mg/dL (65-115); Total Bilirubin 0.3 mg/dL (0.15-1.2); Total Protein 6.2 g/dL (6.6-8.7)
[2023-05-07 09:45] VITALS: BMI 34.2
[2023-05-07 10:01] LABS: Anion Gap 13.2 (5-19); Chloride 105 mmol/L (98-107); Osmolality Calculated 294 mOsm/kg (285-295); Potassium 4.2 mmol/L (3.5-5.1); Sodium 139 mmol/L (136-145)
[2023-05-07] MEDS: sodium chloride 0.9% 250 ML 75 ML IV (11:19)
[2023-05-07] MEDS: palonosetron 0.25 mg/5 mL SDV IVP (11:24)
[2023-05-07] MEDS: atropine 1 mg/mL SDV 1 mL 0.4 MG IV (12:31)
[2023-05-07] MEDS: DEXTROSE 5% IV (12:54)
[2023-05-07] MEDS: IRINOTECAN IV (12:54)
[2023-05-07] MEDS: leucovorin 940 MG in dextrose 5% 250 ML 166.67 MG IV (12:55)
[2023-05-07 14:51] VITALS: BP 139/67; PULSE 85; RESP 18; TEMP 36.4; O2SAT 95
== END 2023-05-07 23:59 | disposition home or self-care (01) ==
PROVIDERS: PCP Nurse Practitioner Family; Visit Provider Internal Medicine Medical Oncology
DX: C20 Malignant neoplasm of rectum (principal); C78.01 Secondary malignant neoplasm of right lung; I25.10 Atherosclerotic heart disease of native coronary artery without angina pectoris; I10 Essential (primary) hypertension; Z53.9 Procedure and treatment not carried out, unspecified reason
CPT/HCPCS: 80053; 82378; 85025; 96367; 96368; 96375; 96413; 96415; 96416; 96417; 99214; J0461; J0640; J1100; J2469; J7050; J7060; J9190; J9206; Q5107

== ENCOUNTER 2023-05-22 07:40 | Outpatient (CLI) | payer MEDICARE, SELFPAY ==
--- NOTE | 2023-05-22 08:00 | USCV_ITS ---
Genaro Robbins Age: 73 Gender: M : 1950 Exam Date: 05/22/2023 07:56 Ordering Phys: Ata Garcia M.D ([email or web address]) Technologist: HALINA Exam Location: [facility] [place] Indication: chest pain/ sob BP: 132 / 68 HR: 89 Rhythm: Sinus Technical Quality: Adequate MEASUREMENTS (Male / Female) Normal Values 2D ECHO LVOT Diameter 2.0 cm LV Ejection Fraction MOD 2C 57.6 % LV Ejection Fraction 2C AL 58.1 % LA Diameter 3.2 cm LA Width 3.8 cm LA Height 4.5 cm RA Width 3.4 cm RA Height 4.0 cm Aorta at Sinotubular Diameter 2.3 cm IVC Diameter 2.0 cm M-MODE Aortic Annulus Diameter 2.8 cm LA Ao Ratio MM 1.1 DOPPLER AV Peak Velocity 156.3 cm/s LVOT Peak Velocity 111.0 cm/s AV Area Cont Eq vti 2.9 cm squared AV Area Cont Eq pk 2.2 cm squared MV Peak Velocity 84.0 cm/s MV Area PHT 5.0 cm squared Mitral E to A Ratio 0.9 MV E' Velocity 32.0 cm/s Mitral E to MV E' Ratio 7.7 Mitral E to LV E' Lateral Ratio 6.8 Mitral E to LV E' Septal Ratio 9.1 TR Peak Velocity 145.5 cm/s TR Peak Gradient 8.5 mmHg TR Mean Velocity 109.4 cm/s TR Mean Gradient 5.1 mmHg TR Velocity Time Integral 22.2 cm Right Atrial Pressure 3.0 mmHg Pulmonary Artery Systolic Pressu 11.5 mmHg PV Peak Velocity 155.3 cm/s RV Acceleration Time 0.1 s RV Ejection Time 0.2 s RV AcT/ET 0.5 FINDINGS Left Ventricle Left ventricle is normal size. LV systolic function is normal with EF of 55 to 60%. No regional wall motion abnormalities are seen. Grade 1 diastolic dysfunction Right Ventricle Normal in size and function Right Atrium Normal in size Left Atrium Normal in size Mitral Valve Structurally normal mitral valve. Trace mitral regurgitation. Aortic Valve Structurally normal aortic valve. No significant stenosis or regurgitation. Tricuspid Valve Trace tricuspid regurgitation. Insufficient TR jet to evaluate RVSP. Pulmonic Valve Not well-visualized. Pericardium Normal Aorta Normal in size IVC Appears to be normal CONCLUSIONS LV systolic function is normal with EF of 55 to 60%. Grade 1 diastolic dysfunction Trace mitral regurgitation Trace tricuspid regurgitation Compared to prior echocardiogram from 2020, no significant changes are seen Ata Garcia MD (Electronically Signed) Final Date: 30 May 2023 20:40 S
== END 2023-05-22 07:41 | disposition home or self-care (01) ==
PROVIDERS: PCP Nurse Practitioner Family; Visit Provider Internal Medicine
DX: R07.9 Chest pain, unspecified (principal); R06.02 Shortness of breath; I51.89 Other ill-defined heart diseases
CPT/HCPCS: 93306

== ENCOUNTER 2023-05-28 07:56 | Oncology outpatient (recurring) (ONCR) | payer MEDICARE, SELFPAY ==
[2023-05-28 08:20] VITALS: BP 138/76; PULSE 84; RESP 16; TEMP 36.7; O2SAT 99
[2023-05-28 08:43] LABS: Hematocrit 32.2 % (37-53); Mean Corpuscular HGB Conc 31.4 g/dL (30-55); Mean Corpuscular Hemoglobin 29.9 pg (27-33); Mean Corpuscular Volume 95.3 fl (82-101); Mean Platelet Volume 9.3 fL (7.4-10.4); Platelet Count 379 10^3/cmm (157-399); Red Blood Count 3.38 10^6/uL (3.85-5.65); Red Cell Distribution Width 16.6 % (12.1-15.1); White Blood Count 7.21 10^3/uL (3.29-11.43)
[2023-05-28 08:52] LABS: Alanine Aminotransferase 14 U/L (0-41); Albumin Level 3.4 g/dL (3.5-5.2); Alkaline Phosphatase 71 U/L (40-130); Anion Gap 15.3 (5-19); Aspartate Amino Transferase 22 U/L (0-40); Blood Urea Nitrogen 14 mg/dL (8-23); Calcium 8.9 mg/dL (8.5-10.5); Carbon Dioxide 25 mmol/L (22-29); Chloride 104 mmol/L (98-107); Globulin 3.2 g/dL (1.3-4.6); Glucose 118 mg/dL (65-115); Osmolality Calculated 292 mOsm/kg (285-295); Potassium 4.3 mmol/L (3.5-5.1); Sodium 140 mmol/L (136-145); Total Bilirubin 0.2 mg/dL (0.15-1.2); Total Protein 6.6 g/dL (6.6-8.7)
[2023-05-28 09:15] LABS: Slide Review Slide Review Perform
[2023-05-28 09:16] LABS: Absolute Eosinophils 0.5 10^3/cmm (0.0-0.7); Absolute Neutrophil 3.3 10^3/cmm (1.4-6.5); Absolute Segmented Neutrophil 3.2 10/cmm (1.6-7.1); Band Neutrophils Absolute 0.1 10^3/cmm (0.0-1.2); Eosinophils 7 %; Lymphocytes 35 %; Lymphocytes Absolute 2.5 10^3/cmm (1.2-3.4); Monocytes Absolute 0.4 10^3/cmm (0.1-0.6); Platelet Estimate Normal (Normal); Segmented Neutrophils 44 %; Total Cells Counted 100 (0-100)
[2023-05-28 09:17] LABS: Anisocytosis Trace
[2023-05-28] MEDS: sodium chloride 0.9% 250 ML IV (11:36)
[2023-05-28] MEDS: palonosetron 0.25 mg/5 mL SDV IVP (11:36)
[2023-05-28] MEDS: atropine 1 mg/mL SDV 1 mL 0.4 MG IV (12:45)
[2023-05-28] MEDS: IRINOTECAN IV (12:46)
[2023-05-28] MEDS: DEXTROSE 5% IV (12:46)
[2023-05-28] MEDS: leucovorin 940 MG in dextrose 5% 250 ML 166.67 MG IV (13:53)
[2023-05-28 15:47] VITALS: BP 139/65; PULSE 71; TEMP 36.4; O2SAT 96
== END 2023-06-06 23:59 | disposition home or self-care (01) ==
PROVIDERS: Nurse Practitioner Family; PCP Nurse Practitioner Family; Visit Provider Internal Medicine Medical Oncology
DX: C20 Malignant neoplasm of rectum (principal); Z51.11 Encounter for antineoplastic chemotherapy; R53.0 Neoplastic (malignant) related fatigue; J90 Pleural effusion, not elsewhere classified
CPT/HCPCS: 80053; 85007; 85025; 96367; 96368; 96375; 96413; 96415; 96416; 96417; 99214; J0461; J0640; J1100; J2469; J7050; J7060; J9190; J9206; Q5107

== ENCOUNTER 2023-06-18 08:14 | Oncology outpatient (recurring) (ONCR) | payer MEDICARE, SELFPAY ==
[2023-06-18 08:42] LABS: Hematocrit 32.4 % (37-53); Mean Corpuscular HGB Conc 30.9 g/dL (30-55); Mean Corpuscular Hemoglobin 28.5 pg (27-33); Mean Corpuscular Volume 92.3 fl (82-101); Mean Platelet Volume 8.9 fL (7.4-10.4); Platelet Count 463 10^3/cmm (157-399); Red Blood Count 3.51 10^6/uL (3.85-5.65); Red Cell Distribution Width 16.9 % (12.1-15.1)
[2023-06-18 08:45] VITALS: BP 162/78; PULSE 87; RESP 17; TEMP 36.2; O2SAT 98
[2023-06-18 09:12] LABS: Carcinoembryonic Antigen 4.2 ng/mL (0.0-4.7)
[2023-06-18 09:25] LABS: Alanine Aminotransferase 14 U/L (0-41); Albumin Level 3.7 g/dL (3.5-5.2); Alkaline Phosphatase 66 U/L (40-130); Anion Gap 14.3 (5-19); Aspartate Amino Transferase 15 U/L (0-40); Blood Urea Nitrogen 17 mg/dL (8-23); Calcium 8.4 mg/dL (8.5-10.5); Carbon Dioxide 25 mmol/L (22-29); Chloride 105 mmol/L (98-107); Globulin 3.8 g/dL (1.3-4.6); Glucose 161 mg/dL (65-115); Osmolality Calculated 295 mOsm/kg (285-295); Potassium 4.3 mmol/L (3.5-5.1); Sodium 140 mmol/L (136-145); Total Bilirubin 0.2 mg/dL (0.15-1.2); Total Protein 7.5 g/dL (6.6-8.7)
[2023-06-18 09:40] LABS: Slide Review Slide Review Perform
[2023-06-18 09:42] LABS: Absolute Eosinophils 0.8 10^3/cmm (0.0-0.7); Band Neutrophils Absolute 0.6 10^3/cmm (0.0-1.2); Blastocytes 0 % (0-0); Eosinophils 11 %; Lymphocytes 11 %; Lymphocytes Absolute 1.1 10^3/cmm (1.2-3.4); Monocytes Absolute 0.5 10^3/cmm (0.1-0.6); Segmented Neutrophils 42 %; Total Cells Counted 100 (0-100)
[2023-06-18 09:43] LABS: Absolute Neutrophil 3.6 10^3/cmm (1.4-6.5); Giant Platelets Trace; Macrocytosis 1+; Platelet Estimate Increased (Normal); Polychromasia 1+
== END 2023-07-07 23:59 | disposition home or self-care (01) ==
PROVIDERS: PCP Nurse Practitioner Family; Visit Provider Internal Medicine Medical Oncology
DX: C20 Malignant neoplasm of rectum (principal); C78.01 Secondary malignant neoplasm of right lung; M62.81 Muscle weakness (generalized); M54.41 Lumbago with sciatica, right side; Z92.21 Personal history of antineoplastic chemotherapy; Z92.3 Personal history of irradiation
CPT/HCPCS: 80053; 82378; 85007; 85025; 99214; J1642

== ENCOUNTER 2023-08-06 08:29 | Oncology outpatient (recurring) (ONCR) | payer MEDICARE, SELFPAY ==
--- NOTE | 2023-07-09 09:44 | ONCRAD EPV_ITS ---
Radiation Oncology Established Patient Visit Patient: Itzel Lam [id number] : 1950 Age: 73 Sex: Male Dictated by: Dr. Dora Zayas Date of Service: 07/09/2023 Referring Physician(s) : Dr Abrams Diagnosis: C20 - Malignant neoplasm of rectum, Diagnosed 11/13/2021 (Active) Stage BEKAH, T3, N2a, M1a C78.01 - Secondary malignant neoplasm of right lung, Diagnosed 11/13/2021 (Active) C20 - Malignant neoplasm of rectum, Diagnosed 09/20/2020 (Active) Stage X, T3, N1b Rectal cancer. 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 He had presented with iron deficiency anemia in association with rectal bleeding. His initial CBC showed hemoglobin low at 7.5 g and hematocrit 29%. His iron saturation was 3.5% and the ferritin was low at 15 ng/mL, consistent with iron deficiency. He was transfused 2 units PRBC and he also began on oral iron supplementation with ferrous sulfate. He was unable to tolerate it due to GI side effects. In the meantime, he was seen by Dr. Caldwell and he underwent EGD and colonoscopy on 08/23/2020. The EGD showed evidence of gastritis with multiple gastric erosions. The colonoscopy showed a 7 mm pedunculated polyp in the ascending colon, a 5 mm sessile polyp in the descending colon, and a 1 cm pedunculated polyp in the sigmoid colon. The rectum showed an ulcerated malignant appearing mass along the right lateral wall approximately 6 cm from the anal verge. The mass was palpable by digital rectal exam. Biopsy of the rectal mass showed moderately differentiated invasive adenocarcinoma. The descending colon polyp was noted to be hyperplastic. The other polyps were tubular adenomas without high-grade dysplasia or malignancy. Gastric biopsy showed mild chronic gastritis. Staging CT scans of the chest, abdomen, and pelvis showed asymmetric soft tissue thickening at the rectum, with the anterior wall measuring up to 12 mm. Indeterminate pelvic lymph nodes were noted just anterior to the L5-S1 disc space, the largest measuring 12 mm. A right lower lobe pulmonary nodule measured 1.5 cm, consistent with metastatic lesion, versus primary lung neoplasm, versus benign lesion. Indeterminant left hilar lymph nodes measured up to 12 mm. There was no evidence of other metastatic disease. His baseline CEA was elevated at 15.6 ng/mL. He had colorectal surgery consultation with Dr. Ranulfo nAguiano on 09/03/2021. Staging MRI of the pelvis on 09/13/2020 was consistent with a T3 primary lesion with suspected involvement in 3/5 mesorectal lymph nodes. His staging PET/CT on 09/22/2020 showed circumferential rectal thickening with SUV 12.1, consistent with known primary malignancy. Subcentimeter perirectal lymph nodes were too small to characterize. A 1.0 presacral lymph node had SUV 4.3, consistent with local metastatic disease. The right lower lobe pulmonary nodule measuring 1.7 x 1.8 cm and SUV 2.5. This was felt to be suggestive of a benign finding, but followup was felt to be warranted. Also noted were 4 mm nodules in the left upper lobe and lateral right upper lobe, too small to characterize. There were no other areas of abnormal uptake on that study. With those findings he was recommended to proceed with total neoadjuvant therapy. From 09/27/2020 through 01/03/2021 he completed 8 cycles of modified FOLFOX. He required dose reductions in the oxaliplatin for neuropathy, and with cycle 8 it had to be omitted. During that time, he was given parenteral iron replacement with Injectafer for the iron deficiency anemia. His repeat MRI of the pelvis on 01/17/2021 showed residual mass in the rectum beginning at 7.9 cm from the anal verge and extending for a length of 4.4 cm. The thickest part of the tumor had decreased from 1.7 cm to 0.9 cm. A new focal oval thickening measuring 1.0 cm was noted. By MR criteria it was categorized as a T3b primary lesion. The shortest distance of tumor to MRF or anticipated CRM was measured at 7.5 mm. A total of 5 lymph nodes were identified, for which appeared to be suspicious for local regional node involvement. These had shown moderate decrease in size compared to the pretreatment study. Restaging chest CT on 01/31/2021 showed significant decrease in the right lower lobe pulmonary nodule measuring 5 mm compared to 15 mm on the August 2020 study. New scattered irregular opacifications in the posterior right upper lobe were felt to be most likely inflammatory in nature. Small mediastinal and hilar lymph nodes were unchanged from prior studies. A nonocclusive filling defect was noted within the segmental branching right lower lobe pulmonary artery. With those findings, he was given empiric antibiotic therapy with Levaquin. He also was started on anticoagulation with apixaban, but it was stopped after a couple of doses because of increased bleeding. On 02/21/2021 he began radiation concurrently with capecitabine. He completed radiation on 03/28/2021 to a total dose of 5000 cGy, administered in 25 fractions. He tolerated the treatment very well. Restaging CT scans of the chest, abdomen, and pelvis on 04/04/2021 showed residual 9 mm nodular infiltrate in the right upper lobe at the site of the previous right upper lobe nodule. The remaining nodules and infiltrates were noted to have resolved. The mediastinal lymph nodes appeared stable. There was no mass or lymphadenopathy noted within the abdomen or pelvis. There was still a questionable tiny amount of nonocclusive chronic thrombus identified within a segmental artery branch to the right lower lobe. On 05/28/2021 he underwent robotic assisted laparoscopic low anterior resection with ileostomy placement. Grossly there was no evidence of metastatic disease. Pathology showed grade 2 invasive adenocarcinoma with invasion through the muscularis propria into the pericolorectal tissue. The residual tumor measured 1.9 cm in greatest dimension. There was evidence for lymphovascular invasion. The margins were uninvolved. The distance from the radial margin was 0.4 cm. The treatment effect was score 2. There was involvement in 5/12 lymph nodes. Pathologic staging was ypT3, ypN2a. At that point it was assumed that the right lower lobe pulmonary nodule represented a solitary site of metastatic disease, thus stage BEKAH (ypT3, ypN2a, M1a). His other medical illnesses include hypertension, dyslipidemia, type 2 diabetes, coronary artery disease, and GERD. He has had previous angioplasty/stent placement. He is a non-smoker. INTERIM HISTORY: During the postoperative recovery, he had further radiation oncology consultation with Dr. Romero as well as surgical consultation with Dr. Carter regarding management of the pulmonary nodule. Due to having a somewhat difficult postop recovery, he opted to do delay that treatment. On 10/15/2021 he underwent closure of the loop ileostomy. Restaging CT scans of the chest, abdomen, and pelvis on 11/07/2021 showed continued increase in the size of the right lower lobe pulmonary nodule measuring 2.1 x 1.5 cm compared to 1.5 x 0.9 cm in August 2021, highly suspicious for a metastatic site. There was noted to be increased soft tissue between the rectum and left seminal vesicle with recurrent rectal neoplasm not excluded. A vague hypoechoic dense lesion in the right lobe of the liver was too small to characterize. Again an early metastatic site was not excluded. His surveillance CT scans in November 2021 showed a further increase in the right lower lobe nodule that at that point measured 21 x 15 mm. He also had a vague hypoechoic dense lesion in the right lobe of the liver which was too small to characterize. By February 2022 PET scan showed uptake in the right hepatic lobe and the right upper and lower lobe but this was felt to be mostly inflammatory in the lung. He underwent microwave ablation in 2021. Repeat scans in May 2022 showed stable focus of consolidation in the right lower lobe. The ablation of the right hepatic lobe was 33 x 33 mm in size with no enhancement. He had restaging in September 2022 which showed an area of uptake in the right hepatic lobe which was tiny. It had an SUV of 5.7. 1 cm nodule in the right lower lobe appeared similar and did not have any associated uptake. It was however new compared to the scan in the year previously. By December he had undergone restaging and there was an increase in size of the right lower lobe pulmonary nodule now 15 x 12 mm in size. The previously identified lesion in the right lower lobe was no longer identified. Mediastinal and hilar adenopathy appeared stable. There was continued regression of the hepatic lesion in the right lobe of the liver. In December 2022 his CEA had climbed to 26.9. There was felt to be further progression of the lung nodule and he can started on his second line of chemotherapy with FOLFIRI/bevacizumab. He began to progress through the subsequent cycles and by the night cycle had had continued reduction of dosage as he continued to have increasing side effects. Restaging in March 2023 showed he actually had developed pulmonary emboli. The nodule in the right lower lobe now measures 1 x 0.8 cm in size. The hepatic lobe lesions appeared stable. He was able to complete his night cycle by May 2023. His follow-up at that time showed his CEA had declined down to 4.2. He says that he thinks this is the lowest its been ever. At this point he is seen in consultation to discuss treatment to the new lesion in the right lower lobe which now measures 9 mm. It has been recommended to him that he take a break from his chemotherapy. Since on his scans the lesion in the lung is the only area of active disease Dr. Abrams felt this would be a good time to proceed with treatment to this area while he is taking his break. Patient is currently asymptomatic from the lesion in his lung. Radiotherapy to Date: Course: Rectal Ca 2020, Treatment Site: Rectal Ca, Ref. ID: [id number], Energy: 15X, Dose/Fx (cGy): 200, #Fx: 25 / 25, Dose Correction (cGy): 0, Total Dose (cGy): 5,000,Start Date: 02/21/2021, End Date: 03/28/2021, Elapsed Days: 35 Treatment Site: [facility], Ref. ID: [id number], Energy: 6X, Dose/Fx (cGy): 1,800, #Fx: 2 / 2, Dose Correction (cGy): 0, Total Dose (cGy): 3,600, Start Date: 11/29/2021, End Date: 12/05/2021, Elapsed Days: 6 Current Medications: AmLODIPine Besylate, aspirin, capecitabine, claritin, crestor, cymbalta, eliquis DVT/PE Starter Pack, furosemide, gabapentin, glipiZIDE XL, isosorbide Mononitrate ER, lisinopril, lORazepam, methylPREDNISolone, metoprolol Succinate ER, nitroglycerin, novoLOG, oxyCODONE HCl, oxyCODONE HCl, pantoprazole Sodium, prochlorperazine Maleate, sodium Chloride. Allergies: Sulfa Antibiotics. Current Complaints / Review of Systems: . Vital Signs: Performed on 07/09/2023 8:33 AM BMI - 33.065 kg/m2 (high), Height - 72 in, Weight - 243.8 lbs, Temperature - 97.2 f, Pulse - 86 /min, Respiration - 18 /min, O2 Sat - 97 %, Pain - 0, Fatigue - 0 and BP - 144/ 72 mm(hg)(high/). Physical Exam: General: Alert and oriented x 3. No acute distress. He is actually good spirits today he is accompanied by his brother and his . HEENT: Normocephalic, atraumatic. Extraocular Movements Intact: Pupils were equal round, sclera clear. Skin: His color is actually quite good today. His skin is pink. LUNGS respiratory rate is regular nonlabored.. HEART: Regular rate and rhythm MUSCULOSKELETAL: No gross areas of the axial skeleton, scapulae or pelvis noted. ABDOMEN: Abdomen was moderately protuberant and android pattern EXTREMITIES: No obvious peripheral edema was identified. Limited motor and sensory examination are grossly intact and symmetric bilaterally. NEUROLOGIC: Alert and oriented x3, gait and speech intact.. Performance Status: 1 Lab: None pending. Pathology: Primary, c20 - malignant neoplasm of rectum, Diagnosed 11/13/2021 (active) stage bekah, t3, n2a, m1a, Primary, c78.01 - secondary malignant neoplasm of right lung, Diagnosed 11/13/2021 (active) and Primary, c20 - malignant neoplasm of rectum, Diagnosed 09/20/2020 (active) stage x, t3, n1b. Imaging: See HPI Impression: Adenocarcinoma of the rectum stage IV initially diagnosed in 2019 with stage IV disease at that time. Now having lived for 3 years while undergoing chemotherapy, surgery and radiation. Plan: We talked today about his past history. We reviewed all of the things that he has had done. I reviewed with him the Dr. Abrams felt it would be a good time for him to take a break from his chemotherapy. He is in agreement with this. We also talked about doing 2 treatments on the right lower lobe as he had had previously done. He is familiar with the simulation process, the daily treatment regiment. And he is agreed to proceed at this time. We discussed the risks and side effects both acute and long-term. He would like to wait as he plans to go deer hunting for 10 days and then spend Thanksgiving with his family. We will get him scheduled to return the week after Thanksgiving and then coordinate his treatments done the following week. Signed by: 07/09/2023 9:43:27 AM <<Signature on File>> Time spent with patient: 35 CPT Code: CPT Code:
[2023-07-16 14:45] VITALS: BP 124/71; PULSE 74; RESP 18; TEMP 37.1; O2SAT 98
[2023-07-16 15:37] LABS: Basophils # 0.1 10^3/uL (0.0-0.1); Basophils % 0.9 %; Eosinophils # 0.7 10^3/uL (0.0-0.8); Eosinophils % 9.1 %; Hematocrit 30.9 % (37-53); Lymphocytes # 1.3 10^3/uL (0.8-4.8); Mean Corpuscular HGB Conc 32.4 g/dL (30-55); Mean Corpuscular Hemoglobin 28.7 pg (27-33); Mean Corpuscular Volume 88.5 fl (82-101); Mean Platelet Volume 9.5 fL (7.4-10.4); Monocytes # 0.7 10^3/uL (0.2-0.9); Monocytes % 9.6 %; Neutrophils # 4.77 10^3/uL (1.8-7.7); Nucleated Red Blood Cells % 0 %; Platelet Count 267 10^3/cmm (157-399); Red Blood Count 3.49 10^6/uL (3.85-5.65); Red Cell Distribution Width 17.2 % (12.1-15.1)
[2023-07-16 15:48] LABS: Carcinoembryonic Antigen 3.5 ng/mL (0.0-4.7)
[2023-07-16 16:00] LABS: Albumin Level 3.6 g/dL (3.5-5.2); Alkaline Phosphatase 64 U/L (40-130); Anion Gap 16.5 (5-19); Aspartate Amino Transferase 22 U/L (0-40); Blood Urea Nitrogen 17 mg/dL (8-23); Calcium 9.1 mg/dL (8.5-10.5); Carbon Dioxide 21 mmol/L (22-29); Chloride 103 mmol/L (98-107); Globulin 3.1 g/dL (1.3-4.6); Glucose 322 mg/dL (65-115); Osmolality Calculated 296 mOsm/kg (285-295); Potassium 4.5 mmol/L (3.5-5.1); Sodium 136 mmol/L (136-145); Total Bilirubin 0.2 mg/dL (0.15-1.2); Total Protein 6.7 g/dL (6.6-8.7)
[2023-07-16 16:11] LABS: Alanine Aminotransferase 29 U/L (0-41)
== END 2023-08-06 23:59 | disposition home or self-care (01) ==
PROVIDERS: Internal Medicine Medical Oncology; PCP Nurse Practitioner Family; Visit Provider Radiology Radiation Oncology
DX: Z53.9 Procedure and treatment not carried out, unspecified reason (principal)
CPT/HCPCS: 80053; 82378; 85025; J1642

== ENCOUNTER 2023-08-20 09:52 | Oncology outpatient (recurring) (ONCR) | payer MEDICARE, SELFPAY ==
[2023-08-20 10:15] VITALS: BP 141/71; PULSE 100; RESP 16; TEMP 36.7; O2SAT 99
[2023-08-20 10:22] LABS: Basophils % 0.4 %; Eosinophils % 0.4 %; Lymphocytes # 1.1 10^3/uL (0.8-4.8); Lymphocytes % 11.8 %; Mean Corpuscular HGB Conc 31.3 g/dL (30-55); Mean Corpuscular Hemoglobin 28.7 pg (27-33); Mean Corpuscular Volume 91.7 fl (82-101); Mean Platelet Volume 9.3 fL (7.4-10.4); Monocytes # 0.5 10^3/uL (0.2-0.9); Monocytes % 5.6 %; Neutrophils # 7.72 10^3/uL (1.8-7.7); Neutrophils % 79.5 %; Nucleated Red Blood Cells % 0 %; Platelet Count 282 10^3/cmm (157-399); Red Blood Count 3.49 10^6/uL (3.85-5.65); Red Cell Distribution Width 19.5 % (12.1-15.1)
[2023-08-20 10:37] LABS: Alanine Aminotransferase 19 U/L (0-41); Albumin Level 3.6 g/dL (3.5-5.2); Alkaline Phosphatase 65 U/L (40-130); Anion Gap 15.6 (5-19); Aspartate Amino Transferase 16 U/L (0-40); Blood Urea Nitrogen 22 mg/dL (8-23); Calcium 8.8 mg/dL (8.5-10.5); Carbon Dioxide 23 mmol/L (22-29); Chloride 102 mmol/L (98-107); Glucose 286 mg/dL (65-115); Osmolality Calculated 296 mOsm/kg (285-295); Potassium 4.6 mmol/L (3.5-5.1); Sodium 136 mmol/L (136-145); Total Bilirubin 0.2 mg/dL (0.15-1.2); Total Protein 6.6 g/dL (6.6-8.7)
[2023-08-20 11:26] LABS: Carcinoembryonic Antigen 4.2 ng/mL (0.0-4.7)
== END 2023-09-06 23:59 | disposition home or self-care (01) ==
PROVIDERS: Internal Medicine Medical Oncology; PCP Nurse Practitioner Family; Visit Provider Radiology Radiation Oncology
DX: C20 Malignant neoplasm of rectum (principal); C78.01 Secondary malignant neoplasm of right lung; M62.81 Muscle weakness (generalized); M54.41 Lumbago with sciatica, right side; Z92.21 Personal history of antineoplastic chemotherapy; Z92.3 Personal history of irradiation
CPT/HCPCS: 36591; 80053; 82378; 85025; 99214; J1642

== ENCOUNTER 2023-10-06 07:59 | Oncology outpatient (recurring) (ONCR) | payer MEDICARE, SELFPAY ==
[2023-09-29 11:33] VITALS: BP 139/76; PULSE 100; RESP 17; TEMP 37; O2SAT 96
[2023-09-29 11:52] LABS: Basophils # 0.1 10^3/uL (0.0-0.1); Basophils % 0.7 %; Eosinophils # 0.2 10^3/uL (0.0-0.8); Eosinophils % 1.8 %; Hematocrit 35.8 % (37-53); Lymphocytes # 1.3 10^3/uL (0.8-4.8); Lymphocytes % 12.4 %; Mean Corpuscular HGB Conc 31.8 g/dL (30-55); Mean Corpuscular Hemoglobin 30.4 pg (27-33); Mean Corpuscular Volume 95.5 fl (82-101); Mean Platelet Volume 8.8 fL (7.4-10.4); Monocytes # 0.6 10^3/uL (0.2-0.9); Monocytes % 5.9 %; Neutrophils # 7.83 10^3/uL (1.8-7.7); Neutrophils % 76.8 %; Nucleated Red Blood Cells % 0 %; Platelet Count 257 10^3/cmm (157-399); Red Blood Count 3.75 10^6/uL (3.85-5.65); Red Cell Distribution Width 17.3 % (12.1-15.1); White Blood Count 10.18 10^3/uL (3.29-11.43)
[2023-09-29 12:22] LABS: Carcinoembryonic Antigen 8.8 ng/mL (0.0-4.7)
[2023-09-29 12:33] LABS: Alanine Aminotransferase 15 U/L (0-41); Albumin Level 3.8 g/dL (3.5-5.2); Alkaline Phosphatase 72 U/L (40-130); Anion Gap 14.6 (5-19); Aspartate Amino Transferase 17 U/L (0-40); Blood Urea Nitrogen 12 mg/dL (8-23); Carbon Dioxide 25 mmol/L (22-29); Chloride 105 mmol/L (98-107); Globulin 3.6 g/dL (1.3-4.6); Glucose 159 mg/dL (65-115); Osmolality Calculated 293 mOsm/kg (285-295); Potassium 4.6 mmol/L (3.5-5.1); Sodium 140 mmol/L (136-145); Total Bilirubin 0.2 mg/dL (0.15-1.2); Total Protein 7.4 g/dL (6.6-8.7)
== END 2023-10-06 23:59 | disposition home or self-care (01) ==
PROVIDERS: Internal Medicine Medical Oncology; PCP Nurse Practitioner Family; Visit Provider Radiology Radiation Oncology
DX: C20 Malignant neoplasm of rectum (principal); C78.01 Secondary malignant neoplasm of right lung; Z51.0 Encounter for antineoplastic radiation therapy
CPT/HCPCS: 36591; 77300; 77301; 77334; 77338; 77373; 77470; 80053; 82378; 85025; 99214; J1642

== ENCOUNTER 2023-10-07 07:42 | Oncology outpatient (recurring) (ONCR) | payer MEDICARE, SELFPAY | END 2023-10-07 23:59 | disposition home or self-care (01) | PROVIDERS: PCP Nurse Practitioner Family; Visit Provider Radiology Radiation Oncology | DX: C20 Malignant neoplasm of rectum (principal); C78.01 Secondary malignant neoplasm of right lung; Z51.0 Encounter for antineoplastic radiation therapy | CPT/HCPCS: 77373 ==

== ENCOUNTER 2023-10-09 07:52 | Oncology outpatient (recurring) (ONCR) | payer MEDICARE, SELFPAY ==
--- NOTE | 2023-10-08 10:17 | ONCRAD TMN_ITS ---
Radiation Oncology Weekly Treatment Management Patient: Genaro Robbins MR#: [id number] : 1950 Attending Physician: Jose Williamson Date of Service: 10/08/2023 Referring Physician(s) : Eliel Abrams Diagnosis: C20 - Malignant neoplasm of rectum, Diagnosed 11/13/2021 (Active) Stage AGUSTIN, T3, N2a, M1a C78.01 - Secondary malignant neoplasm of right lung, Diagnosed 11/13/2021 (Active) C20 - Malignant neoplasm of rectum, Diagnosed 09/20/2020 (Active) Stage X, T3, N1b Radiotherapy to date: Course: S[facility]R 2023, Treatment Site: [facility], Ref. ID: [id number], Energy: 6X, Dose/Fx (cGy): 800, #Fx: 4 / 5, Dose Correction (cGy): 0, Total Dose (cGy): 3,200, Start Date: 10/05/2023, Elapsed Days: 3 Reason for visit: The patient is being seen today as part of their regularly scheduled weekly on treatment visits to assess for acute toxicities from radiotherapy. Review of Systems: Patient denies difficulty with cough, shortness of breath, or hemoptysis. He has no difficulty swallowing. He reports that he is sleeping well. His primary complaints are related to chemotherapy side effects which are related to the peripheral neuropathy in his feet. Patient is present today with multiple family members including his , 2 brothers, and [id number]. Vital Signs: Performed on 10/08/2023 8:12 AM BMI - 33.499 kg/m2 (high), Height - 72 in, Weight - 247 lbs, Temperature - 97.7 f, Pulse - 82 /min, Respiration - 18 /min, O2 Sat - 96 %, Pain - 0, Fatigue - 4 and BP - 157/ 76 mm(hg)(high/). Physical Exam: Alert and oriented male appearing his stated age. Lungs clear to auscultation. Cardiovascular Shant reveals regular rhythm. Patient ambulatory without assistance. Imaging: Radiation therapy imaging related to accurate target localization (i.e. KV, MV and CBCT) was reviewed. Appropriate changes, if any, were made to ensure treatment accuracy. Plan: Patient is tolerating stereotactic radiation therapy to the right lung with minimal treatment related side effects. The final of 5 treatments will be administered tomorrow. Signed by: Jose Williamson 10/08/2023 10:16:23 AM
--- NOTE | 2023-10-09 08:48 | N.ONRD TS_ITS ---
Radiation Oncology Treatment Summary Patient: Johana MR#: [id number] : 1950> Age: 73> Sex: Male Dictated by: Jose Williamson Date of Service: 10/09/2023 Referring Physician(s) : Eliel Abrams Diagnosis: C20 - Malignant neoplasm of rectum, Diagnosed 11/13/2021 (Active) Stage AGUSTIN, T3, N2a, M1a C78.01 - Secondary malignant neoplasm of right lung, Diagnosed 11/13/2021 (Active) C20 - Malignant neoplasm of rectum, Diagnosed 09/20/2020 (Active) Stage X, T3, N1b Radiotherapy to Date: Course: Rectal Ca 2020, Treatment Site: Rectal Ca, Ref. ID: [id number], Energy: 15X, Dose/Fx (cGy): 200, #Fx: 25 / 25, Dose Correction (cGy): 0, Total Dose (cGy): 5,000, Start Date: 02/21/2021, End Date: 03/28/2021, Elapsed Days: 35 Treatment Site: [facility], Ref. ID: [id number], Energy: 6X, Dose/Fx (cGy): 1,800, #Fx: 2 / 2, Dose Correction (cGy): 0, Total Dose (cGy): 3,600, Start Date: 11/29/2021, End Date: 12/05/2021, Elapsed Days: 6 Course: SABR 2023, Treatment Site: [facility], Ref. ID: [id number], Energy: 6X, Dose/Fx (cGy): 800, #Fx: 5 / 5, Dose Correction (cGy): 0, Total Dose (cGy): 4,000, Start Date: 10/05/2023, End Date: 10/09/2023, Elapsed Days: 4 Clinical Summary: The patient tolerated RT well. Plan: End of treatment today. Continue on the above medication until the skin reaction resolves. Follow up in one month. Signed by: Jose Williamson>10/09/2023 8:46:38 AM <<Signature on File>>
== END 2023-11-05 23:59 | disposition home or self-care (01) ==
PROVIDERS: PCP Nurse Practitioner Family; Visit Provider Radiology Radiation Oncology
DX: C20 Malignant neoplasm of rectum (principal); C78.01 Secondary malignant neoplasm of right lung; Z51.0 Encounter for antineoplastic radiation therapy; M62.81 Muscle weakness (generalized); M54.41 Lumbago with sciatica, right side; Z92.21 Personal history of antineoplastic chemotherapy
CPT/HCPCS: 77336; 77373; 99024

== ENCOUNTER → 2023-10-15 13:16 | Outpatient (BNVA) | payer MEDICARE, SELFPAY | PROVIDERS: PCP Nurse Practitioner Family; Referring Provider Internal Medicine Medical Oncology; Visit Provider Dermatology | DX: L30.9 Dermatitis, unspecified (principal) | CPT/HCPCS: 99203 ==

== ENCOUNTER 2023-11-10 08:00 | Outpatient (CLI) | payer MEDICARE, SELFPAY ==
--- NOTE | 2023-11-10 08:00 | PETR_ITS ---
PROCEDURE INFORMATION: Exam: PET/CT Skull Base to Mid-thigh Exam date and time: 11/10/2023 9:07 AM Age: 73 years old Clinical indication: Restaging of metastatic rectal cancer with lung metastases; follow-up after recent SBRT of the right lower lobe superior segment lung metastasis. Previous right lower lobe SBRT on 12/05/2021. Previous right liver metastasis ablation in 2021. Prior surgery; Surgery date: 6+ months; Surgery type: Colon resection. LABS AND CLINICAL REPORTS: Glucose: 128 mg/dl Treatment strategy for malignancy (PET staging): Restaging (PS) TECHNIQUE: Imaging protocol: Following at least four-hour fasting and following the injection of radiopharmaceutical, low dose CT images were obtained. Then, PET images were obtained. Attenuation corrected images were constructed using the CT scan. Fused images of PET and CT were reviewed. The standardized uptake values (SUV) reported below are maximum values within a region of interest, expressed in gm/ml. Exam includes orbital meatal line to mid-thigh. Radiopharmaceutical: 12.87 mCi F-18 FDG (Fluorodeoxyglucose), IV. Time of imaging post radiopharmaceutical administration: 1 hour Injection site: Right hand COMPARISON: PET-CT 09/27/2022, CT chest abdomen pelvis 09/25/2023 FINDINGS: Tubes, catheters and devices: Port catheter placed via the left subclavian vein terminates in the superior vena cava. Brain: Visualized brain has normal physiologic uptake. Pharynx: No abnormal uptake. Larynx: No abnormal uptake. Lungs, pleura and trachea: No abnormal uptake. Non FDG avid nodule in the superior segment of the right lower lobe on axial image 78 representing lung metastasis treated by SBRT currently measures 8 x 6 mm decreased from 12 x 11 mm on 09/27/2022 suggestive of response. No new suspicious lung nodules. There is stable linear scar in the right middle lobe and inferiorly in the right lower lobe suggestive of sequela of prior SBRT. No pleural effusion. Heart: Normal physiologic uptake. There is no cardiomegaly. Coronary artery calcification is present. There is no pericardial effusion. Mediastinal space: No abnormal uptake. Liver: Small linear area of increased uptake of 5 SUV in the segment 7 of the liver (axial image 117-118) along the upper lateral margin of the liver metastases treated with ablation is concerning for recurrence viable disease. No additional new FDG avid findings. Gallbladder and bile ducts: No abnormal uptake. Pancreas: No abnormal uptake. Spleen: No abnormal uptake. No splenomegaly. Adrenal glands: No abnormal uptake. No nodules. Kidneys and ureters: Normal physiologic uptake. No hydronephrosis Stomach and bowel: Increased uptake in a few loops of ileum with no corresponding CT abnormality is benign. There is unremarkable anastomosis in the low rectum. Increased uptake in the anal canal with no abnormal masslike lesion on CT is likely benign. No abnormal dilatation of the bowel. Intraperitoneal and retroperitoneal spaces: No abnormal uptake. No ascites. Bladder: Normal physiologic uptake. Reproductive: No abnormal uptake. Stable relative thickening of the right seminal vesicle in comparison with the left side. Vasculature: No abnormal uptake. No aortic aneurysm. Lymph nodes: No abnormal uptake. Lymph nodes within the meso rectum are minimally more prominent in size currently measuring up to 7 x 5 mm versus 5 x 3 mm on the prior exam. No FDG avid lymphadenopathy in the head, neck, chest, abdomen, pelvis, and extremities. Bones/joints: No abnormal uptake in the visualized axial and appendicular skeleton. Soft tissues: No abnormal uptake in the visualized head, neck, chest, abdomen, pelvis, and extremities. PET[facility] SUBSEQ [id number] IMPRESSION: 1. New linear increased uptake of 5 SUV along the upper lateral margin of the segment 7 liver metastasis previously treated with ablation concerning for recurrent viable disease. No additional FDG avid abnormality. Slight interval increase in size of the subcentimeter lymph nodes in the mesorectum is indeterminate, to be further followed. 2. Interval decrease in size of the lung metastasis in the superior segment in the right lower lobe treated by the most recent SBRT, and stable scarring in the right lower lobe base representing a sequela of older SBRT.
== END 2023-11-10 08:01 | disposition home or self-care (01) ==
LOC: RAD 08:01
PROVIDERS: PCP Nurse Practitioner Family; Visit Provider Radiology Radiation Oncology
DX: C78.01 Secondary malignant neoplasm of right lung (principal)
CPT/HCPCS: 78815; A9552

== ENCOUNTER 2023-11-19 10:58 | Oncology outpatient (recurring) (ONCR) | payer MEDICARE, SELFPAY ==
[2023-11-19 11:19] LABS: Basophils # 0.1 10^3/uL (0.0-0.1); Basophils % 0.9 %; Eosinophils # 0.2 10^3/uL (0.0-0.8); Eosinophils % 2.7 %; Hematocrit 35.6 % (37-53); Lymphocytes % 14.8 %; Mean Corpuscular HGB Conc 32.3 g/dL (30-55); Mean Corpuscular Hemoglobin 30.3 pg (27-33); Mean Corpuscular Volume 93.9 fl (82-101); Mean Platelet Volume 9.1 fL (7.4-10.4); Monocytes # 0.7 10^3/uL (0.2-0.9); Monocytes % 10.9 %; Neutrophils # 4.64 10^3/uL (1.8-7.7); Neutrophils % 69.1 %; Nucleated Red Blood Cells % 0 %; Platelet Count 207 10^3/cmm (157-399); Red Blood Count 3.79 10^6/uL (3.85-5.65); Red Cell Distribution Width 14.7 % (12.1-15.1); White Blood Count 6.71 10^3/uL (3.29-11.43)
[2023-11-19 11:50] LABS: Carcinoembryonic Antigen 16.4 ng/mL (0.0-4.7)
[2023-11-19 12:01] LABS: Alanine Aminotransferase 17 U/L (0-41); Albumin Level 3.6 g/dL (3.5-5.2); Alkaline Phosphatase 68 U/L (40-130); Anion Gap 19.4 (5-19); Aspartate Amino Transferase 16 U/L (0-40); Blood Urea Nitrogen 12 mg/dL (8-23); Calcium 8.4 mg/dL (8.5-10.5); Carbon Dioxide 21 mmol/L (22-29); Chloride 105 mmol/L (98-107); Globulin 3.4 g/dL (1.3-4.6); Glucose 140 mg/dL (65-115); Osmolality Calculated 294 mOsm/kg (285-295); Potassium 4.4 mmol/L (3.5-5.1); Sodium 141 mmol/L (136-145); Total Bilirubin 0.3 mg/dL (0.15-1.2)
--- NOTE | 2023-11-19 13:49 | ONCRAD EPV_ITS ---
Radiation Oncology Established Patient Visit Patient: Genaro Robbins [id number] : 1950 Age: 73 Sex: Male Dictated by: Jose Williamson Date of Service: 11/19/2023 Referring Physician(s) : Eliel Abrams Diagnosis: C20 - Malignant neoplasm of rectum, Diagnosed 11/13/2021 (Active) Stage BEKAH, T3, N2a, M1a C78.01 - Secondary malignant neoplasm of right lung, Diagnosed 11/13/2021 (Active) C20 - Malignant neoplasm of rectum, Diagnosed 09/20/2020 (Active) Stage X, T3, N1b Rectal cancer. 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 He had presented with iron deficiency anemia in association with rectal bleeding. His initial CBC showed hemoglobin low at 7.5 g and hematocrit 29%. His iron saturation was 3.5% and the ferritin was low at 15 ng/mL, consistent with iron deficiency. He was transfused 2 units PRBC and he also began on oral iron supplementation with ferrous sulfate. He was unable to tolerate it due to GI side effects. In the meantime, he was seen by Dr. Caldwell and he underwent EGD and colonoscopy on 08/23/2020. The EGD showed evidence of gastritis with multiple gastric erosions. The colonoscopy showed a 7 mm pedunculated polyp in the ascending colon, a 5 mm sessile polyp in the descending colon, and a 1 cm pedunculated polyp in the sigmoid colon. The rectum showed an ulcerated malignant appearing mass along the right lateral wall approximately 6 cm from the anal verge. The mass was palpable by digital rectal exam. Biopsy of the rectal mass showed moderately differentiated invasive adenocarcinoma. The descending colon polyp was noted to be hyperplastic. The other polyps were tubular adenomas without high-grade dysplasia or malignancy. Gastric biopsy showed mild chronic gastritis. Staging CT scans of the chest, abdomen, and pelvis showed asymmetric soft tissue thickening at the rectum, with the anterior wall measuring up to 12 mm. Indeterminate pelvic lymph nodes were noted just anterior to the L5-S1 disc space, the largest measuring 12 mm. A right lower lobe pulmonary nodule measured 1.5 cm, consistent with metastatic lesion, versus primary lung neoplasm, versus benign lesion. Indeterminant left hilar lymph nodes measured up to 12 mm. There was no evidence of other metastatic disease. His baseline CEA was elevated at 15.6 ng/mL. He had colorectal surgery consultation with Dr. Ranulfo Anguiano on 09/03/2021. Staging MRI of the pelvis on 09/13/2020 was consistent with a T3 primary lesion with suspected involvement in 3/5 mesorectal lymph nodes. His staging PET/CT on 09/22/2020 showed circumferential rectal thickening with SUV 12.1, consistent with known primary malignancy. Subcentimeter perirectal lymph nodes were too small to characterize. A 1.0 presacral lymph node had SUV 4.3, consistent with local metastatic disease. The right lower lobe pulmonary nodule measuring 1.7 x 1.8 cm and SUV 2.5. This was felt to be suggestive of a benign finding, but followup was felt to be warranted. Also noted were 4 mm nodules in the left upper lobe and lateral right upper lobe, too small to characterize. There were no other areas of abnormal uptake on that study. With those findings he was recommended to proceed with total neoadjuvant therapy. From 09/27/2020 through 01/03/2021 he completed 8 cycles of modified FOLFOX. He required dose reductions in the oxaliplatin for neuropathy, and with cycle 8 it had to be omitted. During that time, he was given parenteral iron replacement with Injectafer for the iron deficiency anemia. His repeat MRI of the pelvis on 01/17/2021 showed residual mass in the rectum beginning at 7.9 cm from the anal verge and extending for a length of 4.4 cm. The thickest part of the tumor had decreased from 1.7 cm to 0.9 cm. A new focal oval thickening measuring 1.0 cm was noted. By MR criteria it was categorized as a T3b primary lesion. The shortest distance of tumor to MRF or anticipated CRM was measured at 7.5 mm. A total of 5 lymph nodes were identified, for which appeared to be suspicious for local regional node involvement. These had shown moderate decrease in size compared to the pretreatment study. Restaging chest CT on 01/31/2021 showed significant decrease in the right lower lobe pulmonary nodule measuring 5 mm compared to 15 mm on the August 2020 study. New scattered irregular opacifications in the posterior right upper lobe were felt to be most likely inflammatory in nature. Small mediastinal and hilar lymph nodes were unchanged from prior studies. A nonocclusive filling defect was noted within the segmental branching right lower lobe pulmonary artery. With those findings, he was given empiric antibiotic therapy with Levaquin. He also was started on anticoagulation with apixaban, but it was stopped after a couple of doses because of increased bleeding. On 02/21/2021 he began radiation concurrently with capecitabine. He completed radiation on 03/28/2021 to a total dose of 5000 cGy, administered in 25 fractions. He tolerated the treatment very well. Restaging CT scans of the chest, abdomen, and pelvis on 04/04/2021 showed residual 9 mm nodular infiltrate in the right upper lobe at the site of the previous right upper lobe nodule. The remaining nodules and infiltrates were noted to have resolved. The mediastinal lymph nodes appeared stable. There was no mass or lymphadenopathy noted within the abdomen or pelvis. There was still a questionable tiny amount of nonocclusive chronic thrombus identified within a segmental artery branch to the right lower lobe. On 05/28/2021 he underwent robotic assisted laparoscopic low anterior resection with ileostomy placement. Grossly there was no evidence of metastatic disease. Pathology showed grade 2 invasive adenocarcinoma with invasion through the muscularis propria into the pericolorectal tissue. The residual tumor measured 1.9 cm in greatest dimension. There was evidence for lymphovascular invasion. The margins were uninvolved. The distance from the radial margin was 0.4 cm. The treatment effect was score 2. There was involvement in 5/12 lymph nodes. Pathologic staging was ypT3, ypN2a. At that point it was assumed that the right lower lobe pulmonary nodule represented a solitary site of metastatic disease, thus stage BEKAH (ypT3, ypN2a, M1a). His other medical illnesses include hypertension, dyslipidemia, type 2 diabetes, coronary artery disease, and GERD. He has had previous angioplasty/stent placement. He is a non-smoker. INTERIM HISTORY: During the postoperative recovery, he had further radiation oncology consultation with Dr. Romero as well as surgical consultation with Dr. Carter regarding management of the pulmonary nodule. Due to having a somewhat difficult postop recovery, he opted to do delay that treatment. On 10/15/2021 he underwent closure of the loop ileostomy. Restaging CT scans of the chest, abdomen, and pelvis on 11/07/2021 showed continued increase in the size of the right lower lobe pulmonary nodule measuring 2.1 x 1.5 cm compared to 1.5 x 0.9 cm in August 2021, highly suspicious for a metastatic site. There was noted to be increased soft tissue between the rectum and left seminal vesicle with recurrent rectal neoplasm not excluded. A vague hypoechoic dense lesion in the right lobe of the liver was too small to characterize. Again an early metastatic site was not excluded. He is seen for a follow-up visit. He has been feeling pretty good generally, though his activity is still somewhat limited following the recent surgery. His ECOG score is 1. He has good appetite. He has no fever or night sweats. He has having difficulty with the vision in his right eye. He has not had sore mouth or throat. He does not complain of cough, and he has not been having shortness of breath or chest pain. He is having some difficulty adjusting to the bowel reanastomosis, but he is managing it adequately with Citrucel. He has no other GI or complaints. He has no significant joint or bone pain. He does not complain of headache or dizziness. 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 Radiotherapy to Date: Course: Rectal Ca 2020, Treatment Site: Rectal Ca, Ref. ID: [id number], Energy: 15X, Dose/Fx (cGy): 200, #Fx: , Dose Correction (cGy): 0, Total Dose Delivered (cGy): 5,000, Start Date: 02/21/2021, End Date: 03/28/2021, Elapsed Days: 35 Course: SABR 2021, Treatment Site: SABR-RLL, Ref. ID: [id number], Energy: 6X, Dose/Fx (cGy): 1,800, #Fx: 3 / 3, Dose Correction (cGy): 0, Total Dose Delivered (cGy): 5,400, Start Date: 11/29/2021, End Date: 12/05/2021, Elapsed Days: 6 Course: SABR 2023, Treatment Site: RLung SABR, Ref. ID: [id number], Energy: 6X, Dose/Fx (cGy): 800, #Fx: 5 / 5, Dose Correction (cGy): 0, Total Dose Delivered (cGy): 4,000, Start Date: 10/05/2023, End Date: 10/09/2023, Elapsed Days: 4 Current History: Patient denies shortness of breath or cough. 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 He is present today with his , brother, and 2 of his daughters. PET/CT from 11/09/2021 shows decreased size of the nodule in the superior segment of the right lower lung currently measuring 8 x 6 mm decreased from 12 x 11 mm suggestive of response to SBRT. The nodule is none FDG avid. No new suspicious lung nodules. Current Medications: AmLODIPine Besylate, aspirin, capecitabine, claritin, crestor, cymbalta, eliquis DVT/PE Starter Pack, furosemide, gabapentin, glipiZIDE XL, isosorbide Mononitrate ER, lisinopril, lORazepam, methylPREDNISolone, metoprolol Succinate ER, nitroglycerin, novoLOG, oxyCODONE HCl, oxyCODONE HCl, pantoprazole Sodium, prochlorperazine Maleate, sodium Chloride. Allergies: Sulfa Antibiotics. Current Complaints / Review of Systems: . Vital Signs: Performed on 11/19/2023 12:00 PM BMI - 33.608 kg/m2 (high), Height - 72 in, Weight - 247.8 lbs, Temperature - 98.3 f, Pulse - 78 /min, Respiration - 16 /min, O2 Sat - 98 %, Pain - 7, Fatigue - 4 and BP - 162/ 85 mm(hg)(high/). Physical Exam: General: Alert and oriented x 3. No acute distress. HEENT: Normocephalic, atraumatic. Extraocular Movements Intact: Pupils Equal, Round, Reactive to Light and Accommodation: Sclerae anicteric. Oral cavity is clear without lesions, masses or ulcers. NECK: Supple without supraclavicular or jugular lymphadenopathy. LUNGS: Clear to auscultation bilaterally without rales, rhonchi or wheeze. HEART: Regular rate and rhythm, normal S1 and S2 without murmur, gallop or rub. MUSCULOSKELETAL: No tenderness or percussion pain over the axial skeleton, scapulae or pelvis. ABDOMEN: Soft, nontender, nondistended without masses or organomegaly. Bowell sounds are present. EXTREMITIES: No peripheral edema is identified. Limited motor and sensory examination are grossly intact and symmetric bilaterally. NEUROLOGIC: Cranial nerves II ???XII are grossly intact. Normal sensation, strength 5/5 in all extremities, normal gait, no ataxia. Performance Status: ECOG 1 Lab: None pending. Pathology: Primary, c20 - malignant neoplasm of rectum, Diagnosed 11/13/2021 (active) stage bekah, t3, n2a, m1a, Primary, c78.01 - secondary malignant neoplasm of right lung, Diagnosed 11/13/2021 (active) and Primary, c20 - malignant neoplasm of rectum, Diagnosed 09/20/2020 (active) stage x, t3, n1b. Imaging: See HPI Impression: Genaro Robbins has recovered well from the effects of SBRT to the right upper lung. He has minimal treatment related side effects. The PET/CT from 11/10/2023 and the PET/CT prior to SBRT as well as the treatment images were reviewed with the patient and his 2 daughters. Mr. Robbins will continue follow-up with medical oncology. Signed by: 11/19/2023 1:48:17 PM <<Signature on File>> Time spent with patient: 30 min CPT Code: CPT Code:
== END 2023-12-06 23:59 | disposition home or self-care (01) ==
PROVIDERS: Internal Medicine Medical Oncology; PCP Nurse Practitioner Family; Visit Provider Radiology Radiation Oncology
DX: C20 Malignant neoplasm of rectum (principal); C78.01 Secondary malignant neoplasm of right lung; Z51.0 Encounter for antineoplastic radiation therapy; Z95.828 Presence of other vascular implants and grafts; Z92.21 Personal history of antineoplastic chemotherapy; Z79.52 Long term (current) use of systemic steroids; Z92.3 Personal history of irradiation; C78.7 Secondary malignant neoplasm of liver and intrahepatic bile duct
CPT/HCPCS: 36591; 80053; 82378; 85025; 99024; 99214; J1642

== ENCOUNTER 2023-12-31 11:00 | Oncology outpatient (recurring) (ONCR) | payer MEDICARE, SELFPAY ==
[2023-12-24 08:29] LABS: Basophils # 0.1 10^3/uL (0.0-0.1); Basophils % 0.9 %; Eosinophils # 0.2 10^3/uL (0.0-0.8); Eosinophils % 2.8 %; Hematocrit 33.2 % (37-53); Lymphocytes % 17.9 %; Mean Corpuscular HGB Conc 31.3 g/dL (30-55); Mean Corpuscular Hemoglobin 29.9 pg (27-33); Mean Corpuscular Volume 95.4 fl (82-101); Mean Platelet Volume 9.1 fL (7.4-10.4); Monocytes # 0.5 10^3/uL (0.2-0.9); Monocytes % 8.4 %; Neutrophils # 3.65 10^3/uL (1.8-7.7); Neutrophils % 68.1 %; Nucleated Red Blood Cells % 0 %; Platelet Count 312 10^3/cmm (157-399); Red Blood Count 3.48 10^6/uL (3.85-5.65); Red Cell Distribution Width 15.6 % (12.1-15.1); White Blood Count 5.36 10^3/uL (3.29-11.43)
[2023-12-24 08:54] LABS: Carcinoembryonic Antigen 17.4 ng/mL (0.0-4.7)
[2023-12-24 09:05] LABS: Alanine Aminotransferase 22 U/L (0-41); Albumin Level 3.3 g/dL (3.5-5.2); Alkaline Phosphatase 67 U/L (40-130); Blood Urea Nitrogen 7 mg/dL (8-23); Calcium 8.3 mg/dL (8.5-10.5); Carbon Dioxide 24 mmol/L (22-29); Chloride 107 mmol/L (98-107); Globulin 3.5 g/dL (1.3-4.6); Glucose 153 mg/dL (65-115); Osmolality Calculated 295 mOsm/kg (285-295); Sodium 142 mmol/L (136-145); Total Bilirubin 0.4 mg/dL (0.15-1.2); Total Protein 6.8 g/dL (6.6-8.7)
[2023-12-24 09:08] LABS: Anion Gap 15.3 (5-19); Potassium 4.3 mmol/L (3.5-5.1)
[2023-12-24 09:13] LABS: Aspartate Amino Transferase 5 U/L (0-40)
[2023-12-29] MEDS: sodium chloride 0.9% 1,000 ML 999 ML IV (15:49)
[2023-12-29 15:50] VITALS: BP 138/77; PULSE 82; RESP 16; TEMP 37; O2SAT 95
[2023-12-29 16:04] LABS: Eosinophils # 0.1 10^3/uL (0.0-0.8); Eosinophils % 2.2 %; Lymphocytes # 0.9 10^3/uL (0.8-4.8); Lymphocytes % 22.2 %; Mean Corpuscular HGB Conc 30.9 g/dL (30-55); Mean Corpuscular Hemoglobin 29.8 pg (27-33); Mean Corpuscular Volume 96.5 fl (82-101); Mean Platelet Volume 9.1 fL (7.4-10.4); Monocytes # 0.4 10^3/uL (0.2-0.9); Monocytes % 10.1 %; Neutrophils # 2.61 10^3/uL (1.8-7.7); Neutrophils % 62.8 %; Nucleated Red Blood Cells % 0 %; Platelet Count 265 10^3/cmm (157-399); Red Blood Count 3.42 10^6/uL (3.85-5.65); Red Cell Distribution Width 15.9 % (12.1-15.1); White Blood Count 4.15 10^3/uL (3.29-11.43)
[2023-12-29 16:17] LABS: Erythrocyte Sedimentation Rate 45 mm/hr (0-10)
[2023-12-29 16:43] VITALS: BP 155/79; PULSE 72; TEMP 36.7; O2SAT 95
[2023-12-29 16:43] LABS: Alanine Aminotransferase 15 U/L (0-41); Albumin Level 3.3 g/dL (3.5-5.2); Alkaline Phosphatase 71 U/L (40-130); Anion Gap 12.4 (5-19); Aspartate Amino Transferase 23 U/L (0-40); Blood Urea Nitrogen 8 mg/dL (8-23); C Reactive Protein 6.4 mg/L (0.0-4.9); Calcium 8.5 mg/dL (8.5-10.5); Carbon Dioxide 25 mmol/L (22-29); Chloride 105 mmol/L (98-107); Creatine Phosphokinase 80 U/L (39-308); Creatinine Clr Calc Pharmacy 83.5099; Globulin 3.7 g/dL (1.3-4.6); Glucose 242 mg/dL (65-115); Osmolality Calculated 292 mOsm/kg (285-295); Potassium 4.4 mmol/L (3.5-5.1); Sodium 138 mmol/L (136-145); Total Bilirubin 0.3 mg/dL (0.15-1.2)
== END 2024-01-05 23:59 | disposition home or self-care (01) ==
PROVIDERS: Internal Medicine; Internal Medicine Medical Oncology; PCP Nurse Practitioner Family; Visit Provider Radiology Radiation Oncology
DX: Z53.9 Procedure and treatment not carried out, unspecified reason
CPT/HCPCS: 36591; 80053; 82378; 82550; 85025; 85651; 86140; 96360; 99213; J7030

== ENCOUNTER → 2024-02-03 14:36 | Outpatient (BNVA) | payer MEDICARE, SELFPAY | PROVIDERS: PCP Nurse Practitioner Family; Visit Provider Internal Medicine Medical Oncology | DX: C20 Malignant neoplasm of rectum (principal); C78.01 Secondary malignant neoplasm of right lung | CPT/HCPCS: 86140; 99214 ==

== ENCOUNTER 2024-02-05 08:37 | Oncology outpatient (recurring) (ONCR) | payer MEDICARE, SELFPAY ==
[2024-01-07 10:06] LABS: Basophils # 0.1 10^3/uL (0.0-0.1); Basophils % 1.3 %; Eosinophils # 0.1 10^3/uL (0.0-0.8); Eosinophils % 2.9 %; Hematocrit 32.9 % (37-53); Lymphocytes % 21.8 %; Mean Corpuscular Hemoglobin 29.1 pg (27-33); Mean Platelet Volume 9.5 fL (7.4-10.4); Monocytes # 0.8 10^3/uL (0.2-0.9); Monocytes % 16.7 %; Neutrophils # 2.53 10^3/uL (1.8-7.7); Neutrophils % 56.4 %; Nucleated Red Blood Cells % 0 %; Platelet Count 255 10^3/cmm (157-399); Red Cell Distribution Width 15.9 % (12.1-15.1); White Blood Count 4.49 10^3/uL (3.29-11.43)
[2024-01-07 10:27] LABS: Erythrocyte Sedimentation Rate 61 mm/hr (0-10)
[2024-01-07 10:36] LABS: Alanine Aminotransferase 11 U/L (0-41); Albumin Level 3.5 g/dL (3.5-5.2); Alkaline Phosphatase 75 U/L (40-130); Aspartate Amino Transferase 23 U/L (0-40); Blood Urea Nitrogen 5 mg/dL (8-23); C Reactive Protein 29.5 mg/L (0.0-4.9); Calcium 8.2 mg/dL (8.5-10.5); Carbon Dioxide 26 mmol/L (22-29); Chloride 106 mmol/L (98-107); Creatine Phosphokinase 95 U/L (39-308); Globulin 3.8 g/dL (1.3-4.6); Glucose 120 mg/dL (65-115); Osmolality Calculated 288 mOsm/kg (285-295); Sodium 140 mmol/L (136-145); Total Bilirubin 0.2 mg/dL (0.15-1.2); Total Protein 7.3 g/dL (6.6-8.7)
[2024-01-13 15:19] LABS: Basophils # 0.1 10^3/uL (0.0-0.1); Basophils % 1.1 %; Eosinophils # 0.1 10^3/uL (0.0-0.8); Eosinophils % 1.5 %; Hematocrit 33.3 % (37-53); Lymphocytes % 21.9 %; Mean Corpuscular HGB Conc 31.2 g/dL (30-55); Mean Corpuscular Volume 92.8 fl (82-101); Mean Platelet Volume 8.9 fL (7.4-10.4); Monocytes # 0.7 10^3/uL (0.2-0.9); Monocytes % 15.8 %; Neutrophils # 2.71 10^3/uL (1.8-7.7); Neutrophils % 58.6 %; Nucleated Red Blood Cells % 0 %; Platelet Count 286 10^3/cmm (157-399); Red Blood Count 3.59 10^6/uL (3.85-5.65); Red Cell Distribution Width 15.5 % (12.1-15.1); White Blood Count 4.62 10^3/uL (3.29-11.43)
[2024-01-13 15:20] LABS: Erythrocyte Sedimentation Rate 78 mm/hr (0-10)
[2024-01-13 15:34] LABS: Alanine Aminotransferase 19 U/L (0-41); Albumin Level 3.7 g/dL (3.5-5.2); Alkaline Phosphatase 77 U/L (40-130); Anion Gap 16.5 (5-19); Aspartate Amino Transferase 31 U/L (0-40); Blood Urea Nitrogen 9 mg/dL (8-23); C Reactive Protein 12.1 mg/L (0.0-4.9); Calcium 8.7 mg/dL (8.5-10.5); Carbon Dioxide 22 mmol/L (22-29); Chloride 103 mmol/L (98-107); Globulin 3.7 g/dL (1.3-4.6); Glucose 140 mg/dL (65-115); Osmolality Calculated 287 mOsm/kg (285-295); Potassium 3.5 mmol/L (3.5-5.1); Sodium 138 mmol/L (136-145); Total Bilirubin 0.3 mg/dL (0.15-1.2); Total Protein 7.4 g/dL (6.6-8.7)
[2024-01-14 09:11] LABS: Creatine Phosphokinase 106 U/L (39-308)
[2024-01-16 21:39] LABS: Creatine Kinase BB Total None Detected (None Detected); Creatine Kinase MB Total 0 % (<5); Creatine Kinase MM Total 90 % (95-100)
[2024-01-19 16:16] LABS: Basophils % 0.9 %; Eosinophils # 0.2 10^3/uL (0.0-0.8); Eosinophils % 3.9 %; Hematocrit 33.8 % (37-53); Lymphocytes % 21.1 %; Mean Corpuscular HGB Conc 30.8 g/dL (30-55); Mean Corpuscular Hemoglobin 28.6 pg (27-33); Mean Corpuscular Volume 92.9 fl (82-101); Mean Platelet Volume 9.1 fL (7.4-10.4); Monocytes # 0.5 10^3/uL (0.2-0.9); Monocytes % 11.8 %; Neutrophils # 2.79 10^3/uL (1.8-7.7); Neutrophils % 61.2 %; Nucleated Red Blood Cells % 0 %; Platelet Count 318 10^3/cmm (157-399); Red Blood Count 3.64 10^6/uL (3.85-5.65); Red Cell Distribution Width 15.4 % (12.1-15.1); White Blood Count 4.56 10^3/uL (3.29-11.43)
[2024-01-19 17:19] LABS: Erythrocyte Sedimentation Rate 61 mm/hr (0-10)
[2024-01-19 17:21] LABS: Alanine Aminotransferase 23 U/L (0-41); Albumin Level 3.7 g/dL (3.5-5.2); Alkaline Phosphatase 80 U/L (40-130); Blood Urea Nitrogen 9 mg/dL (8-23); C Reactive Protein 8.3 mg/L (0.0-4.9); Calcium 8.4 mg/dL (8.5-10.5); Carbon Dioxide 23 mmol/L (22-29); Chloride 106 mmol/L (98-107); Creatine Phosphokinase 295 U/L (39-308); Globulin 3.9 g/dL (1.3-4.6); Glucose 175 mg/dL (65-115); Osmolality Calculated 293 mOsm/kg (285-295); Sodium 140 mmol/L (136-145); Total Bilirubin 0.2 mg/dL (0.15-1.2); Total Protein 7.6 g/dL (6.6-8.7)
[2024-01-19 17:27] LABS: Anion Gap 15.2 (5-19); Aspartate Amino Transferase 46 U/L (0-40); Potassium 4.2 mmol/L (3.5-5.1)
[2024-02-02] MEDS: sodium chloride 0.9% 1,000 ML 675 ML IV (15:30)
[2024-02-02 16:15] LABS: Basophils # 0.1 10^3/uL (0.0-0.1); Basophils % 0.8 %; Eosinophils # 0.2 10^3/uL (0.0-0.8); Eosinophils % 1.8 %; Hematocrit 33.2 % (37-53); Mean Corpuscular Hemoglobin 27.9 pg (27-33); Mean Platelet Volume 9.8 fL (7.4-10.4); Monocytes % 11.3 %; Neutrophils % 74.5 %; Nucleated Red Blood Cells % 0 %; Platelet Count 282 10^3/cmm (157-399); Red Blood Count 3.69 10^6/uL (3.85-5.65); White Blood Count 8.85 10^3/uL (3.29-11.43)
[2024-02-02 17:05] VITALS: BP 131/64; PULSE 75; RESP 16; TEMP 36.9; O2SAT 95
[2024-02-02 17:20] LABS: Carcinoembryonic Antigen 11.3 ng/mL (0.0-4.7)
[2024-02-02 17:31] LABS: Alanine Aminotransferase 33 U/L (0-41); Albumin Level 3.6 g/dL (3.5-5.2); Alkaline Phosphatase 80 U/L (40-130); Anion Gap 16.2 (5-19); Aspartate Amino Transferase 38 U/L (0-40); Blood Urea Nitrogen 15 mg/dL (8-23); Calcium 8.8 mg/dL (8.5-10.5); Carbon Dioxide 23 mmol/L (22-29); Chloride 105 mmol/L (98-107); Globulin 3.3 g/dL (1.3-4.6); Glucose 126 mg/dL (65-115); Osmolality Calculated 292 mOsm/kg (285-295); Potassium 4.2 mmol/L (3.5-5.1); Sodium 140 mmol/L (136-145); Total Bilirubin 0.2 mg/dL (0.15-1.2); Total Protein 6.9 g/dL (6.6-8.7)
[2024-02-05 09:13] VITALS: BP 166/77; PULSE 78; RESP 16; TEMP 36.4; O2SAT 97
[2024-02-05] MEDS: sodium chloride 0.9% 1,000 ML 667 ML IV (09:44)
[2024-02-05 11:29] VITALS: BP 146/74; PULSE 74; RESP 18; TEMP 36.9; O2SAT 97
== END 2024-02-05 23:59 | disposition home or self-care (01) ==
PROVIDERS: Internal Medicine Medical Oncology; Student in an Organized Health Care Education/Training Program; PCP Nurse Practitioner Family; Visit Provider Radiology Radiation Oncology
DX: Z53.9 Procedure and treatment not carried out, unspecified reason (principal); C20 Malignant neoplasm of rectum
CPT/HCPCS: 36415; 36591; 36592; 80053; 82252; 82378; 82550; 85025; 85651; 86140; 96360; 99214; J7030

== ENCOUNTER 2024-02-21 13:20 | Emergency (ER) | payer MEDICARE, SELFPAY ==
[2024-02-21 13:26] VITALS: BP 169/92; PULSE 90; RESP 17; TEMP 37.1; O2SAT 98; BMI 32.5
--- NOTE | 2024-02-21 13:36 | XRR_ITS ---
PROCEDURE INFORMATION: Exam: XR Abdomen Exam date and time: 02/21/2024 1:54 PM Age: 73 years old Clinical indication: Other: Diarrhea; Additional info: Diarrhea, confusion TECHNIQUE: Imaging protocol: Radiologic exam of the abdomen. Views: 3 or more views. COMPARISON: CT chest abdpel w/*[id number] 12/13/2023 12:33 PM FINDINGS: Tubes, catheters and devices: Central vascular catheter tip projects in location expected for the superior vena cava. Lungs: The lungs appear clear except for linear density at the right lung base suggesting scarring or atelectasis. Pleural spaces: No pleural effusion is evident. Heart/Mediastinum: Cardiomediastinal silhouette is grossly stable allowing for technical differences. Gastrointestinal tract: No gaseous distension of bowel evident. Intraperitoneal space: On the upright chest view, there is no free subphrenic air identified. Bones/joints: Multilevel degenerative changes identified in the thoracolumbar spine and bilateral hips. Soft tissues: Upright abdominal view limited by body habitus. XR/XR acute abdomen series [id number] IMPRESSION: No evidence of bowel obstruction or pneumoperitoneum identified.
--- NOTE | 2024-02-21 13:36 | ECG_ITS ---
[facility] Test Date: 2024-02-21 Pat Name: Genaro Robbins Department: Room: Gender: Male Health/Safety Job Titles: : 1950 Requested By: Bernice Montano Order Number: [id number] Wasserman MD: Ata Garcia M.D. Measurements Intervals [place] Rate: 86 P: 33 CT: 187 QRS: -24 QRSD: 91 T: 23 QT: 389 QTc: 467 Interpretive Statements SINUS RHYTHM BORDERLINE LEFT AXIS DEVIATION [QRS AXIS < -20] VOLTAGE CRITERIA FOR LVH [MEETS CRITERIA IN ONE OF: R(aVL), S(V1), R(V5), R(V5/V6)+S(V1)] Compared to ECG 03/26/2023 21:54:32 Sinus arrhythmia no longer present Electronically Signed On 02-21-2024 16:25:34 CDT by Ata Garcia M.D. [id number] f
--- NOTE | 2024-02-21 13:36 | CTR_ITS ---
PROCEDURE INFORMATION: Exam: CT Head Without Contrast Exam date and time: 02/21/2024 1:49 PM Age: 73 years old Clinical indication: Pain; Headache; Patient HX: HTN; Additional info: Encephalopathy, altered mental status TECHNIQUE: Imaging protocol: Computed tomography of the head without contrast. Radiation optimization: All CT scans at this facility use at least one of these dose optimization techniques: automated exposure control; mA and/or kV adjustment per patient size (includes targeted exams where dose is matched to clinical indication); or iterative reconstruction. COMPARISON: MR head wo con* [id number] 12/13/2023 2:06 PM RADIATION DOSE METRICS: Total DLP (mGy-cm): 1119.68 FINDINGS: Brain: Stable slight rightward positioning of the septum pellucidum. Ventricular system is open. No hydrocephalus. Cerebral sulci are not effaced. Age consistent findings of atrophy. Decreased attenuation in the cerebral white matter consistent with age related sequelae of chronic small-vessel disease. No acute intra-axial hemorrhage identified. No extra-axial hemorrhage identified. Cerebral ventricles: No Hydrocephalus. Paranasal sinuses: Visualized paranasal sinuses are clear. Mastoid air cells: Visualized mastoid air cells are clear. Bones: No acute osseous abnormality identified. There is mild hyperostosis along the inner table of the right frontal bone. Soft tissues: No acute abnormality identified. Notes: Please note CT does not detect all acute ischemic abnormalities; if indicated, consider MRI with diffusion, or follow-up Head CT CT/CT head wo con* [id number] IMPRESSION: 1. No evidence of acute intracranial hemorrhage or mass effect identified. 2. Atrophy and findings of chronic small-vessel disease.
[2024-02-21 13:38] VITALS: BP 186/105; PULSE 87; RESP 16; O2SAT 97
--- NOTE | 2024-02-21 13:39 | W.ED.WEAKNES ---
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 On my exam he does not appear confused at all and answers questions appropriately. Family also state his blood pressure has been up and down and was low at 1 point. He is hypertensive on presentation here. He has no focal motor deficits. No chest pain. No focal abdominal pain. No nausea or vomiting. Review of Systems Narrative: Constitutional symptoms: Negative except as documented in HPI. Skin symptoms: Negative except as documented in HPI. Eye symptoms: Negative except as documented in HPI. ENMT symptoms: Negative except as documented in HPI. Respiratory symptoms: Negative except as documented in HPI. Cardiovascular symptoms: Negative except as documented in HPI. Gastrointestinal symptoms: Negative except as documented in HPI. Genitourinary symptoms: Negative except as documented in HPI. Musculoskeletal symptoms: Negative except as documented in HPI. Neurologic symptoms: Negative except as documented in HPI. Psychiatric symptoms: Negative except as documented in HPI. Endocrine symptoms: Negative except as documented in HPI. PFSH ED PFSH: Medical History Pulmonary embolism GERD (gastroesophageal reflux disease) Malignant neoplasm of rectum Diabetes Dyslipidemia ASHD (arteriosclerotic heart disease) HTN (hypertension) Surgical History 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) History of low anterior resection of rectum (~05/2021) Port-A-Cath in place (09/26/20) History of colonoscopy with polypectomy H/O esophagogastroduodenoscopy S/P PTCA (percutaneous transluminal coronary angioplasty) Family History Father , AGE 56 CAD (coronary artery disease) Myocardial infarction Social History Smoking and tobacco/nicotine status: never used tobacco/nicotine Alcohol intake: never Household members: spouse Marital status: Physical Exam Narrative: EXAM NARRATIVE: General: Alert, no acute distress. Skin: Warm, dry. Head: Normocephalic, atraumatic. Neck: Supple, trachea midline. Eye: Extraocular movements are intact. Ears, nose, mouth and throat: Tacky oral mucosa Cardiovascular: Regular, Normal peripheral perfusion. Respiratory: Lungs are clear to auscultation, respirations are non-labored, breath sounds are equal, Symmetrical chest wall expansion. Gastrointestinal: Soft, Nontender, Non distended, Normal bowel sounds. Musculoskeletal: Normal ROM, no deformity. Neurological: Alert and oriented, No focal neurological deficit observed. Psychiatric: Cooperative, appropriate mood & affect. Course Vital Signs: Vital signs: Vital Signs Temperature 98.7 F 02/21/24 13:26 Pulse Rate 77 02/21/24 16:00 Respiratory Rate 19 H 02/21/24 16:00 Blood Pressure 174/87 02/21/24 16:00 Pulse Oximetry 97 02/21/24 16:00 Oxygen Delivery Me thod Room Air 02/21/24 13:26 MDM - Weakness Medical Decision Making Medical decision making: Differential diagnosis for patient presenting with generalized weakness including but not limited to and based on the above HPI, review of systems and physical exam: Sepsis. Dehydration. Renal failure. Electrolyte abnormalities. Anemia. Congestive heart failure. Hypotension. Coronary syndrome. Hepatitis. Cirrhosis. Infections such as pneumonia, urinary tract infection, [place] illness, Cellulitis, Viral infections including influenza and Covid-19. Workup: labwork and lab/exam driven imaging ordered to evaluate, rule in and rule out above pathologies. EKG: Time 1336. Rate 86. Normal sinus rhythm, No ST-T changes, no ectopy, normal [place] & QRS intervals, This was reviewed and interpreted by myself the ER physician at 1340 CT head: No acute intracranial process. no intracranial hemorrhage, no evidence of infarct. no evidence of acute fracture.This was reviewed and interpreted by myself the ER physician. Chest x-ray: No acute process. No infiltrate. No pneumothorax. No cardiomegaly. This was reviewed and interpreted by myself the ER physician. Lab Review: Laboratory results were reviewed and interpreted by myself the emergency room physician. Lab work is unremarkable. No leukocytosis. Hemoglobin is 10. BUN and creatinine are 13 and 0.9. Sugars a bit high at 248. Urinalysis is negative. I reviewed the patient's medical record. Reexamination: Patient has remained stable here. He has had no further confusion while he is been here. His blood pressure has been fairly labile. Highest blood pressures have been around 180 systolic. I discussed the issues with treating this moderately elevated blood pressure with my concern being that if I did treat it that it would drop his blood pressure and cause syncope. The patient is adamant he does not want to be admitted. He has no increased work of breathing. With his chemotherapy he has been going to clinic 2 or 3 times a week to get fluids but did not go one of the days he was supposed to this week. Assessment and plan: Dehydration Metabolic encephalopathy, resolved Stage IV colon cancer receiving chemotherapy Diarrhea - Discharged home - Discussed findings and plan with patient. Answered any questions. - All laboratory values were reviewed and interpreted personally by myself, the ER physician - All imaging was reviewed and interpreted personally by myself, the ER physician. - Evaluation and treatment of this problem were appropriate in the emergency setting Lab Data 02/21/24 13:48 02/21/24 13:48 Radiology Impressions Chest/Abdomen X-ray 02/21/24 13:36 IMPRESSION: No evidence of bowel obstruction or pneumoperitoneum identified. Head CT 02/21/24 13:36 IMPRESSION: 1. No evidence of acute intracranial hemorrhage or mass effect identified. 2. Atrophy and findings of chronic small-vessel disease. Laboratory Results WBC 8.68 10^3/uL (3.29-11.43) 02/21/24 13:48 RBC 3.69 10^6/uL (3.85-5.65) L 02/21/24 13:48 Hgb 10.10 g/dL (11.27-16.99) L 02/21/24 13:48 Hct 32.6 % (37-53) L 02/21/24 13:48 MCV 88.3 fl (82-101) 02/21/24 13:48 MCH 27.4 pg (27-33) 02/21/24 13:48 MCHC 31.0 g/dL (30-55) 02/21/24 13:48 RDW 15.0 % (12.1-15.1) 02/21/24 13:48 Plt Count 256 10^3/cmm (157-399) 02/21/24 13:48 MPV 9.5 fL (7.4-10.4) 02/21/24 13:48 Neut % (Auto) 73.1 % 02/21/24 13:48 Lymph % (Auto) 11.5 % 02/21/24 13:48 [place] % (Auto) 8.8 % 02/21/24 13:48 Eos % (Auto) 5.0 % 02/21/24 13:48 Baso % (Auto) 0.8 % 02/21/24 13:48 Neut # (Auto) 6.35 10^3/uL (1.8-7.7) 02/21/24 13:48 Lymph # (Auto) 1.0 10^3/uL (0.8-4.8) 02/21/24 13:48 [place] # (Auto) 0.8 10^3/uL (0.2-0.9) 02/21/24 13:48 Eos # (Auto) 0.4 10^3/uL (0.0-0.8) 02/21/24 13:48 Baso # (Auto) 0.1 10^3/uL (0.0-0.1) 02/21/24 13:48 Nucleated RBC % (auto) 0 % 02/21/24 13:48 Nucleated RBCs # 0.0 /100WBC 02/21/24 13:48 Sodium 139 mmol/L (136-145) 02/21/24 13:48 Potassium 4.1 mmol/L (3.5-5.1) 02/21/24 13:48 Chloride 104 mmol/L (98-107) 02/21/24 13:48 Carbon Dioxide 23 mmol/L (22-29) 02/21/24 13:48 Anion Gap 16.1 (5-19) 02/21/24 13:48 BUN 13 mg/dL (8-23) 02/21/24 13:48 Creatinine 0.9 mg/dL (0.7-1.2) 02/21/24 13:48 GFR Calculation Not Reportable 02/21/24 13:48 Glucose 248 mg/dL (65-115) H 02/21/24 13:48 Calculated Osmolality 296 mOsm/kg (285-295) H 02/21/24 13:48 Lactic Acid 2.6 mmol/L (0.5-2.2) H 02/21/24 13:48 Calcium 8.7 mg/dL (8.5-10.5) 02/21/24 13:48 Total Bilirubin 0.2 mg/dL (0.15-1.2) 02/21/24 13:48 AST 43 U/L (0-40) H 02/21/24 13:48 ALT 28 U/L (0-41) 02/21/24 13:48 Alkaline Phosphatase 81 U/L (40-130) 02/21/24 13:48 C-Reactive Protein 30.3 mg/L (0.0-4.9) H 02/21/24 13:48 Total Protein 6.8 g/dL (6.6-8.7) 02/21/24 13:48 Albumin 3.4 g/dL (3.5-5.2) L 02/21/24 13:48 Globulin 3.4 g/dL (1.3-4.6) 02/21/24 13:48 Urine Color Yellow (Yellow) 02/21/24 15:26 Urine Appearance Clear (CLEAR) 02/21/24 15:26 Urine pH 6 (5-7) 02/21/24 15:26 Ur Specific [place] 1.010 (1.005-1.030) 02/21/24 15:26 Urine Protein Neg (Negative) 02/21/24 15:26 Urine Glucose (UA) 2+ (Normal) H 02/21/24 15:26 Urine Ketones Negative (Negative) 02/21/24 15:26 Urine Blood Neg (Negative) 02/21/24 15:26 Urine Nitrate Negative (Negative) 02/21/24 15:26 Urine Bilirubin Neg (Negative) 02/21/24 15:26 Urine Urobilinogen Norm mg/dL (Negative) 02/21/24 15:26 Ur Leukocyte Esterase Negative (Negative) 02/21/24 15:26 Urine RBC None /hpf (0-2) 02/21/24 15:26 Urine WBC None /hpf (0-5) 02/21/24 15:26 Ur Squamous Epith Cells None /hpf (0-5) 02/21/24 15:26 Amorphous Sediment Not Reportable 02/21/24 15:26 Urine Bacteria Trace /hpf (NONE) 02/21/24 15:26 All radiology interpretation(s) finalized by discharge Discharge Plan Discharge Patient Disposition: Home Clinical Impression: Dehydration, Acute metabolic encephalopathy Condition: Stable Prescriptions: No Action aspirin [Aspir-81] 81 mg tablet,delayed release (DR/EC) 81 mg PO DAILY glipizide 10 mg tablet 10 mg PO BID loperamide [Anti-Diarrheal (loperamide)] 2 mg tablet 2 mg PO Q4H MDD 8mg PRN (Reason: loose stool) Qty: 60 3RF Rx Instructions: take after each loose stool until symptoms controlled;max8mg daily fluconazole 150 mg tablet 150 mg PO DAILY PRN mupirocin 2 % ointment 1 applic topical BID PRN nystatin 100,000 unit/mL suspension 100,000 unit PO QID PRN Rx Instructions: to be added to magic mouthwash script lisinopril 5 mg tablet 5 mg PO DAILY Qty: 30 2RF triamcinolone acetonide 0.1 % ointment 1 applic topical .3-4x/day Qty: 80 0RF nitroglycerin [Nitrostat] 0.4 mg tablet, sublingual 0.4 mg SUBLINGUAL Q5M PRN (Reason: chest pain) Qty: 20 2RF Rx Instructions: do not exceed 3 doses per episode isosorbide mononitrate 30 mg tablet extended release 24 hr 30 mg PO BID Qty: 180 3RF ondansetron HCl 4 mg tablet 4 mg PO Q6H PRN (Reason: nausea and vomiting) Qty: 60 3RF lidocaine HCl [Lidocaine Viscous] 2 % solution 5 ml PO QID PRN (Reason: pain) Qty: 80 1RF Rx Instructions: mix with 80ml Benadryl, 80ml Maalox, 80ml Nystatin; Magic Mouthwash lidocaine-prilocaine 2.5-2.5 % cream 1 applic topical .as needed PRN (Reason: port access) Qty: 30 3RF Rx Instructions: apply quarter size amount 45 min prior to port access, cover with plastic wrap rosuvastatin 20 mg tablet 20 mg PO BEDTIME Qty: 90 3RF Rx Instructions: Take 1 tab daily at bedtime. apixaban 5 mg tablet 5 mg PO BID Qty: 60 3RF metoprolol succinate 50 mg tablet extended release 24 hr 50 mg PO BID Qty: 60 3RF Rx Instructions: MUST make follow-up for further refills pantoprazole 40 mg tablet,delayed release (DR/EC) 40 mg PO BID Qty: 180 0RF lidocaine 5 % ointment See Rx Instructions .ROUTE .COMPLEX Qty: 50 2RF Dose Instruction: APPLY topically FOUR TIMES DAILY NEEDED FOR PAIN Rx Instructions: APPLY topically FOUR TIMES DAILY NEEDED FOR PAIN nystatin 100,000 unit/gram ointment See Rx Instructions .ROUTE .COMPLEX Qty: 30 0RF Dose Instruction: APPLY topically 3 TO 4 times DAILY TO affected AREA Rx Instructions: APPLY topically 3 TO 4 times DAILY TO affected AREA diphenoxylate-atropine [Lomotil] 2.5-0.025 mg tablet 2 tab PO QID PRN (Reason: Diarrhea) Qty: 60 3RF Rx Instructions: 2 tablets orally 4 times daily until control of diarrhea has been achieved. oxycodone 10 mg tablet 10 mg PO QID PRN (Reason: pain) 30 Days Qty: 120 0RF Discharge Orders: Discharge ED (Routine); Ordered 02/21/24 Ordered By: Bernice Canseco Referrals: Kayleen Shea APN [Primary Care Provider] - Discharge Diet: Usual diet Discharge Activity: Increase activity as tolerated Patient Instructions: Dehydration (ED) Activity Restrictions/Additional Instructions: Thank you for choosing [facility] for your healthcare needs today. Please realize this is an emergency room and that we are providing you with a medical screening exam and this may not be complete and all inclusive of all the testing and or work up that you may need to determine your ailment or severity of your illness. You have been screened and evaluated and felt safe for discharge. Health conditions do change or evolve sometimes and as such it is important that you follow up with your Primary Doctor to be re checked, 3-5 days is a general good time frame for follow up. 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
[2024-02-21] MEDS: sodium chloride 0.9% 1,000 ML 999 ML IV (13:55)
[2024-02-21 14:17] LABS: Basophils # 0.1 10^3/uL (0.0-0.1); Basophils % 0.8 %; Eosinophils # 0.4 10^3/uL (0.0-0.8); Hematocrit 32.6 % (37-53); Lymphocytes % 11.5 %; Mean Corpuscular Hemoglobin 27.4 pg (27-33); Mean Corpuscular Volume 88.3 fl (82-101); Mean Platelet Volume 9.5 fL (7.4-10.4); Monocytes # 0.8 10^3/uL (0.2-0.9); Monocytes % 8.8 %; Neutrophils # 6.35 10^3/uL (1.8-7.7); Neutrophils % 73.1 %; Nucleated Red Blood Cells % 0 %; Platelet Count 256 10^3/cmm (157-399); Red Blood Count 3.69 10^6/uL (3.85-5.65); White Blood Count 8.68 10^3/uL (3.29-11.43)
[2024-02-21 14:23] VITALS: BP 153/79; PULSE 84; RESP 16; O2SAT 96
[2024-02-21 14:34] LABS: Alanine Aminotransferase 28 U/L (0-41); Albumin Level 3.4 g/dL (3.5-5.2); Alkaline Phosphatase 81 U/L (40-130); Anion Gap 16.1 (5-19); Aspartate Amino Transferase 43 U/L (0-40); Blood Urea Nitrogen 13 mg/dL (8-23); C Reactive Protein 30.3 mg/L (0.0-4.9); Calcium 8.7 mg/dL (8.5-10.5); Carbon Dioxide 23 mmol/L (22-29); Chloride 104 mmol/L (98-107); Creatinine Clr Calc Pharmacy 93.1639; Globulin 3.4 g/dL (1.3-4.6); Glucose 248 mg/dL (65-115); Osmolality Calculated 296 mOsm/kg (285-295); Potassium 4.1 mmol/L (3.5-5.1); Sodium 139 mmol/L (136-145); Total Bilirubin 0.2 mg/dL (0.15-1.2); Total Protein 6.8 g/dL (6.6-8.7)
[2024-02-21 14:35] LABS: Lactic Sepsis W/Reflex 2.6 mmol/L (0.5-2.2)
[2024-02-21 15:23] VITALS: BP 202/92; PULSE 76; RESP 18; O2SAT 97
[2024-02-21 15:52] LABS: Add Urine Culture? No; Bacteria Urine TRACE /hpf; Bilirubin Urine Neg (Negative); Blood Urine Neg (Negative); Glucose Urine UA 2+ (Normal); Ketones Urine Negative (Negative); Leukocyte Esterase Urine Negative (Negative); Nitrate Urine Negative (Negative); Protein Urine Neg (Negative); Urine Appearance Clear (CLEAR); Urine Color Yellow (Yellow); Urobilinogen Urine Norm (Negative); pH Urine 6 (5-7)
[2024-02-21 15:56] LABS: Reflex Lactate Order REFLEX LACTIC ORDERD
[2024-02-21 16:00] VITALS: BP 174/87; PULSE 77; RESP 19; O2SAT 97
[2024-02-21 16:35] VITALS: BP 174/87; PULSE 77; RESP 19; O2SAT 97
== END 2024-02-21 16:38 | disposition home or self-care (01) ==
PROVIDERS: Emergency Provider Emergency Medicine; PCP Nurse Practitioner Family
DX: G93.41 Metabolic encephalopathy (principal); E86.0 Dehydration; Z79.82 Long term (current) use of aspirin; Z79.84 Long term (current) use of oral hypoglycemic drugs; Z85.048 Personal history of other malignant neoplasm of rectum, rectosigmoid junction, and anus; E11.9 Type 2 diabetes mellitus without complications; E78.5 Hyperlipidemia, unspecified; I10 Essential (primary) hypertension
CPT/HCPCS: 36415; 70450; 74022; 80053; 81001; 83605; 85025; 86140; 87040; 93005; 99285; J7030

== ENCOUNTER 2024-03-01 14:03 | Oncology outpatient (recurring) (ONCR) | payer MEDICARE, SELFPAY ==
[2024-02-15 14:11] VITALS: BP 158/80; PULSE 82; RESP 20; TEMP 36.9; O2SAT 97
[2024-02-15] MEDS: sodium chloride 0.9% 1,000 ML 666 ML IV (14:20)
[2024-02-26] MEDS: sodium chloride 0.9% 1,000 ML 625 ML IV (09:25)
[2024-02-26 09:39] VITALS: BP 151/74; PULSE 89; RESP 17; TEMP 37; O2SAT 96
[2024-02-26 11:10] VITALS: BP 124/72; PULSE 82; RESP 16; TEMP 37.2; O2SAT 97
[2024-03-01 15:20] LABS: Basophils # 0.1 10^3/uL (0.0-0.1); Basophils % 1.1 %; Eosinophils # 0.7 10^3/uL (0.0-0.8); Hematocrit 33.1 % (37-53); Lymphocytes # 1.3 10^3/uL (0.8-4.8); Lymphocytes % 17.8 %; Mean Corpuscular HGB Conc 29.9 g/dL (30-55); Mean Corpuscular Hemoglobin 26.8 pg (27-33); Mean Corpuscular Volume 89.5 fl (82-101); Mean Platelet Volume 9.2 fL (7.4-10.4); Monocytes # 0.6 10^3/uL (0.2-0.9); Monocytes % 8.7 %; Neutrophils # 4.48 10^3/uL (1.8-7.7); Neutrophils % 60.8 %; Nucleated Red Blood Cells % 0 %; Platelet Count 325 10^3/cmm (157-399); Red Cell Distribution Width 15.5 % (12.1-15.1); White Blood Count 7.36 10^3/uL (3.29-11.43)
[2024-03-01 15:32] LABS: Erythrocyte Sedimentation Rate 52 mm/hr (0-10)
[2024-03-01 15:53] LABS: Alanine Aminotransferase 21 U/L (0-41); Albumin Level 3.6 g/dL (3.5-5.2); Alkaline Phosphatase 74 U/L (40-130); Anion Gap 16.8 (5-19); Aspartate Amino Transferase 31 U/L (0-40); Blood Urea Nitrogen 17 mg/dL (8-23); C Reactive Protein 13.3 mg/L (0.0-4.9); Calcium 8.6 mg/dL (8.5-10.5); Carbon Dioxide 24 mmol/L (22-29); Chloride 103 mmol/L (98-107); Creatinine Clr Calc Pharmacy 75.4576; Globulin 3.6 g/dL (1.3-4.6); Glucose 165 mg/dL (65-115); Osmolality Calculated 293 mOsm/kg (285-295); Potassium 4.8 mmol/L (3.5-5.1); Sodium 139 mmol/L (136-145); Total Bilirubin 0.2 mg/dL (0.15-1.2); Total Protein 7.2 g/dL (6.6-8.7)
== END 2024-03-06 23:59 | disposition home or self-care (01) ==
PROVIDERS: Internal Medicine Medical Oncology; PCP Nurse Practitioner Family; Visit Provider Radiology Radiation Oncology
DX: Z53.9 Procedure and treatment not carried out, unspecified reason (principal); I25.10 Atherosclerotic heart disease of native coronary artery without angina pectoris; I10 Essential (primary) hypertension; M46.28 Osteomyelitis of vertebra, sacral and sacrococcygeal region; M86.9 Osteomyelitis, unspecified
CPT/HCPCS: 36591; 80053; 82378; 85025; 85651; 86140; 96360; 96361; 99214; J7030

== ENCOUNTER 2024-03-18 17:37 | Outpatient (CLI) | payer MEDICARE, SELFPAY ==
[2024-03-18 18:31] LABS: Basophils # 0.1 10^3/uL (0.0-0.1); Basophils % 0.5 %; Eosinophils # 0.3 10^3/uL (0.0-0.8); Eosinophils % 2.1 %; Hematocrit 34.8 % (37-53); Lymphocytes # 1.5 10^3/uL (0.8-4.8); Lymphocytes % 11.3 %; Mean Corpuscular Hemoglobin 26.9 pg (27-33); Mean Corpuscular Volume 86.8 fl (82-101); Mean Platelet Volume 9.9 fL (7.4-10.4); Monocytes # 1.2 10^3/uL (0.2-0.9); Neutrophils # 9.59 10^3/uL (1.8-7.7); Neutrophils % 75.1 %; Nucleated Red Blood Cells % 0 %; Platelet Count 383 10^3/cmm (157-399); Red Blood Count 4.01 10^6/uL (3.85-5.65); Red Cell Distribution Width 16.5 % (12.1-15.1); White Blood Count 12.79 10^3/uL (3.29-11.43)
[2024-03-18 19:10] LABS: Anion Gap 19.6 (5-19); Blood Urea Nitrogen 19 mg/dL (8-23); Calcium 8.6 mg/dL (8.5-10.5); Carbon Dioxide 21 mmol/L (22-29); Chloride 102 mmol/L (98-107); Glucose 147 mg/dL (65-115); Osmolality Calculated 291 mOsm/kg (285-295); Potassium 4.6 mmol/L (3.5-5.1); Sodium 138 mmol/L (136-145)
== END 2024-03-18 17:38 | disposition home or self-care (01) ==
PROVIDERS: PCP Nurse Practitioner Family; Visit Provider Nurse Practitioner Family
DX: M46.28 Osteomyelitis of vertebra, sacral and sacrococcygeal region (principal)
CPT/HCPCS: 80048; 85025

== ENCOUNTER 2024-04-06 14:00 | Oncology outpatient (recurring) (ONCR) | payer MEDICARE, SELFPAY ==
--- OUTSIDE RECORDS SUMMARY | 2024-03-17 13:11 | XMS_ITS | Continuity of Care Document ---
Author Name Unknown Organization [facility] Address [address] [place] [address]- Care Team Providers Care Business Intelligence Engineer Name Role Phone Shea SUPERVISORKayleen Primary Care Physician Encounter [employer] Number [id number] Date(s): 03/09/24 - 03/15/24 [facility] [address] [place] [address]- [phone] Encounter Diagnosis Osteomyelitis, pelvis(Discharge Diagnosis) - 03/10/24 Personal history of rectal cancer(Discharge Diagnosis) - 03/10/24 Abnormal PET scan, liver(Discharge Diagnosis) - 03/10/24 Rectal cancer(Discharge Diagnosis) - 03/10/24 Abscess(Discharge Diagnosis) - 03/11/24 Osteomyelitis of coccyx(Discharge Diagnosis) - 03/11/24 Polymicrobial bacterial infection(Discharge Diagnosis) - 03/11/24 Pelvic abscess in male(Discharge Diagnosis) - 03/13/24 Discharge Disposition: .Discharge to Home (Routine) Attending Physician: Ranulfo Anguiano MD Admitting Physician: Ranulfo Anguiano MD Allergies, Adverse Reactions, Alerts Substance Reaction Severity Status sulfa drugs rash Moderate Active Assessment and Plan Extracted from: Title:ID Progress SOAP Note Author:Cesar LARSON, Courtney turner MS Date:03/15/24 Pelvic Osteomyelitis/Coccyx Osteomyelitis Pelvic Abscess/Fistula - s/p seton placement - Cultures Co2 viridans streptococcus, Group D, GNR, lactobacillus s/p Ileostomy 03/12/24 History of Coccygeal Abscess/Osteomyelitis s/p IR drainage 12/12 - cultures Enterococcus faecalis, Enterococcus avium (Amp-S), Pseudomonas fluroscenes (cipro-susceptible), Bacreroidies s/p 6-week of IV abx with daptomycin/Zosyn - History of Rectal Cancer s/p LAR 05/2021, loop ileostomy closure 10/2021 ?? 73-year-old gentleman??with a past??medical history??of??metastatic rectal cancer, history??of recent??chemoembolization of liver metastases, history??of sacral??osteomyelitis/abscess status post 6 weeks??of IV antibiotics??and presents with??concerns??of??ongoing??lower??back pain??and recent??MRI with??persistent changes of??coccygeal osteomyelitis; underwent??operative examination??on 03/10 and evidence of??pelvic abscess??and fistula??formation status post seton??placement?and laproscopic ileostomy 03/12/24. ? Reviewed operative cultures with polymicrobial growth of streptococcus, Group D streptococcus, lactobacillus, enteric GNR ?? I think combination of oral highly bioavailable antibiotics will be reasonable and this is also this patient's preference. ?? Would do Ciprofloxacin 750 mg BID, Metronidazole 500 mg BID and Linezolid 600 mg BID; anticipate 6 week course Discussed side effects Follow up in 2-weeks, around 03/28/2024 in ID clinic ?? Will sign off. Call if any questions/concerns. Prescription sent to preferred pharmacy ? Extracted from: Title:Progress SOAP Note Author:Christi Lew Date:03/15/24 1.??Osteomyelitis, pelvis(Os teomyelitis, unspecified: M86.9) Home later today ID to assist with ongoing antibiotics, appreciate their assistance Discussed ileostomy cares, they understand Need to see back in the office on 03/28 ? Ordered: [facility] Post Operative Care [id number] ?? 2.??Personal history of rectal cancer(Personal history of other malignant neoplasm of rectum, rectosigmoid junction, and anus: Z85.048) ?? 3.??Abnormal PET scan, liver(Abnormal findings on diagnostic imaging of liver and biliary tract: R93.2) ?? 4.??Rectal cancer(Malignant neoplasm of rectum: C20) ?? 5.??Abscess(Cutaneous abscess, unspecified: L02.91) ?? 6.??Osteomyelitis of coccyx(Osteomyelitis, unspecified: M86.9) ?? 7.??Polymicrobial bacterial infection(Bacterial infection, unspecified: A49.9) ?? Pelvic abscess in male(Peritoneal abscess: K65.1) ?? Orders: acetaminophen, 650 mg = 2 cap, By mouth, TID, PRN as needed for pain, X 7 Days, # 90 cap, Refill(s) 0, Pharmacy: [facility], [id number], 2 cap By mouth TID,x7 Days,PRN:as needed for pain, 105.27, 03/09/24 17:43:00 CDT, kg, Weight (kg) (Cli... loperamide, 2 mg = 1 tab, By mouth, Q4H, PRN for loose stool, prn ileostomy output over 1000 mL daily, # 60 tab, Refill(s) 1, Pharmacy: [facility], [id number], 1 tab By mouth Q4H,PRN:for loose stool,Instr:prn ileostomy output over 1000... Contact Physician After Discharge Discharge, when feeling well mid day Discharge Activity Discharge Bathing/Showering Instructions, remove any dressings prior to shower, pat dry and replace new dressing; if dermabond inplace- OK to get wet- no additional dressing needed Discharge Diet, low fiber diet Discharge Driving Restrictions Discharge Follow Up, thursday Discharge Instructions - Additional, Imodium as needed for ileostomy output over 1000 mL daily Discharge Work/School/Daycare Restrictions Initiate Plan, Discharge Inpatient/OBS Sexual Activity Wound or Incision Care at Discharge, Perineal drain care with peribottle and dry gauze changes as often as needed to keep skin dry; sitz baths as needed Addendum by Annmarie LARSON, Azael Corea on March 15, 2024 23:16:17 CDT I have reviewed the patient's subjective and objective data and discussed with Malia Saeed NP. ??We collaborated to create the above mentioned assessment and plan. Extracted from: Title:Instructions to Patients Author:Angeles Meyers RN Date:03/14/24 [facility] New Ileostomy Guide Your Ostomy Resource Team Your Surgeon: _Dr Ranulfo Anguiano_ Surgeon? s Office: _[phone]___ Colorectal Office Ostomy Nurse: [phone] [facility] Ostomy Nurse: [phone] [facility] Nutrition: [phone] [facility]? s Ostomy Family Support Group: Contact a Volunteer Maria Luisa Anthony [phone] or Anjum De La Rosa [phone] What is an ileostomy? An ileostomy empties stool that comes from the bowel What will my stool look like? After surgery it will be watery, yellow/green stool. Over time, the stool will thicken and become more paste-like. Emptying Your Pouch ?Your pouch should be emptied when it is ? to ?? full ?Hold the pouch up and unclamp or un-Velcro the closed end while standing over the measuring cup given to you. ?Slowly empty contents into the measuring cup. ?Dry the bottom of the pouch & close the pouch ?Rinsing the inside of the pouch is not needed. How often should I change my pouch? ? ? The pouching system wear time is between 3-7 days. ? ? If the pouch is leaking you will need to change it to prevent the skin around your stoma from becoming irritated Ostomy Care Supplies ? ? You should always have 3 pouching systems available. ? ? Supplies are ordered from a medical supply store/distributor. ? ? If you go home with Home Health Care Services, your Home Health Nurse can assist you in ordering your supplies. Bathing or Showering ?Water will not enter your stoma? think of it as a one-way pipe. ?Avoid bath oils and moisturizing soaps as this may prevent the pouching system from sticking to your skin ?You may bathe with your pouch on or off, be sure to towel dry the tape and skin around the pouching system afterward. Discharge from the Rectum Depending on your surgery, you may have left over stool, mucous or blood that passes from your rectum; this is normal. If you see a large amount of blood, please contact your surgeon. Adjusting to Life with an Ileostomy Each person? s adjustment to living with an ostomy is different. Allow yourself time to recover from surgery and not need help to take care of yourself. At first, you may feel scared or sad; there are no right or wrong feelings and most often people do feel better with time. This will happen as you feel better from surgery and get used to how your ostomy looks and how you care for it. You are not alone; thousands of people every year have ostomy surgery. You may want to talk to a family member, friend, professional counselor, or attend an ostomy support group in your area. Nutrition Tips to Prevent Complications ?Sip on liquids all day long to prevent dehydration. ?Each time you empty your ostomy, try drinking a cup of fluid. ?Avoid high fiber foods for the first 4-6 weeks after surgery. ?Low fiber foods will be more easily digested and may reduce your risk for developing a blockage or obstruction. ?Chew your food well. This will help prevent a blockage. ?Try eating 3 meals and 2-3 snacks to get enough calories to heal and prevent weight loss. ?Eat a source of protein at each meal and snack like meat, cheese, eggs, or yogurt. ?A chewable multivitamin supplement may be recommended. ?Foods like cauliflower, asparagus, fish, Brussel sprouts, cheeses, beans, broccoli, onions, cabbage and spicy foods may cause stool to have a strong odor. ?Eating foods with probiotics like yogurt each day may help to decrease odor. ?Avoid gas-causing foods like beans, broccoli, cauliflower, Brussel sprouts, onions & cabbage. ?Space your meals out every few hours during the day to help decrease gas. Signs of Blockage or Obstruction ? ? Intense cramping ? ? Stoma/stomach swelling or pain ? ? Nausea ? ? Vomiting ? ? No stoma output ? ? Increase in watery output from your stoma When Should You Call Your Doctor? ? ? Temperature over 101.0? Decrease in urine output ? Increase in nausea or vomiting ? ? Decrease in appetite ? ? Ostomy output over 1000mL in 24 hours after taking Imodium Skin Irritation It is important to keep the skin around your stoma healthy. The stool from your ostomy contains enzymes that can irritate your skin. ?Measure your stoma often to ensure the skin barrier opening fits close, but not on your stoma. ?Change the pouching system regularly, generally every 4-5 days. Do not wait until it leaks. ?If leaks do occur, change the pouching system. Do not attempt to patch with tape. Skin barrier is cut too large leaving too much skin exposed Skin barrier is cut to fit close but not on the stoma Additional Support & Resources ? ? Wound, Ostomy, Continence Nurses Society www.wocn.org ? ? Crohn? s & Colitis Foundation of [place] www.ccfa.org ? ? [employer] www.ccfa.org ? ? [employer] Ostomy Associations of [place] www.uoaa.org Recommended Liquids to Keep Hydrated ? ? Water ? ? Flavored Water ? ? Gatorade ? ? Pediatric Electrolyte Solution ? ? Ensure High Protein Preventing Dehydration: Leading Cause of Complications with a New Ileostomy Signs and Symptoms of Dehydration ? ? Dry Mouth ? ? Increased Thirst ? ? Low Urine Output ? ? Feeling Tired ? ? Nausea ? ? Decreased Appetite Common Causes of Diarrhea & How Your Diet Can Help ??The thickness or thinness of your ostomy output depends on where your stoma is. Some foods may cause your output to be more liquid which could lead to dehydration. ??Foods & Drinks That Thin Output Juice High Fiber Food Large Meals Hot Drinks Chocolate Spicy foods Soup Licorice Coffee Don? t drink more than 4 ounces of liquids with added sugars like juice, lemonade and sweet tea per day ??Foods That Help Thicken Output Applesauce White Rice Bananas Peanut Butter Yogurt Pasta Marshmallows Cheese Bread Take [id number] Imodium (loperamide) every 4-6 hours if your ostomy output is more than 1000 milliliters in 24 hours. Tips for Preventing Dehydration ? ? Track your ostomy output everyday on the paper that is given to you. ? ? Drink at least 8-10 cups (64-80 ounces) of liquid each day, with half being something other than water. Talk to your doctor if you have been told to eat a low sodium or low potassium diet. ? ? Avoid alcohol, soda & fizzy drinks. ? ? Limit caffeine to one cup (8oz) per day - try decaf teas and coffees. If you have more than 1000 milliliters of output from your ostomy in 24 hours after taking Imodium (loperamide) as told: ? ? Call your surgeon? s office ? ? Measure ostomy output and drink more liquids ? ? Drink Gatorade, Pediatric Electrolyte Solution or an oral rehydration solution. ? ? Do not take more than 8 doses in 24 hours. Oral Rehydration Solution Recipes Mix all ingredients and chill *Do not add ice, this bowling it down Recipe 1 ?? 1 cup unsweet, no pulp orange juice ?? 1/2 teaspoon baking soda ?? 8 teaspoons sugar ?? 4 1/2 cups water Recipe 2 ?? 3/4 teaspoon salt ?? 1 tablespoon sugar ?? 1 teaspoon sugar ?? 16 ounces Sprite Zero ?? 1 envelope sugar free drink mix Recipe 3 ?? 1 cup apple juice ?? 3 cups water ?? 1/2 teaspoon salt Recipe 4 ?? 2 cups Gatorade ?? 2 cups water ?? 1/2 teaspoon salt Nutrition Guidelines for Patients with a New Ileostomy Foods for the First 4-6 Weeks after Surgery Group Recommended Foods Foods to Avoid Fruits Canned or Cooked fruits: fruit cocktail Applesauce, ripe bananas, honeydew & cantaloupe Raw or Canned fruits with seeds like: strawberries, blackberries or raspberries; dried fruit & coconut Vegetables Canned or Well-Cooked vegetables without seeds/skin. Cooked white or sweet potatoes, without skin Vegetable juice Raw vegetables or those with skin/seeds like: tomatoes, squash, or cucumbers. Breads, Cereals & Grains White rolls, muffins, biscuits, breads, crackers, waffles, pancakes, plain pastries, white rice & pastas. Refined cooked cereals: grits & cream of wheat. Refined cold cereals: Rice Krispies, puffed rice & wheat Canned or raw peas, corn or popcorn. Desserts Plain cakes and cookies, baked pastries Pies or jelly made with recommended fruits. Plain sherbet, fruit ice, frozen pops, yogurt, gelatin, custard Plain hard candy, and marshmallows Gas-causing raw or cooked vegetables like beans, broccoli, cauliflower, Fowler sprouts, onions & cabbage Meats & Proteins Soft cooked chicken, beef, turkey, fish, pork, ground meats. Eggs & cheese; Smooth nut butters Whole-grain, bran, or rye breads Dairy Milk, cheese, cottage cheese, yogurt Try lactose free milk if you can? t tolerate regular milk Whole grain crackers or cereals After 4-6 weeks, foods from the avoid list may be added back into your diet in small amounts, one new food at a time and increase slowly as tolerated. September 2023 Medication Leaflets: Accessing??[facility]??Express??Patient??Portal Access medications, test results, radiology reports, and more through [employer] secure patient portal. Please be patient if waiting on lab results, as these can take several days to process. Hiko online at??[email or web address].??Use your community medical record number (CMRN) located below to verify your identity on the Self-Enrollment form.We also offer the ability for you to securely connect other health management apps to your health record. See the [facility] link on the website above for more details. Watch [employer] Patient Education Videos and Access Resources anytime online! Visit [email or web address]. Extracted from: Title:Progress SOAP Note Author:Annmarie LARSON, Azael n M Date:03/14/24 1.??Osteomyelitis, pelvis(Os teomyelitis, unspecified: M86.9) Doing??well Regular??diet If all well, anticipate??DC tomorrow. ? 2.??Personal history of rectal cancer(Personal history of other malignant neoplasm of rectum, rectosigmoid junction, and anus: Z85.048) 3.??Abnormal PET scan, liver(Abnormal findings on diagnostic imaging of liver and biliary tract: R93.2) 4.??Rectal cancer(Malignant neoplasm of rectum: C20) 5.??Abscess(Cutaneous abscess, unspecified: L02.91) 6.??Osteomyelitis of coccyx(Osteomyelitis, unspecified: M86.9) 7.??Polymicrobial bacterial infection(Bacterial infection, unspecified: A49.9) Pelvic abscess in male(Peritoneal abscess: K65.1) Extracted from: Title:ID Progress SOAP Note Author:Cesar LARSON, Courtney turner MS Date:03/13/24 - Pelvic Osteomyelitis/Coccy x Osteomyelitis - Pelvic Abscess/Fistula - s/p seton placement - History of Coccygeal Abscess/Osteomyelitis s/p IR drainage 12/12 - cultures Enterococcus faecalis, Enterococcus avium (Amp-S), Pseudomonas fluroscenes (cipro-susceptible), Bacreroidies s/p 6-week of IV abx with daptomycin/Zosyn - History of Rectal Cancer s/p LAR 05/2021, loop ileostomy closure 10/2021 ?? 73-year-old gentleman??with a past??medical history??of??metastatic rectal cancer, history??of recent??chemoembolization of liver metastases, history??of sacral??osteomyelitis/abscess status post 6 weeks??of IV antibiotics??and presents with??concerns??of??ongoing??lower??back pain??and recent??MRI with??persistent changes of??coccygeal osteomyelitis; underwent??operative examination??on 03/10 and evidence of??pelvic abscess??and fistula??formation status post seton??placement?and laproscopic ileostomy 03/12/24. ?? Reviewed records from [facility]. He was brought to ED on 12/12 with difficulty speaking and had stroke activation. His initial CT A/P revealed 1.1 x 2.3 x 4.5 cm abscess in the lower presacral space. No free air. His CT angio head was negative. He was encephalopathic. He had diarrhea during the hospital and was tested positive for Norovirus. He was discharged on 12/17 and was sent home on difulcan till 12/25 and Unasyn for 38 day however, upon culture results the Unasyn was stopped and switched to daptomycin and zosyn. He was seen by ID on 12/15/23. I reviewed the note by Dr. Lance Shahid at [facility]. His MRI Sacrum on 12/14 revealed evidence of fluid tract from rectum extending posteriorly and evidence of rim-enhancing fluid around the coccyx. Increased T2 signal in the coccyx with marrow edema concerning for osteomyelitis.02. ?? Previous MR did show a fluid tract but no surgical intervention were done for that specifically in his prior hospitalization which explains his recurrence ?? He is now s/p ileostomy Will follow tissue cultures from the initial I&D of pelvic abscess Continue ciprofloxacin and flagyl for now, will follow pending culture and adjust antibiotic accordingly. Likely need 6 weeks of antibiotics. ?? Will follow. Explained to the patient, and daughter on the phone. ? Extracted from: Title:Progress SOAP Note Author:Darlin GONZALEZ, Christi Rodriguez Date:03/13/24 1.??Osteomyelitis, pelvis(Os teomyelitis, unspecified: M86.9) Vianey Morales DC lim Simethicone Replete mag Increase activity/out of bed during waking hours Supportive care ? Ordered: [facility] Post Operative Care [id number] ?? 2.??Personal history of rectal cancer(Personal history of other malignant neoplasm of rectum, rectosigmoid junction, and anus: Z85.048) ?? 3.??Abnormal PET scan, liver(Abnormal findings on diagnostic imaging of liver and biliary tract: R93.2) ?? 4.??Rectal cancer(Malignant neoplasm of rectum: C20) ?? 5.??Abscess(Cutaneous abscess, unspecified: L02.91) ?? 6.??Osteomyelitis of coccyx(Osteomyelitis, unspecified: M86.9) ?? 7.??Polymicrobial bacterial infection(Bacterial infection, unspecified: A49.9) ?? Orders: magnesium sulfate, 2 g = 50 mL, IVPB, IVPB, ONCE, Start Date: 03/13/24 11:30:00 CDT, Stop date 03/13/24 11:30:00 CDT, Routine, Infuse over: 2 hr, Disp Location: [place] [address], GEN DISP simethicone, 160 mg = 2 tab, CHEW TAB, By mouth, PCHS (after meals and at bedtime), PRN, Gas, Start Date: 03/13/24 11:06:00 CDT, Duration: 90 Days, Stop date 06/11/24 11:05:00 CDT, Routine, Disp [facility] [address], GEN DISP Liquid Full Oral Supplement Urinary Catheter Removal Addendum by Azael Anguiano MD on March 13, 2024 16:44:44 CDT I have seen, examined, and discussed the patient with Malia Saeed NP.?? I helped formulate and agree with the assessment and plan.?? Full liquids. Extracted from: Title:Progress SOAP Note Author:Azael Anguiano MD Date:03/12/24 1.??Osteomyelitis, pelvis(Os teomyelitis, unspecified: M86.9) Repeat exam in OR Plan colonoscopy as well to ensure no evidence of recurrent colorectal cancer and minimize issues with prep in future after ileostomy. Also plan lap ileostomy. Discussed all these??procedures again with him. ?? They understand and agree??to proceed. ? 2.??Personal history of rectal cancer(Personal history of other malignant neoplasm of rectum, rectosigmoid junction, and anus: Z85.048) 3.??Abnormal PET scan, liver(Abnormal findings on diagnostic imaging of liver and biliary tract: R93.2) 4.??Rectal cancer(Malignant neoplasm of rectum: C20) Abscess(Cutaneous abscess, unspecified: L02.91) Osteomyelitis of coccyx(Osteomyelitis, unspecified: M86.9) Polymicrobial bacterial infection(Bacterial infection, unspecified: A49.9) Orders: ciprofloxacin, 400 mg = 200 mL, IVPB, IVPB, ONCE, Start Date: 03/12/24 10:30:00 CDT, Stop date 03/12/24 10:30:00 CDT, Routine, Infuse over: 60 min, Disp Location: [facility] [address], GEN DISP Melatonin, 3 mg = 1 tab, TAB, By mouth, at bedtime, Start Date: 03/11/24 23:23:00 CDT, Duration: 90 Days, Stop date 06/08/24 21:00:00 CDT, Routine, [place] [id number], GEN DISP metroNIDAZOLE, 500 mg = 100 mL, IVPB, IVPB, ONCE, Start Date: 03/12/24 10:30:00 CDT, Stop date 03/12/24 10:30:00 CDT, Routine, Infuse over: 1 hr, Disp Location: [facility] [address], GEN DISP TSABS auto TSType Extracted from: Title:ID Inpatient Consult Note Author:Cesar LARSON, Sanchez MS Date:03/11/24 - Pelvic Osteomyelitis/Coccy x Osteomyelitis - Pelvic Abscess/Fistula - s/p seton placement - History of Coccygeal Abscess/Osteomyelitis s/p IR drainage 12/12 - cultures Enterococcus faecalis, Enterococcus avium (Amp-S), Pseudomonas fluroscenes (cipro-susceptible), Bacreroidies s/p 6-week of IV abx with daptomycin/Zosyn - History of Rectal Cancer s/p LAR 05/2021, loop ileostomy closure 10/2021 ?? This is a??73-year-old gentleman??with a past??medical history??of??metastatic rectal cancer, history??of recent??chemoembolization of liver metastases, history??of sacral??osteomyelitis/abscess status post 6 weeks??of IV antibiotics??and presents with??concerns??of??ongoing??lower??back pain??and recent??MRI with??persistent changes of??coccygeal osteomyelitis; underwent??operative examination??on 03/10 and evidence of??pelvic abscess??and fistula??formation status post seton??placement??and plan for??laparoscopic ileostomy??tomorrow. ?? I think patient has??been??adequately treated??for the duration??of coccygeal??osteomyelitis however, since the source has not been addressed he has a recurrent infection. ??His MRI??was obtained and??this revealed??persistent??changes??of osteomyelitis??on coccyx??and new abscess over the??right??buttock paramedian??to the coccyx. He had drainage??of the abscess on 03/10. ??I do think??this is likely related??to an intra-abdominal connection??and he does??have fecal and output??from his buttock??site.?? I agree with plan of??diverting??ileostomy??and??continued treatment of his??infection.?? There has certainly a chance??that even??after??treatment??with??IV antibiotics??since the initial??source has not??been??addressed that??he??could have reinfection??and??it has been more??than??1 month since his??antibiotics were stopped so certainly??there is a good chance that??he??could have bone infection??however,??MRI??I also looked normal??even after treatment??of osteomyelitis??and may take??6 months to a year??to look??better so??the fact??that were seeing??persistent osteomyelitis??could be because of his??previous infection however,??with the intraoperative??findings??and evidence of??buttock??abscess I think recurrent??infection is most likely. ?? - I will follow the results??of??operative cultures.?? We will adjust antibiotics based??on that.?? Based??on his??previous cultures,??I think??empirically we can start him??on ciprofloxacin??and Flagyl. - He reported??that prior??to??him??seeing Colorectal??surgery, he was??on clindamycin??for about 10 days and had improvement??in his??buttock??pain??which tells??me he probably??have an anaerobic organism. - Based on his??previous cultures??in December, he predominantly??had GI organisms??which I suspect??from his??presentation.?? During his current??presentation, I also??think??that predominantly??GI organisms are implicated. - Obtain [facility] records from his previous hospital stay; this has been requested already ?? We will continue to follow.?? Thank??you for consultation.?? If you have any??questions or??concerns please contact me. ?? Discussed with Dr. Anguiano. Discussed with and grand-daughter at bedside. ?? 82??minutes spent in consultation and including time spent in chart review, obtaining history, performing physical examination, discussing management, counseling and documentation.? Extracted from: Title:Progress SOAP Note Author:Darlin GONZALEZ, Christi hatch Shanice Jennifer Date:03/11/24 1.??Osteomyelitis, pelvis(Os teomyelitis, unspecified: M86.9) Continue NPO??for now, unclear if??surgery will be??pursued today Iodoform strip removed,??wound??appears clean, redressed with gauze Detailed discussion??regarding pain??control with family.?? Patient should only take??medication??as needed.?? Recommend??Tylenol every 6 hours,??oxycodone??5 mg every??4 hours, then??an additional??5 mg??of oxycodone??every 6 hours for any??breakthrough??pain.?? IV Dilaudid is available??for second-line severe pain. ??They understand and agree. Activity??as tolerated. Supportive care ? Ordered: [facility] Post Operative Care [id number] ?? 2.??Personal history of rectal cancer(Personal history of other malignant neoplasm of rectum, rectosigmoid junction, and anus: Z85.048) ?? 3.??Abnormal PET scan, liver(Abnormal findings on diagnostic imaging of liver and biliary tract: R93.2) ?? 4.??Rectal cancer(Malignant neoplasm of rectum: C20) Or[facility]: [facility] [id number] ?? Addendum by Annmarie LARSON, Azael Corea on March 11, 2024 12:55:31 CDT I have seen, examined, and discussed the patient with Malia Saeed NP.?? I helped formulate and agree with the assessment and plan.?? Discussed OR findings.?? Spoke with infectious disease.?? Wound care and pain medication clarified with them and nursing.?? Discussed fecal diversion and the rationale for this.?? Recommend proceeding with laparoscopic ileostomy tomorrow.?? Will repeat wound exam as well and it is likely best to proceed with flexible endoscopy of at least the left colon, perhaps complete colonoscopy.?? Ileostomy will make future colonoscopy more difficult and ruling out recurrent tumor is necessary also.?? Bowel prep ordered.?? OR tomorrow morning.?? All questions were answered. Extracted from: Title:Progress SOAP Note Author:Azael Anguiano MD Date:03/10/24 1.??Osteomyelitis, pelvis(Os teomyelitis, unspecified: M86.9) Again??discussed plans for operation??today??including primarily??identifying whether not??there was a fistula tract, draining??any??abscess??and purulence??that is present, debriding fistula tract??inflammation, perhaps??obtaining biopsy if indicated I??discussed again the likely need??to consider??fecal??diversion at some??point, however he remains??unsure??about agreeing to this.?? That is fine for today.?? Further??plans??including need for ongoing??hospitalization and perhaps additional??procedure will be determined??by operative findings.?? They understand??and agree.?? Variety of additional??questions??were answered. ? 2.??Personal history of rectal cancer(Personal history of other malignant neoplasm of rectum, rectosigmoid junction, and anus: Z85.048) 3.??Abnormal PET scan, liver(Abnormal findings on diagnostic imaging of liver and biliary tract: R93.2) 4.??Rectal cancer(Malignant neoplasm of rectum: C20) Extracted from: Title:Instructions to Patients Author:Soraya Salazar RN Date:03/09/24 [facility] Medication Leaflets: Accessing??[facility]??Express??Patient??Portal Access medications, test results, radiology reports, and more through [employer] secure patient portal. Please be patient if waiting on lab results, as these can take several days to process. Hiko online at??[email or web address].??Use your community medical record number (CMRN) located below to verify your identity on the Self-Enrollment form.We also offer the ability for you to securely connect other health management apps to your health record. See the [facility] link on the website above for more details. Watch [employer] Patient Education Videos and Access Resources anytime online! Visit [email or web address] [email or web address] Appointment Date:03/23/2024 10:45:00 AM Scheduled Provider:Ranulfo Anguiano MD Location:[facility] Appointment Type:Hospital Follow Up (Established) Appointment Date:04/08/2024 11:30:00 AM Scheduled Provider:Shantel Aldridge NP Location:[facility] Appointment Type:Established Patient Appointment Date:08/17/2024 01:00:00 PM Scheduled Provider:Ranulfo Anguiano MD Location:-[facility] Appointment Type:Established Patient Diagnostic Tests Pending * Fungus Culture 03/10/24 * Mycobacterium Culture 03/10/24 Future Scheduled Tests Radiology* CT Abd Pelvis w wo Contrast 01/07/24 * CT Abd Pelvis w wo Contrast 09/25/23 * CT Chest w Contrast 01/07/24 * IR Chemoembolization 11/25/23 Medications acetaminophen 325 mg oral capsule 650 mg = 2 cap, By mouth, TID, PRN as needed for pain, X 7 Days, # 90 cap, Refill(s) 0, Pharmacy: [facility], [id number], 2 cap By mouth TID,x7 Days,PRN:as needed for pain,105.27, 03/09/24 17:43:00 CDT, kg, Weight (kg) (Cli... Start Date: 03/15/24 Stop Date: 03/22/24 Status: Ordered acetaminophen 325 mg oral tablet 650 mg = 2 tab, By mouth, Q6H, PRN Pain Mild or Temp (2nd Line), Refill(s) 0, TAB Start Date: 05/30/21 Status: Ordered amLODIPine 2.5 mg, By mouth, BID, Refill(s) 0 Start Date: 04/01/22 Status: Ordered aspirin 81 mg oral delayed release tablet 81 mg = 1 tab, By mouth, Daily, stop 1 week prior to procedure, # 30 tab, Refill(s) 0 Start Date: 09/03/20 Status: Ordered ciprofloxacin 750 mg oral tablet 750 mg, = 1 tab, By mouth, Q12H, 3 week, 42 tab, 0, 0, 04/05/24 12:05:00 CDT, Substitution Permitted, [facility], 72, Height (inches) (Clinical), 03/15/24 4:08:00 CDT, in, 105.27, Weight (kg) (Clinical), 03/09/24 17:43:00 CDT, kg Start Date: 03/15/24 Stop Date: 04/05/24 Status: Ordered clindamycin 75 mg oral capsule 150 mg, = 2 cap, By mouth, Q6H, 80 cap, 0, Substitution Permitted Start Date: 03/09/24 Stop Date: 03/19/24 Status: Ordered Colace 100 mg oral capsule 100 mg = 1 cap, By mouth, BID, PRN for constipation, # 20 cap, Refill(s) 0, Pharmacy: [facility], [id number], 1 cap By mouth BID,PRN:for constipation, 109, 10/15/21 17:36:00 [employer], kg, Weight Start Date: 10/17/21 Status: Ordered Crestor 20 mg oral tablet 20 mg, By mouth, at bedtime, # 30 tab, Refill(s) 0 Start Date: 09/03/20 Status: Ordered docusate sodium 50 mg oral capsule 50 mg = 1 cap, By mouth, BID, PRN for constipation, # 60 cap, Refill(s) 0, Pharmacy: [facility], [id number], 1 cap By mouth BID,PRN:for constipation, 109.1, 12/10/23 19:26:00 CDT, kg, Weight (kg) (Clinical) Start Date: 12/11/23 Status: Ordered Eliquis 5 mg oral tablet 5 mg = 1 tab, By mouth, BID, Refill(s) 0 Start Date: 12/11/23 Status: Ordered Flagyl 500 mg oral tablet 500 mg, = 1 tab, By mouth, BID, 21 Days, 42 tab, 0, 0, 04/05/24 12:05:00 CDT, Substitution Permitted, [facility], 72, Height (inches) (Clinical), 03/15/24 4:08:00 CDT, in, 105.27, Weight (kg) (Clinical), 03/09/24 17:43:00 CDT, kg Start Date: 03/15/24 Stop Date: 04/05/24 Status: Ordered glipiZIDE 10 mg oral tablet, extended release 10 mg = 1 tab, By mouth, BID, Refill(s) 0 Start Date: 04/01/22 Status: Ordered Imodium A-D 2 mg oral tablet 2 mg = 1 tab, By mouth, Q4H, PRN for loose stool, prn ileostomy output over 1000 mL daily, # 60 tab, Refill(s) 1, Pharmacy: [facility], [id number], 1 tab By mouth Q4H,PRN:for loose stool,Instr:prn ileostomy output over 1000... Start Date: 03/15/24 Stop Date: 04/01/25 Status: Ordered isosorbide mononitrate 30 mg oral tablet, extended release 30 mg = 1 tab, By mouth, QAM, Refill(s) 0 Start Date: 04/01/22 Status: Ordered linezolid 600 mg oral tablet 600 mg, = 1 tab, By mouth, Q12H, 3 week, 42 tab, 0, 0, 04/05/24 12:05:00 CDT, Substitution Permitted, [facility], 72, Height (inches) (Clinical), 03/15/24 4:08:00 CDT, in, 105.27, Weight (kg) (Clinical), 03/09/24 17:43:00 CDT, kg Start Date: 03/15/24 Stop Date: 04/05/24 Status: Ordered lisinopril 5 mg, By mouth, Daily, Refill(s) 0 Start Date: 04/01/22 Status: Ordered loperamide 2 mg oral capsule 2 mg = 1 cap, By mouth, Q4H, PRN for loose stool, # 60 cap, Refill(s) 0 Start Date: 06/19/21 Status: Ordered loratadine 10 mg oral capsule 10 mg = 1 cap, By mouth, QPM (every evening), PRN Allergies, # 10 cap, Refill(s) 0 Start Date: 09/03/20 Status: Ordered metformin 500 mg oral tablet 500 mg = 1 tab, By mouth, BID, # 30 tab, Refill(s) 0 Start Date: 04/01/22 Status: Ordered Metoprolol Succinate ER 50 mg oral tablet, extended release 50 mg = 1 tab, By mouth, BID, # 30 tab, Refill(s) 0 Start Date: 09/03/20 Status: Ordered Ostomy supplies Ostomy supplies, See Instructions, New Ileostomy- [place] [employer] 2 PC, L&R 2.75 inch Barrier: #[id number] Pouch: #43714 Adapt Barrier ring: #7815 Adapt Stoma Powder: #7906 Barrier Extenders:#[id number] remover wipes:#7790, # 1 pkt, Refills... Start Date: 03/14/24 Status: Ordered Ostomy supplies Ostomy supplies, See Instructions, Pa barrier [id number], pouch [id number]. Adapt ring 7815 [id number], barrier extenders 72510, adhesive remover 7737, # 1 pkt, Refills(s) 99, Print Requisition, Supply Start Date: 05/30/21 Status: Ordered oxyCODONE 10 mg oral tablet 10 mg, = 1 tab, By mouth, Q6H, pain, 0, 0, Substitution Permitted Start Date: 03/09/24 Status: Ordered oxyCODONE 5 mg oral tablet 5 mg, = 1 tab, By mouth, Q6H, PRN Pain Moderate to Severe, 7 Days, 28 tab, 0, 0, 03/22/24 13:38:00 CDT, Substitution Permitted, [facility], 72, Height (inches) (Clinical), 03/15/24 4:08:00 CDT, in, 105.27, Weight (kg) (Clinical), 03/09/24 17:43:00 CD... Start Date: 03/15/24 Stop Date: 03/22/24 Status: Ordered Protonix 40 mg oral delayed release tablet 40 mg = 1 tab, By mouth, BID, Refill(s) 0 Start Date: 05/10/21 Status: Ordered Problem List Condition Confirmation Course Effective Dates Status Health St atus Informant Abnormal PET scan, liver Confirmed Active Personal history of renal cancer Confirmed Resolved S/P closure of ileostomy Confirmed Active Personal history of rectal cancer Confirmed Active Liver lesion Confirmed Active Rectal cancer Confirmed Active Osteomyelitis, pelvis Confirmed Active Procedures Procedure Date Related Diagnosis Body Site Status ANRCT XM SURG REQ ANES GENER AL SPI/EDRL DX 03/12/24 Completed COLONOSCOPY FLX DX W/COLLJ S PEC WHEN PFRMD 03/12/24 Completed LAPAROSCOPY SURG ILEOSTOMY/J EJUNOSTOMY NON-TUBE 03/12/24 Completed ANOSCOPY W/BX SINGLE/MULTIPLE 03/10/24 Completed ANRCT XM SURG REQ ANES GENER AL SPI/EDRL DX 03/10/24 Completed I&D DP SUPRALEVATOR PELVIRCT /RETRORCT ABSC 03/10/24 Completed INCISION & DRAINAGE COMPLEX PO WOUND INFECTION 03/10/24 Completed INCISION & DRAINAGE COMPLEX PO WOUND INFECTION 03/10/24 Completed PLACEMENT SETON 03/10/24 Completed Colonoscopy 1 09/25/22 Completed Ileostomy reversal and hernia repair 09/2021 Completed Robotic Low Anterior Resecti on with Loop Ileostomy- 05/28/2021- Trombold 05/28/21 Completed cardiac stent 2016 Completed 1auto-populated from documented surgical case Results Laboratory List Name Date BMP 03/13/24 H&H 03/13/24 Magnesium Serum (Mg Serum) 03/13/24 TSABS auto 03/12/24 TSType 03/12/24 CMP 03/11/24 Hemogram 03/11/24 BMP 03/09/24 CBC-d 03/09/24 Hgb A1C (Glyc Hgb) 03/09/24 PT/INR 03/09/24 zCBC Automated Diff 03/09/24 Most recent to oldest [Reference Range]: 1 2 3 Type and RH Interp A Positive *Unknown* (03/12/24 9:30 AM) Bedside Glucose 160 mg/dL 1 (03/15/24 7:19 AM) 172 mg/dL 2 (03/14/24 9:41 PM) 156 mg/dL 3 (03/14/24 4:46 PM) [address] Ave[address] Glucose 203 mg/dL *NA* (03/09/24 6:08 PM) Antibody Screen Interp a Negative (03/12/24 9:30 AM) Anion Gap [2-15 mEq/L] 8 mEq/L (03/13/24:17 AM) 6 mEq/L (03/11/24 12:00 AM) 5 mEq/L (03/09/24:08 PM) eGFR CKD-EPI [>=61 mL/min/1.73 m2] 93 mL/min/1.73 m2 (03/13/24:17 AM) 91 mL/min/1.73 m2 (03/11/24 12:00 AM) 88 mL/min/1.73 m2 (03/09/24:08 PM) Glucose, Serum/Plasma [70-10 0 mg/dL] 168 mg/dL *HI* (03/13/24:17 AM) 188 mg/dL *HI* (03/11/24:00 AM) 344 mg/dL *HI* (03/09/24:08 PM) WBC [4.8-10.8 Thous/mm3] 7.8 Thous/mm3 (03/11/24 12:00 AM) 5.5 Thous/mm3 (03/09/2408 PM) Hct [42.0-52.0 %] 30.1 % *LOW* (03/13/24:17 AM) 30.4 % *LOW* (03/11/24 12:00 AM) 31.4 % *LOW* (03/09/24:08 PM) Hgb [14.0-18.0 g/dL] 8.6 g/dL *LOW* (03/13/24:17 AM) 9.1 g/dL *LOW* (03/11/24 12:00 AM) 9.6 g/dL *LOW* (03/09/24:08 PM) RBC [4.60-6.20 Million/mm3] 3.46 Million /mm3 *LOW* (03/11/24 12:00 AM) 3.56 Million/mm3 *LOW* (03/09/24:08 PM) MCV [80.0-100.0 fl] 87.9 fl (03/11/24 12:00 AM) 88.2 fl (03/09/24 6:08 PM) MCH [26.0-34.0 pg] 26.3 pg (03/11/24 12:00 AM) 27.0 pg (03/09/24 6:08 PM) MCHC [31.0-36.5 g/dL] 29.9 g/dL *LOW* (03/11/24 12:00 AM) 30.6 g/dL *LOW* (03/09/24:08 PM) RDW [10.4-14.4 %] 15.8 % *HI* (03/11/24 12:00 AM) 15.6 % *HI* (03/09/24:08 PM) Platelets [130-440 Thous/mm3] 273 Thous/ mm3 (03/11/24 12:00 AM) 275 Thous/mm3 (03/09/24:08 PM) MPV [9.4-12.4 fl] 9.6 fl (03/11/24 12:00 AM) 9.1 fl *LOW* (03/09/24:08 PM) AutoNeutrophil [43.0-78.0 %] 53.7 % (03/09/24:08 PM) AutoLymphs [20.0-40.0 %] 19.2 % *LOW* (03/09/24:08 PM) AutoMono [2.0-10.0 %] 11.9 % *HI* (03/09/24:08 PM) AutoEo [0.0-7.0 %] 10.2 % *HI* (03/09/24:08 PM) Sodium [136-145 mEq/L] 140 mEq/L (03/13/24 12:17 AM) 138 mEq/L (03/11/24 12:00 AM) 139 mEq/L (03/09/24:08 PM) Potassium [3.5-5.1 mEq/L] 4.5 mEq/L (03/13/24 12:17 AM) 4.4 mEq/L (03/11/24 12:00 AM) 5.0 mEq/L (03/09/24:08 PM) Chloride [98-107 mEq/L] 108 mEq/L *HI* (03/13/24 12:17 AM) 107 mEq/L (03/11/24 12:00 AM) 109 mEq/L *HI* (03/09/24:08 PM) AbsNeut [2.0-8.0 Thous/mm3] 2.9 Thous/mm 3 (03/09/24 6:08 PM) CO2 [20-31 mEq/L] 24 mEq/L (03/13/24 12:17 AM) 25 mEq/L (03/11/24 12:00 AM) 25 mEq/L (03/09/24 6:08 PM) BUN [7-18 mg/dL] 9 mg/dL (03/13/24:17 AM) 9 mg/dL (03/11/24 12:00 AM) 19 mg/dL *HI* (03/09/24 6:08 PM) Creatinine [0.73-1.18 mg/dL] 0.80 mg/dL (03/13/24:17 AM) 0.88 mg/dL (03/11/24 12:00 AM) 0.92 mg/dL (03/09/24 6:08 PM) AbsLymph [1.0-4.0 Thous/mm3] 1.0 Thous/m m3 (03/09/24 6:08 PM) AbsMono [0.1-1.0 Thous/mm3] 0.6 Thous/mm 3 (03/09/24 6:08 PM) Bilirubin, Total [0.2-1.0 mg/dL] 0.4 mg/dL (03/11/24 12:00 AM) AbsEo [0.0-0.5 Thous/mm3] 0.6 Thous/mm3 *HI* (03/09/24 6:08 PM) AbsBaso [0.0-0.2 Thous/mm3] 0.1 Thous/mm 3 (03/09/24 6:08 PM) AutoBaso [0.0-2.5 %] 1.5 % (03/09/24 6:08 PM) Calcium [8.3-10.6 mg/dL] 7.9 mg/dL *LOW* (03/13/24 12:17 AM) 8.3 mg/dL (03/11/24 12:00 AM) 8.5 mg/dL (03/09/24 6:08 PM) Protein Total [6.4-8.5 g/dL] 6.1 g/dL *LOW* (03/11/24 12:00 AM) Albumin [3.4-5.0 g/dL] 2.8 g/dL *LOW* (03/11/24 12:00 AM) AST [15-37 U/L] 67 U/L *HI* (03/11/24 12:00 AM) Alk Phos [45-117 U/L] 69 U/L (03/11/24 12:00 AM) Magnesium [1.8-2.4 mg/dL] 1.7 mg/dL *LOW* (03/13/24 12:17 AM) ALT [10-49 U/L] 35 U/L (03/11/24 12:00 AM) PT [9.0-13.5 sec] 10.5 sec (03/09/24 6:08 PM) HgbA1c [4.2-6.4 %] 8.7 % *HI* (03/09/24 6:08 PM) INR [0.80-1.30] 0.99 (03/09/24 6:08 PM) Imm. Grans % [0-5 %] <5 % (03/09/24 6:08 PM) Imm. Grans # [0.0-0.5 Thous/mm3] <0.5 Thous/mm3 (03/09/24 6:08 PM) ANC-AbsNeutCount 3.0 Thous/mm3 *NA* (03/09/24 6:08 PM) 1Result Comment: Notify TRACEY/ Performed at:[address], [address] Reference Ranges: Age 0 - 24 hours: 45 - 115 mg/dL Age 24 hours - 30 days: 55 - 115 mg/dL Age > 30 days: 70 - 100 mg/dL Critical Results Requiring Immediate Notification: Age <72 Hours: <40 or >350 mg/dL Age >72 Hours: <50 or >400 mg/dL 2Result Comment: Notify RN/ Performed at:[address], [address] Reference Ranges: Age 0 - 24 hours: 45 - 115 mg/dL Age 24 hours - 30 days: 55 - 115 mg/dL Age > 30 days: 70 - 100 mg/dL Critical Results Requiring Immediate Notification: Age <72 Hours: <40 or >350 mg/dL Age >72 Hours: <50 or >400 mg/dL 3Result Comment: Notify RN/DR Performed at:[facility] [place], [address] Reference Ranges: Age 0 - 24 hours: 45 - 115 mg/dL Age 24 hours - 30 days: 55 - 115 mg/dL Age > 30 days: 70 - 100 mg/dL Critical Results Requiring Immediate Notification: Age <72 Hours: <40 or >350 mg/dL Age >72 Hours: <50 or >400 mg/dL Orders for Microbiology Reports Name Date Acid-Fast Stain (Acid-Fast Stain) 03/10/24 Anaerobic Culture (C Anaerobic) 03/10/24 Tissue Culture (C Tissue) 03/10/24 Microbiology Reports TEST:Acid-Fast Stain STATUS:Auth (Verified) BODY SITE:Rectum SOURCE:Tissue COLLECTED DATE/TIME:03/10/24 9:47 AM FINAL REPORT No Acid Fast Bacilli observed TEST:Anaerobic Culture1 STATUS:Auth (Verified) BODY SITE:Rectum SOURCE:Tissue COLLECTED DATE/TIME:03/10/24 9:47 AM FINAL REPORT No anaerobic organisms isolated TEST:Tissue Culture STATUS:Auth (Verified) BODY SITE:Rectum SOURCE:Tissue COLLECTED DATE/TIME:03/10/24 9:47 AM FINAL REPORT Very Scant Growth Carbon dioxide dependent Streptococcus viridans Very Scant Growth Lactobacillus species Very Scant Growth Group D streptococcus enteric gram negative rods isolated from broth culture only STAIN REPORT Scant amount white blood cells No bacteria seen INTERPRETIVE DATA 1Enhanced identification of organisms in anaerobic cultures due to new testing methodology Vital Signs Most recent to oldest [Reference Range]: 1 2 3 Blood Pressure 152/70mmHg (03/15/24 10:53 AM) 155/78mmHg (03/15/24 7:19 AM) 130/68mmHg (03/15/24 3:29 AM) Height (inches) (Clinical) 72 in (03/15/24 2:00 AM) 72 in (03/14/24 2:00 PM) 72 in (03/14/24 2:00 AM) Weight (kg) (Clinical) 105.27 kg (03/09/24 5:43 PM) BMI (Clinical) 31.4 kg/m2 (03/09/24 5:43 PM) Social History Social History Type Response Smoking Status Never smoker; Smokel ess tobacco use: Never; Has the patient smoked in the last 365 days, even once? No entered on: 09/25/23 Sex Male Hospital Discharge Instructions Patient Education 03/15/2024 11:41:36 Incision and Drainage, Care After Incision and Drainage, Care After After incision and drainage, it is common to have: ??? Pain or discomfort around the incision site. ??? Blood, fluid, or pus (drainage) from the incision. ??? Redness and firm skin around the incision site. Follow these instructions at home: Medicines ??? Take wnsz-[id number] and prescription medicines only as told by your health care provider. ??? If you were prescribed antibiotics, take them as told by your provider. Do not stop using the antibiotic even if you start to feel better. ??? Do not apply creams, ointments, or liquids unless you have been told to by your provider. Wound care Follow instructions from your provider about how to take care of your wound. Make sure you: ??? Wash your hands with soap and water for at least 20 seconds before and after you change your bandage (dressing). If soap and water are not available, use hand metal miner blasting. ??? Change your dressing and any packing as told by your provider. ??? If the dressing is dry or stuck when you try to remove it, moisten or wet it with saline or water. This will help you remove it without harming your skin or tissues. ??? If your wound is packed, leave it in place until your provider tells you to remove it. To remove it, moisten or wet the packing with saline or water. ??? Leave stitches (sutures), skin glue, or tape strips in place. These skin closures may need to stay in place for 2 weeks or longer. If tape strip edges start to loosen and curl up, you may trim the loose edges. Do not remove tape strips completely unless your provider tells you to do that. Check your wound every day for signs of infection. Check for: ??? More redness, swelling, or pain. ??? More fluid or blood. ??? Warmth. ??? Pus or a bad smell. If you were sent home with a drain tube in place, follow instructions from your provider about: ??? How to empty it. ??? How to care for it at home. Be careful when you get rid of used dressings, wound packing, or drainage. Activity ??? Rest the affected area. ??? Return to your normal activities as told by your provider. Ask your provider what activities are safe for you. General instructions ??? Do not use any products that contain nicotine or tobacco. These products include cigarettes, chewing tobacco, and vaping devices, such as e-cigarettes. These can delay incision healing after surgery. If you need help quitting, ask your provider. ??? Do not take baths, swim, or use a hot tub until your provider approves. Ask your provider if you may take showers. You may only be allowed to take sponge baths. ??? The incision will keep draining. It is normal to have some clear or slightly bloody drainage. The amount of drainage should go down each day. ??? Keep all follow-up visits. Your provider will need to make sure that your incision is healing well and that there are no problems. Your health care provider may give you more instructions. Make sure you know what you can and cannot do Contact a health care provider if: ??? Your cyst or abscess comes back. ??? You have any signs of infection. ??? You notice red streaks that spread away from the incision site. ??? You have a fever or chills. Get help right away if: ??? You have severe pain or bleeding. ??? You become short of breath. ??? You have chest pain. ??? You have signs of a severe infection. You may notice changes in your incision area, such as: ??? Swelling that makes the skin feel hard. ??? Numbness or tingling. ??? Sudden increase in redness. Your skin color may change from red to purple, and then to dark spots. ??? Blisters, ulcers, or splitting of the skin. These symptoms may be an emergency. Get help right away. Call 911. ??? Do not wait to see if the symptoms will go away. ??? Do not drive yourself to the hospital. This information is not intended to replace advice given to you by your health care provider. Make sure you discuss any questions you have with your health care provider. Document Revised: 04/13/2023 Document Reviewed: 04/13/2023 [employer] Patient Education ?? 2023 [employer] 03/15/2024 11:41:30 Osteomyelitis, Adult Osteomyelitis, Adult Bone infections, also called osteomyelitis,occur when bacteria or other germs get inside a bone. This can happen if you have an infection in another part of your body that spreads through your blood.It can also happen if you have a wound or a broken bone (fracture) that breaks the skin. A wound ora fracture can allow germs from your skin or from outside of your body to spread to your bone. Bone infections need to be treated quickly to: ??? Prevent bone damage. ??? Prevent the infection from spreading to other areas of your body. What are the causes? Most bone infections are caused by bacteria. The most common bacteria is one found on the skin (staphylococcus). Bone infections can also be caused by other germs, such as viruses and funguses. What increases the risk? You are more likely to develop this condition if: ??? You recently had surgery, especially bone or joint surgery. ??? You have had an injury, such as stepping on a nail or having a fracture that exposes bones through the skin. ??? You have a long-term (chronic) disease, such as: ??? Diabetes. ??? HIV (human immunodeficiency virus). ??? Rheumatoid arthritis. ??? Sickle cell anemia. ??? Kidney disease that requires dialysis. ??? You have a condition that affects your body's defense system (immune system) or you take medicines that block or weaken the immune system. ??? You have a condition that reduces your blood flow. ??? You have an artificial joint. ??? You have had a joint or bone repaired with plates or screws. ??? You use IV drugs. What are the signs or symptoms? Symptoms vary depending on the type and location of your infection. Common symptoms of bone infections include: ??? Fever and chills. ??? Skin redness and warmth. ??? Swelling. ??? Pain and stiffness. ??? Drainage of fluid or pus near the infection. How is this diagnosed? This condition may be diagnosed based on: ??? Your symptoms and medical history. ??? A physical exam. ??? Tests, such as: ??? A sample of tissue, fluid, or blood taken to be examined under a microscope. ??? Pus or discharge swabbed from a wound for testing. This is to identify the type of germs and todetermine what type of medicine will kill them. ??? Blood tests. ??? Imaging studies, including X-rays, MRI, CT scan, bone scan, or ultrasound. How is this treated? Treatment for this condition depends on the cause and type of infection. Antibiotic medicines are usually the first treatment for a bone infection. This may be done in a hospital at first. You may have to continue IV antibiotics at home or take antibiotics by mouth for several weeks after that. Other treatments may include surgery to: ??? Remove or dying tissue from a bone. ??? Remove an infected artificial joint. ??? Remove infected plates or screws that were used to repair a broken bone. Follow these instructions at home: Medicines ??? Take ddmv-ffz-kaxuvuk and prescription medicines as told by your health care provider. Finish all antibiotic medicine even if you start to feel better. ??? Follow instructions from your health care provider about how to take IV antibiotics at home. You may need to have a nurse come to your home to give you the IV antibiotics. Managing pain, stiffness, and swelling If directed, put ice on the affected area. To do this: ??? Put ice in a plastic bag. ??? Place a towel between your skin and the bag. ??? Leave the ice on for 20 minutes, 2???3 times a day. General instructions ??? Ask your health care provider if you have any restrictions on your activities. ??? Do not use any products that contain nicotine or tobacco, such as cigarettes, e-cigarettes, andchewing tobacco. If you need help quitting, ask your health care provider. ??? Keep all follow-up visits as told by your health care provider. This is important. How is this prevented? Wash your hands often to stop the spread of germs. Wash your hands for at least 20 seconds withsoap and water. If soap and water are not available, use hand metal miner blasting. ??? Keep any open areas, cuts, or wounds clean. Apply a clean bandage after cleaning the area. ??? Check wounds frequently for signs of infections. Signs of infection include redness, swelling, warmth, pus, or a bad smell. ??? Wear proper footwear to avoid injuries to the feet. Contact a health care provider if: ??? You develop a fever or chills. ??? You have redness, warmth, pain, or swelling that returns after treatment. Get help right away if: ??? You have rapid breathing or you have trouble breathing. ??? You have chest pain. ??? You cannot drink fluids or make urine. ??? The affected area swells, changes color, or turns blue. ??? You have numbness or severe pain in the affected area. These symptoms may represent a serious problem that is an emergency. Do not wait to see if the symptoms will go away. Get medical help right away. Call your local emergency services (911 in the [place] Do not drive yourself to the hospital. Summary ??? Bone infections, also called osteomyelitis,occur when bacteria or other germs get inside a bone. ??? You are more likely to get this type of infection if you have a condition that lowers your ability to fight infections. You are also likely to get this condition if you take medicines that block or weaken the immune system. ??? Most bone infections are caused by bacteria. They can also be caused by other germs, such as viruses and funguses. ??? Treatment for this condition usually starts with taking antibiotics. Further treatment depends on the cause and type of infection. This information is not intended to replace advice given to you by your health care provider. Make sure you discuss any questions you have with your health care provider. Document Revised: 11/08/2020 Document Reviewed: 11/08/2020 [employer] Patient Education ?? 2023 [employer]. 03/14/2024 12:12:02 New Ileostomy Guide 2023 (Custom) New Ileostomy Guide Your Ostomy Resource Team Your Surgeon: _Dr Ranulfo Anguiano_ Surgeon???s Office: _[phone]___ Colorectal Office Ostomy Nurse: [phone] [facility] Ostomy Nurse: [phone] [facility] Nutrition: [phone] [facility] Ost[facility] Family Support Group: Contact a Volunteer Maria Luisa Anthony [phone] or Anjum De La Rosa [phone] What is an ileostomy? An ileostomy empties stool that comes from the bowel What will my stool look like? After surgery it will be watery, yellow/green stool. Over time, the stool will thicken and become more paste-like. Emptying Your Pouch ?Your pouch should be emptied when it is ??? to ?? full ?Hold the pouch up and unclamp or un-Velcro the closed end while standing over the measuring cup given to you. ?Slowly empty contents into the measuring cup. ?Dry the bottom of the pouch & close the pouch ?Rinsing the inside of the pouch is not needed. How often should I change my pouch? The pouching system wear time is between 3-7 days. ??? If the pouch is leaking you will need to change it to prevent the skin around your stoma from becoming irritated Ostomy Care Supplies ??? You should always have 3 pouching systems available. ??? Supplies are ordered from a medical supply store/distributor. ??? If you go home with Home Health Care Services, your Home Health Nurse can assist you in ordering your supplies. Bathing or Showering ?Water will not enter your stoma???think of it as a one-way pipe. ?Avoid bath oils and moisturizing soaps as this may prevent the pouching system from sticking to your skin ?You may bathe with your pouch on or off, be sure to towel dry the tape and skin around the pouching system afterward. Discharge from the Rectum Depending on your surgery, you may have left over stool, mucous or blood that passes from your rectum; this is normal. If you see a large amount of blood, please contact your surgeon. Adjusting to Life with an Ileostomy Each person???s adjustment to living with an ostomy is different. Allow yourself time to recover from surgery and not need help to take care of yourself. At first, you may feel scared or sad; there are no right or wrong feelings and most often people do feel better with time. This will happen as you feel better from surgery and get used to how your ostomy looks and how you care for it. You are not alone; thousands of people every year have ostomy surgery. You may want to talk to a family member, friend, professional counselor, or attend an ostomy support group in your area. Nutrition Tips to Prevent Complications ?Sip on liquids all day long to prevent dehydration. ?Each time you empty your ostomy, try drinking a cup of fluid. ?Avoid high fiber foods for the first 4-6 weeks after surgery. ?Low fiber foods will be more easily digested and may reduce your risk for developing a blockage or obstruction. ?Chew your food well. This will help prevent a blockage. ?Try eating 3 meals and 2-3 snacks to get enough calories to heal and prevent weight loss. ?Eat a source of protein at each meal and snack like meat, cheese, eggs, or yogurt. ?A chewable multivitamin supplement may be recommended. ?Foods like cauliflower, asparagus, fish, Brussel sprouts, cheeses, beans, broccoli, onions, cabbage and spicy foods may cause stool to have a strong odor. ?Eating foods with probiotics like yogurt each day may help to decrease odor. ?Avoid gas-causing foods like beans, broccoli, cauliflower, Brussel sprouts, onions & cabbage. ?Space your meals out every few hours during the day to help decrease gas. Signs of Blockage or Obstruction ???Intense cramping ???Stoma/stomach swelling or pain ???Nausea ???Vomiting ???No stoma output ???Increase in watery output from your stoma When Should You Call Your Doctor?Temperature over 101.0? Decrease in urine output ?Increase in nausea or vomiting ???Decrease in appetite ???Ostomy output over 1000mL in 24 hours after taking Imodium Skin Irritation It is important to keep the skin around your stoma healthy. The stool from your ostomy contains enzymes that can irritate your skin. ?Measure your stoma often to ensure the skin barrier opening fits close, but not on your stoma. ?Change the pouching system regularly, generally every 4-5 days. Do not wait until it leaks. ?If leaks do occur, change the pouching system. Do not attempt to patch with tape. Skin barrier is cut too large leaving too much skin exposed Skin barrier is cut to fit close but not on the stoma Additional Support & Resources ??? Wound, Ostomy, Continence Nurses Society www.wocn.org ? ? Crohn? s & Colitis Foundation of [place] www.ccfa.org ??? Cancer Care, [facility] www.ccfa.org ??? [employer] Ostomy Associations of [place] www.uoaa.org Recommended Liquids to Keep Hydrated ??? Water ??? Flavored Water ??? Gatorade ??? Pediatric Electrolyte Solution ??? Ensure High Protein Preventing Dehydration: Leading Cause of Complications with a New Ileostomy Signs and Symptoms of Dehydration ??? Dry Mouth ??? Increased Thirst ??? Low Urine Output ??? Feeling Tired ??? Nausea ??? Decreased Appetite Common Causes of Diarrhea & How Your Diet Can Help ??The thickness or thinness of your ostomy output depends on where your stoma is. Some foods may cause your output to be more liquid which could lead to dehydration. ??Foods & Drinks That Thin Output Juice High Fiber Food Large Meals Hot Drinks Chocolate Spicy foods Soup Licorice Coffee Don???t drink more than 4 ounces of liquids with added sugars like juice, lemonade and sweet tea per day ??Foods That Help Thicken Output Applesauce White Rice Bananas Peanut Butter Yogurt Pasta Marshmallows Cheese Bread Take qgds-cec-ncuqgwq Imodium (loperamide) every 4-6 hours if your ostomy output is more than 1000 milliliters in 24 hours. Tips for Preventing Dehydration ??? Track your ostomy output everyday on the paper that is given to you. ??? Drink at least 8-10 cups (64-80 ounces) of liquid each day, with half being something other than water. Talk to your doctor if you have been told to eat a low sodium or low potassium diet. ? ? Avoid alcohol, soda & fizzy drinks. ??? Limit caffeine to one cup (8oz) per day - try decaf teas and coffees. If you have more than 1000 milliliters of output from your ostomy in 24 hours after taking Imodium (loperamide) as told: ??? Call your surgeon???s office ??? Measure ostomy output and drink more liquids ??? Drink Gatorade, Pediatric Electrolyte Solution or an oral rehydration solution. ??? Do not take more than 8 doses in 24 hours. Oral Rehydration Solution Recipes Mix all ingredients and chill *Do not add ice, this bowling it down Recipe 1 ?? 1 cup unsweet, no pulp orange juice ?? 1/2 teaspoon baking soda ?? 8 teaspoons sugar ?? 4 1/2 cups water Recipe 2 ?? 3/4 teaspoon salt ?? 1 tablespoon sugar ?? 1 teaspoon sugar ?? 16 ounces Sprite Zero ?? 1 envelope sugar free drink mix Recipe 3 ?? 1 cup apple juice ?? 3 cups water ?? 1/2 teaspoon salt Recipe 4 ?? 2 cups Gatorade ?? 2 cups water ?? 1/2 teaspoon salt Nutrition Guidelines for Patients with a New Ileostomy Foods for the First 4-6 Weeks after Surgery Group Recommended Foods Foods to Avoid Fruits Canned or Cooked fruits: fruit cocktail Applesauce, ripe bananas, honeydew & cantaloupe Raw or Canned fruits with seeds like: strawberries, blackberries or raspberries; dried fruit & coconut Vegetables Canned or Well-Cooked vegetables without seeds/skin. Cooked white or sweet potatoes, without skin Vegetable juice Raw vegetables or those with skin/seeds like: tomatoes, squash, or cucumbers. Breads, Cereals & Grains White rolls, muffins, biscuits, breads, crackers, waffles, pancakes, plain pastries, white rice & pastas. Refined cooked cereals: grits & cream of wheat. Refined cold cereals: Rice Krispies, puffed rice & wheat Canned or raw peas, corn or popcorn. Desserts Plain cakes and cookies, baked pastries Pies or jelly made with recommended fruits. Plain sherbet, fruit ice, frozen pops, yogurt, gelatin,custard Plain hard candy, and marshmallows Gas-causing raw or cooked vegetables like beans, broccoli, cauliflower, Fowler sprouts, onions & cabbage Meats & Proteins Soft cooked chicken, beef, turkey, fish, pork, ground meats. Eggs & cheese; Smooth nut butters Whole-grain, bran, or rye breads Dairy Milk, cheese, cottage cheese, yogurt Try lactose free milk if you can???t tolerate regular milk Whole grain crackers or cereals After 4-6 weeks, foods from the avoid list may be added back into your diet in small amounts, one new food at a time and increase slowly as tolerated. September 2023 Follow Up Care 03/09/2024 13:00:36 With:Ranulfo Anguiano Address: [address] [place] [address] [facility] (1) When:03/23/2024 10:45:00 With:Ranulfo Anguiano Address: [address] [place] [address]- [facility] (1) When:03/23/2024 With:[facility] Address:Unknown When:3 to 5 days Comments:[facility] is going to be your home healthcare provider. If you have questions or concerns you can reach them at . draftsperson please fax discharge summary to [phone]. Thank you! Progress note * Cesar LARSON, Sanchez MS: PERFORM Event Display: Progress Notes Authored Date: [id number] ID Follow Up Hospital Course 03/09- admit from office??for further??coccygeal??osteomyelitis workup and treatment Subjective No acute events overnight. Reports feeling a lot better today. ?? Tissue cultures from OR 03/10- revealed Co2 dependent viridans strep, Group D strep, lactobacillus, GNR ?? Antibiotics: Ciprofloxacin Flagyl Objective Vitals & Measurements ??Vital Signs (last 24 hrs)?Last Charted?Minimum?Maximum?Temp?98.6 (MAR 15 10:53)?97.9 (MAR 14:25)?98.8 (MAR 14 19:04)?Heart Rate?76 (MAR 15 10:53)?70 (MAR 15 03:29)?84 (MAR 14:25)?Resp Rate?16 (MAR 15 10:53)?16 (MAR 14 19:04)?19 (MAR 15 07:19)?SBP?152 (MAR 15 10:53)?123 (MAR 14 19:04)?157 (MAR 14 15:58)?DBP?70 (MAR 15:53)?66 (MAR 14:04)?79 (MAR 14 15:58)?SpO2?95 (MAR 15:53)?93 (MAR 14:04)?96 (MAR 14:)?O2?Room a (MAR 15 10:53)?Room a (MAR 14 15:58)?Room a (MAR 14:58)?? Physical Exam Alert and comfortable. No acute distress. Breathing is unlabored. 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 73-year-old gentleman??with a past??medical history??of??metastatic rectal cancer, history??of recent??chemoembolization of liver metastases, history??of sacral??osteomyelitis/abscess status post 6 weeks??of IV antibiotics??and presents with??concerns??of??ongoing??lower??back pain??and recent??MRI with??persistent changes of??coccygeal osteomyelitis; underwent??operative examination??on 03/10and evidence of??pelvic abscess??and fistula??formation status post seton??placement??and laproscopic ileostomy 03/12/24. ?? Reviewed operative cultures with polymicrobial growth of streptococcus, Group D streptococcus, lactobacillus, enteric GNR ?? I think combination of oral highly bioavailable antibiotics will be reasonable and this is also this patient's preference. ?? Would do Ciprofloxacin 750 mg BID, Metronidazole 500 mg BID and Linezolid 600 mg BID; anticipate 6 week course Discussed side effects Follow up in 2-weeks, around 03/28/2024 in ID clinic ?? Will sign off. Call if any questions/concerns. Prescription sent to preferred pharmacy Other Medications Medications (15) Active Scheduled: (15) aaMAR Note ??No Rectal Meds, UNSPECIFIED, Unscheduled acetaminophen 325 mg TAB ??650 mg 2 tab, PO/per tube, Q6H aspirin 81 mg EC TAB ??81 mg 1 tab, By mouth, Daily ciprofloxacin 750 mg TAB ??750 mg 1 tab, By mouth, Q12H docusate sod 100 mg CAP ??100 mg 1 cap, PO/per tube, BID enoxaparin 40 mg/0.4 mL SYR ??40 mg 0.4 mL, SubQ, Daily insulin lispro (HumaLOG) 100 units/mL 3 mL PEN ??High dose scale, SUBQ, ACHS (before meals and at bedtime) isosorbide MONONITRATE 30 mg ER TAB ??30 mg 1 tab, By mouth, QAM linezolid 600 mg TAB ??600 mg 1 tab, By mouth, Q12H melatonin 3 mg TAB ??3 mg 1 tab, By mouth, at bedtime metoprolol SUCCINATE ??ER 50 mg TAB ??50 mg 1 tab, By mouth, BID metroNIDAZOLE 500 mg TAB ??500 mg 1 tab, By mouth, Q8H pantoprazole 40 mg TAB ??40 mg 1 tab, By mouth, BID rosuvastatin ??20 mg TAB ??20 mg 1 tab, By mouth, at bedtime sodium chloride 0.9% INJ SYR 5 mL ??5 mL, IVP, Q12H Continuous: (0) Lab Results Labs??(Last two charted values on this encounter) WBC 7.8 ??(MAR 11) 5.5 ??(MAR 09) Hgb 8.6 ??(MAR 13) 9.1 ??(MAR 11) Hct 30.1 ??(MAR 13) 30.4 ??(MAR 11) Platelets 273 ??(MAR 11) 275 ??(MAR 09) Na 140 ??(MAR 13) 138 ??(MAR 11) K 4.5 ??(MAR 13) 4.4 ??(MAR 11) Cl 108 ??(MAR 13) 107 ??(MAR 11) CO2 24 ??(MAR 13) 25 ??(MAR 11) BUN 9 ??(MAR 13) 9 ??(MAR 11) Cr 0.80 ??(MAR 13) 0.88 ??(MAR 11) ProteinT ?6.1 ??(MAR 11) ?? Albumin ?2.8 ??(MAR 11) ?? Bilirubin ,Total ??0.4 ??(MAR 11) ?? Alk Phos ?69 ??(MAR 11) ?? ALT ?35 ??(MAR 11) ?? AST ?67 ??(MAR 11) ?? Mag ?1.7 ??(MAR 13) ?? PT ?10.5 ??(MAR 09) ?? INR ?0.99 ??(MAR 09) ?? Bedside Glucose 160 ??(MAR 15) 172 ??(MAR 14) Glucose,Plasma 168 ??(MAR 13) 188 ??(MAR 11) Electronically signed by:Cesar LARSON, Sanchez MS 03/15/24 12:28 * Darlin GONZALEZ, Malia Rodriguez: PERFORM Event Display: Progress Notes Authored Date: [id number] Hospital Course 03/09- admit from office??for further??coccygeal??osteomyelitis workup and treatment Subjective Tolerating diet 100 ileostomy this morning, bag full during exam Pain controlled Objective Vitals & Measurements ??Vital Signs (last 24 hrs)?Last Charted?Minimum?Maximum?Temp?98.6 (MAR 15 10:53)?97.9 (MAR 14 23:25)?98.8 (MAR 14 19:04)?Heart Rate?76 (MAR 15 10:53)?70 (MAR 15 03:29)?84 (MAR 14 23:25)?Resp Rate?16 (MAR 15 10:53)?16 (MAR 14 19:04)?19 (MAR 15 07:19)?SBP?152 (MAR 15 10:53)?123 (MAR 14 19:04)?157 (MAR 14 15:58)?DBP?70 (MAR 15 10:53)?66 (MAR 14 19:04)?79 (MAR 14 15:58)?SpO2?95 (MAR 15 10:53)?93 (MAR 14 19:04)?96 (MAR 14 23:25)?O2?Room a (MAR 15 10:53)?Room a (MAR 14 15:58)?Room a (MAR 14 15:58)?? Physical Exam Abd soft Healthy ileostomy, output noted Incisions fine Assessment/Plan 1.??Osteomyelitis, pelvis(Osteomyelitis, unspecified: M86.9) Home later today ID to assist with ongoing antibiotics, appreciate their assistance Discussed ileostomy cares, they understand Need to see back in the office on 03/28 Ordered: [facility] Post Operative Care [id number] ?? 2.??Personal history of rectal cancer(Personal history of other malignant neoplasm of rectum, rectosigmoid junction, and anus: Z85.048) ?? 3.??Abnormal PET scan, liver(Abnormal findings on diagnostic imaging of liver and biliary tract: R93.2) ?? 4.??Rectal cancer(Malignant neoplasm of rectum: C20) ?? 5.??Abscess(Cutaneous abscess, unspecified: L02.91) ?? 6.??Osteomyelitis of coccyx(Osteomyelitis, unspecified: M86.9) ?? 7.??Polymicrobial bacterial infection(Bacterial infection, unspecified: A49.9) ?? Pelvic abscess in male(Peritoneal abscess: K65.1) ?? Orders: acetaminophen, 650 mg = 2 cap, By mouth, TID, PRN as needed for pain, X 7 Days, # 90 cap, Refill(s)0, Pharmacy: [facility], [id number], 2 cap By mouth TID,x7 Days,PRN:as needed for pain, 105.27, 03/09/24 17:43:00 CDT, kg, Weight (kg) (Cli... loperamide, 2 mg = 1 tab, By mouth, Q4H, PRN for loose stool, prn ileostomy output over 1000 mL daily, # 60 tab, Refill(s) 1, Pharmacy: [facility], [id number], 1 tab By mouth Q4H,PRN:for loose stool,Instr:prn ileostomy output over 1000... Contact Physician After Discharge Discharge, when feeling well mid day Discharge Activity Discharge Bathing/Showering Instructions, remove any dressings prior to shower, pat dry and replacenew dressing; if dermabond inplace- OK to get wet- no additional dressing needed Discharge Diet, low fiber diet Discharge Driving Restrictions Discharge Follow Up, thursday Discharge Instructions - Additional, Imodium as needed for ileostomy output over 1000 mL daily Discharge Work/School/Daycare Restrictions Initiate Plan, Discharge Inpatient/OBS Sexual Activity Wound or Incision Care at Discharge, Perineal drain care with peribottle and dry gauze changes as often as needed to keep skin dry; sitz baths as needed Other Medications Medications (15) Active Scheduled: (15) aaMAR Note ??No Rectal Meds, UNSPECIFIED, Unscheduled acetaminophen 325 mg TAB ??650 mg 2 tab, PO/per tube, Q6H aspirin 81 mg EC TAB ??81 mg 1 tab, By mouth, Daily ciprofloxacin 750 mg TAB ??750 mg 1 tab, By mouth, Q12H docusate sod 100 mg CAP ??100 mg 1 cap, PO/per tube, BID enoxaparin 40 mg/0.4 mL SYR ??40 mg 0.4 mL, SubQ, Daily insulin lispro (HumaLOG) 100 units/mL 3 mL PEN ??High dose scale, SUBQ, ACHS (before meals and at bedtime) isosorbide MONONITRATE 30 mg ER TAB ??30 mg 1 tab, By mouth, QAM linezolid 600 mg TAB ??600 mg 1 tab, By mouth, Q12H melatonin 3 mg TAB ??3 mg 1 tab, By mouth, at bedtime metoprolol SUCCINATE ??ER 50 mg TAB ??50 mg 1 tab, By mouth, BID metroNIDAZOLE 500 mg TAB ??500 mg 1 tab, By mouth, Q8H pantoprazole 40 mg TAB ??40 mg 1 tab, By mouth, BID rosuvastatin ??20 mg TAB ??20 mg 1 tab, By mouth, at bedtime sodium chloride 0.9% INJ SYR 5 mL ??5 mL, IVP, Q12H Continuous: (0) Lab Results Labs??(Last two charted values on this encounter) WBC 7.8 ??(MAR 11) 5.5 ??(MAR 09) Hgb 8.6 ??(MAR 13) 9.1 ??(MAR 11) Hct 30.1 ??(MAR 13) 30.4 ??(MAR 11) Platelets 273 ??(MAR 11) 275 ??(MAR 09) Na 140 ??(MAR 13) 138 ??(MAR 11) K 4.5 ??(MAR 13) 4.4 ??(MAR 11) Cl 108 ??(MAR 13) 107 ??(MAR 11) CO2 24 ??(MAR 13) 25 ??(MAR 11) BUN 9 ??(MAR 13) 9 ??(MAR 11) Cr 0.80 ??(MAR 13) 0.88 ??(MAR 11) ProteinT ?6.1 ??(MAR 11) ?? Albumin ?2.8 ??(MAR 11) ?? Bilirubin ,Total ??0.4 ??(MAR 11) ?? Alk Phos ?69 ??(MAR 11) ?? ALT ?35 ??(MAR 11) ?? AST ?67 ??(MAR 11) ?? Mag ?1.7 ??(MAR 13) ?? PT ?10.5 ??(MAR 09) ?? INR ?0.99 ??(MAR 09) ?? Bedside Glucose 160 ??(MAR 15) 172 ??(MAR 14) Glucose,Plasma 168 ??(MAR 13) 188 ??(MAR 11) Electronically signed by:Malia Lew 03/15/24 13:35 * Ranulof Anguiano MD: PERFORM Event Display: Progress Notes Authored Date: [id number] I have reviewed the patient's subjective and objective data and discussed with Malia Saeed NP. ??We collaborated to create the above mentioned assessment and plan. Electronically signed by:Ranulfo Anguiano MD 03/15/24 23:16 * Ranulfo Anguiano MD: PERFORM, MODIFY Event Display: Progress Notes Authored Date: [id number] Hospital Course 03/09- admit from office??for further??coccygeal??osteomyelitis workup and treatment Subjective Feeling??great, tolerating??full??liquid??diet. ?? + ileostomy output? Objective Vitals & Measurements ??Vital Signs (last 24 hrs)?Last Charted?Minimum?Maximum?Temp?98.6 (MAR 14:13)?97.6 (MAR 13 23:26)?99 (MAR 13 18:58)?Heart Rate?62 (MAR 14 07:58)?62 (MAR 14:13)?87 (MAR 13 11:37)?Resp Rate?16 (MAR 14:13)?14 (MAR 13 15:55)?17 (MAR 14 03:08)?SBP?123 (MAR 14:13)?123 (MAR 13 18:58)?153 (MAR 13 11:37)?DBP?72 (MAR 14:13)?61 (MAR 13 18:58)?75 (MAR 13 11:37)?SpO2?96 (MAR 14:13)?93 (MAR 13:37)?96 (MAR 13 15:55)?O2?Room a (MAR 14:13)?Room a (MAR 13:37)?Room a (MAR 13:37)?? Physical Exam Abdomen soft, ileostomy??healthy Perineal wound??without new inflammation, quite??healthy.?? No perineal soiling Seton intact? Assessment/Plan 1.??Osteomyelitis, pelvis(Osteomyelitis, unspecified: M86.9) Doing??well Regular??diet If all well, anticipate??DC tomorrow. ? 2.??Personal history of rectal cancer(Personal history of other malignant neoplasm of rectum, rectosigmoid junction, and anus: Z85.048) 3.??Abnormal PET scan, liver(Abnormal findings on diagnostic imaging of liver and biliary tract: R93.2) 4.??Rectal cancer(Malignant neoplasm of rectum: C20) 5.??Abscess(Cutaneous abscess, unspecified: L02.91) 6.??Osteomyelitis of coccyx(Osteomyelitis, unspecified: M86.9) 7.??Polymicrobial bacterial infection(Bacterial infection, unspecified: A49.9) Pelvic abscess in male(Peritoneal abscess: K65.1) Other Medications Medications (16) Active Scheduled: (14) aaMAR Note ??No Rectal Meds, UNSPECIFIED, Unscheduled acetaminophen 325 mg TAB ??650 mg 2 tab, PO/per tube, Q6H aspirin 81 mg EC TAB ??81 mg 1 tab, By mouth, Daily ciprofloxacin 750 mg TAB ??750 mg 1 tab, By mouth, Q12H docusate sod 100 mg CAP ??100 mg 1 cap, PO/per tube, BID enoxaparin 40 mg/0.4 mL SYR ??40 mg 0.4 mL, SubQ, Daily insulin lispro (HumaLOG) 100 units/mL 3 mL PEN ??High dose scale, SUBQ, ACHS (before meals and at bedtime) isosorbide MONONITRATE 30 mg ER TAB ??30 mg 1 tab, By mouth, QAM melatonin 3 mg TAB ??3 mg 1 tab, By mouth, at bedtime metoprolol SUCCINATE ??ER 50 mg TAB ??50 mg 1 tab, By mouth, BID metroNIDAZOLE 500 mg TAB ??500 mg 1 tab, By mouth, Q8H pantoprazole 40 mg TAB ??40 mg 1 tab, By mouth, BID rosuvastatin ??20 mg TAB ??20 mg 1 tab, By mouth, at bedtime sodium chloride 0.9% INJ SYR 5 mL ??5 mL, IVP, Q12H Continuous: (2) IVF Lactated Ringers 1000ml 1,000 mL ??1,000 mL, IV, 50 ml/hr IVF sodium chloride 0.9% IVPB 1000 mL 1,000 mL ??1,000 mL, IV, 30 ml/hr Lab Results Labs??(Last two charted values on this encounter) WBC 7.8 ??(MAR 11) 5.5 ??(MAR 09) Hgb 8.6 ??(MAR 13) 9.1 ??(MAR 11) Hct 30.1 ??(MAR 13) 30.4 ??(MAR 11) Platelets 273 ??(MAR 11) 275 ??(MAR 09) Na 140 ??(MAR 13) 138 ??(MAR 11) K 4.5 ??(MAR 13) 4.4 ??(MAR 11) Cl 108 ??(MAR 13) 107 ??(MAR 11) CO2 24 ??(MAR 13) 25 ??(MAR 11) BUN 9 ??(MAR 13) 9 ??(MAR 11) Cr 0.80 ??(MAR 13) 0.88 ??(MAR 11) ProteinT ?6.1 ??(MAR 11) ?? Albumin ?2.8 ??(MAR 11) ?? Bilirubin ,Total ??0.4 ??(MAR 11) ?? Alk Phos ?69 ??(MAR 11) ?? ALT ?35 ??(MAR 11) ?? AST ?67 ??(MAR 11) ?? Mag ?1.7 ??(MAR 13) ?? PT ?10.5 ??(MAR 09) ?? INR ?0.99 ??(MAR 09) ?? Bedside Glucose 165 ??(MAR 14) 175 ??(MAR 13) Glucose,Plasma 168 ??(MAR 13) 188 ??(MAR 11) Electronically signed by:Ranulfo Anguiano MD 03/14/24 13:00 Consult note * Cesar LARSON, Sanchez MS: PERFORM Event Display: Consultation Report Authored Date: [id number] Infectious Disease Consultation Physician Requesting Consult Dr. Anguiano Reason for Consultation Coccyx Osteomyelitis, buttock abscess Chief Complaint Osteomyelitis History of Present Illness 73 year old gentleman who I have been consulted for the evaluation/management of coccygeal osteomyelitis. ?? His past medical history is remarkable for stage II rectal cancer for which he underwent robotic low anterior resection by Dr. Anguiano 05/2021, then underwent ileostomy closure 10/2021, history of pulmonary metastasis status post radiation in November 24, 2021, liver metastasis for which he underwentchemoembolization on??12/10/2023,??admission to [facility]ospital in??December 26, 2023 around??4/7??with sepsis??and found to??have coccygeal abscess??which??was drained??by??IR, cultures revealed??Enterococcus faecalis, Enterococcus??avium, Pseudomonas??and Bacteroides, followed??by??ID in [facility]??was seen by??Dr. Shahid??and given??6 weeks??of IV antibiotics??with daptomycin??and Zosyn??which??he finished??around end of January??for??pelvic/coccyx osteomyelitis??in saw??Colorectal surgery as an??outpatient on??03/09??for concerns of??pelvic??osteomyelitis and admitted??for further??management. ??He reportedly had??a outpatient??MRI which showed??persistent findings??of osteomyelitis ?? Patient underwent??drainage of the pelvic??abscess??on 03/10 and??seton placement,??he had fistulous tract??and coccygeal??tissue which??was sent??for tissue??culture??and pathology. ??Intraop,??he had a right paramedian??abscess??with??purulence which was drained.?? There is no clear evidence??of specialty sales representative??tumor.?? The visualized portion??of the distal??rectum??above the anastomosis??was without any??ischemia.?? He is planned to have??fecal diversion??with loop??ileostomy??tomorrow. ?? Patient reports??that??he has buttock??pain but otherwise??denies??fever??and chills.?? No cough??or shortness??of breath.?? No abdominal??pain.?? He reported??that when he??was??on Zosyn he had??side effects with??worsening??diarrhea??however,??he??did finish??the full course??of??antibiotics??with combination??of daptomycin??and Zosyn.?? He??was followed by??[facility] at that??time.?? There??were??no colorectal surgeries??and??his diagnosis??was made on the basis??of IR??drainage of??coccygeal abscess.?? His allergic reaction??to sulfa??drugs is hives.?? No recent travel,??no recent undercooked??meat/seafood.?? He has currently not on chemotherapy??for his rectal cancer.?? He did have??a history??of radiation. Review of Systems All other pertinent??systems??were reviewed are negative.?? Rest per the HPI. Physical Exam Vitals & Measurements T:??99.3?F?? TMIN:??97.5?F?? TMAX:??100.1?F?? HR:??86?? RR:??18?? BP:??141/68?? SpO2:??95%?? GENERAL: Alert HEENT: Normocephalic CARDIOVASCULAR: RRR, normal S1/S2, RESPIRATORY: Clear to auscultation bilaterally GASTROINTESTINAL: Soft, non-tender, non-distended, buttock examination with feculent discharge EXTREMITIES: no lower extremity swelling SKIN: No erythema, no rashes ACCESS: PIV Assessment/Plan - Pelvic Osteomyelitis/Coccyx Osteomyelitis - Pelvic Abscess/Fistula - s/p seton placement - History of Coccygeal Abscess/Osteomyelitis s/p IR drainage 12/12 - cultures Enterococcus faecalis, Enterococcus avium (Amp-S), Pseudomonas fluroscenes (cipro-susceptible), Bacreroidies s/p 6-week of IV abx with daptomycin/Zosyn - History of Rectal Cancer s/p LAR 05/2021, loop ileostomy closure 10/2021 ?? This is a??73-year-old gentleman??with a past??medical history??of??metastatic rectal cancer, history??of recent??chemoembolization of liver metastases, history??of sacral??osteomyelitis/abscess status post 6 weeks??of IV antibiotics??and presents with??concerns??of??ongoing??lower??back pain??and r ecent??MRI with??persistent changes of??coccygeal osteomyelitis; underwent??operative examination??on 03/10 and evidence of??pelvic abscess??and fistula??formation status post seton??placement??and plan for??laparoscopic ileostomy??tomorrow. ?? I think patient has??been??adequately treated??for the duration??of coccygeal??osteomyelitis however, since the source has not been addressed he has a recurrent infection. ??His MRI??was obtained and??this revealed??persistent??changes??of osteomyelitis??on coccyx??and new abscess over the??right??buttock paramedian??to the coccyx. He had drainage??of the abscess on 03/10. ??I do think??this is likely related??to an intra-abdominal connection??and he does??have fecal and output??from his buttock??site.?? I agree with plan of??diverting??ileostomy??and??continued treatment of his??infection.?? There has certainly a chance??that even??after??treatment??with??IV antibiotics??since the initial??source has not??been??addressed that??he??could have reinfection??and??it has been more??than??1 month since his??antibiotics were stopped so certainly??there is a good chance that??he??could have boneinfection??however,??MRI??I also looked normal??even after treatment??of osteomyelitis??and may take??6 months to a year??to look??better so??the fact??that were seeing??persistent osteomyelitis??could be because of his??previous infection however,??with the intraoperative??findings??and evidence of??buttock??abscess I think recurrent??infection is most likely. ?? - I will follow the results??of??operative cultures.?? We will adjust antibiotics based??on that.??Based??on his??previous cultures,??I think??empirically we can start him??on ciprofloxacin??and Flagyl. - He reported??that prior??to??him??seeing Colorectal??surgery, he was??on clindamycin??for about 10 days and had improvement??in his??buttock??pain??which tells??me he probably??have an anaerobic organism. - Based on his??previous cultures??in December, he predominantly??had GI organisms??which I suspect??from his??presentation.?? During his current??presentation, I also??think??that predominantly??GI organisms are implicated. - Obtain [facility] records from his previous hospital stay; this has been requested already ?? We will continue to follow.?? Thank??you for consultation.?? If you have any??questions or??concerns please contact me. ?? Discussed with Dr. Anguiano. Discussed with and grand-daughter at bedside. ?? 82??minutes spent in consultation and including time spent in chart review, obtaining history, performing physical examination, discussing management, counseling and documentation.? Problem List/Past Medical History Ongoing Abnormal PET scan, liver Liver lesion Osteomyelitis, pelvis Personal history of rectal cancer Rectal cancer S/P closure of ileostomy Historical Personal history of renal cancer Procedure/Surgical History ???Colonoscopy (09/25/2022)???Ileostomy reversal and hernia repair ()???Robotic Low AnteriorResection with Loop Ileostomy- 05/28/2021- Annmarie (05/28/2021)???cardiac stent (2016) Medications Medication List ? Active Medications ?Ordered ? aaMAR: No Rectal Meds, UNSPECIFIED, Unscheduled. ? acetaminophen: 650 mg, 2 tab, PO/per tube, Q4H, PRN: Pain Mild (1-3). ? amLODIPine: 2.5 mg, 0.5 tab, By mouth, BID. ? aspirin: 81 mg, 1 tab, By mouth, Daily. ? ciprofloxacin: 750 mg, 1 tab, By mouth, Q12H. ? Dextrose 10% in Water: per scale or Glucommander, IVP, as directed, ? PRN: Hypoglycemia Severe. ? diazePAM: 2 mg, 1 tab, By mouth, Q8H, PRN: See Comment Note. ? enoxaparin: 40 mg, 0.4 mL, SubQ, Daily. ? glucagon: 1 mg, 1 mL, IM, as directed, PRN: Hypoglycemia Severe. ? glucose: 15 g, 1 tube, By mouth, as directed, PRN: See Comment Note. ? glucose: 16 g, 4 tab, By mouth, as directed, PRN: See Comment Note. ? insulin lispro: High dose scale, SUBQ, Q4H. ? isosorbide mononitrate: 30 mg, 1 tab, By mouth, QAM. ? Juice (orange/apple): 15 g, 118 mL, By mouth, as directed, PRN: See ? Comment Note. ? metoclopramide: 10 mg, 2 mL, IVP, ONCE. ? metoprolol: 50 mg, 1 tab, By mouth, BID. ? metroNIDAZOLE: 500 mg, 1 tab, By mouth, Q6H. ? metroNIDAZOLE: 500 mg, 1 tab, By mouth, Q8H. ? neomycin: 1,000 mg, 2 tab, By mouth, Q6H. ? ondansetron: 4 mg, 2 mL, IVP, Q8H, PRN: Nausea. ? oxyCODONE: 5 mg, 1 tab, By mouth, Q6H, PRN: Pain Severe (7-10). ? oxyCODONE: 5 mg, 1 tab, By mouth, Q4H, PRN: Pain Moderate (4-6). ? pantoprazole: 40 mg, 1 tab, By mouth, BID. ? phenol topical: 5 spray, Topical, Q2Hr, PRN: See Comment Note. ? polyethylene glycol 3350 with electrolytes: 2,000 mL, By mouth, ONCE. ? rosuvastatin: 20 mg, 1 tab, By mouth, at bedtime. ? Sodium Chloride 0.9% intravenous solution 1,000 mL: 30 ml/hr, IV, ? Stop: 06/08/24 11:24:00 CDT. ? sodium chloride flush: 5 mL, IVP, Q12H. ? sodium chloride flush: 5 mL, IVP, Q10Min, PRN: See Comment Note. ? zolpidem: 2.5 mg, 0.5 tab, Age 65 and older, By mouth, at bedtime, ? PRN: Insomnia. ?Prescribed ? docusate: 50 mg, 1 cap, By mouth, BID, PRN: for constipation, 60 cap, ? 0 Refill(s). ? docusate: 100 mg, 1 cap, By mouth, BID, PRN: for constipation, 20 ? cap, 0 Refill(s). ? Miscellaneous (Medication/DME/supply): See Instructions, Pa ? barrier [id number], pouch [id number]. Adapt ring 7815 Stoma [id number], ? barrier extenders [id number], adhesive remover 7737, 1 pkt, 99 Refill(s). ?Documented ? acetaminophen: 650 mg, 2 tab, By mouth, Q6H, PRN: Pain Mild or Temp ? (2nd Line), 0 Refill(s). ? amLODIPine: 2.5 mg, By mouth, BID, 0 Refill(s). ? apixaban: 5 mg, 1 tab, By mouth, BID, 0 Refill(s). ? aspirin: 81 mg, 1 tab, By mouth, Daily, stop 1 week prior to ? procedure, 30 tab, 0 Refill(s). ? clindamycin: 150 mg, 2 cap, By mouth, Q6H, for 10 Days, 80 cap, 0 ? Refill(s). ? glipiZIDE: 10 mg, 1 tab, By mouth, BID, 0 Refill(s). ? isosorbide mononitrate: 30 mg, 1 tab, By mouth, QAM, 0 Refill(s). ? lisinopril: 5 mg, By mouth, Daily, 0 Refill(s). ? loperamide: 2 mg, 1 cap, By mouth, Q4H, PRN: for loose stool, 60 cap, ? 0 Refill(s). ? loratadine: 10 mg, 1 cap, By mouth, QPM (every evening), PRN: ? Allergies, 10 cap, 0 Refill(s). ? metFORMIN: 500 mg, 1 tab, By mouth, BID, 30 tab, 0 Refill(s). ? metoprolol: 50 mg, 1 tab, By mouth, BID, 30 tab, 0 Refill(s). ? oxyCODONE: 10 mg, 1 tab, By mouth, Q6H, pain, 0 Refill(s). ? pantoprazole: 40 mg, 1 tab, By mouth, BID, 0 Refill(s). ? rosuvastatin: 20 mg, By mouth, at bedtime, 30 tab, 0 Refill(s). ? Medications Inactivated in the Last 72 Hours ? acetaminophen: 650 mg, 2 tab, By mouth, Q4H, PRN: Pain Mild (1-3). ? albuterol: 2.5 mg, 3 mL, Inhalation, ONCE, PRN: Wheezing. ? aspirin: 81 mg, 1 tab, By mouth, Daily. ? bupivacaine: 75 mg, 30 mL, OMNI, STAT. ? D5 1/2NS 1000ml & 20mEq KCL 1,000 mL: 75 ml/hr, IV, Stop: 06/07/24 ? 17:37:00 CDT. ? D5 1/2NS 1000ml & 20mEq KCL 1,000 mL: 30 ml/hr, IV, Stop: 06/08/24 ? 11:13:00 CDT. ? Dextrose 10% in Water: per scale or Glucommander, IVP, as directed, ? PRN: Hypoglycemia Severe. ? Dextrose 10% in Water: per scale or Glucommander, IVP, as directed, ? PRN: Hypoglycemia Severe. ? Dextrose 10% in Water: per scale or Glucommander, IVP, as directed, ? PRN: Hypoglycemia Severe. ? diphenhydrAMINE: 6.25 mg, 0.13 mL, IVP, as needed, PRN: See Comment ? Note. ? diphenhydrAMINE: 25 mg, 0.5 mL, IVP, Q6H, PRN: See Comment Note. ? diphenhydrAMINE: 25 mg, By mouth, Q6H, PRN: See Comment Note. ? docusate: 100 mg, 1 cap, PO/per tube, BID. ? enoxaparin: 40 mg, 0.4 mL, SubQ, Daily. ? epinephrine: 1 mg, 1 mL, OMNI, STAT. ? fentaNYL: 50 mcg, 1 mL, IVP, Q3Min, PRN: See Comment Note. ? fentaNYL: 100 mcg, 2 mL, OMNI, STAT. ? glucagon: 1 mg, 1 mL, IM, as directed, PRN: Hypoglycemia Severe. ? glucagon: 1 mg, 1 mL, IM, as directed, PRN: Hypoglycemia Severe. ? glucagon: 1 mg, 1 mL, IM, as directed, PRN: Hypoglycemia Severe. ? glucose: 16 g, 4 tab, By mouth, as directed, PRN: See Comment Note. ? glucose: 15 g, 1 tube, By mouth, as directed, PRN: See Comment Note. ? glucose: 16 g, 4 tab, 4 tab, By mouth, as directed, PRN: See Comment ? Note. ? glucose: 15 g, 1 tube, By mouth, as directed, PRN: See Comment Note. ? glucose: 16 g, 4 tab, By mouth, as directed, PRN: See Comment Note. ? glucose: 15 g, 1 tube, By mouth, as directed, PRN: See Comment Note. ? glycopyrrolate: 0.2 mg, 1 mL, IVP, as needed, PRN: See Comment Note. ? haloperidol: 0.5 mg, 0.1 mL, IVP, as directed, PRN: See Comment Note. ? HYDROmorphone: 0.25 mg, 0.25 mL, IVP, as needed, PRN: See Comment ? Note. ? HYDROmorphone: 0.2 mg, 0.2 mL, IVP, Q2Hr, PRN: Pain Severe (7-10) ? (2nd Line). ? HYDROmorphone: 0.2 mg, 0.2 mL, IVP, Q2Hr, PRN: Pain Severe (7-10) ? (2nd Line). ? insulin lispro: Medium dose scale, SUBQ, With Meals & Bedtime. ? insulin lispro: 2-8 units, SUBQ, as directed, PRN: See Comment Note. ? insulin lispro: Medium dose scale, SUBQ, With Meals & Bedtime. ? insulin lispro: Medium dose scale, SUBQ, With Meals & Bedtime. ? Juice (orange/apple): 15 g, 118 mL, By mouth, as directed, PRN: See ? Comment Note. ? Juice (orange/apple): 15 g, 118 mL, By mouth, as directed, PRN: See ? Comment Note. ? Juice (orange/apple): 15 g, 118 mL, By mouth, as directed, PRN: See ? Comment Note. ? lidocaine: 5 mL, OMNI, STAT. ? magnesium citrate: 296 mL, By mouth, ONCE. ? metoprolol: 5 mg, 5 mL, IVP, ONCE. ? metoprolol: 5 mg, 5 mL, OMNI, STAT. ? metroNIDAZOLE: 500 mg, 100 mL, 100 ml/hr, IVPB, Q8H. ? ondansetron: 4 mg, 2 mL, IVP, Q5Min, PRN: Nausea. ? ondansetron: 4 mg, 2 mL, IVP, Q8H, PRN: Nausea. ? oxyCODONE: 5 mg, 1 tab, PO/per tube, Q6H, PRN: Pain Moderate (4-6). ? oxyCODONE: 10 mg, 2 tab, By mouth, Q6H, PRN: Pain Moderate (4-6). ? oxyCODONE: 5 mg, 1 tab, By mouth, Q4H, PRN: Pain Severe (7-10). ? oxyCODONE: 10 mg, PO/per tube, Q4H, PRN: Pain Moderate (4-6). ? polyethylene glycol 3350 with electrolytes: 4,000 mL, By mouth, ONCE. ? propofol: 200 mg, OMNI, STAT. ? rocuronium: 50 mg, 5 mL, OMNI, STAT. ? Sodium Chloride 0.9% intravenous solution 1,000 mL: 75 ml/hr, IV, ? Stop: 06/08/24 10:27:00 CDT. ? sodium chloride flush: 5 mL, IVP, Q12H. ? sodium chloride flush: 5 mL, IVP, Q10Min, PRN: See Comment Note. ? sugammadex: 150 mg, 1.5 mL, OMNI, STAT. ? zolpidem: 5 mg, 1 tab, Age 64 and younger, By mouth, at bedtime, PRN: ? Insomnia. Allergies sulfa drugs??(rash) Social History Social History Alcohol ??Denies Substance Abuse ??Denies Tobacco ??Smoking Status: Never smoker. ??Smokeless tobacco use: Never. Lab Results Labs??(Last two charted values on this encounter) WBC 7.8 ??(MAR 11) 5.5 ??(MAR 09) Hgb 9.1 ??(MAR 11) 9.6 ??(MAR 09) Hct 30.4 ??(MAR 11) 31.4 ??(MAR 09) Platelets 273 ??(MAR 11) 275 ??(MAR 09) Na 138 ??(MAR 11) 139 ??(MAR 09) K 4.4 ??(MAR 11) 5.0 ??(MAR 09) Cl 107 ??(MAR 11) 109 ??(MAR 09) CO2 25 ??(MAR 11) 25 ??(MAR 09) BUN 9 ??(MAR 11) 19 ??(MAR 09) Cr 0.88 ??(MAR 11) 0.92 ??(MAR 09) ProteinT ?6.1 ??(MAR 11) ?? Albumin ?2.8 ??(MAR 11) ?? Bilirubin ,Total ??0.4 ??(MAR 11) ?? Alk Phos ?69 ??(MAR 11) ?? ALT ?35 ??(MAR 11) ?? AST ?67 ??(MAR 11) ?? PT ?10.5 ??(MAR 09) ?? INR ?0.99 ??(MAR 09) ?? Bedside Glucose 166 ??(MAR 11) 209 ??(MAR 11) Glucose,Plasma 188 ??(MAR 11) 344 ??(MAR 09) Electronically signed by:Sanchez Guerrero MD MS 03/11/24 13:46 Surgical operation note * Ranulfo Anguiano MD: PERFORM, SIGN, VERIFY Event Display: Operative Report Authored Date: Patient: JANNET FORRESTER Age: 73 years Sex: Male : 1950 Associated Diagnoses: None Author: Ranulfo Anguiano MD Date: ??03/12/24 Surgeon: Ranulfo Anguiano MD Preoperative Diagnosis: Osteomyelitis of coccyx, anal fistula, h/o rectal cancer, h/o coccyx Postoperative Diagnosis: Osteomyelitis of coccyx, anal fistula, h/o rectal cancer, h/o coccyx Procedure(s) Performed: EUA Colonoscopy to terminal ileum laparoscopic loop ileostomy Clinical Microbiologist(s): Malia Saeed NP Anesthesia: General Colonoscopic withdrawal time: 7 minutes Estimated Blood Loss (mL): minimal IV Fluids: Crystalloid Urine Output: Not recorded Drains: none Complications: None Specimens: none Wound Class: 2, clean contaminated Sponge/Instrument/Needle Count: Reported as correct x2 History of Present Illness: Patient is a pleasant 73-year-old gentleman with history of rectal cancer and pelvic radiation. He is developed coccygeal osteomyelitis almost 4 years after initial treatment. He has a clear fistula from the anastomosis to his posterior buttock through the para coccygeal tissues. He requires colonoscopy as well as fecal diversion in the form of loop ileostomy. After long discussion with he and his family, they understand and agree to proceed. Description of the Procedure: After consent was obtained patient taken to the operating room and placed on the operating room table in the supine position. Satisfactory general endotracheal anesthesia obtained. Legs were placed in Jeronimo stirrups. Perineum prepped with Betadine. Sterile drapes were applied. Time-out was performed. The existing fistula tract and wound were clean, Kramer seton in place. Digital exam otherwise unremarkable. Flexible colonoscope introduced trans anally and advanced without difficulty to the cecum. Ileocecal valve and appendiceal orifice clearly seen based on her usual appearance. Ileocecal valve intubated and terminal ileum inspected for a short distance, this was unremarkable. Slow withdrawal of the scope performed with careful examination of the mucosal detail. There were no new polyps tumors or inflammatory changes. The internal portion of the Kramer/seton was seen and was intact. Insufflation removed and scope was withdrawn. Fluffed 4x4s applied after the wound was irrigated. After infiltration of local anesthetic a 5 mm Optiview placed in the left upper quadrant. Peritoneum entered without incident. Satisfactory pneumoperitoneum achieved. Additional 5 mm port placed in left lower quadrant. The prior ileostomy site was identified and had omental adhesions. These were divided carefully. Additional 12 mm port placed through the prior ileostomy site, as this would be thebest place for the new ileostomy. The ileostomy site was identified and oriented proximally and distally. Pneumoperitoneum evacuated and the ileostomy site fascial incision was enlarged. The ileum was appropriately oriented and delivered up through this wound and secured to subcutaneous tissues using interrupted 3-0 Vicryl sutures. Ileostomy then matured in the usual manner using interrupted full-thickness 3-0 chromic and 3-0 Vicryl sutures creating appropriate Aleena eversion. Laparoscopic incisions closed with subcuticular Monocryl. Dermabond applied. Ostomy appliance applied. Sponge instrument and needle counts were reported as correct. Fluffed 4x4s and mesh underwear applied. Legs were returned to the neutral position. Patient was allowed to wake up he was extubated and taken to recovery in satisfactory condition. Malia Saeed NP was present and scrubbed for all aspects of the operation including laparoscopy, ileostomy creation, her participation was vital. Electronically signed by:Ranulfo Anguiano MD 03/12/24 12:59 * Ranulfo Anguiano MD: PERFORM, SIGN, VERIFY Event Display: Operative Report Authored Date: [id number] Patient: JANNET FORRESTER Age: 73 years Sex: Male : 1950 Associated Diagnoses: None Author: Ranulfo Anguiano MD Date: ??03/10/24 Surgeon: Ranulfo Anguiano MD Preoperative Diagnosis: Osteomyelitis of coccyx, history of rectal cancer, history of pelvic radiation, pelvic abscess and suspected anal fistula Postoperative Diagnosis: Osteomyelitis of coccyx, history of rectal cancer, history of pelvic radiation, pelvic abscess and trans gluteal anal fistula Procedure(s) Performed: Exam under anesthesia with anoscopy and multiple biopsies Drainage of pelvic abscess number next seton manager battery(s): Malia Saeed NP Anesthesia: General Estimated Blood Loss (mL): minimal IV Fluids: Crystalloid Urine Output: Not recorded Drains: Flo drain fashioned as seton Complications: None Specimens: Fistula tract, romana coccygeal tissue for pathology and quantitative culture Wound Class: 2, clean contaminated Sponge/Instrument/Needle Count: Reported as correct x2 History of Present Illness: Patient is a pleasant 73-year-old gentleman well known to me from prior rectal cancer treatment some years ago. Besides pruritus in August, last time I saw him he was doing well, without evidence of anastomotic pathology or tumor recurrence. Unfortunately, in the interim he developed osteomyelitis of the coccyx which was treated with hospitalization at [facility] and IV antibiotics for 6 weeks. He presented to my office yesterday with repeat MRI of the pelvis done last week confirming persistent osteomyelitis of the coccyx and a new abscess site over his right buttock paramedian to the coccyx. There was concern for an anastomotic fistula on office examined he clearly requires additional evaluation form of exam in operating room. We planned to proceed with that today with drainage and debridement of fistula tract if encountered as well as addressing any abscess. Biopsies will be obtained ifindicated. I did mention that I think fecal diversion should be considered but he is not wanting tocommit to that yet. Description of the Procedure: After consent was obtained patient taken to the operating room and intubated on the stretcher. Patient placed on the OR table in the prone position. Buttocks taped and prepped with Betadine. Sterile drapes were applied. Time-out was performed. The right paramedian abscess site over his buttock was interrogated and had purulence which was drained. The tract past quite a bit easier that would have anticipated virtually straight to his anastomosis. This passed along the right side of the coccyx. The external portion was opened widely with Bovie electrocautery excising skin. Deeper soft tissue was also excised. Patient Service Specialist samples were taken from multiple levels for not only pathology but also quantitative tissue culture. I also sent tissue from the immediate para coccygeal region also for culture. There was no clear evidence of this represented tumor. The area was copiously irrigated. Hemostasis was appropriate. A small Flo drain passed easily transanally, through the fistula tract and out the buttock wound. It was secured using 3-0 silk ties. Iodoform strips placed in the external portion of the wound. The visualized portion of the distal rectum above the anastomosis was otherwise healthy without ischemia. Fluffed 4x4s and mesh underwear applied. Patient returned to the supine position, was allowed to wake up, extubated and taken to recovery in satisfactory condition. Malia Saeed NP was present and scrubbed for all aspects of the operation, her participation was vital. Electronically signed by:Ranulfo Anguiano MD 03/10/24 11:07 Cardiology * Clemente Perez MD: SIGN, VERIFY Event Display: EKG 12-Lead Authored Date: Laboratory * Ramírez Carlson MD: TRANSCRIBE, PERFORM, VERIFY Event Display: Diagnosis Authored Date: Pericoccygeal tissue, biopsy: - Fragment of densely fibrotic tissue with mild chronic inflammation. Pericoccygeal tissue, biopsy: - Fragment of densely fibrotic tissue with moderate acute and chronic inflammation and granulation tissue formation. Pericoccygeal tissue, biopsy: - Fragment of densely fibrotic tissue with mild acute and chronic inflammation. External fistula tract, excision: - Fragments of markedly inflamed granulation tissue. SBJ Verified by: Ramírez Carlson M.D. Pathologist (Electronic Signature) 03/14/24 16:43 * Ramírez Carlson MD: VERIFY Ramírez Carlson MD: VERIFY Tom Samson: PERFORM Event Display: Source of Tissue Authored Date: A) Pericoccygeal tissue for quantitive culture B) Pericoccygeal tissue for quantitive culture C) Pericoccygeal tissue D) External fistula tract * Ramírez Carlson MD: VERIFY Ramírez Carlson MD: VERIFY Tom Samson: PERFORM Event Display: Gross Description Authored Date: Received in four containers of formalin labeled Jannet Forrester: Labeled pericoccygeal tissue for quantitive culture- Micro done (total formalin fixation time 40 hours) is an irregularly shaped 0.6 x 0.5 x 0.4 cm fragment of red-pink rubbery tissue. The specimenis bisected and submitted in total in cassette A1. Received in formalin labeled pericoccygeal tissue for quantitive tissue (total formalin fixation time approximately 40 hours) is an irregularly shaped 0.9 x 0.6 x 0.5 cm fragment of partially friable pink-mcduffie tissue. The specimen is trisected and submitted in total in cassette B1. Labeled pericoccygeal tissue (total formalin fixation time approximately 40 hours) is an irregularly shaped 1.3 x 0.6 x 0.6 cm fragment of red-mcduffie, rubbery tissue. The specimen is serially sectioned to reveal pale pink-mcduffie cut surfaces and is submitted in total in cassette C1. Labeled external fistula tract (total formalin fixation time approximately 40 hours is an irregularly shaped 1 x 0.4 x 0.3 cm fragment of friable pink-mcduffie tissue. The specimen is serially sectioned and submitted in total in cassette D1. LAWANDA/zulma * Aldo LARSON, Ramírez: VERIFY Ramírez Carlson MD: VERIFY Tom Samson: PERFORM Event Display: Clinical Information Authored Date: Osteomyelitis, pelvis Patient Care team information Care Team Personnel Name: Kayleen Shea NP Position: 2 Restricted Providers Member Role: Primary Care Physician Address: Address: [address] [place], [place] [address] Name: Soraya Salazar RN Position: Nurse ([facility]) Member Role: Nurse Name: Wendy Aponte Position: Nurse ([facility]) Member Role: Nurse Care Team Related Persons Name: NORAM MEZA Name: TEE SALAZAR Name: ABIGAIL FORRESTER
[2024-03-17] MEDS: sodium chloride 0.9% 1,000 ML 999 ML IV (13:35)
[2024-03-17 15:40] VITALS: BP 129/62; PULSE 73; RESP 16; TEMP 36.6; O2SAT 94
[2024-03-21] MEDS: sodium chloride 0.9% 1,000 ML 999 ML IV (14:49)
[2024-03-21 16:44] VITALS: BP 112/66; PULSE 98; RESP 16; TEMP 36.7; O2SAT 99
[2024-03-23] MEDS: sodium chloride 0.9% 1,000 ML 999 ML IV (15:01)
[2024-03-23 16:17] VITALS: BP 121/68; PULSE 71; RESP 16; TEMP 36.6; O2SAT 99
[2024-03-24] MEDS: sodium chloride 0.9% 1,000 ML 999 ML IV (13:32)
[2024-03-24 14:52] VITALS: BP 128/67; PULSE 90; RESP 16; TEMP 36.6; O2SAT 99
[2024-03-25] MEDS: sodium chloride 0.9% 1,000 ML 750 ML IV (09:50)
[2024-03-25 09:57] VITALS: BP 114/68; PULSE 96; RESP 18; TEMP 36.2; O2SAT 96
[2024-03-25 11:27] VITALS: BP 129/72; PULSE 91; RESP 17; TEMP 36.3; O2SAT 99
[2024-03-30 14:40] VITALS: BP 106/63; PULSE 111; RESP 16; TEMP 36.6; O2SAT 96
[2024-03-30] MEDS: sodium chloride 0.9% 1,000 ML 999 ML IV (14:50)
[2024-03-30 16:26] VITALS: BP 112/61; PULSE 89; O2SAT 95
[2024-04-01] MEDS: sodium chloride 0.9% 1,000 ML 667 ML IV (10:21)
[2024-04-01 10:26] VITALS: BP 114/76; PULSE 103; RESP 16; TEMP 36.6; O2SAT 96
[2024-04-01 12:02] VITALS: BP 131/71; PULSE 94; RESP 17; TEMP 36.7; O2SAT 97
[2024-04-06 14:00] VITALS: BP 126/64; PULSE 89; RESP 16; TEMP 36.5; O2SAT 96
[2024-04-06] MEDS: sodium chloride 0.9% 1,000 ML 999 ML IV (14:01)
[2024-04-06 14:25] LABS: Basophils # 0.1 10^3/uL (0.0-0.1); Basophils % 0.8 %; Eosinophils # 0.2 10^3/uL (0.0-0.8); Eosinophils % 3.4 %; Hematocrit 29.3 % (37-53); Lymphocytes # 1.2 10^3/uL (0.8-4.8); Lymphocytes % 19.6 %; Mean Corpuscular Volume 89.9 fl (82-101); Mean Platelet Volume 9.5 fL (7.4-10.4); Monocytes # 0.7 10^3/uL (0.2-0.9); Monocytes % 12.1 %; Neutrophils # 3.64 10^3/uL (1.8-7.7); Neutrophils % 59.4 %; Nucleated Red Blood Cells % 0 %; Platelet Count 230 10^3/cmm (157-399); Red Blood Count 3.26 10^6/uL (3.85-5.65); Red Cell Distribution Width 19.1 % (12.1-15.1); White Blood Count 6.13 10^3/uL (3.29-11.43)
[2024-04-06 14:43] LABS: Carcinoembryonic Antigen 35.9 ng/mL (0.0-4.7)
[2024-04-06 14:54] LABS: Alanine Aminotransferase 41 U/L (0-41); Albumin Level 3.8 g/dL (3.5-5.2); Alkaline Phosphatase 77 U/L (40-130); Aspartate Amino Transferase 58 U/L (0-40); Blood Urea Nitrogen 10 mg/dL (8-23); Calcium 8.3 mg/dL (8.5-10.5); Carbon Dioxide 21 mmol/L (22-29); Chloride 110 mmol/L (98-107); Creatinine Clr Calc Pharmacy 99.0871; Globulin 3.4 g/dL (1.3-4.6); Glucose 179 mg/dL (65-115); Osmolality Calculated 300 mOsm/kg (285-295); Sodium 143 mmol/L (136-145); Total Bilirubin 0.2 mg/dL (0.15-1.2); Total Protein 7.2 g/dL (6.6-8.7)
[2024-04-08 09:32] LABS: Iron 26 ug/dL (59-158); Percent Saturation 8.2 % (20-50); Total Iron Binding Capacity 317 mcg/dl; Unsaturated Iron Binding 291 ug/dL (112-347)
== END 2024-04-06 23:59 | disposition home or self-care (01) ==
PROVIDERS: PCP Nurse Practitioner Family; Visit Provider Internal Medicine Medical Oncology
DX: C20 Malignant neoplasm of rectum (principal); Z53.9 Procedure and treatment not carried out, unspecified reason; Z79.899 Other long term (current) drug therapy; Z92.3 Personal history of irradiation; Z92.21 Personal history of antineoplastic chemotherapy; C78.7 Secondary malignant neoplasm of liver and intrahepatic bile duct
CPT/HCPCS: 80053; 82378; 83540; 83550; 85025; 96360; 96361; 99214; J7030

== ENCOUNTER 2024-05-06 09:01 | Oncology outpatient (recurring) (ONCR) | payer MEDICARE, SELFPAY ==
[2024-04-13] MEDS: ferric carboxy (PYXIS) 750 MG in sodium chloride 0.9% (100 ml) 100 ML 345 MG IV (13:30)
[2024-04-13] MEDS: sodium chloride 0.9% 250 ML 345 ML IV (13:30)
[2024-04-13 13:35] VITALS: BP 125/69; PULSE 73; RESP 16; TEMP 37.3; O2SAT 95
[2024-04-13 14:05] VITALS: BP 125/61; PULSE 94; RESP 18; TEMP 36.6; O2SAT 97
[2024-04-19] MEDS: sodium chloride 0.9% 1,000 ML 999 ML IV (14:25)
[2024-04-19] MEDS: ferric carboxy (PYXIS) 750 MG in sodium chloride 0.9% (100 ml) 100 ML 345 MG IV (14:26)
[2024-04-25 12:37] VITALS: BP 113/70; PULSE 78; RESP 16; TEMP 36.6; O2SAT 98
[2024-04-25] MEDS: sodium chloride 0.9% 1,000 ML 999 ML IV (12:45)
[2024-04-25 14:29] VITALS: BP 125/65; PULSE 70; RESP 18; TEMP 36.7; O2SAT 93
[2024-04-27] MEDS: sodium chloride 0.9% 1,000 ML 999 ML IV (13:24)
[2024-04-27 15:04] VITALS: BP 138/71; PULSE 72; RESP 16; TEMP 36.6; O2SAT 97
[2024-05-02 09:08] VITALS: BP 114/72; PULSE 93; RESP 16; TEMP 36.5; O2SAT 95
[2024-05-02] MEDS: sodium chloride 0.9% 1,000 ML 999 ML IV (09:29)
[2024-05-02 09:30] VITALS: BP 113/67; PULSE 81; RESP 16; TEMP 36.2; O2SAT 94
[2024-05-02 11:11] VITALS: BP 149/76; PULSE 74; RESP 18; TEMP 35.9; O2SAT 96
[2024-05-04 09:10] VITALS: BP 133/82; PULSE 86; RESP 16; TEMP 36.6; O2SAT 98
[2024-05-04 09:51] LABS: Basophils # 0.1 10^3/uL (0.0-0.1); Basophils % 0.7 %; Eosinophils # 0.2 10^3/uL (0.0-0.8); Eosinophils % 3.1 %; Hematocrit 36.3 % (37-53); Lymphocytes # 0.9 10^3/uL (0.8-4.8); Lymphocytes % 13.4 %; Mean Corpuscular HGB Conc 30.9 g/dL (30-55); Mean Corpuscular Hemoglobin 29.1 pg (27-33); Mean Corpuscular Volume 94.3 fl (82-101); Mean Platelet Volume 9.9 fL (7.4-10.4); Monocytes # 0.7 10^3/uL (0.2-0.9); Monocytes % 9.4 %; Neutrophils # 5.05 10^3/uL (1.8-7.7); Neutrophils % 72.4 %; Nucleated Red Blood Cells % 0 %; Platelet Count 197 10^3/cmm (157-399); Red Blood Count 3.85 10^6/uL (3.85-5.65); Red Cell Distribution Width 24.3 % (12.1-15.1); White Blood Count 6.99 10^3/uL (3.29-11.43)
[2024-05-04] MEDS: sodium chloride 0.9% 1,000 ML 999 ML IV (09:53)
[2024-05-04 10:07] LABS: Carcinoembryonic Antigen 49.5 ng/mL (0.0-4.7)
[2024-05-04 10:18] LABS: Alanine Aminotransferase 32 U/L (0-41); Albumin Level 3.9 g/dL (3.5-5.2); Alkaline Phosphatase 86 U/L (40-130); Blood Urea Nitrogen 8 mg/dL (8-23); Calcium 8.9 mg/dL (8.5-10.5); Carbon Dioxide 20 mmol/L (22-29); Chloride 106 mmol/L (98-107); Globulin 3.4 g/dL (1.3-4.6); Glucose 164 mg/dL (65-115); Osmolality Calculated 294 mOsm/kg (285-295); Sodium 141 mmol/L (136-145); Total Bilirubin 0.2 mg/dL (0.15-1.2); Total Protein 7.3 g/dL (6.6-8.7)
[2024-05-04 10:49] LABS: Anion Gap 18.9 (5-19); Aspartate Amino Transferase 37 U/L (0-40); Potassium 3.9 mmol/L (3.5-5.1)
[2024-05-04 12:14] VITALS: BP 120/62; PULSE 80; RESP 16; O2SAT 95
[2024-05-06] MEDS: sodium chloride 0.9% 1,000 ML 733 ML IV (09:36)
[2024-05-06 09:37] VITALS: BP 126/72; PULSE 84; RESP 17; TEMP 37; O2SAT 99
[2024-05-06 11:03] VITALS: BP 130/73; PULSE 78; RESP 16; TEMP 36.6; O2SAT 98
== END 2024-05-07 23:59 | disposition home or self-care (01) ==
PROVIDERS: PCP Nurse Practitioner Family; Visit Provider Internal Medicine Medical Oncology
DX: Z53.9 Procedure and treatment not carried out, unspecified reason (principal); C20 Malignant neoplasm of rectum; C78.01 Secondary malignant neoplasm of right lung; Z79.899 Other long term (current) drug therapy
CPT/HCPCS: 80053; 82378; 85025; 96360; 96361; 96365; J1439; J7030; J7050

== ENCOUNTER 2024-05-10 10:40 | Outpatient (CLI) | payer MEDICARE, SELFPAY ==
--- NOTE | 2024-05-10 11:00 | PETR_ITS ---
PROCEDURE INFORMATION: Exam: PET/CT Skull Base to Mid-thigh Exam date and time: 05/10/2024 12:13 PM Age: 74 years old Clinical indication: Condition or disease; Primary cancer: Rectal cancer, secondary malignant neoplasm of right lung; Follow-up oncological assessment; Additional info: Restaging LABS AND CLINICAL REPORTS: Glucose: 120 mg/dl Treatment strategy for malignancy (PET staging): Restaging (PS) TECHNIQUE: Imaging protocol: Following at least four-hour fasting and following the injection of radiopharmaceutical, low dose CT images were obtained. Then, PET images were obtained. Attenuation corrected images were constructed using the CT scan. Fused images of PET and CT were reviewed. The standardized uptake values (SUV) reported below are maximum values within a region of interest, expressed in gm/ml. Exam includes orbital meatal line to mid-thigh. Radiopharmaceutical: 11.11 mCi F-18 FDG (Fluorodeoxyglucose), IV. Time of imaging post radiopharmaceutical administration: 1 hour Injection site: right AC COMPARISON: PT PET skull to thigh SUBS [id number] 11/10/2023 9:07 AM FINDINGS: Brain: Visualized brain has normal physiologic uptake. Pharynx: No abnormal uptake. Larynx: No abnormal uptake. Lungs, pleura and trachea: New subsolid nodular opacity in the right upper lobe has SUV max 4.5. Mild FDG uptake in the superior segment of the right lower lobe, which may reflect post treatment change (SUV max 3.2). Heart: Normal physiologic uptake. Mediastinal space: No abnormal uptake. Liver: Increased FDG uptake along the margin of the treated right hepatic lobe lesion, now with SUV max 9.7. Gallbladder and biliary ducts: Cholelithiasis. Pancreas: No abnormal uptake. Spleen: No abnormal uptake. Adrenal glands: No abnormal uptake. Kidneys and ureters: Normal physiologic uptake. Stomach and bowel: There appears to be a drain in the region of the anal canal. Right lower quadrant colostomy. No bowel obstruction. Vasculature: No abnormal uptake. Lymph nodes: New hypermetabolic activity within a subcarinal lymph node with SUV max 7.2. Increased FDG uptake is seen within a prominent 1.1 cm left internal mammary lymph node with SUV max 3.3. The node does not appear significantly changed from prior. Skeleton: Within normal limits. Soft tissues: New focus of hypermetabolic uptake adjacent to the right clavicle with SUV max 7.9. No definite soft tissue correlate is seen on CT. Other findings: SUV max of blood pool is 4.0. PET/PET skull to thigh SUBS [id number] IMPRESSION: 1. Continued increase in FDG uptake along the margin of the treated right hepatic lobe lesion, concerning for viable metastatic disease. 2. New hypermetabolic activity within a subcarinal lymph node as well as a mildly hypermetabolic subsolid nodular opacity in the right upper lobe. This may be infectious or inflammatory, though metastatic disease is not excluded. 3. Mildly increased FDG uptake within a mildly prominent left internal mammary lymph node, nonspecific. 4. New focus of hypermetabolic uptake adjacent to the right clavicle with SUV max 7.9. No definite soft tissue correlate is seen on CT. Attention on follow-up recommended.
== END 2024-05-10 10:41 | disposition home or self-care (01) ==
PROVIDERS: PCP Nurse Practitioner Family; Visit Provider Internal Medicine Medical Oncology
DX: C20 Malignant neoplasm of rectum (principal); C78.01 Secondary malignant neoplasm of right lung; R93.2 Abnormal findings on diagnostic imaging of liver and biliary tract; K80.20 Calculus of gallbladder without cholecystitis without obstruction; R93.89 Abnormal findings on diagnostic imaging of other specified body structures
CPT/HCPCS: 78815; A9552

== ENCOUNTER 2024-06-02 09:00 | Oncology outpatient (recurring) (ONCR) | payer MEDICARE, SELFPAY ==
[2024-05-10 14:48] VITALS: BP 120/68; PULSE 79; RESP 18; TEMP 36.6; O2SAT 98
[2024-05-10] MEDS: sodium chloride 0.9% 1,000 ML 999 ML IV (15:07)
[2024-05-13] MEDS: sodium chloride 0.9% 1,000 ML 750 ML IV (09:41)
[2024-05-13 11:27] VITALS: BP 144/81; PULSE 64; RESP 17; TEMP 36.2; O2SAT 97
[2024-05-30 08:27] LABS: Basophils # 0.1 10^3/uL (0.0-0.1); Basophils % 0.8 %; Eosinophils # 0.2 10^3/uL (0.0-0.8); Eosinophils % 3.7 %; Lymphocytes # 1.1 10^3/uL (0.8-4.8); Lymphocytes % 16.7 %; Mean Corpuscular HGB Conc 32.4 g/dL (30-55); Mean Corpuscular Hemoglobin 30.8 pg (27-33); Mean Corpuscular Volume 95.1 fl (82-101); Mean Platelet Volume 9.2 fL (7.4-10.4); Monocytes # 0.7 10^3/uL (0.2-0.9); Monocytes % 10.2 %; Neutrophils # 4.32 10^3/uL (1.8-7.7); Neutrophils % 66.6 %; Nucleated Red Blood Cells % 0 %; Platelet Count 189 10^3/cmm (157-399); Red Blood Count 3.89 10^6/uL (3.85-5.65); Red Cell Distribution Width 20.7 % (12.1-15.1); White Blood Count 6.48 10^3/uL (3.29-11.43)
[2024-05-30 08:56] LABS: Alanine Aminotransferase 50 U/L (0-41); Albumin Level 3.9 g/dL (3.5-5.2); Alkaline Phosphatase 86 U/L (40-130); Anion Gap 17.2 (5-19); Aspartate Amino Transferase 36 U/L (0-40); Blood Urea Nitrogen 20 mg/dL (8-23); Calcium 8.6 mg/dL (8.5-10.5); Carbon Dioxide 20 mmol/L (22-29); Chloride 102 mmol/L (98-107); Globulin 3.1 g/dL (1.3-4.6); Glucose 172 mg/dL (65-115); Iron 100 ug/dL (59-158); Osmolality Calculated 287 mOsm/kg (285-295); Percent Saturation 43.1 % (20-50); Potassium 4.2 mmol/L (3.5-5.1); Sodium 135 mmol/L (136-145); Total Bilirubin 0.3 mg/dL (0.15-1.2); Total Iron Binding Capacity 232 mcg/dl; Unsaturated Iron Binding 132 ug/dL (112-347)
[2024-05-30 09:27] LABS: Carcinoembryonic Antigen 64.3 ng/mL (0.0-4.7)
[2024-05-30] MEDS: sodium chloride 0.9% 1,000 ML 999 ML IV (10:13)
[2024-06-02 08:30] VITALS: BP 127/69; PULSE 67; RESP 18; TEMP 36.3; O2SAT 97
[2024-06-02] MEDS: sodium chloride 0.9% 1,000 ML 667 ML IV (09:25)
== END 2024-06-06 23:59 | disposition home or self-care (01) ==
PROVIDERS: PCP Nurse Practitioner Family; Visit Provider Internal Medicine Medical Oncology
DX: C20 Malignant neoplasm of rectum (principal); Z53.9 Procedure and treatment not carried out, unspecified reason; D50.8 Other iron deficiency anemias; Z79.899 Other long term (current) drug therapy
CPT/HCPCS: 36591; 80053; 82378; 83540; 83550; 85025; 96360; 96361; 99214; J7030

== ENCOUNTER 2024-06-29 12:01 | Oncology outpatient (recurring) (ONCR) | payer MEDICARE, SELFPAY ==
[2024-06-09] MEDS: sodium chloride 0.9% 1,000 ML 733 ML IV (14:58)
[2024-06-09 16:30] VITALS: BP 131/80; PULSE 89; RESP 17; TEMP 36.7; O2SAT 99
[2024-06-16] MEDS: sodium chloride 0.9% 1,000 ML 999 ML IV (13:15)
[2024-06-23] MEDS: sodium chloride 0.9% 1,000 ML 999 ML IV (13:32)
[2024-06-23 15:18] VITALS: BP 119/68; PULSE 72; RESP 18; O2SAT 95
[2024-06-29] MEDS: sodium chloride 0.9% 1,000 ML 999 ML IV (12:54)
[2024-06-29 12:59] LABS: Basophils # 0.1 10^3/uL (0.0-0.1); Basophils % 1.4 %; Eosinophils # 0.2 10^3/uL (0.0-0.8); Hematocrit 36.5 % (37-53); Lymphocytes # 0.7 10^3/uL (0.8-4.8); Lymphocytes % 11.7 %; Mean Corpuscular HGB Conc 32.9 g/dL (30-55); Mean Corpuscular Hemoglobin 32.4 pg (27-33); Mean Corpuscular Volume 98.6 fl (82-101); Mean Platelet Volume 8.8 fL (7.4-10.4); Monocytes # 0.6 10^3/uL (0.2-0.9); Monocytes % 9.9 %; Neutrophils # 4.36 10^3/uL (1.8-7.7); Nucleated Red Blood Cells % 0 %; Platelet Count 183 10^3/cmm (157-399); Red Cell Distribution Width 16.8 % (12.1-15.1); White Blood Count 6.24 10^3/uL (3.29-11.43)
[2024-06-29 13:29] LABS: Carcinoembryonic Antigen 90.2 ng/mL (0.0-4.7)
[2024-06-29 13:40] LABS: Alanine Aminotransferase 45 U/L (0-41); Albumin Level 3.8 g/dL (3.5-5.2); Alkaline Phosphatase 79 U/L (40-130); Anion Gap 15.8 (5-19); Aspartate Amino Transferase 39 U/L (0-40); Blood Urea Nitrogen 15 mg/dL (8-23); Calcium 8.5 mg/dL (8.5-10.5); Carbon Dioxide 21 mmol/L (22-29); Chloride 105 mmol/L (98-107); Creatinine Clr Calc Pharmacy 98.6714; Globulin 2.9 g/dL (1.3-4.6); Glucose 183 mg/dL (65-115); Osmolality Calculated 290 mOsm/kg (285-295); Potassium 4.8 mmol/L (3.5-5.1); Sodium 137 mmol/L (136-145); Total Bilirubin 0.3 mg/dL (0.15-1.2); Total Protein 6.7 g/dL (6.6-8.7)
== END 2024-07-07 23:59 | disposition home or self-care (01) ==
PROVIDERS: Internal Medicine Medical Oncology; PCP Nurse Practitioner Family; Visit Provider Internal Medicine Hematology & Oncology
DX: Z53.9 Procedure and treatment not carried out, unspecified reason (principal); C20 Malignant neoplasm of rectum; Z79.899 Other long term (current) drug therapy
CPT/HCPCS: 80053; 82378; 85025; 96360; 96361; 99213; J7030

== ENCOUNTER 2024-08-03 11:18 | Oncology outpatient (recurring) (ONCR) | payer MEDICARE, SELFPAY ==
[2024-08-03 12:05] LABS: Basophils # 0.1 10^3/uL (0.0-0.1); Basophils % 0.9 %; Eosinophils # 0.2 10^3/uL (0.0-0.8); Eosinophils % 2.3 %; Hematocrit 37.5 % (37-53); Lymphocytes # 1.5 10^3/uL (0.8-4.8); Lymphocytes % 19.2 %; Mean Corpuscular HGB Conc 33.3 g/dL (30-55); Mean Corpuscular Hemoglobin 33.7 pg (27-33); Mean Corpuscular Volume 101.1 fl (82-101); Mean Platelet Volume 9.3 fL (7.4-10.4); Monocytes # 0.7 10^3/uL (0.2-0.9); Monocytes % 9.1 %; Neutrophils # 4.99 10^3/uL (1.8-7.7); Nucleated Red Blood Cells % 0 %; Platelet Count 192 10^3/cmm (157-399); Red Blood Count 3.71 10^6/uL (3.85-5.65); Red Cell Distribution Width 13.5 % (12.1-15.1); White Blood Count 7.69 10^3/uL (3.29-11.43)
[2024-08-03 12:18] LABS: Carcinoembryonic Antigen 141.9 ng/mL (0.0-4.7)
[2024-08-03 12:30] LABS: Alanine Aminotransferase 31 U/L (0-41); Albumin Level 3.8 g/dL (3.5-5.2); Alkaline Phosphatase 78 U/L (40-130); Anion Gap 16.7 (5-19); Aspartate Amino Transferase 30 U/L (0-40); Blood Urea Nitrogen 18 mg/dL (8-23); Calcium 8.9 mg/dL (8.5-10.5); Carbon Dioxide 21 mmol/L (22-29); Chloride 105 mmol/L (98-107); Creatinine Clr Calc Pharmacy 80.9329; Globulin 3.3 g/dL (1.3-4.6); Glucose 223 mg/dL (65-115); Osmolality Calculated 295 mOsm/kg (285-295); Potassium 4.7 mmol/L (3.5-5.1); Sodium 138 mmol/L (136-145); Total Bilirubin 0.3 mg/dL (0.15-1.2); Total Protein 7.1 g/dL (6.6-8.7)
== END 2024-08-06 23:59 | disposition home or self-care (01) ==
PROVIDERS: Nurse Practitioner Family; PCP Nurse Practitioner Family; Visit Provider Internal Medicine
DX: C20 Malignant neoplasm of rectum; Z79.899 Other long term (current) drug therapy; M86.9 Osteomyelitis, unspecified
CPT/HCPCS: 36591; 80053; 82378; 85025; 99213

== ENCOUNTER 2024-09-06 13:31 | Oncology outpatient (recurring) (ONCR) | payer MEDICARE, SELFPAY ==
[2024-08-29 10:58] VITALS: BP 104/60; PULSE 106; RESP 18; TEMP 36.4; O2SAT 95
[2024-08-29] MEDS: sodium chloride 0.9% 1,000 ML 750 ML IV (11:24)
[2024-09-02 09:39] VITALS: BP 125/71; PULSE 92; RESP 17; TEMP 36.3; O2SAT 95
[2024-09-02] MEDS: sodium chloride 0.9% 1,000 ML 999 ML IV (09:48)
[2024-09-06 13:57] VITALS: BP 132/76; PULSE 77; RESP 14; TEMP 36.3; O2SAT 98
[2024-09-06] MEDS: sodium chloride 0.9% 1,000 ML 999 ML IV (14:04)
== END 2024-09-06 23:59 | disposition home or self-care (01) ==
PROVIDERS: PCP Nurse Practitioner Family; Visit Provider Internal Medicine Medical Oncology
DX: Z53.9 Procedure and treatment not carried out, unspecified reason (principal); C20 Malignant neoplasm of rectum; Z79.899 Other long term (current) drug therapy; M86.9 Osteomyelitis, unspecified
CPT/HCPCS: 96360; 96361; J7030

== ENCOUNTER 2024-09-14 07:58 | Oncology outpatient (recurring) (ONCR) | payer MEDICARE, SELFPAY ==
[2024-09-14 08:39] LABS: Basophils # 0.1 10^3/uL (0.0-0.1); Basophils % 1.1 %; Eosinophils # 0.5 10^3/uL (0.0-0.8); Eosinophils % 7.4 %; Hematocrit 35.8 % (37-53); Lymphocytes # 1.1 10^3/uL (0.8-4.8); Lymphocytes % 18.1 %; Mean Corpuscular HGB Conc 31.8 g/dL (30-55); Mean Corpuscular Hemoglobin 32.2 pg (27-33); Mean Corpuscular Volume 101.1 fl (82-101); Mean Platelet Volume 9.7 fL (7.4-10.4); Monocytes # 0.7 10^3/uL (0.2-0.9); Monocytes % 11.4 %; Neutrophils # 3.61 10^3/uL (1.8-7.7); Neutrophils % 57.7 %; Nucleated Red Blood Cells % 0 %; Platelet Count 217 10^3/cmm (157-399); Red Blood Count 3.54 10^6/uL (3.85-5.65); Red Cell Distribution Width 13.2 % (12.1-15.1); White Blood Count 6.25 10^3/uL (3.29-11.43)
[2024-09-14 09:04] LABS: Carcinoembryonic Antigen 40.5 ng/mL (0.0-4.7)
[2024-09-14 09:15] LABS: Alanine Aminotransferase 30 U/L (0-41); Albumin Level 3.7 g/dL (3.5-5.2); Alkaline Phosphatase 94 U/L (40-130); Anion Gap 17.2 (5-19); Aspartate Amino Transferase 33 U/L (0-40); Blood Urea Nitrogen 17 mg/dL (8-23); Calcium 8.6 mg/dL (8.5-10.5); Carbon Dioxide 22 mmol/L (22-29); Chloride 100 mmol/L (98-107); Creatinine Clr Calc Pharmacy 91.0344; Globulin 3.3 g/dL (1.3-4.6); Glucose 288 mg/dL (65-115); Lactate Dehydrogenase 216 U/L (135-225); Osmolality Calculated 292 mOsm/kg (285-295); Potassium 4.2 mmol/L (3.5-5.1); Sodium 135 mmol/L (136-145); Total Bilirubin 0.4 mg/dL (0.15-1.2)
[2024-09-14 09:32] LABS: Ferritin 604 ng/mL (30-400); Iron 118 ug/dL (59-158); Percent Saturation 45.2 % (20-50); Total Iron Binding Capacity 261 mcg/dl; Unsaturated Iron Binding 143 ug/dL (112-347)
[2024-09-14 09:47] LABS: Vitamin B12 297 pg/mL (232-1245)
[2024-09-14 10:32] LABS: Folate Level 4.4 ng/mL (4.5-32.2)
== END 2024-10-07 23:59 | disposition home or self-care (01) ==
PROVIDERS: PCP Nurse Practitioner Family; Visit Provider Internal Medicine
DX: C20 Malignant neoplasm of rectum (principal); M86.9 Osteomyelitis, unspecified; D50.8 Other iron deficiency anemias; Z79.899 Other long term (current) drug therapy
CPT/HCPCS: 80053; 82378; 82607; 82728; 82746; 83540; 83550; 83615; 85025; 99213

== ENCOUNTER 2024-12-02 08:13 | Oncology outpatient (recurring) (ONCR) | payer MEDICARE, SELFPAY ==
[2024-12-02 08:51] LABS: Basophils # 0.1 10^3/uL (0.0-0.1); Basophils % 1.3 %; Eosinophils # 0.4 10^3/uL (0.0-0.8); Eosinophils % 4.9 %; Hematocrit 38.5 % (37-53); Lymphocytes # 1.3 10^3/uL (0.8-4.8); Lymphocytes % 16.3 %; Mean Corpuscular HGB Conc 32.5 g/dL (30-55); Mean Corpuscular Hemoglobin 33.1 pg (27-33); Mean Corpuscular Volume 101.9 fl (82-101); Mean Platelet Volume 9.5 fL (7.4-10.4); Monocytes # 0.8 10^3/uL (0.2-0.9); Monocytes % 9.7 %; Neutrophils % 64.3 %; Nucleated Red Blood Cells % 0 %; Platelet Count 173 10^3/cmm (157-399); Red Blood Count 3.78 10^6/uL (3.85-5.65); Red Cell Distribution Width 13.2 % (12.1-15.1); Reticulocyte % 2.5 % (0.5-2.0); White Blood Count 7.77 10^3/uL (3.29-11.43)
[2024-12-02 09:14] LABS: Alanine Aminotransferase 58 U/L (0-41); Albumin Level 3.6 g/dL (3.5-5.2); Alkaline Phosphatase 86 U/L (40-130); Aspartate Amino Transferase 56 U/L (0-40); Blood Urea Nitrogen 29 mg/dL (8-23); Calcium 8.9 mg/dL (8.5-10.5); Carbon Dioxide 20 mmol/L (22-29); Chloride 102 mmol/L (98-107); Ferritin 562 ng/mL (30-400); Globulin 3.4 g/dL (1.3-4.6); Glucose 237 mg/dL (65-115); Iron 104 ug/dL (59-158); Lactate Dehydrogenase 217 U/L (135-225); Osmolality Calculated 296 mOsm/kg (285-295); Percent Saturation 37.9 % (20-50); Sodium 136 mmol/L (136-145); Total Bilirubin 0.4 mg/dL (0.15-1.2); Total Iron Binding Capacity 274 mcg/dl; Unsaturated Iron Binding 170 ug/dL (112-347)
[2024-12-02 09:27] LABS: Vitamin B12 466 pg/mL (232-1245)
[2024-12-02 09:35] LABS: Folate Level 11.6 ng/mL (4.5-32.2)
[2024-12-02] MEDS: sodium chloride 0.9% 1,000 ML 733 ML IV (10:00)
== END 2024-12-05 23:59 | disposition home or self-care (01) ==
PROVIDERS: PCP Nurse Practitioner Family; Visit Provider Internal Medicine
DX: C20 Malignant neoplasm of rectum (principal); M86.9 Osteomyelitis, unspecified; D50.8 Other iron deficiency anemias; Z79.899 Other long term (current) drug therapy
CPT/HCPCS: 80053; 82378; 82607; 82728; 82746; 83010; 83540; 83550; 83615; 85025; 85045; 96360; 99214; J7030

== ENCOUNTER 2024-12-15 08:06 | Oncology outpatient (recurring) (ONCR) | payer MEDICARE, SELFPAY ==
[2024-12-08] MEDS: sodium chloride 0.9% 1,000 ML 667 ML IV (09:22)
[2024-12-08 09:28] VITALS: BP 103/63; PULSE 92; RESP 18; TEMP 36.4; O2SAT 96
[2024-12-08 11:10] VITALS: BP 103/64; PULSE 68; RESP 18; TEMP 36.4; O2SAT 96
[2024-12-15 08:57] LABS: Basophils # 0.1 10^3/uL (0.0-0.1); Eosinophils # 0.2 10^3/uL (0.0-0.8); Eosinophils % 2.2 %; Hematocrit 36.6 % (37-53); Lymphocytes # 0.9 10^3/uL (0.8-4.8); Mean Corpuscular HGB Conc 32.2 g/dL (30-55); Mean Corpuscular Hemoglobin 33.3 pg (27-33); Mean Corpuscular Volume 103.4 fl (82-101); Mean Platelet Volume 9.8 fL (7.4-10.4); Monocytes # 0.7 10^3/uL (0.2-0.9); Monocytes % 9.2 %; Neutrophils # 6.02 10^3/uL (1.8-7.7); Neutrophils % 75.1 %; Nucleated Red Blood Cells % 0 %; Platelet Count 179 10^3/cmm (157-399); Red Blood Count 3.54 10^6/uL (3.85-5.65); Red Cell Distribution Width 13.5 % (12.1-15.1); Reticulocyte % 2.7 % (0.5-2.0); White Blood Count 8.02 10^3/uL (3.29-11.43)
[2024-12-15] MEDS: sodium chloride 0.9% 1,000 ML 999 ML IV (09:06)
[2024-12-15 09:16] LABS: Alanine Aminotransferase 40 U/L (0-41); Albumin Level 3.7 g/dL (3.5-5.2); Alkaline Phosphatase 82 U/L (40-130); Anion Gap 17.1 (5-19); Aspartate Amino Transferase 34 U/L (0-40); Blood Urea Nitrogen 22 mg/dL (8-23); Calcium 8.7 mg/dL (8.5-10.5); Carbon Dioxide 20 mmol/L (22-29); Chloride 102 mmol/L (98-107); Ferritin 358 ng/mL (30-400); Globulin 3.1 g/dL (1.3-4.6); Glucose 355 mg/dL (65-115); Iron 78 ug/dL (59-158); Osmolality Calculated 296 mOsm/kg (285-295); Percent Saturation 28.7 % (20-50); Potassium 5.1 mmol/L (3.5-5.1); Sodium 134 mmol/L (136-145); Total Bilirubin 0.3 mg/dL (0.15-1.2); Total Iron Binding Capacity 271 mcg/dl; Total Protein 6.8 g/dL (6.6-8.7); Unsaturated Iron Binding 193 ug/dL (112-347)
[2024-12-15 09:22] LABS: Lactate Dehydrogenase 200 U/L (135-225)
[2024-12-15 09:32] LABS: Vitamin B12 290 pg/mL (232-1245)
[2024-12-15 09:41] LABS: Folate Level 13.2 ng/mL (4.5-32.2)
[2024-12-15 10:54] VITALS: BP 114/67; PULSE 67; RESP 18; TEMP 36.6; O2SAT 99
== END 2025-01-04 23:59 | disposition home or self-care (01) ==
PROVIDERS: PCP Nurse Practitioner Family; Visit Provider Internal Medicine
DX: Z53.9 Procedure and treatment not carried out, unspecified reason; C20 Malignant neoplasm of rectum; C78.7 Secondary malignant neoplasm of liver and intrahepatic bile duct; K61.1 Rectal abscess; D64.9 Anemia, unspecified; Z95.828 Presence of other vascular implants and grafts; Z93.2 Ileostomy status
CPT/HCPCS: 80053; 82607; 82728; 82746; 83010; 83540; 83550; 83615; 85025; 85045; 96360; 99213; J7030

== ENCOUNTER 2025-01-05 09:36 | Oncology outpatient (recurring) (ONCR) | payer MEDICARE, SELFPAY ==
[2025-01-05] MEDS: sodium chloride 0.9% 1,000 ML 999 ML IV (10:05)
== END 2025-02-04 23:59 | disposition home or self-care (01) ==
PROVIDERS: PCP Nurse Practitioner Family; Visit Provider Internal Medicine
DX: C20 Malignant neoplasm of rectum (principal); Z79.899 Other long term (current) drug therapy; I25.10 Atherosclerotic heart disease of native coronary artery without angina pectoris; I10 Essential (primary) hypertension; Z79.01 Long term (current) use of anticoagulants; Z79.82 Long term (current) use of aspirin; Z86.711 Personal history of pulmonary embolism; Z98.61 Coronary angioplasty status
CPT/HCPCS: 96360; 99214; J7030

== ENCOUNTER 2025-03-20 11:15 | Oncology outpatient (recurring) (ONCR) | payer MEDICARE, SELFPAY ==
[2025-03-15 11:14] LABS: Hematocrit 38.0 % (37-53); Hemoglobin 12.50 g/dL (11.27-16.99); Mean Corpuscular HGB Conc 32.9 g/dL (30-55); Mean Corpuscular Hemoglobin 33.7 pg (27-33); Mean Corpuscular Volume 102.4 fl (82-101); Nucleated Red Blood Cells % 0 %; Platelet Count 178 10^3/cmm (157-399); Red Blood Count 3.71 10^6/uL (3.85-5.65); White Blood Count 7.00 10^3/uL (3.29-11.43)
[2025-03-15 11:33] LABS: Alanine Aminotransferase 29 U/L (0-41); Albumin Level 3.6 g/dL (3.5-5.2); Alkaline Phosphatase 88 U/L (40-130); Anion Gap 16.9 (5-19); Aspartate Amino Transferase 33 U/L (0-40); Blood Urea Nitrogen 24 mg/dL (8-23); Calcium 9.0 mg/dL (8.5-10.5); Carbon Dioxide 23 mmol/L (22-29); Chloride 100 mmol/L (98-107); Ferritin 222 ng/mL (30-400); Globulin 3.8 g/dL (1.3-4.6); Glucose 308 mg/dL (65-115); Iron 101 ug/dL (59-158); Osmolality Calculated 296 mOsm/kg (285-295); Potassium 4.9 mmol/L (3.5-5.1); Sodium 135 mmol/L (136-145); Total Iron Binding Capacity 267 mcg/dl; Total Protein 7.4 g/dL (6.6-8.7); Unsaturated Iron Binding 166 ug/dL (112-347)
[2025-03-15 11:55] LABS: Carcinoembryonic Antigen 220.3 ng/mL (0.0-4.7)
[2025-03-15 14:38] VITALS: BP 144/69; PULSE 79; TEMP 36.6; O2SAT 97
[2025-03-15 16:58] VITALS: BP 126/78; PULSE 94; RESP 18; TEMP 36.6; O2SAT 93
[2025-03-20 13:14] LABS: Carcinoembryonic Antigen 234.2 ng/mL (0.0-4.7)
--- NOTE | 2025-03-31 12:30 | PETR_ITS ---
PROCEDURE INFORMATION: Exam: PET/CT Skull Base to Mid-thigh Exam date and time: 03/31/2025 10:24 AM Age: 74 years old Clinical indication: Abnormal findings; Elevated cea; HX of malignant neoplasm of rectum, secondary malignant neoplasm of right lung, other non specific findings of lung field LABS AND CLINICAL REPORTS: Glucose: 188 mg/dl Treatment strategy for malignancy (PET staging): Restaging (PS) TECHNIQUE: Imaging protocol: Following at least four-hour fasting and following the injection of radiopharmaceutical, low dose CT images were obtained. Then, PET images were obtained. Attenuation corrected images were constructed using the CT scan. Fused images of PET and CT were reviewed. The standardized uptake values (SUV) reported below are maximum values within a region of interest, expressed in gm/ml. Exam includes orbital meatal line to mid-thigh. SUV normalization method: BodyWeight Radiopharmaceutical: 12.7 mCi F-18 FDG (Fluorodeoxyglucose), IV. Time of imaging post radiopharmaceutical administration: 55 minutes Injection site: left ac COMPARISON: PT PET skull to thigh 05/10/2024 FINDINGS: Catheters, tubes and devices: Port catheter placed via the left subclavian vein terminates in the superior vena cava. Brain: On the nondedicated limited brain images there is no abnormal distribution of the radiotracer in the ingram and white matter. Pharynx: Normal distribution of the radiotracer in nasopharyngeal, and oropharyngeal structures. Larynx: Normal distribution of the radiotracer in laryngeal structures. Lungs, pleura and trachea: No abnormal uptake. Subsolid opacity in the right upper lobe noted on the prior exam on 05/10/2024 is not present on the current exam. Heart: Normal physiologic uptake. There is no cardiomegaly. Coronary artery calcification is present. There is no pericardial effusion. Mediastinal space: No abnormal uptake. Liver: 4.8 x 3.3 cm photopenic hypodensity in the segment 7 represents ablation defect. About 1.8 x 3 cm non nodular elongated/triangular shaped area of increased uptake of 6.7 SUV along the anterior margin of the ablation is indeterminate. Gallbladder and biliary ducts: No abnormal uptake. Stable small hyperdensity in the gallbladder suggestive of gallstones. Pancreas: Normal distribution of radiotracer. Spleen: Normal size without abnormal radiotracer uptake. Stable small calcified granulomas. Adrenal glands: No abnormal uptake. No nodules. Kidneys and ureters: Normal physiologic uptake. No hydronephrosis. Stomach and bowel: Linear uptake of 7.4 SUV (previously 8.8 SUV) associated with catheter in the expected location of the rectum with no nodular mass. Currently there is no external draining segment of the catheter with only the internal tubing left in place. No abnormal dilatation of the bowel. Stable ileostomy in the right mid abdomen. Vasculature: No abnormal uptake. No aortic aneurysm. Lymph nodes: No abnormal uptake. No lymphadenopathy in the head, neck, chest, abdomen, pelvis, and extremities. Abnormal uptake in the right subcarinal lymph node present on the prior exam has resolved. Bones: No abnormal uptake in the visualized axial and appendicular skeleton. Soft tissues: No abnormal uptake in the visualized head, neck, chest, abdomen, pelvis, and extremities. METRICS: Mediastinal blood pool maximal uptake is 2.9 SUV. Liver maximal uptake is 3.7 SUV. PET/PET skull to thigh SUBS [id number] IMPRESSION: 1. Non nodular area of increased uptake of 6.7 SUV anteriorly to the ablation defect in the right hepatic lobe is indeterminate. Differential diagnosis includes residual or recurrence malignancy versus benign inflammatory process. Most recent contrast enhanced exams of the abdomen pelvis on 12/07/2024 and 09/09/2024 are currently not available for review. 2. No abnormal uptake outside of the liver concerning for metastatic disease. Lung opacity in the right upper lobe and increased uptake in the right subcarinal lymph node noted on the prior exam on 05/10/2024 have resolved. 3. Persistent mildly FDG avid elongated soft tissue finding around the catheter in the expected location of the rectum currently with no external draining tube.
== END 2025-04-06 23:59 | disposition home or self-care (01) ==
LOC: ONCMED 03-24 12:25 → RAD 03-24 12:25 → ONCMED 03-24 12:57
PROVIDERS: Nurse Practitioner; PCP Nurse Practitioner Family; Visit Provider Internal Medicine
DX: Z53.9 Procedure and treatment not carried out, unspecified reason (principal)
CPT/HCPCS: 36591; 78815; 80053; 82378; 82728; 83010; 83540; 83550; 83615; 85025; 85045; 96360; 99213; A9552; J7030

== ENCOUNTER 2025-05-22 10:33 | Oncology outpatient (recurring) (ONCR) | payer MEDICARE, SELFPAY | END 2025-06-06 23:59 | disposition home or self-care (01) | PROVIDERS: PCP Nurse Practitioner Family; Visit Provider Internal Medicine | DX: Z45.2 Encounter for adjustment and management of vascular access device (principal); Z95.828 Presence of other vascular implants and grafts | CPT/HCPCS: 96523 ==

== ENCOUNTER 2025-06-21 07:45 | Oncology outpatient (recurring) (ONCR) | payer MEDICARE, SELFPAY ==
[2025-06-07 08:01] LABS: Hematocrit 26.6 % (37-53); Hemoglobin 8.30 g/dL (11.27-16.99); Mean Corpuscular HGB Conc 31.2 g/dL (30-55); Mean Corpuscular Hemoglobin 32.3 pg (27-33); Mean Corpuscular Volume 103.5 fl (82-101); Nucleated Red Blood Cells % 0 %; Platelet Count 313 10^3/cmm (157-399); Red Blood Count 2.57 10^6/uL (3.85-5.65); White Blood Count 8.41 10^3/uL (3.29-11.43)
[2025-06-07 08:23] LABS: Alanine Aminotransferase 27 U/L (0-41); Albumin Level 3.3 g/dL (3.5-5.2); Alkaline Phosphatase 108 U/L (40-130); Anion Gap 17.6 (5-19); Aspartate Amino Transferase 44 U/L (0-40); Blood Urea Nitrogen 21 mg/dL (8-23); Calcium 8.6 mg/dL (8.5-10.5); Carbon Dioxide 20 mmol/L (22-29); Chloride 103 mmol/L (98-107); Creatinine Clr Calc Pharmacy 60.1789; Globulin 4.9 g/dL (1.3-4.6); Glucose 263 mg/dL (65-115); Osmolality Calculated 294 mOsm/kg (285-295); Potassium 4.6 mmol/L (3.5-5.1); Sodium 136 mmol/L (136-145); Total Protein 8.2 g/dL (6.6-8.7)
[2025-06-07 08:41] LABS: Slide Review Slide Review Perform
[2025-06-07 09:07] LABS: Carcinoembryonic Antigen 237.4 ng/mL (0.0-4.7)
[2025-06-07 10:42] LABS: Ferritin 532 ng/mL (30-400); Iron 72 ug/dL (59-158); Total Iron Binding Capacity 237 mcg/dl; Unsaturated Iron Binding 165 ug/dL (112-347)
[2025-06-07 11:47] VITALS: BP 112/63; PULSE 77; RESP 17; TEMP 36.4; O2SAT 97
[2025-06-07 12:02] VITALS: BP 120/68; PULSE 77; RESP 17; TEMP 36.4; O2SAT 97
[2025-06-07 12:20] VITALS: BP 113/63; PULSE 73; RESP 17; TEMP 36.6; O2SAT 100
[2025-06-07 12:50] VITALS: BP 118/72; PULSE 77; RESP 17; TEMP 36.6; O2SAT 100
[2025-06-07 14:05] VITALS: BP 134/73; PULSE 65; TEMP 36.1; O2SAT 99
[2025-06-21 08:18] LABS: Hematocrit 30.8 % (37-53); Hemoglobin 9.90 g/dL (11.27-16.99); Mean Corpuscular HGB Conc 32.1 g/dL (30-55); Mean Corpuscular Hemoglobin 31.7 pg (27-33); Mean Corpuscular Volume 98.7 fl (82-101); Nucleated Red Blood Cells % 0 %; Platelet Count 225 10^3/cmm (157-399); Red Blood Count 3.12 10^6/uL (3.85-5.65); White Blood Count 9.27 10^3/uL (3.29-11.43)
[2025-06-21 08:47] LABS: Carcinoembryonic Antigen 278.0 ng/mL (0.0-4.7)
[2025-06-21 08:58] LABS: Alanine Aminotransferase 43 U/L (0-41); Albumin Level 3.5 g/dL (3.5-5.2); Alkaline Phosphatase 123 U/L (40-130); Anion Gap 18.2 (5-19); Aspartate Amino Transferase 46 U/L (0-40); Blood Urea Nitrogen 20 mg/dL (8-23); Calcium 8.6 mg/dL (8.5-10.5); Carbon Dioxide 19 mmol/L (22-29); Chloride 100 mmol/L (98-107); Creatinine Clr Calc Pharmacy 65.5095; Globulin 4.6 g/dL (1.3-4.6); Glucose 299 mg/dL (65-115); Osmolality Calculated 290 mOsm/kg (285-295); Potassium 4.2 mmol/L (3.5-5.1); Sodium 133 mmol/L (136-145); Total Protein 8.1 g/dL (6.6-8.7)
[2025-06-21 09:38] LABS: Vitamin B12 308 pg/mL (232-1245)
[2025-06-21 11:11] VITALS: BP 124/68; PULSE 66; RESP 17; TEMP 36.4; O2SAT 99
== END 2025-07-07 23:59 | disposition home or self-care (01) ==
PROVIDERS: Internal Medicine; Nurse Practitioner Family; PCP Nurse Practitioner Family; Visit Provider Internal Medicine
DX: Z53.9 Procedure and treatment not carried out, unspecified reason; C20 Malignant neoplasm of rectum; C78.7 Secondary malignant neoplasm of liver and intrahepatic bile duct; I10 Essential (primary) hypertension; K61.0 Anal abscess; E86.0 Dehydration; D64.9 Anemia, unspecified
CPT/HCPCS: 36430; 36591; 80053; 82378; 82607; 82728; 82746; 83090; 83540; 83550; 83615; 83921; 85025; 86850; 86900; 86920; 96360; 96361; 99213; 99214; J7030; J7040; J7050; J9999; P9016

== ENCOUNTER 2025-07-19 08:08 | Oncology outpatient (recurring) (ONCR) | payer MEDICARE, SELFPAY ==
[2025-07-11 08:50] LABS: Hematocrit 31.0 % (37-53); Hemoglobin 9.90 g/dL (11.27-16.99); Mean Corpuscular HGB Conc 31.9 g/dL (30-55); Mean Corpuscular Hemoglobin 31.4 pg (27-33); Mean Corpuscular Volume 98.4 fl (82-101); Nucleated Red Blood Cells % 0 %; Platelet Count 242 10^3/cmm (157-399); Red Blood Count 3.15 10^6/uL (3.85-5.65); White Blood Count 10.63 10^3/uL (3.29-11.43)
[2025-07-11 09:07] LABS: Alanine Aminotransferase 21 U/L (0-41); Albumin Level 3.2 g/dL (3.5-5.2); Alkaline Phosphatase 105 U/L (40-130); Anion Gap 15.6 (5-19); Aspartate Amino Transferase 38 U/L (0-40); Blood Urea Nitrogen 21 mg/dL (8-23); Calcium 8.5 mg/dL (8.5-10.5); Carbon Dioxide 21 mmol/L (22-29); Chloride 101 mmol/L (98-107); Globulin 5.2 g/dL (1.3-4.6); Glucose 343 mg/dL (65-115); Osmolality Calculated 293 mOsm/kg (285-295); Potassium 4.6 mmol/L (3.5-5.1); Sodium 133 mmol/L (136-145); Total Protein 8.4 g/dL (6.6-8.7)
[2025-07-11 10:15] VITALS: BP 112/78; PULSE 78; RESP 17; TEMP 36.4; O2SAT 94
[2025-07-19 08:28] LABS: Hematocrit 31.6 % (37-53); Hemoglobin 10.10 g/dL (11.27-16.99); Mean Corpuscular HGB Conc 32.0 g/dL (30-55); Mean Corpuscular Hemoglobin 31.2 pg (27-33); Mean Corpuscular Volume 97.5 fl (82-101); Nucleated Red Blood Cells % 0 %; Platelet Count 247 10^3/cmm (157-399); Red Blood Count 3.24 10^6/uL (3.85-5.65); White Blood Count 9.99 10^3/uL (3.29-11.43)
[2025-07-19 09:01] LABS: Carcinoembryonic Antigen 329.3 ng/mL (0.0-4.7)
[2025-07-19 09:12] LABS: Alanine Aminotransferase 19 U/L (0-41); Albumin Level 3.5 g/dL (3.5-5.2); Alkaline Phosphatase 103 U/L (40-130); Anion Gap 17.1 (5-19); Aspartate Amino Transferase 30 U/L (0-40); Blood Urea Nitrogen 18 mg/dL (8-23); Calcium 8.6 mg/dL (8.5-10.5); Carbon Dioxide 19 mmol/L (22-29); Chloride 102 mmol/L (98-107); Globulin 4.7 g/dL (1.3-4.6); Glucose 282 mg/dL (65-115); Osmolality Calculated 290 mOsm/kg (285-295); Potassium 4.1 mmol/L (3.5-5.1); Sodium 134 mmol/L (136-145); Total Protein 8.2 g/dL (6.6-8.7)
[2025-07-19 10:52] VITALS: BP 121/70; PULSE 77; RESP 17; TEMP 36.2; O2SAT 96
== END 2025-08-06 23:59 | disposition home or self-care (01) ==
PROVIDERS: Internal Medicine; Nurse Practitioner Family; PCP Nurse Practitioner Family; Visit Provider Internal Medicine
DX: Z53.9 Procedure and treatment not carried out, unspecified reason; C20 Malignant neoplasm of rectum; C78.7 Secondary malignant neoplasm of liver and intrahepatic bile duct; E86.0 Dehydration; D64.9 Anemia, unspecified; Z95.828 Presence of other vascular implants and grafts; Z97.8 Presence of other specified devices; C78.01 Secondary malignant neoplasm of right lung
CPT/HCPCS: 80053; 82378; 85025; 96360; 96361; 99213; J7030

== ENCOUNTER 2025-07-23 05:40 | Inpatient (IN) | payer MEDICARE, SELFPAY ==
--- OUTSIDE RECORDS SUMMARY | 2025-07-20 02:15 | XMS_ITS ---
Author Organization [facility] Address [address] [place] [address] Care Team Providers Care Religious Activities Director Name Role Phone [facility] Primary Care Provider [facility] Unavailable Unavailable Allergies Allergen (clinical drug ingredient) Drug/Non Drug Allergy documented on EMR Reaction Allergy Type Onset Date Status Substance with sulfonamide structure and antibacterial mechanism of action (substance) Sulfa Antibiotics Unknown Drug Allergy Active REASON FOR VISIT CCM Monthly Call Medications Medication SIG (Take, Route, Frequency, Duration) Notes Start Date End Date Status Metoprolol Succinate ER 50 mg Tablet Extended Release 24 Hour TAKE ONE TABLET BY MOUTH TWICE DAILY; Duration: 90 Active Insulin Glargine-yfgn 100 UNIT/ML Solution Pen-injector inject 5 units SUBCUTANEOUSLY DAILY. each pen is good FOR 28 days ONCE in USE. keep unused pens in fridge.; Duration: 30 Active Pantoprazole Sodium 40 mg Tablet Delayed Release TAKE ONE TABLET BY MOUTH TWICE DAILY; Duration: 90 Active Lidocaine 5 % Ointment APPLY topically F OUR TIMES DAILY NEEDED FOR PAIN; Duration: 30 Active Diphenoxylate-Atropine 2.5-0.025 MG Tablet TAKE TWO TABLETS BY MOUTH FOUR TIMES DAILY NEEDED FOR DIARRHEA; UNTIL control of diarrhea has been achieved; Duration: 8 01/26/2024 Not-Taking Fluticasone Propionate 50 MCG/ACT Suspension instill TWO SPRAYS IN EACH NOSTRIL EVERY DAY; Duration: 30 Not-Taking Lisinopril 5 mg Tablet TAKE ONE TABLET B Y MOUTH TWICE DAILY; Duration: 90 Not-Taking amLODIPine Besylate 2.5 mg Tablet TAKE ONE TABLET BY MOUTH TWICE DAILY; Duration: 90 Not-Taking Lasix 20 MG Tablet 1 tablet Orally Once a day; Duration: 30 day(s) Not-Aubrey ing metFORMIN HCl 500 mg Tablet TAKE TWO TABLETS BY MOUTH TWICE DAILY AFTER MEALS; Duration: 90 Not-Taking Rosuvastatin Calcium 20 mg Tablet TAKE ONE TABLET BY MOUTH AT BEDTIME; Duration: 90 Active Hydrocortisone (Perianal) 2.5 % Cream APPLY externally TWICE DAILY FOR 30 DAYS; Duration: 30 Active True Metrix Blood Glucose Test - Strip USE TO test blood sugar ONCE DAILY; Duration: 90 days Active glipiZIDE ER 10 mg Tablet Extended Release 24 Hour TAKE ONE TABLET BY MOUTH TWICE DAILY AFTER meals; Duration: 90 days Active amLODIPine Besylate 5 MG Tablet 1 tablet Orally Once a day Active DULoxetine HCl 30 MG Capsule Delayed Release Particles TAKE ONE CAPSULE BY MOUTH ONCE a day Oral; Duration: 30 Days Active Diphenoxylate-Atropine 2.5-0.025 MG Tablet Oral; Duration: 15 Days Active NovoLIN R 100 UNIT/ML Solution inject as directed up to 20 units day total Injection 3 times a day as directed sliding scale; Duration: 30 days Active oxyCODONE HCl 10 MG Tablet TAKE ONE TABLET BY MOUTH FOUR TIMES DAILY NEEDED FOR PAIN FOR 30 DAYS Oral; Duration: 30 Days Active Eliquis 5 MG Tablet TAKE ONE TABLET BY M OUTH TWICE DAILY Oral; Duration: 30 Days Active Isosorbide Mononitrate ER 30 mg Tablet Extended Release 24 Hour 1 tab orally daily; Duration: 90 days Active Social History Tobacco Use: Social History Observation Description Date Details (start date - stop date) Never Smoker NA - NA Social History Tobacco Use: Social Info Question Answer Notes Tobacco Control (Standard) Tobacco use: Nonsmoker Section Notes: PHQ9 04/04/2025 Encounters Encounter Location Date Provider Diagnosis [facility] [place] 07/20/2025 [facility] Type 2 diabetes mellitus without complication, without long-term current use of insulin E11.9 and Uncontrolled atrial flutter I48.92 Assessments Encounter Date Diagnosis (ICD Code) Assessment Notes Treatment Notes Treatment Clinical Notes Section Notes 07/20/2025 Type 2 diabetes mellitus without complication, without long-term current use of insulin (ICD-10 - E11.9) 07/20/2025 Uncontrolled atrial flutter (ICD-10 - I48.92) Atrial Fibrillation: Care Instructions material was published Plan Of Treatment Treatment Notes Assessment Notes Uncontrolled atrial flutter Atrial Fibri llation: Care Instructions material was published Progress Notes * Genaro ROBBINSDOB:1950 (75 yo M)Acc No.[id number]:07/20/2025 Patient: Genaro DAVIS :1950 A ge:75 Y S ex:Male Address:[address] [place] [id number] Subjective: * Chief Complaints: * C CM Monthly Call * Medical History: Heart Disease Diabetes mellitus Hyperlipidemia GERD Hypertension Rectal cancer Medical History Verified * Surgical History: Esophagogastroduodenoscopy Colonoscopy with polypectomy ablation of neoplasm of liver 04/2022 history of low anterior resection of rectum 05/2021 portacath placement 09/2020 percutaneous transluminal coronary angioplasty Surgical History verified. * Hospitalization/Major Diagno stic Procedure: Denies Past Hospitalization. Hospitalization Verified. * Family History: F ather: 56 yrs, coronary artery disease. F amily History Verified.. * Social History: T obacco Use: T obacco Control (Standard) T obacco use: N onsmoker S ocial History Verified. P HQ9 04/04/2025. * Medications: T akingLidocaine 5 % Ointment APPLY topically FOUR TIMES DAILY NEEDED FOR PAIN Pantoprazole Sodium 40 mg Tablet Delayed Release TAKE ONE TABLET BY MOUTH TWICE DAILY Insulin Glargine-yfgn 100 UNIT/ML Solution Pen-injector inject 5 units SUBCUTANEOUSLY DAILY. each pen is good FOR 28 days ONCE in USE. keep unused pens in fridge. Metoprolol Succinate ER 50 mg Tablet Extended Release 24 Hour TAKE ONE TABLET BY MOUTH TWICE DAILY Isosorbide Mononitrate ER 30 mg Tablet Extended Release 24 Hour 1 tab orally daily Eliquis 5 MG Tablet TAKE ONE TABLET BY MOUTH TWICE DAILY Oral oxyCODONE HCl 10 MG Tablet TAKE ONE TABLET BY MOUTH FOUR TIMES DAILY NEEDED FOR PAIN FOR 30 DAYS Oral NovoLIN R 100 UNIT/ML Solution inject as directed up to 20 units day total Injection 3 times a day as directed sliding scale Diphenoxylate-Atropine 2.5-0.025 MG Tablet Oral DULoxetine HCl 30 MG Capsule Delayed Release Particles TAKE ONE CAPSULE BY MOUTH ONCE a day Oral amLODIPine Besylate 5 MG Tablet 1 tablet Orally Once a day glipiZIDE ER 10 mg Tablet Extended Release 24 Hour TAKE ONE TABLET BY MOUTH TWICE DAILY AFTER meals True Metrix Blood Glucose Test - Strip USE TO test blood sugar ONCE DAILY Hydrocortisone (Perianal) 2.5 % Cream APPLY externally TWICE DAILY FOR 30 DAYS Rosuvastatin Calcium 20 mg Tablet TAKE ONE TABLET BY MOUTH AT BEDTIME Taking Lidocaine 5 % Ointment APPLY topically FOUR TIMES DAILY NEEDED FOR PAIN Taking Pantoprazole Sodium 40 mg Tablet Delayed Release TAKE ONE TABLET BY MOUTH TWICE DAILY Taking Insulin Glargine-yfgn 100 UNIT/ML Solution Pen-injector inject 5 units SUBCUTANEOUSLY DAILY. each pen is good FOR 28 days ONCE in USE. keep unused pens in fridge. Taking Metoprolol Succinate ER 50 mg Tablet Extended Release 24 Hour TAKE ONE TABLET BY MOUTH TWICE DAILY Taking Isosorbide Mononitrate ER 30 mg Tablet Extended Release 24 Hour 1 tab orally daily Taking Eliquis 5 MG Tablet TAKE ONE TABLET BY MOUTH TWICE DAILY Oral Taking oxyCODONE HCl 10 MG Tablet TAKE ONE TABLET BY MOUTH FOUR TIMES DAILY NEEDED FOR PAIN FOR 30 DAYS Oral Taking NovoLIN R 100 UNIT/ML Solution inject as directed up to 20 units day total Injection 3 times a day as directed sliding scale Taking Diphenoxylate- Atropine 2.5-0.025 MG Tablet Oral Taking DULoxetine HCl 30 MG Capsule Delayed Release Particles TAKE ONE CAPSULE BY MOUTH ONCE a day Oral Taking amLODIPine Besylate 5 MG Tablet 1 tablet Orally Once a day Taking glipiZIDE ER 10 mg Tablet Extended Release 24 Hour TAKE ONE TABLET BY MOUTH TWICE DAILY AFTER meals Taking True Metrix Blood Glucose Test - Strip USE TO test blood sugar ONCE DAILY Taking Hydrocortisone (Perianal) 2.5 % Cream APPLY externally TWICE DAILY FOR 30 DAYS Taking Rosuvastatin Calcium 20 mg Tablet TAKE ONE TABLET BY MOUTH AT BEDTIME Not-TakingmetFORMIN HCl 500 mg Tablet TAKE TWO TABLETS BY MOUTH TWICE DAILY AFTER MEALS Lasix 20 MG Tablet 1 tablet Orally Once a day amLODIPine Besylate 2.5 mg Tablet TAKE ONE TABLET BY MOUTH TWICE DAILY Lisinopril 5 mg Tablet TAKE ONE TABLET BY MOUTH TWICE DAILY Fluticasone Propionate 50 MCG/ACT Suspension instill TWO SPRAYS IN EACH NOSTRIL EVERY DAY Diphenoxylate-Atropine 2.5-0.025 MG Tablet TAKE TWO TABLETS BY MOUTH FOUR TIMES DAILY NEEDED FOR DIARRHEA; UNTIL control of diarrhea has been achieved Medication List reviewed and reconciled with the patientNot-Taking metFORMIN HCl 500 mg Tablet TAKE TWO TABLETS BY MOUTH TWICE DAILY AFTER MEALS Not-Taking Lasix 20 MG Tablet 1 tablet Orally Once a day Not-Taking amLODIPine Besylate 2.5 mg Tablet TAKE ONE TABLET BY MOUTH TWICE DAILY Not-Taking Lisinopril 5 mg Tablet TAKE ONE TABLET BY MOUTH TWICE DAILY Not-Taking Fluticasone Propionate 50 MCG/ACT Suspension instill TWO SPRAYS IN EACH NOSTRIL EVERY DAY Not-Taking Diphenoxylate-Atropine 2.5-0.025 MG Tablet TAKE TWO TABLETS BY MOUTH FOUR TIMES DAILY NEEDED FOR DIARRHEA; UNTIL control of diarrhea has been achieved Medication List reviewed and reconciled with the patient * Allergies: S coni AntibioticsyesAllergihortensia Verified. Assessment: * Assessment: 1. T ype 2 diabetes mellitus without complication, without long-term current use of insulin - E11.9 (Primary) 2 . U ncontrolled atrial flutter - I48.92 Plan: * Treatment: * * Date:
[2025-07-23] VITALS (14 sets, daily range): BP systolic 110–152; BP diastolic 56–96; PULSE 77–92; RESP 16–22; TEMP 36.4–37.6; O2SAT 94–97; BMI 35.2
--- OUTSIDE RECORDS SUMMARY | 2025-07-23 05:47 | XMS_ITS | Data Portability ---
Author Organization [facility], [facility] Address [address] [place] [id number] Assessment No assessment recorded. Plan of Treatment Reminders Order Date Submit Date Provider Last Modified By Organization Details Last Modified Time Details Appointments None recorded. Lab SARS CoV 2 RNA (COVID-19 ), QL, size cutter-PCR, respirato ry specimen 2019 EZEKIEL [facility], [address], [place], [address], 0 22:33:35 rapid SARS CoV 2 Ag, QL IA, respirato ry specimen 2019 rskrapates [facility], [address], [place], [address], 0 11:03:51 Referral None recorded. Procedures None recorded. Surgeries None recorded. Imaging None recorded. Medication Orders azithromy natalie 250 mg tablet 2019 INTERFACE [facility], [address] [place], [address], 0 11:06:14 prednison e 20 mg tablet 2019 INTERFACE [facility], [address] [place], [address], 0 11:06:14 Patient TargetsNo targets recorded. Patient Instructions Encounter Date Encounter Id Patient Instructions Last Modified By Organization Details Last Modified Time 07/19/2020 [id number] things to do i f you've been exposed to covid-19 [email or web address] Not available 07/19/2020 11:03:51 shortness of breath: care instructions rskrapates Not available 07/19/2020 11:03:50 -Will test for COVID 19 pcr, further plan of care pending results -VS stable at this time, no acute distress, exam unremarkable. Is stable for outpatient treatment. -Recommend to self-quarantine at home for 14 days from the time of exposure. Restrict all activities outside of home, aside from medical care. Stay in a specific room and away from other people in your home. Use a seperate bathroom. Do not handle animals while sick. - Discussed: Get some extra rest, increase fluid intake. Take an kjqo-ynl-tnquugl pain medicine, such as acetaminophen (Tylenol) for fever/pain. -Call ahead before coming to the clinic -Wear a facemask if you have to be around other people. -Cover your mouth and nose with a tissue when you cough or sneeze and immediately wash your hands with soap and water for at least 20 seconds or clean your hands with an alcohol based hand-manager auto. -Avoid sharing personal household items (towels, cups, utensils, bedding) -Wash hands often and avoid touching your mouth, eyes, nose. -Clean and disinfect all high touch surfaces including counters, tabletops, doorknobs, toilets, phones, keyboards and any surface that may have blood, stool, or body fluids on them. Monitor symptoms closely. Disease may worsen after the second week of infection. Seek prompt medical attention if your illness is worsening. Before seeking care, contact healthcare provider and tell them that you are under investigation for COVID-19. If you need immediate medical attention call 911, if possible, put on a facemask before EMS arrives. Advised to call office if any questions or concerns arise. Patient discharged to home via private vehicle with his spouse in stable condition. Verbal and written education given. Follow-up instructions provided. rskrapates Not available 07/19/2020 11:06:50 Meds as directed . Care instructions given. Return to clinic if sx persist or worsen. RTC pf pcp- sooner if needed. [email or web address] Not available 07/19/2020 11:06:43 Reason for Referral None Reported. Results Created Date Observation Date Name Description Value Unit Range Abnormal Flag Note LastModifiedBy Organization Detail LastModifiedTime 07/19/20 20 07/20/2020 SARS CoV 2 RNA (COVI D-19) , QL, size cutter-P CR, respi rator y speci men covid19 (sars-cov-2) Negati ve negati ve Not Available [facility] [address], [place], [address], 07/20/2020 22:33:35 07/19/20 20 07/20/2020 SARS CoV 2 RNA (COVI D-19) , QL, size cutter-P CR, respi rator y speci men source Unknow n Comme nt for COVID 19 SARS- COV-2 LR Negat luis (Not Detec jan) resul ts do not exclu de infec tion cause d by SARS- CoV-2 and shoul d not be used as the sole basis for treat ment or other patie nt manag ement decis ions. Optim um speci men types and timin g for peak viral level s durin g infec tions cause d by SARS- CoV-2 have not been deter mined . Colle ction of multi ple speci mens (type s and time point s) from the same patie nt may be neces shira to detec t the virus . Impro per speci men colle ction and handl ing, seque nce varia bilit y under lying assay prime rs and/o r probe s, or the prese nce of organ isms in quant ities less than the limit of detec tion of the assay may lead to false negat luis resul ts. Posit luis and negat luis predi ctive value s of testi ng are highl y depen dent on preva lence . False negat luis resul ts are more likel y when preva lence of disea se is high. The expec jan resul t is Negat luis (Not Detec jan). The SARS- CoV-2 test is inten ded for the presu mptiv e quali tativ e detec tion of nucle ic acid from SARS- CoV-2 in upper and lower respi rator y speci mens. Testi ng metho dolog y is Nucle ic Acid Ampli ficat ion (NAAT ), inclu ding PCR, using high- throu ghput techn ology . Test resul ts must be corre lated with clini gabbi prese ntati on and evalu ated in the sarah xt of other labor atory and epide miolo gi data. Test perfo rmanc e can be affec jan cordova se the epide miolo gy and clini gabbi spect rum of infec tion cause d by SARS- CoV-2 is not fully known . For examp le, the optim um types of speci mens, and when to colle ct durin g the cours e of infec tion, may not be known . Fact Sheet for Healt hcare Provi ders: https ://[employer]/ r7awx yh (or: https ://iJento.Consignd .gov/ coron Canary s/201 9-nco v/christ nload s/ Facts heet- for-H ealt care- Provi ders- 2018- nCoV. pdf) Fact Sheet for Patie nts: https ://[employer]/ rlqe7 2t (or: https ://iJento.Consignd .gov/ Avenso s/201 9-nco v/christ nload s/ Facts heet- for-P atien ts-20 19-nC oV.pd f) This assay is a Labor atory Devel oped Test (LDT) . Valid ation dem strat ed the assay has accep table chanel cteri stics to detec t COVID -19 from human clini gabbi respi rator y speci mens. Indep enden t revie w of this assay by the FDA is not final at this time. Not Available [facility] [address], [place], [address], 07/20/2020 22:33:35 07/19/20 20 07/19/2020 rapid SARS CoV 2 Ag, QL IA, respi rator y speci men Rapid COVID-19 Antigen negati ve Not Available [facility] [address], [place], [address], 07/19/2020 10:42:54 Result Notes None recorded. Problems Name Problem SNOMED Code Status Onset Date Resolution Date Notes Provider Name and Address Organization Details Recorded Time Hypertensive disorder 96710826 Active 2019 Ida Zapata NP, [address], [place], [address], [facility] 0 10:50:54 Exposure to SARS-CoV-2 Active 2019 Ida Zapata NP, [address], [place], [address], [facility] 0 11:03:40 Problem Notes None recorded. Medical Equipment None Reported. Allergies Allergen ID Allergen Name Allergen Category Reaction Reaction Severity Criticality Documentation Date Start Date Code Code System Note Provider Name and Address Organization Details Recorded Time 80118 Substance with sulfonami de structure and antibacte rial mechanism of action (substanc e) medicatio n Not available Not available Not available 07/19/2020 [id number] SNOMED Maria Alejandra Domingo [facility], [facility] 0 10:40:13 Medications Name Sig Start Date Stop Date Status Note LastModified by Organization Details LastModified Time metformin 500 mg tablet active Not Available Not Available No t Available clonidine HCl 0.1 mg tablet active Not Available Not Availabl e Not Available doxycycline hyclate 100 mg capsule active Not Available Not Available Not Available azithromycin 250 mg tablet TAKE 2 TABLETS BY MOUTH ON DAY 1, THEN TAKE 1 TABLET DAILY ON DAYS 2-5 active Not Available Not Available No t Available metoprolol succinate ER 50 mg tablet,extende d release 24 hr active Not Available Not Available Not Available prednisone 20 mg tablet Take 1 tablet twice a day by oral route for 5 days. active Not Available Not Available No t Available isosorbide mononitrate ER 30 mg tablet,extende d release 24 hr active Not Available Not Available Not Available amlodipine 2.5 mg tablet active Not Available Not Available No t Available clopidogrel 75 mg tablet active Not Available Not Available No t Available pantoprazole 40 mg tablet,delayed release TAKE ONE TABLET BY MOUTH DAILY active Not Available Not Available No t Available lisinopril 5 mg tablet active Not Available Not Available No t Available fluticasone propionate 50 mcg/actuation nasal spray,suspensi on active Not Available Not Available Not Available rosuvastatin 20 mg tablet TAKE ONE TABLET BY MOUTH EVERY DAY active Not Available Not Available No t Available TRUEplus Lancets 30 gauge USE DIRECTED TO test blood sugar EVERY DAY NEEDED active Not Available Not Available No t Available True Metrix Glucose Test Strip USE DIRECTED TO test blood sugar EVERY DAY NEEDED active Not Available Not Available No t Available True Metrix Glucose Meter USE DIRECTED TO test blood sugar EVERY DAY active Not Available Not Available No t Available Vitals Date Recorded Heart rate Respiratory rate Body temperature Oxygen saturation Oxygen saturation in Arterial blood by Pulse oximetry Provider Name and Address Organization Details Last Updated DateTime 0 66 /min 20 /min 97.8 [degF] 98 % 98 % Maria Alejandra Domingo [facility] 0 10:40:01 Social History Question Answer Notes LastModified by [email or web address] Details LastModified Time Tobacco Smoking Status Never Smoker Maria Alejandra Domingo [facility] 07/19/2020 10:41:06 Animal Exposure? Yes [email or web address] Information not available 07/19/2020 What Type Of Diet Are You Following? REGULAR [email or web address] Information not available 07/19/2020 Live Alone Or With Others? With Others Information not available 07/19/2020 Marital Status [email or web address] Informatio n not available 07/19/2020 What Was The Date Of Your Most Recent Tobacco Screening? 07/19/2020 [email or web address] Information not available 07/19/2020 Sex: Unknown Functional Status Question Answer Note LastModified by Code71 Details LastModified Time What is your level of alcohol consumption? None [email or web address] Information not available 07/19/2020 Do you or have you ever used smokeless tobacco? Never used smokeless tobacco [email or web address] Information not available 07/19/2020 Are you able to walk independently without assistance or assistive devices? 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 Never used electronic cigarettes [email or web address] Information not available 07/19/2020 Mental Status None recorded. Family History Nothing Reported. Medical History Condition Response Diabetes Y Hypertension Y Past Encounters Encounter ID Performer Location Encounter Start Date Encounter Closed Date Diagnosis/Indication Diagnosis SNOMED-CT Code Diagnosis ICD10 Code Diagnosis IMO Codes Diagnosis Note [id number] Ida Zapata NP, [facility] [place] [facility] [address] [place] [address] 07/19/2020 10:34:38 07/19/2020 11:38:43 Dyspnea 848836421 R06.00 Exposure t o SARS-CoV-2 949162954 Z20.828 Health Concerns Section Related Observation LastModified by Organization Detai ls LastModified Time None Recorded Concern Status LastModified by Organization Details LastModified Time None Recorded Advance Directives Directive None Recorded Payers Insurance Date Sequence Insurance Name Policy Number Policy Vega Covered Member ID Vega Member ID Guarantor Name 07/19/2020 1 [place] (MED[place]ARE[place] Genaro Robbins [id number] Genaro Robbins 07/25/2020 MEDICARE A-AR: [employer] - [facility] Genaro Robbins [id number] Genaro Robbins 08/08/2020 2 A[employer] (MEDICARE SUPPLEMENT) Genaro Robbins [id number] Genaro Robbins Notes Date Note Type Note Provider Name and Address Organization Details Recorded Time 07/19/2020 text/html COVID-19 Symptom s January 2020Reported by PatientUpper Respiratory SymptomsFor quality, patient reportsdry cough. For context, patient reportsallergies. For covid-19 signs and symptoms, patient reportscough same,shortness of breath same, andsore throat same. For contacts and exposure, patient reportsclose contact with a confirmed or suspected case of covid-19andclose proximity with person with covid-19. For duration, patient reportssymptoms lasting 1 days.ROS as noted in the HPI *Patient examined in private vehicle in clinic parking lot will full PPE in place to prevent risk of exposure or transmission. -Patient has had known contact and exposure to COVID 19, continues with cough, runny nose, sore throat, body aches and intermittent shortness of breath. -Meets criteria for COVID 19 testing due to positive screen. Ida Zapata NP, [address], [place], [address], [facility] 07/19/2020 11:08:00
--- OUTSIDE RECORDS SUMMARY | 2025-07-23 05:47 | XMS_ITS | Clinical Summary ---
Author Organization [facility] Address [address] [place] [address] Phone Care Team Providers Care Bulldogger Name Role Phone Unavailable Primary Care Provider Unavailabl e Allergies Active Allergy Reactions Criticality Noted Date Comments Sulfa (Sulfonamide Antibiotics) Anaphylaxis High 03/2024 Medications metoprolol succinate (TOPROL XL) 50 mg Extended Release 24 hour tablet Take 50 mg by mouth 2 times daily. Active lisinopriL (PRINIVIL) 5 mg tablet Take 5 mg by mouth daily. Active glipiZIDE (GLUCOTROL XL) 10 mg Extended Release 24 hour tablet Take 10 mg by mouth 2 times daily. Active pantoprazole (PROTONIX) 40 mg Tablet, Delayed Release (E.C.) Take 40 mg by mouth 2 times daily. Active apixaban (Eliquis) 5 mg tablet Take 5 mg by mouth 2 times daily. Active oxyCODONE (ROXICODONE) 10 mg tablet Take 10 mg by mouth every 6 hours as needed for Pain, Moderate. Active isosorbide mononitrate (IMDUR) 30 mg Extended Release 24 hour tablet Take 30 mg by mouth daily in the morning. Active ondansetron (ZOFRAN) 4 mg Tablet Take 4 mg by mouth every 6 hours as needed for Nausea/Emesis. 01/02/20 23 Active loperamide (Anti-Diarrheal , Loperamide,) 2 mg Tablet Take 2 mg by mouth 4 times daily as needed for Diarrhea/Loose Stools. 03/05/20 23 Active gabapentin (NEURONTIN) 300 mg capsule Take 300 mg by mouth daily at bedtime. 07/10/20 22 Active lidocaine-prilo kenji (EMLA) 2.5-2.5 % Kit Apply to affected area see administration instructions. apply quarter size amount 45 min prior to port access, cover with plastic wrap 01/23/20 23 Active diphenoxylate-a tropine 2.5 mg-0.025 mg tablet Take 2 Tablets by mouth 4 times daily as needed for Diarrhea/Loose Stools. 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 Osteomyelitis 12/15/2023 Acute osteomyelitis of coccyx 12/15/2023 Pelvic abscess in male 12/15/2023 Acute gastroenteropathy due to Norovirus 024 Benign hypertension 12/13/2023 Chronic anticoagulation 12/13/2023 History of colon cancer 12/13/2023 Type 2 diabetes mellitus, wi thout long-term current use of insulin 12/13/2023 Malignant neoplasm of colon 12/13/2023 Resolved Problems Problem Noted Date Diagnosed Date Resolved Date Acute metabolic encephalopathy 12/13/2023 12/17/2023 Word finding difficulty 12/13/2023 04/0 05/2024 Hyponatremia 12/13/2023 12/14/2023 Leukocytosis (leucocytosis) 12/13/2023 12/15/2023 Nausea and vomiting 12/13/2023 12/14/19 24 Social History Tobacco Use Types Packs/Day Years Used Date Smoking Tobacco: Never Smokeless Tobacco: Current Chew Tobacco Cessation:Ready to Q uit: Not Asked; Counseling Given: Not Answered Comments:Chews some days Alcohol Use Standard Drinks/Week Comments Never 0 (1 standard drink = 0.6 oz pur e alcohol) Feeling Safe Answer Date Recorded Are you in a relationship wi th someone who hurts you emotionally and/or physically? 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 Not on file Not on file Last Filed Vital Signs Vital Sign Reading Time Taken Comments Blood Pressure 158/76 01/20/2024 1:11 PM CDT Pulse 76 01/20/2024 1:11 PM CDT Temperature 36.7 C (98.1 F) 01/20/2024 1:11 PM CDT Respiratory Rate 16 12/18/2023 5:00 AM CDT Oxygen Saturation 97% 12/25/2023 11:31 AM CDT Inhaled Oxygen Concentration - - Weight 106.6 kg (235 lb) 01/20/2024 1:11 PM CDT Height 175.3 cm (5' 9 ) 01/20/2024 1:11 PM CDT Body Mass Index 34.7 01/20/2024 1:11 PM CDT Plan of Treatment Health Maintenance Due Date Last Done Comments DIABETES ANNUAL FOOT EXAM 1968 DIABETES ANNUAL RETINAL EXAM 1968 DIABETES MICROALBUMIN ANNUAL SCREEN 1968 DTAP/TDAP/TD VACCINES (1 - Tdap) 1969 PNEUMOCOCCAL VACCINE 50+ YEARS (1 of 2 - PCV) 04/05/19 69 ZOSTER VACCINE (1 of 2) 2000 DIABETES HBA1C Q 6 MONTHS 06/13/2024 12/13/2023 LDL CHOLESTEROL ANNUAL 12/12/2024 12/13/2023 RSV VACCINE (60+ or ) (1 - 1-dose 75+ series) 2025 INFLUENZA VACCINE (#1) 2025 Procedures Procedure Name Priority Date/Time Associated Diagnosis Comments LIPID PANEL Stat 12/13/2023 1:08 PM CDT HEMOGLOBIN A1C Stat 12/13/2023 1:08 PM CDT from Last 3 Months or Most Recently Relevant to Health Maintenance Results * (ABNORMAL) HEMOGLOBIN A1C (12/13/2023 1:08 PM CDT) HEMOGLOBIN A1C 9.3(H) <=5.6 % 12/14/2023 9:49 AM CDT [facility] EST. AVG GLUCOSE, A1C 220 mg/dL 12/14/2023 9:49 AM CDT [facility] Blood Venipuncture / Unknown 12/13/2023 1:08 PM CDT 12/13/2023 1:12 PM CDT [facility] - 12/14/2023 9:49 AM CDT HGB A1C INTERPRETATION NORMAL: <5.7% PRE-DIABETES: 5.7 - 6.4% DIABETES: 6.5% OR GREATER us Gregory Soriano MD CHEMISTRY ORDERABLES Final Res ult [facility] CLIA # [id number] [address] [address] * (ABNORMAL) LIPID PANEL (12/13/2023 1:08 PM CDT) CHOLESTEROL 101 <200 mg/dL 12/13/2023 2:04 PM CDT [facility] TRIGLYCERIDE 140 <150 mg/dL 12/13/2023 2:04 PM CDT [facility] HDL 37(L) 40 - 59 mg/dL 12/13/2023 2:04 PM CDT [facility] LDL CALCULATED 36 <100 mg/dL 12/13/2023 2:04 PM CDT [facility] NON-HDL CHOLESTEROL 64 <130 mg/dL 12/13/2023 2:04 PM CDT [facility] Blood Venipuncture / Unknown 12/13/2023 1:08 PM CDT 12/13/2023 1:26 PM CDT [facility] - 12/13/2023 2:04 PM CDT TOTAL CHOLESTEROL mg/dL Desirable <200 Borderline high 200-239 High >=240 TRIGLYCERIDES mg/dL Normal <150 Borderline high 150-199 High 200-499 Very high >=500 HDL CHOLESTEROL mg/dL Low <40 Normal 40-59 Desirable >=60 NON HDL CHOLESTEROL mg/dL Optimal <130 Near Optimal 130-159 Borderline High 160-189 Very High >=190 CALCULATED LDL mg/dL LDL <70, OPTIMAL if have Atherosclerotic cardiovascular disease (ASCVD) or intermediate or higher (>7.5%) 10 year risk of ASCVD including most adults with diabetes. LDL <100, Optimal in adult patients with low (<7.5%) 10 year ASCVD risk LDL 100-160, Suboptimal LDL >160, High LDL >190, Very high ATPIII Guidelines Reference Ranges for Lipid Panels (NCEP/AMA) . Gregory Soriano MD CHEMISTRY ORDERABLES Final Res ult [facility] CLIA # [id number] [address] [place] [address] from Last 3 Months or Most Recently Relevant to Health Maintenance Insurance MEDICARE PART A AND B [facility] [id number] Advance Directives For more information, please contact: [phone] * Full Code (Latest Code Status on File) Date Activated Date Inactivated Comments 12/13/2023 4:37 PM 12/18/2023 9:40 PM
--- OUTSIDE RECORDS SUMMARY | 2025-07-23 05:47 | XMS_ITS ---
Author Organization [facility] Address [address] [place] [address] Phone Care Team Providers Care Director Employee Communications Name Role Phone Unavailable Primary Care Provider Unavailabl e Active Problems Problem Noted Date Diagnosed Date [...] insulin 12/13/2023 Malignant neoplasm of colon 12/13/2023 Current Treatment and Therapy Plans No current plan information found. Past Treatment and Therapy Plans No past plan information found. Lifetime Dose Tracking * Chemical Lifetime Dose Automatic Entry Manual Entr y Effective Dose 24.6 mSv 24.6 mSv 0 mSv Total DLP 3,129.01 DLP 3,129.01 DLP 0 DLP CTDIvol Max 68.21 mGy 68.21 mGy 0 mGy Resolved Problems Problem Noted Date Diagnosed Date Resolved Date Acute metabolic encephalopathy 12/13/2023 12/17/2023 Word finding difficulty 12/13/2023 04/0 05/2024 Hyponatremia 12/13/2023 12/14/2023 Leukocytosis (leucocytosis) 12/13/2023 12/15/2023 Nausea and vomiting 12/13/2023 12/14/19 24
--- OUTSIDE RECORDS SUMMARY | 2025-07-23 05:48 | XMS_ITS | Patient Health Record ---
Author Organization [facility] Address [address] [place] [address] Care Team Providers Care Service Desk Technician Name Role Phone [facility] Primary Care Provider [facility] Unavailable Unavailable Allergies Allergen (clinical drug ingredient) Drug/Non Drug Allergy documented on EMR Reaction Allergy Type Onset Date Status Substance with sulfonamide structure and antibacterial mechanism of action (substance) Sulfa Antibiotics Unknown Drug Allergy Active Results Component Value Reference Range Flag Notes Hemoglobin A1c 80210 Reviewed date:04/07/2025 12:06:23 PM Interpretation:High Performing Lab: Notes/Report: Diagnosis Description: Type 2 diabetes mellitus with hyperglycemia Hgb A1c 10.7 3.8-6.4 % HI Interpretation Of Hgb A1c: 4.5-6.2 % nondiabetics. >7.0 % diabetics. EAG 260 NA Estimated Aver age Glucose(EAG). CBC w\ Auto Diff 81050 Reviewed date:04/07/2025 12:06:23 PM Interpretation:Abnormal Performing Lab: Notes/Report: Diagnosis Description: Malignant neoplasm of rectum WBC 8.3 4.5-11.0 X10'3 RBC 3.65 4.50-5.90 X10'6 LOW Hgb 12.1 13.5-17.5 G/DL LOW Hct 37.6 41.0-53.0 % LOW MCV 103.0 80.0-100.0 FL HI MCH 33.2 27.0-31.0 PG HI MCHC 32.2 31.0-37.0 G/DL Platelet 209 150-400 X10'3 RDW-SD 49.5 35.0-49.0 FL HI RDW-CV 12.9 12.2-15.6 % MPV 10.6 9.2-12.0 FL Neutro Auto% 66.9 40.0-70.0 % Lymph Auto% 14.2 22.0-44.0 % LOW Amelia Auto% 8.3 3.0-7.0 % HI Eos Auto% 7.8 2.0-4.0 % HI Baso Auto% 1.6 0.0-1.0 % HI Imm Gran% 1.2 .0-.4 % HI Neutro Abs 5.56 .80-7.70 Absolute Neutrophil Count 5560 NA Lymph Abs 1.18 .10-4.10 Amelia Abs .69 .20-1.00 Eos Abs .65 .00-.40 HI Baso Abs .13 .00-.20 Imm Gran Abs .10 .00-.10 NRBC# .00 .00-.20 NRBC% .00 .00-.20 /100 int act WBC's Reason For Referral No Information Medications Medication SIG (Take, Route, Frequency, Duration) Notes Start Date End Date Status Metoprolol Succinate ER 50 mg Tablet Extended Release 24 Hour TAKE ONE TABLET BY MOUTH TWICE DAILY; Duration: 90 Active Rosuvastatin Calcium 20 mg Tablet TAKE ONE TABLET BY MOUTH AT BEDTIME; Duration: 90 Active Insulin Glargine-yfgn 100 UNIT/ML Solution Pen-injector inject 5 units SUBCUTANEOUSLY DAILY. each pen is good FOR 28 days ONCE in USE. keep unused pens in fridge.; Duration: 30 Active Hydrocortisone (Perianal) 2.5 % Cream APPLY externally TWICE DAILY FOR 30 DAYS; Duration: 30 Active Pantoprazole Sodium 40 mg Tablet Delayed Release TAKE ONE TABLET BY MOUTH TWICE DAILY; Duration: 90 Active True Metrix Blood Glucose Test - Strip USE TO test blood sugar ONCE DAILY; Duration: 90 days Active Lidocaine 5 % Ointment APPLY topically F OUR TIMES DAILY NEEDED FOR PAIN; Duration: 30 Active glipiZIDE ER 10 mg Tablet Extended Release 24 Hour TAKE ONE TABLET BY MOUTH TWICE DAILY AFTER meals; Duration: 90 days Active amLODIPine Besylate 5 MG Tablet 1 tablet Orally Once a day Active DULoxetine HCl 30 MG Capsule Delayed Release Particles TAKE ONE CAPSULE BY MOUTH ONCE a day Oral; Duration: 30 Days Active Diphenoxylate-Atropine 2.5-0.025 MG Tablet TAKE TWO TABLETS BY MOUTH FOUR TIMES DAILY NEEDED FOR DIARRHEA; UNTIL control of diarrhea has been achieved; Duration: 8 01/26/2024 Not-Taking Diphenoxylate-Atropine 2.5-0.025 MG Tablet Oral; Duration: 15 Days Active Fluticasone Propionate 50 MCG/ACT Suspension instill TWO SPRAYS IN EACH NOSTRIL EVERY DAY; Duration: 30 Not-Taking NovoLIN R 100 UNIT/ML Solution inject as directed up to 20 units day total Injection 3 times a day as directed sliding scale; Duration: 30 days Active Lisinopril 5 mg Tablet TAKE ONE TABLET B Y MOUTH TWICE DAILY; Duration: 90 Not-Taking oxyCODONE HCl 10 MG Tablet TAKE ONE TABLET BY MOUTH FOUR TIMES DAILY NEEDED FOR PAIN FOR 30 DAYS Oral; Duration: 30 Days Active amLODIPine Besylate 2.5 mg Tablet TAKE ONE TABLET BY MOUTH TWICE DAILY; Duration: 90 Not-Taking Lasix 20 MG Tablet 1 tablet Orally Once a day; Duration: 30 day(s) Not-Aubrey ing Eliquis 5 MG Tablet TAKE ONE TABLET BY M OUTH TWICE DAILY Oral; Duration: 30 Days Active Isosorbide Mononitrate ER 30 mg Tablet Extended Release 24 Hour 1 tab orally daily; Duration: 90 days Active metFORMIN HCl 500 mg Tablet TAKE TWO TABLETS BY MOUTH TWICE DAILY AFTER MEALS; Duration: 90 Not-Taking Immunizations Vaccine Route Administration Date Status Comme nts Fluzone High Dose, Syringe, 0.5mL, PF Unknown 06/17/2024 Administered Administered at the hospital. Social History Tobacco Use: Social History Observation Description Date Details (start date - stop date) Never Smoker NA - NA Social History Depression Screening Social Info Question Answer Notes depression screening findings Findings Negative (0 -4) PHQ-9 Little interest or p asha in doing things Not at all Feeling down, depressed, or hopeless Not at all Trouble falling or staying asleep, or sleeping t oo much Not at all Feeling tired or having little energy Not at all Poor appetite or overeating Not at all Feeling bad about yourself, or that you are a failure, or have let yourself or your family down Not at all Trouble concentrating on thi ngs, such as reading the newspaper or watching television Not at all Moving or speaking so slowly that other people could have noticed. Or the opposite ? being so fidgety or restless that you have been moving around a lot more than usual Not at all Thoughts that you would be b kuldeep off , or of hurting yourself in some way Not at all Total Score 0 Tobacco Use: Social Info Question Answer Notes Tobacco Control (Standard) Tobacco use: Nonsmoker Section Notes: PHQ9 04/04/2025 PHQ9 04/04/2025 PHQ9 04/04/2025 PHQ9 04/04/2025 PHQ9 04/04/2025 PHQ9 04/04/2025 Problems Problem Type SNOMED Code ICD Code Onset Dates Problem Status W/U Status Risk Notes Problem Type II diabetes mellitus without complication (431648474) Type 2 diabetes mellitus without complications (E11.9) Active confirmed Problem Essential hypertension (72930736) Essential hypertension (I10) Active confirmed Problem Gastroesophageal reflux disease (disorder) (330633330) Chronic GERD (K21.9) Active confirmed Problem Type II diabetes mellitus without complication (837490283) Type 2 diabetes mellitus without complication, without long-term current use of insulin (E11.9) Active confirmed Problem Type II diabetes mellitus uncontrolled (053188752) Diabetes type 2, uncontrolled (E11.65) Active confirmed Problem Colostomy present (886777408) Colostomy in place (Z93.3) Active confirmed Problem Hypertension (85167706) HTN (hypertension) (I10) Active confirmed Problem Long-term current use of anticoagulant (867238541) Current use of anticoagulant therapy (Z79.01) Active confirmed Problem Malignant tumor of rectum (343674196) Rectal carcinoma (C20) Active confirmed Problem Long-term current use of insulin (327098782) Insulin long-term use (Z79.4) Active confirmed Problem Abnormal gait (48353255) Decreased mobility (R26.89) Active confirmed Problem Atrial flutter (6106943) Uncontrolled atrial flutter (I48.92) Active confirmed Vital Signs Heart Rate 81 /min 04/04/2025 Temperature 97.5 degrees Fahrenheit 04/04/2025 Respiratory Rate 20 /min 04/04/2025 Height-cm 152.4 cm 06/01/2025 Oximetry 98 % 04/04/2025 Blood pressure diastolic 66 mm Hg 04/04/2025 Weight-kg 104.78 kg 06/01/2025 Height 60 in 06/01/2025 Blood pressure systolic 146 mm Hg 04/04/2025 Weight 231 lbs 06/01/2025 BMI 45.11 kg/m2 06/01/2025 Encounters Encounter Location Date Provider Diagnosis [facility] [place] 04/25/2025 [facility] Type 2 diabetes mellitus without complication, without long-term current use of insulin E11.9 and HTN (hypertension) I10 [facility] [address] [facility] [address] [place] [address] 04/04/2025 [facility] Rectal carcinoma C20 ; Decreased mobility R26.89 ; Diabetes type 2, uncontrolled E11.65 ; Insulin long-term use Z79.4 ; Depression screen Z13.31 and Rash R21 [facility] [place] 02/23/2025 [facility] Essential hypertension I10 and Type 2 diabetes mellitus without complication, without long-term current use of insulin E11.9 [facility] [place] 02/02/2025 [facility] Essential hypertension I10 and Type 2 diabetes mellitus without complication, without long-term current use of insulin E11.9 [facility] [place] 07/20/2025 [facility] Type 2 diabetes mellitus without complication, without long-term current use of insulin E11.9 and Uncontrolled atrial flutter I48.92 [facility] [place] 01/04/2025 [facility] Essential hypertension I10 and Type 2 diabetes mellitus without complication, without long-term current use of insulin E11.9 [facility] [address] [place] [address] 01/02/2025 [facility] [place] 11/30/2024 [facility] Type 2 diabetes mellitus without complication, without long-term current use of insulin E11.9 and Essential hypertension I10 [facility] [place] 11/01/2024 [facility] Type 2 diabetes mellitus without complication, without long-term current use of insulin E11.9 and Essential hypertension I10 [facility] [place] 09/27/2024 [facility] Type 2 diabetes mellitus without complication, without long-term current use of insulin E11.9 and Essential hypertension I10 [facility] [address] [place] [address] 09/23/2024 [facility] [address] [place] [address] 09/23/2024 [facility] [place] 08/25/2024 [facility] Essential hypertension I10 and Rectal carcinoma C20 [facility] [place] 07/27/2024 [facility] Type 2 diabetes mellitus without complication, without long-term current use of insulin E11.9 and Essential hypertension I10 [facility] [place] 06/21/2025 [facility] Essential hypertension I10 and Type 2 diabetes mellitus without complication, without long-term current use of insulin E11.9 [facility] [address] [place] [address] 06/01/2025 [facility] [place] 05/22/2025 [facility] Essential hypertension I10 and Type 2 diabetes mellitus without complication, without long-term current use of insulin E11.9 [facility] [address] [place] [address] 05/04/2025 [facility] [address] [place] [address] 05/01/2025 [facility] [place] 04/25/2025 [facility] Essential hypertension I10 and Type 2 diabetes mellitus without complication, without long-term current use of insulin E11.9 [facility] [address] [place] [address] 03/24/2025 [facility] [address] [place] [address] 03/23/2025 [facility] [place] 03/17/2025 [facility] Essential hypertension I10 and Type 2 diabetes mellitus without complication, without long-term current use of insulin E11.9 [facility] [address] [place] [address] 02/27/2025 [facility] Assessments Encounter Date Diagnosis (ICD Code) Assessment Notes Treatment Notes Treatment Clinical Notes Section Notes 07/20/2025 Type 2 diabetes mellitus without complication, without long-term current use of insulin (ICD-10 - E11.9) 04/25/2025 Type 2 diabetes mellitus without complication, without long-term current use of insulin (ICD-10 - E11.9) 02/02/2025 Essential hypertension (ICD-10 - I10) 11/30/2024 Type 2 diabetes mellitus without complication, without long-term current use of insulin (ICD-10 - E11.9) 09/27/2024 Type 2 diabetes mellitus without complication, without long-term current use of insulin (ICD-10 - E11.9) 08/25/2024 Essential hypertension (ICD-10 - I10) 11/01/2024 Type 2 diabetes mellitus without complication, without long-term current use of insulin (ICD-10 - E11.9) Learning About Type 2 Diabetes material was published 07/27/2024 Type 2 diabetes mellitus without complication, without long-term current use of insulin (ICD-10 - E11.9) Learning About Type 2 Diabetes material was published 06/21/2025 Essential hypertension (ICD-10 - I10) Low Sodium Diet (2,000 Milligram): Care Instructions material was published 04/25/2025 Essential hypertension (ICD-10 - I10) 04/04/2025 Rectal carcinoma (ICD-10 - C20) cbc 04/04/2025 Decreased mobility (ICD-10 - R26.89) 01/04/2025 Essential hypertension (ICD-10 - I10) 05/22/2025 Essential hypertension (ICD-10 - I10) 03/17/2025 Essential hypertension (ICD-10 - I10) 02/23/2025 Essential hypertension (ICD-10 - I10) 02/23/2025 Type 2 diabetes mellitus without complication, without long-term current use of insulin (ICD-10 - E11.9) 03/17/2025 Type 2 diabetes mellitus without complication, without long-term current use of insulin (ICD-10 - E11.9) 05/22/2025 Type 2 diabetes mellitus without complication, without long-term current use of insulin (ICD-10 - E11.9) Learning About Carbohydrate (Carb) Counting and Eating Out When You Have Diabetes material was published 01/04/2025 Type 2 diabetes mellitus without complication, without long-term current use of insulin (ICD-10 - E11.9) 04/04/2025 Diabetes type 2, uncontrolled (ICD-10 - E11.65) ha1c lantus regular 04/25/2025 Type 2 diabetes mellitus without complication, without long-term current use of insulin (ICD-10 - E11.9) 06/21/2025 Type 2 diabetes mellitus without complication, without long-term current use of insulin (ICD-10 - E11.9) 09/27/2024 Essential hypertension (ICD-10 - I10) Low Sodium Diet (2,000 Milligram): Care Instructions material was published 08/25/2024 Rectal carcinoma (ICD-10 - C20) 07/27/2024 Essential hypertension (ICD-10 - I10) 11/01/2024 Essential hypertension (ICD-10 - I10) 02/02/2025 Type 2 diabetes mellitus without complication, without long-term current use of insulin (ICD-10 - E11.9) 11/30/2024 Essential hypertension (ICD-10 - I10) 04/25/2025 HTN (hypertension) (ICD-10 - I10) 07/20/2025 Uncontrolled atrial flutter (ICD-10 - I48.92) Atrial Fibrillation: Care Instructions material was published 04/04/2025 Insulin long-term use (ICD-10 - Z79.4) 04/04/2025 Depression screen (ICD-10 - Z13.31) 04/04/2025 Rash (ICD-10 - R21) lotrisone 04/04/2025 Other Questions asked and answered; discharged to home. Venipuncture: Performed by: Mil WEBB Attempts:x1 Location: RAC Needle gauge:22g Patient tolerated well. 08/25/2024 Other Cancer Treatmen t and Side Effects: Care Instructions material was published 01/04/2025 Other Seasonal Allergies: Care Instructions material was published 02/02/2025 Other Skin Cancer Prevention: Care Instructions material was published 02/23/2025 Other Heat Exhaustion : Care Instructions material was published Plan Of Treatment No Information Insurance Providers Payer Name Payer Address Payer Phone Subscriber Number Group Number Insured Name Patient Relationship to Insured Coverage Start Date Coverage End Date [place] [address] [place] [phone] [id number] Genaro Robbins Self - patient is the insured [facility] Medicare Supplement [address] [place] [phone] [id number] Genaro Robbins Self - patient is the insured Medical (General) History Medical History History ICD Code Heart Disease diabetes mellitus hyperlipidemia GERD hypertension rectal cancer Surgical History Surgery Date(Month/Year) Esophagogastroduodenoscopy Colonoscopy with polypectomy ablation of neoplasm of liver 04/2022 history of low anterior resection of rec lorenzo 05/2021 portacath placement 09/2020 percutaneous transluminal coronary angio plasty
--- NOTE | 2025-07-23 05:49 | CTR_ITS ---
PROCEDURE INFORMATION: Exam: CT Head Without Contrast Exam date and time: 07/23/2025 6:09 AM Age: 75 years old Clinical indication: Altered mental status/memory loss; General weakness with fever; Additional info: AMS TECHNIQUE: Imaging protocol: Computed tomography of the head without contrast. Radiation optimization: All CT scans at this facility use at least one of these dose optimization techniques: automated exposure control; mA and/or kV adjustment per patient size (includes targeted exams where dose is matched to clinical indication); or iterative reconstruction. COMPARISON: CT head wo con* [id number] 02/21/2024 1:49 PM RADIATION DOSE METRICS: Total DLP (mGy-cm): 923.24 FINDINGS: Brain: There is mild small vessel disease. There is no evidence of acute parenchymal hemorrhage, extra-axial collection, or acute infarction. There is no mass effect, midline shift, or downward herniation. Cerebral ventricles: No ventriculomegaly. Paranasal sinuses: Visualized sinuses are unremarkable. No fluid levels. Mastoid air cells: Visualized mastoid air cells are well aerated. Bones: Unremarkable. No acute fracture. Soft tissues: Unremarkable. CT/CT head wo con* [id number] IMPRESSION: Mild small vessel disease. No evidence of acute intracranial process.
--- NOTE | 2025-07-23 05:50 | XRR_ITS ---
PROCEDURE INFORMATION: Exam: XR Chest Exam date and time: 07/23/2025 6:02 AM Age: 75 years old Clinical indication: Abnormal findings; Abnormal diagnostic tests; Abnormal ekg; Prior surgery; Surgery date: 6+ months; Surgery type: Port a cath; Fever with leukocytosis; Additional info: Possible sepsis TECHNIQUE: Imaging protocol: Radiologic exam of the chest. Views: 1 view. COMPARISON: CT abdpel wo/w [id number] 06/08/2025 9:10 AM FINDINGS: Tubes, catheters and devices: Left infusion port terminates in the SVC. Lungs: Slight chronic opacity at the medial right lung base, probably atelectasis. Pleural spaces: Unremarkable. No pleural effusion. No pneumothorax. Heart/Mediastinum: Unremarkable. No cardiomegaly. Bones/joints: Unremarkable. XR/XR chest 1V portable [id number] IMPRESSION: Minimal opacity at the medial right lung base.
--- NOTE | 2025-07-23 06:00 | ECG_ITS ---
[facility] Test Date: 2025-07-23 Pat Name: Genaro Robbins Department: Room: Gender: Male Compensation Vice President: : 1950 Requested By: Indira Roper Order Number: [id number] Lux MD: Car Samaniego M.D. Measurements Intervals [place] Rate: 88 P: 35 [place]: 205 QRS: -16 QRSD: 91 T: 23 QT: 374 QTc: 454 Interpretive Statements SINUS RHYTHM Compared to ECG 02/21/2024 13:36:58 Left ventricular hypertrophy no longer present Electronically Signed On 07-23-2025 16:10:09 ELECTROCARDIOGRAM TECHNICIAN by Car Samaniego M.D. [email or web address]
--- NOTE | 2025-07-23 06:04 | CTR_ITS ---
PROCEDURE INFORMATION: Exam: CT Abdomen And Pelvis With Contrast Exam date and time: 07/23/2025 6:12 AM Age: 75 years old Clinical indication: Abnormal findings; Abnormal lab test; Elevated wbc; Prior surgery; Surgery date: 6+ months; Surgery type: Port a cath. Bowel resection with ostomy; Fever with leukocytosis. History of rectal cancer. TECHNIQUE: Imaging protocol: Computed tomography of the abdomen and pelvis with contrast. Radiation optimization: All CT scans at this facility use at least one of these dose optimization techniques: automated exposure control; mA and/or kV adjustment per patient size (includes targeted exams where dose is matched to clinical indication); or iterative reconstruction. Contrast material: OMNI 350; Contrast volume: 100 ml; Contrast route: INTRAVENOUS (IV); COMPARISON: CT ch abdpel wo/w [id number] 06/08/2025 9:10 AM RADIATION DOSE METRICS: Total DLP (mGy-cm): 1044.95 FINDINGS: Liver: Low-attenuation structures within the right lobe of the liver are unchanged in appearance. They are felt to represent metastasis, at least partially treated. Hepatic metastatic disease, it least partially treated by history. Gallbladder and biliary ducts: Cholecystectomy. Pancreas: Normal. No ductal dilation. Spleen: Normal. No splenomegaly. Adrenal glands: Normal. No mass. Kidneys and ureters: Normal. No hydronephrosis. Stomach and bowel: Right mid abdominal colostomy. Appendix: No evidence of appendicitis. Intraperitoneal space: Unremarkable. No free air. No significant fluid collection. Vasculature: Unremarkable. No abdominal aortic aneurysm. Lymph nodes: Unremarkable. No enlarged lymph nodes. Urinary bladder: Unremarkable as visualized. Reproductive: Unremarkable as visualized. Bones/joints: Unremarkable. No acute fracture. Soft tissues: Unremarkable. CT/CT abdomen pelvis w con* [id number] IMPRESSION: No acute subdiaphragmatic pathology.
--- NOTE | 2025-07-23 06:04 | W.ED.AMS ---
HPI - Altered Mental Status General: Chief Complaint: Altered Mental Status Stated Complaint: sob Time Seen by Provider: 07/23/25 05:44 Source: patient and EMS Mode of arrival: EMS Limitations: no limitations History of Present Illness: 75-year-old male with a history of rectal cancer does have an ostomy not on radiation or chemo currently. Patient recently had a liver ablation as well. Per EMS patient has been altered over the last few days he has also been febrile. Does have a temperature of 99.7 here. EMS was called by family due to some increasing confusion. Patient here is able to tell me his name where he lives is slightly confused tell me the year was 2019. Patient denies any pain anywhere he denies cough or vomiting. Related Data Home Medications ?Medication ?Instructions ?Recorded ?Confirmed apixaban 5 mg tablet (Eliquis) 5 mg PO BID 01/05/25 07/23/25 glipizide 10 mg tablet, extended 10 mg PO DAILY 01/05/25 07/23/25 release 24 hr insulin aspart U-100 100 unit/mL 10 unit SUBCUT QID 06/07/25 07/23/25 (3 mL) subcutaneous pen (Novolog FlexPen U-100 Insulin aspart) insulin glargine 100 unit/mL 20 unit SUBCUT BEDTIME 06/07/25 07/23/25 subcutaneous solution (Lantus U-100 Insulin) isosorbide mononitrate 30 mg 30 mg PO DAILY 06/07/25 07/23/25 tablet,extended release 24 hr acetaminophen 500 mg tablet 500 mg PO Q6H PRN Pain 07/23/25 07/23/25 (Tylenol Extra Strength) aspirin 81 mg tablet,delayed 81 mg PO DAILY 07/23/25 07/23/25 release duloxetine 30 mg capsule,delayed 30 mg PO DAILY 07/23/25 07/23/25 release lidocaine 5 % topical ointment 1 ea topical QID PRN Pain 07/23/25 07/23/25 loratadine 10 mg tablet 10 mg PO DAILY 07/23/25 07/23/25 ondansetron HCl 4 mg tablet 4 mg PO Q6H PRN Nausea And Vomiting 07/23/25 07/23/25 Previous Rx's ?Medication ?Instructions ?Recorded nitroglycerin 0.4 mg sublingual 0.4 mg sublingual Q5M PRN chest 08/06/20 tablet (Nitrostat) pain #20 tabs metoprolol succinate 50 mg 50 mg PO BID #60 tabs 07/29/23 tablet,extended release 24 hr pantoprazole 40 mg tablet,delayed 40 mg PO BID #180 tabs 08/24/23 release rosuvastatin 20 mg tablet 20 mg PO BEDTIME #90 tabs 03/07/24 loperamide 2 mg tablet 2 mg PO Q4H PRN loose stool #60 11/22/24 (Anti-Diarrheal (loperamide)) tabs amlodipine 5 mg tablet 5 mg PO DAILY #90 tabs 02/10/25 diphenoxylate-atropine 2.5 1 tab PO QID PRN Diarrhea #60 tabs 06/19/25 mg-0.025 mg tablet (Lomotil) oxycodone 10 mg tablet 10 mg PO Q6H PRN pain 30 days #120 07/19/25 tabs Allergies Allergy/AdvReac Type Severity Reaction Status Date / Time hydromorphone (From Dilaudid) Allergy ADR-Halluci Verified 07/19/25 08:32 nating Sulfa (Sulfonamide Allergy ALGY-Rash Verified 07/19/25 08:32 Antibiotics) PFS ED PFSH: Medical History (Updated 07/23/25 @ 09:09 by Indira Roper MD) Pulmonary embolism GERD (gastroesophageal reflux disease) Malignant neoplasm of rectum Diabetes Dyslipidemia ASHD (arteriosclerotic heart disease) HTN (hypertension) Surgical History 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) History of low anterior resection of rectum (~05/2021) Port-A-Cath in place (09/26/20) History of colonoscopy with polypectomy H/O esophagogastroduodenoscopy S/P PTCA (percutaneous transluminal coronary angioplasty) Family History Father , AGE 56 CAD (coronary artery disease) Myocardial infarction Social History Smoking and tobacco/nicotine status: never used tobacco/nicotine Alcohol intake: never Household members: spouse Marital status: Physical Exam Const: COMMON NORMALS: alert EXAM LIMITATIONS: altered mental status ORIENTATION/CONSCIOUSNESS: Yes oriented to person and Yes oriented to place; not oriented to time HENMT: COMMON NORMALS: normocephalic and atraumatic HEAD & SCALP: normocephalic and atraumatic Eye: COMMON NORMALS: Equal, round and reactive pupils present and EOMs intact bilaterally PUPIL: Yes Equal, round and reactive pupils present Neck/C-Spine: COMMON NORMALS: full ROM and supple Chest: COMMONS NORMALS: normal inspection of the chest and normal palpation of entire chest wall Resp: COMMON NORMALS: normal respiratory effort, No retractions, No use of accessory muscles and clear to auscultation bilaterally AUSCULTATION: clear to auscultation bilaterally Cardio: COMMON NORMALS: regular rate, regular rhythm and No murmurs present (Cardio) RATE: regular rate RHYTHM: regular rhythm GI: COMMON NORMALS: Normal to inspection, nondistended, normoactive bowel sounds present, Soft to palpation, non-tender and no masses PALPATION: Yes Soft to palpation Extremity: COMMON NORMALS: normal to inspection and full ROM Neuro: COMMON NORMALS: moves all extremities and no focal motor deficits SENSORIUM/ORIENTATION: Yes alert, Yes oriented to person, Yes oriented to place and No oriented to time Psych: COMMON NORMALS: Normal thought process present and cooperative THOUGHT PROCESS: Normal thought process present Skin: COMMON NORMALS: no rashes or lesions noted and no wounds GENERAL SKIN EXAM: no rashes or lesions noted Course Vital Signs: Vital signs: Vital Signs Temperature 97.8 F 07/23/25 09:08 Pulse Rate 78 07/23/25 08:19 Respiratory Rate 19 H 07/23/25 08:19 Blood Pressure 131/65 07/23/25 08:19 Pulse Oximetry 97 07/23/25 07:30 Oxygen Delivery Me thod Room Air 07/23/25 07:30 MDM - Altered Mental Status Medical Decision Making 75-year-old male with extensive history including cancer. Patient presented here for altered no status over the last 2 days he had had a fever as well with low-grade fever here. Differential includes subretinal hemorrhage, infection, CVA. His head CT here was reviewed by me showed no acute abnormalities he had no signs of stroke or intracranial hemorrhage. He did have a low-grade fever here with elevated white count of 15 and an elevated lactate consistent with sepsis. Patient was given IV fluid sepsis bolus along with Tylenol for his fever and IV antibiotics. He has had no signs of shock here. I did perform a chest x-ray showed no acute abnormalities and did an abdomen CT showed no acute abnormalities. Per family patient's had osteomyelitis of his pelvis in the past and infections to cause sepsis in the past. Does have a permanent drain to his upper buttocks that showed no signs of infection here or drainage. EKG here shows normal sinus rhythm heart rate [address] or T wave abnormalities QRS 91 QTc 420. 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 I did call [facility] but they were not able to except a transfer due to no bed availability. I did review all of this with family and will admit here at this time. I did speak to Dr. YUNIOR PAGE who is accepting Medical Records I reviewed the patient's medical records. Lab Data I reviewed the patient's lab results. 07/23/25 06:04 07/23/25 06:[address] 07/23/25 05:49 IMPRESSION: Mild small vessel disease. No evidence of acute intracranial process. Chest X-Ray 07/23/25 05:50 IMPRESSION: Minimal opacity at the medial right lung base. Abdomen/Pelvis CT 07/23/25 06:04 IMPRESSION: No acute subdiaphragmatic pathology. Laboratory Results WBC 15.25 10^3/uL (3.29-11.43) H 07/23/25 06:04 RBC 3.14 10^6/uL (3.85-5.65) L 07/23/25 06:04 Hgb 9.90 g/dL (11.27-16.99) L 07/23/25 06:04 Hct 31.5 % (37-53) L 07/23/25 06:04 MCV 100.3 fl (82-101) 07/23/25 06:04 MCH 31.5 pg (27-33) 07/23/25 06:04 MCHC 31.4 g/dL (30-55) 07/23/25 06:04 RDW 15.3 % (12.1-15.1) H 07/23/25 06:04 Plt Count 228 10^3/cmm (157-399) 07/23/25 06:04 MPV 9.3 fL (7.4-10.4) 07/23/25 06:04 Neut % (Auto) 85.0 % 07/23/25 06:04 Lymph % (Auto) 5.9 % 07/23/25 06:04 [place] % (Auto) 7.5 % 07/23/25 06:04 Eos % (Auto) 0.4 % 07/23/25 06:04 Baso % (Auto) 0.5 % 07/23/25 06:04 Neut # (Auto) 12.96 10^3/uL (1.8-7.7) H 07/23/25 06:04 Lymph # (Auto) 0.9 10^3/uL (0.8-4.8) 07/23/25 06:04 [place] # (Auto) 1.1 10^3/uL (0.2-0.9) H 07/23/25 06:04 Eos # (Auto) 0.1 10^3/uL (0.0-0.8) 07/23/25 06:04 Baso # (Auto) 0.1 10^3/uL (0.0-0.1) 07/23/25 06:04 Nucleated RBC % (auto) 0 % 07/23/25 06:04 Nucleated RBCs # 0.0 /100WBC 07/23/25 06:04 Sodium 133 mmol/L (136-145) L 07/23/25 06:04 Potassium 4.3 mmol/L (3.5-5.1) 07/23/25 06:04 Chloride 99 mmol/L (98-107) 07/23/25 06:04 Carbon Dioxide 23 mmol/L (22-29) 07/23/25 06:04 Anion Gap 15.3 (5-19) 07/23/25 06:04 BUN 18 mg/dL (8-23) 07/23/25 06:04 Creatinine 1.2 mg/dL (0.7-1.2) 07/23/25 06:04 GFR Calculation Not Reportable 07/23/25 06:04 Glucose 240 mg/dL (65-115) H 07/23/25 06:04 Calculated Osmolality 286 mOsm/kg (285-295) 07/23/25 06:04 Lactic Acid 2.7 mmol/L (0.5-2.2) H 07/23/25 06:04 Calcium 8.8 mg/dL (8.5-10.5) 07/23/25 06:04 Total Bilirubin 0.6 mg/dL (0.15-1.2) 07/23/25 06:04 AST 34 U/L (0-40) 07/23/25 06:04 ALT 20 U/L (0-41) 07/23/25 06:04 Alkaline Phosphatase 102 U/L (40-130) 07/23/25 06:04 Total Protein 8.4 g/dL (6.6-8.7) 07/23/25 06:04 Albumin 3.5 g/dL (3.5-5.2) 07/23/25 06:04 Globulin 4.9 g/dL (1.3-4.6) H 07/23/25 06:04 Urine Color Yellow (Yellow) 07/23/25 07:39 Urine Appearance Clear (CLEAR) 07/23/25 07:39 Urine pH 5.0 (5-7) 07/23/25 07:39 Ur Specific [place] 1.050 (1.005-1.030) H 07/23/25 07:39 Urine Protein 1+ (Negative) A 07/23/25 07:39 Urine Glucose (UA) Trace (Normal) H 07/23/25 07:39 Urine Ketones Negative (Negative) 07/23/25 07:39 Urine Blood Trace (Negative) A 07/23/25 07:39 Urine Nitrate Negative (Negative) 07/23/25 07:39 Urine Bilirubin Negative (Negative) 07/23/25 07:39 Urine Urobilinogen 0.2 mg/dL (Negative) 07/23/25 07:39 Ur Leukocyte Esterase Negative (Negative) 07/23/25 07:39 Urine RBC 0-2 /hpf (0-2) 07/23/25 07:39 Urine WBC 0-5 /hpf (0-5) 07/23/25 07:39 Ur Squamous Epith Cells 0-5 /hpf (0-5) 07/23/25 07:39 Amorphous Sediment Not Reportable 07/23/25 07:39 Urine Bacteria None seen /hpf (NONE) 07/23/25 07:39 Hyaline Casts 2.05 /lpf 07/23/25 07:39 Influenza A (PCR) Negative (Negative) 07/23/25 07:06 Influenza Type B (PCR) Negative (Negative) 07/23/25 07:06 RSV (PCR) Negative (Negative) 07/23/25 07:06 SARS-CoV-2 (PCR) Negative (Negative) 07/23/25 07:06 All radiology interpretation(s) finalized by discharge EKG Data EKG 1: I personally reviewed and interpreted this EKG as follows: EKG interpretation date: 07/23/25 EKG interpretation time: 07:02 Interpretation: nsr hr [address] or t wave abnormalities qrs 91 qtc 420 Discharge Plan Discharge Patient Disposition: Admitted As Inpatient Clinical Impression: Sepsis Qualifiers: Sepsis type: sepsis due to unspecified organism Sepsis acute organ dysfunction status: without acute organ dysfunction Qualified Code(s): A41.9 - Sepsis, unspecified organism Altered mental status Qualifiers: Altered mental status type: unspecified Qualified Code(s): R41.82 - Altered mental status, unspecified Condition: Stable Coding Level of Care Code 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
[2025-07-23] MEDS: iohexol 350 mg/mL 500 mL Btl (per mL) IV (06:13)
[2025-07-23 06:18] LABS: Hematocrit 31.5 % (37-53); Hemoglobin 9.90 g/dL (11.27-16.99); Mean Corpuscular HGB Conc 31.4 g/dL (30-55); Mean Corpuscular Hemoglobin 31.5 pg (27-33); Mean Corpuscular Volume 100.3 fl (82-101); Nucleated Red Blood Cells % 0 %; Platelet Count 228 10^3/cmm (157-399); Red Blood Count 3.14 10^6/uL (3.85-5.65); White Blood Count 15.25 10^3/uL (3.29-11.43)
[2025-07-23 06:32] LABS: Lactic Sepsis W/Reflex 2.7 mmol/L (0.5-2.2)
[2025-07-23 06:33] LABS: Alanine Aminotransferase 20 U/L (0-41); Albumin Level 3.5 g/dL (3.5-5.2); Alkaline Phosphatase 102 U/L (40-130); Anion Gap 15.3 (5-19); Aspartate Amino Transferase 34 U/L (0-40); Blood Urea Nitrogen 18 mg/dL (8-23); Calcium 8.8 mg/dL (8.5-10.5); Carbon Dioxide 23 mmol/L (22-29); Chloride 99 mmol/L (98-107); Creatinine Clr Calc Pharmacy 70.5172; Globulin 4.9 g/dL (1.3-4.6); Glucose 240 mg/dL (65-115); Osmolality Calculated 286 mOsm/kg (285-295); Potassium 4.3 mmol/L (3.5-5.1); Sodium 133 mmol/L (136-145); Total Protein 8.4 g/dL (6.6-8.7)
[2025-07-23 06:47] LABS: Reflex Lactate Order REFLEX LACTIC ORDERD
[2025-07-23] MEDS: piperacillin-tazobactam 3.375 GM in sodium chloride 0.9% (plus) 50 ML IV ×3 (07:28→22:23)
[2025-07-23 07:45] LABS: Respiratory Syncytial Virus Ce NEGATIVE (Negative); SARS-CoV-2 PCR NEGATIVE (Negative)
[2025-07-23 07:48] LABS: Glucose Urine UA Trace (Normal); Nitrate Urine Negative (Negative)
[2025-07-23 07:53] LABS: Add Urine Microscopic? YES
[2025-07-23 08:04] LABS: Specific Gravity, Urine 1.050 (1.005-1.030)
[2025-07-23 10:19] LABS: Lactic Acid level (Lactate) 2.8 mmol/L (0.5-2.2)
--- NOTE | 2025-07-23 14:33 | PM.HP ---
Providers/Chief Complaint Admitting Physician: Parveen Butler MD Primary Care Provider: Kayleen Shea APN Chief Complaint: AMS History of Present Illness Genaro Robbins is a 75 year old male with prior medical history of HTN, HLD, DM, PE, GERD, anemia, lung nodules, osteomyelitis, sepsis, cancer, and heart disease presenting with complaints of altered mental status. For the past two to three days family reports that patient has had confusion that has become progressively worse. Admits low grade fever at home that has persisted here. Patient is oriented to self. He denies nausea, vomiting, constipation, diarrhea, chest pain, falls, head injury, or any other modifying factors. Today, EMS was called and he was transported to [facility] ED. at bedside. 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 Follows Dr. Anguiano in [place], [place]. Family prefers treatment at [facility] when beds are available. In the ED, BP 119/82, HR 81, RR 17, T98.1, O2 94% on room air. WBC 15.25, HGB 9.9, PLT 228. Sodium 133. Glucose 240. Lactic 2.7. AST/ALT/ALP WNL. Albumin 3.5. Urinalysis; clear, 1+ protein, trace glucose, trace blood. COVID and flu negative. CXR; minimal opacity at the medial right lung base. CT abdomen/pelvis; no acute sub-diaphragmatic pathology, see full results. Head CT; mild small vessel disease, no evidence of acute intra-cranial process. Will admit to the Hospitalist Service for further evaluation and treatment. Review of Systems General: Reports: 10 or more systems reviewed and unremarkable except in HPI and below Const: Denies: fever(s) Eyes: Denies: change in vision ENMT: Denies: throat pain or oral sores Card: Denies: chest pain Resp: Denies: dyspnea GI: Reports: nausea; Denies: abdominal pain or vomiting : Denies: hematuria Musc: Denies: joint pain or joint swelling Skin/Breast: Denies: rash Neuro: Reports: confusion and other (cranial nerves normal, no focal signs) Psych: Reports: other (Insight normal) Endo: Denies: polyuria Benjamin/Lymph: Denies: easy bruising All/Imm: Denies: urticaria Medications/Allergies Home Medications ?Medication ?Instructions ?Recorded ?Confirmed ?Last Taken ?Type nitroglycerin 0.4 mg sublingual 0.4 mg sublingual Q5M PRN chest 08/06/20 07/23/25 Unknown Rx tablet (Nitrostat) pain #20 tabs metoprolol succinate 50 mg 50 mg PO BID #60 tabs 07/29/23 07/23/25 07/22/25 Rx tablet,extended release 24 hr pantoprazole 40 mg tablet,delayed 40 mg PO BID #180 tabs 08/24/23 07/23/25 07/22/25 Rx release rosuvastatin 20 mg tablet 20 mg PO BEDTIME #90 tabs 03/07/24 07/23/25 07/22/25 Rx loperamide 2 mg tablet 2 mg PO Q4H PRN loose stool #60 11/22/24 07/23/25 Unknown Rx (Anti-Diarrheal (loperamide)) tabs apixaban 5 mg tablet (Eliquis) 5 mg PO BID 01/05/25 07/23/25 07/22/25 History glipizide 10 mg tablet, extended 10 mg PO DAILY 01/05/25 07/23/25 07/22/25 History release 24 hr amlodipine 5 mg tablet 5 mg PO DAILY #90 tabs 02/10/25 07/23/25 07/22/25 Rx insulin aspart U-100 100 unit/mL 10 unit SUBCUT QID 06/07/25 07/23/25 07/22/25 History (3 mL) subcutaneous pen (Novolog FlexPen U-100 Insulin aspart) insulin glargine 100 unit/mL 20 unit SUBCUT BEDTIME 06/07/25 07/23/25 07/22/25 History subcutaneous solution (Lantus U-100 Insulin) isosorbide mononitrate 30 mg 30 mg PO DAILY 06/07/25 07/23/25 07/22/25 History tablet,extended release 24 hr diphenoxylate-atropine 2.5 1 tab PO QID PRN Diarrhea #60 tabs 06/19/25 07/23/25 Unknown Rx mg-0.025 mg tablet (Lomotil) oxycodone 10 mg tablet 10 mg PO Q6H PRN pain 30 days #120 07/19/25 07/23/25 Unknown Rx tabs acetaminophen 500 mg tablet 500 mg PO Q6H PRN Pain 07/23/25 07/23/25 Unknown History (Tylenol Extra Strength) aspirin 81 mg tablet,delayed 81 mg PO DAILY 07/23/25 07/23/25 07/22/25 History release duloxetine 30 mg capsule,delayed 30 mg PO DAILY 07/23/25 07/23/25 07/22/25 History release lidocaine 5 % topical ointment 1 ea topical QID PRN Pain 07/23/25 07/23/25 Unknown History loratadine 10 mg tablet 10 mg PO DAILY 07/23/25 07/23/25 07/22/25 History ondansetron HCl 4 mg tablet 4 mg PO Q6H PRN Nausea And Vomiting 07/23/25 07/23/25 Unknown History Allergies Allergy/AdvReac Type Severity Reaction Status Date / Time hydromorphone (From Dilaudid) Allergy ADR-Halluci Verified 07/19/25 08:32 nating Sulfa (Sulfonamide Allergy ALGY-Rash Verified 07/19/25 08:32 Antibiotics) PFSH Acute PFSH: Medical History Pulmonary embolism GERD (gastroesophageal reflux disease) Malignant neoplasm of rectum Diabetes Dyslipidemia ASHD (arteriosclerotic heart disease) HTN (hypertension) Surgical History 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) History of low anterior resection of rectum (~05/2021) Port-A-Cath in place (09/26/20) History of colonoscopy with polypectomy H/O esophagogastroduodenoscopy S/P PTCA (percutaneous transluminal coronary angioplasty) Family History Father , AGE 56 CAD (coronary artery disease) Myocardial infarction Social History Smoking and tobacco/nicotine status: never used tobacco/nicotine Alcohol intake: never Household members: spouse Marital status: Vitals/I&O/Wt Last Vital Signs Temp 98.1 F 11/16/25 13:19 Pulse 81 07/23/25 13:19 Resp 17 07/23/25 13:19 BP 119/62 07/23/25 13:19 Pulse Ox 94 07/23/25 13:19 O2 Del Method Room Air 07/23/25 07:30 07/22/25 07/23/25 07/23/25 22:59 06:59 14:59 Intake Total 0 / 0 2748 / 2748 Balance 0 / 0 2748 / 2748 Weight last 48 hrs Weight 117.934 kg Weight 117.934 kg Physical Exam Const: COMMON NORMALS: alert EXAM LIMITATIONS: altered mental status ORIENTATION/CONSCIOUSNESS: Yes oriented to person HENMT: COMMON NORMALS: normocephalic and atraumatic Eye: COMMON NORMALS: Equal, round and reactive pupils present Neck/C-Spine: COMMON NORMALS: full ROM and supple Chest: COMMONS NORMALS: normal inspection of the chest Resp: COMMON NORMALS: normal respiratory effort and No retractions Cardio: COMMON NORMALS: regular rate and regular rhythm GI: COMMON NORMALS: Normal to inspection, nondistended, normoactive bowel sounds present and Soft to palpation Extremity: COMMON NORMALS: normal to inspection and full ROM Neuro: COMMON NORMALS: moves all extremities and no focal motor deficits SENSORIUM/ORIENTATION: Yes alert and Yes oriented to person Psych: COMMON NORMALS: cooperative Skin: COMMON NORMALS: no rashes or lesions noted Data 07/23/25 06:04 07/23/25 06:04 A&P Assessment and plan 1. Altered mental status: Head CT; mild small vessel disease, no evidence of acute intracranial process Note that patient has had past osteomyelitis, sepsis complication with 4 day hospitalization and weeks of outpatient abx... Rule this out for possible AMS etiology >>CT abdomen/pelvis; no acute subdiaphragmatic pathology, see full results Fall risk precautions PT/OT before discharge Antibiotics ordered Pharmacy to dose vancomycin 2. Diabetes: Hold home regimen Hyperglycemia/hypoglycemia initiated Glucose 240 A1c pending 3. 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 Fever: With leukocytosis, WBC 15.25, Hgb 9.9, PLT 228 Lactic 2.7 COVID and flu negative Sepsis monitoring 5. History of ablation of neoplasm of liver: Performed 03/2025, Cholecystectomy performed same day Noted history of neoplasm of rectum s/p anterior resection (2020) - Not currently on radiation or chemo CT abdomen/pelvis; no acute subdiaphragmatic pathology, see full results PDMP PDMP Reviewed: Not Reviewed Attestations Medical Necessity Statement*: Continued hospitalization for > 2 midnights to monitor for altered mental status, respiratory status, sepsis monitoring, and general medical management. Diagnoses Altered mental status R41.82 Diabetes E11.9 Shortness of breath R06.02 Fever R50.9 History of ablation of neoplasm of liver Z98.890 Time Spent (min) 70
[2025-07-24] VITALS (10 sets, daily range): BP systolic 117–169; BP diastolic 63–85; PULSE 81–98; RESP 16–18; TEMP 36.4–36.8; O2SAT 93–96; BMI 35.2
[2025-07-24 03:08] LABS: Hematocrit 29.3 % (37-53); Hemoglobin 9.30 g/dL (11.27-16.99); Mean Corpuscular HGB Conc 31.7 g/dL (30-55); Mean Corpuscular Hemoglobin 31.7 pg (27-33); Mean Corpuscular Volume 100.0 fl (82-101); Nucleated Red Blood Cells % 0 %; Platelet Count 172 10^3/cmm (157-399); Red Blood Count 2.93 10^6/uL (3.85-5.65); White Blood Count 9.06 10^3/uL (3.29-11.43)
[2025-07-24 03:25] LABS: Anion Gap 12.7 (5-19); Blood Urea Nitrogen 11 mg/dL (8-23); Calcium 8.3 mg/dL (8.5-10.5); Carbon Dioxide 24 mmol/L (22-29); Chloride 104 mmol/L (98-107); Creatinine Clr Calc Pharmacy 84.6206; Glucose 296 mg/dL (65-115); Magnesium 1.7 mg/dL (1.7-2.3); Osmolality Calculated 294 mOsm/kg (285-295); Potassium 3.7 mmol/L (3.5-5.1); Sodium 137 mmol/L (136-145)
[2025-07-24] MEDS: piperacillin-tazobactam 3.375 GM in sodium chloride 0.9% (plus) 50 ML IV ×3 (05:32→21:28)
--- NOTE | 2025-07-24 07:08 | PHA.VACGOAL ---
Vancomycin Goal - Goal Vancomycin Goal:: 15-20 mg/L Vancomycin Indication:: Other - Therapy Current therapy:: Pip/Tazo Day of therpy:: Day []of [] . Actual body weight (kg): 260 lb - Data Labs: WBC 9.06 10^3/uL (3.29-11.43) 07/24/25 02:58 RBC 2.93 10^6/uL (3.85-5.65) L 07/24/25 02:58 Hgb 9.30 g/dL (11.27-16.99) L 07/24/25 02:58 Hct 29.3 % (37-53) L 07/24/25 02:58 MCV 100.0 fl (82-101) 07/24/25 02:58 MCH 31.7 pg (27-33) 07/24/25 02:58 MCHC 31.7 g/dL (30-55) 07/24/25 02:58 RDW 15.5 % (12.1-15.1) H 07/24/25 02:58 Sodium 137 mmol/L (136-145) 07/24/25 02:58 Potassium 3.7 mmol/L (3.5-5.1) 07/24/25 02:58 Chloride 104 mmol/L (98-107) 07/24/25 02:58 Carbon Dioxide 24 mmol/L (22-29) 07/24/25 02:58 Anion Gap 12.7 (5-19) 07/24/25 02:58 BUN 11 mg/dL (8-23) 07/24/25 02:58 Creatinine 1.0 mg/dL (0.7-1.2) 07/24/25 02:58 GFR Calculation Not Reportable 07/24/25 02:58 Last dialysis session:: N/A Treatment plan:: new consult Regimen:: STARTED ON MAINTENANCE DOSE OF 1250 MG Q12H Follow up:: WILL CONTINUE TO MONITOR AND FOLLOW UP DAILY
--- NOTE | 2025-07-24 12:01 | P.PN_ITS ---
Subjective 2 Subjective: The company of the . Later in the morning, 2 of the daughters also came around. 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 He has a history of colon cancer, and had some apparent perirectal abscess that has a [id number] percutaneous drain x 18 months. Thought to have sepsis, he was started on IV antibiotics, and closely monitored. Seeing him this morning, he reports total resolution of symptoms. He denies any fever, headache, dizziness, or any new symptoms. He has no new complaints, and actually requesting for possible discharge today. Vitals/I&O/Wt Last Vital Signs Temp 98.0 F 07/24/25 10:55 Pulse 93 07/24/25 10:55 Resp 18 07/24/25 10:55 BP 132/67 07/24/25 10:55 Pulse Ox 93 07/24/25 10:55 O2 Del Method Room Air 07/24/25 10:55 07/23/25 07/24/25 07/24/25 22:59 06:59 14:59 Intake Total 540 / 3288 300 / 3588 50 / 50 Output Total 901 / 901 100 / 1001 225 / 225 Balance -361 / 2387 200 / 2587 -175 / -175 Weight last 48 hrs Weight 117.934 kg Weight 117.934 kg Weight 117.934 kg Physical Exam 2 Narrative: General: Awake and alert. Cooperative. Pleasant patient, with good memory. Appropriately interactive and engaging. Chest/Resp: Normal respiratory chest movts; no obvious respiratory distress. No obvious crackles. CVS: Rhythm: Regular heart rate and rhythm. GI: Colostomy bag draining normal colored liquid stool. Non-distended; nontender. No obvious organomegaly. Extremities: No obvious pitting pedal edema. Skin: No obvious new rashes or new skin lesions. Data 07/24/25 02:58 07/24/25 02:58 Micro: Microbiology 07/23/25 06:04 Blood Culture - Preliminary Blood NEGATIVE TO DATE 07/23/25 06:02 Blood Culture - Preliminary Blood NEGATIVE TO DATE Other Imaging: My impression: Imaging of the chest x-ray done yesterday reviewed.; I do not appreciate any significant findings. CT imaging reviewed, shows apparent liver masses. Radiologist's impression: CT abdomen and pelvis and chest x-ray done yesterday reviewed. CT reports some not-surprising old but stable findings; no acute findings. However, the chest x-ray reports minimal right middle lobe opacity. A&P Assessment and plan 1. Acute metabolic encephalopathy: Currently resolved at this time. Sepsis suspected, but not confirmed. No source of infection that is clearly at the moment. This May be just acute viral etiology, which is obviously very self-limiting. 2. Malignant neoplasm of rectum: Has history of longstanding surgical drain in place. Otherwise stable. 3. Colostomy in place: See #2 above. 4. Type 2 diabetes mellitus with insulin therapy: Mild to moderate hyperglycemia noted this morning, apparently from patient not taking his glipizide since admission. We have gone ahead to resume patient's glipizide. Continue sliding scale insulin. 5. Essential hypertension: Otherwise currently stable 6. ASHD (arteriosclerotic heart disease): Otherwise stable, noted in advisement Plan: Patient symptomatology is not clear. Otherwise, this is resolved. I was hoping to discharge patient today, but family has significant concerns about him going home without knowing the actual cause of the problem, especially, given recent history of rapid deterioration of symptomatology under similar circumstances. As a result, I have gone ahead and put in a consult with general surgery, for further advice. I will reassess in the morning. In the meantime, giving lack of any clear source of infection, I do not see the need to justify continue patient on IV vancomycin; I will could discontinue this at this time, and probably continue the IV Zosyn. May reassess later, and discharge if there is no continued justification to keep patient inpatient. Further plans to be adjusted as clinical picture evolves. PDMP PDMP Reviewed: Not Reviewed Attestations 2 Medical Necessity Statement*: Patient is considerately estimated to likely to require up to 1-2 more mid-night stay in the medical floor on inpatient status so as to hopefully optimally treat the acute medical problems and their symptoms and further control comorbidities. See explanation in Plan above.. Coding Level of Care Code Acute Code for Chg Fwd Diagnoses Acute metabolic encephalopathy G93.41 Malignant neoplasm of rectum C20 [address]ostomy [address] Z93.3 Type 2 diabetes mellitus with insulin therapy E11.9; Z79.4 Essential hypertension I10 ASHD (arteriosclerotic heart disease) I25.10
[2025-07-24] MEDS: oxyCODONE-APAP 10-325 mg Tablet 1 TAB PO ×2 (13:23→21:38)
--- NOTE | 2025-07-24 14:34 | PM.CONSULT ---
Providers/Reason For Consult Consulting Physician/Specialty*: General Surgery Reason for Consult*: Perirectal drain Attending Physician: Parveen Butler MD Primary Care Provider: Kayleen Shea APN History of Present Illness History of Present Illness Genaro Robbins is a 75 year old male who was admitted to the hospital with altered mental status and elevated white count, no source of infection had Explained identified. He has extensive history including rectal cancer and that he has a diverting ileostomy and is currently receiving therapy, his plan is to ultimately proceed with abdominal perineal resection. He also has surgical drain that was placed in the perianal region due to a perirectal abscess and this has been there for about a year. He is doing fine according to him the drain tubes out about a teaspoon of fluid. He is no longer confused he is doing much better no significant issues Review of Systems General: Reports: 10 or more systems reviewed and unremarkable except in HPI and below Medications/Allergies Home Medications ?Medication ?Instructions ?Recorded ?Confirmed ?Last Taken ?Type nitroglycerin 0.4 mg sublingual 0.4 mg sublingual Q5M PRN chest 08/06/20 07/23/25 Unknown Rx tablet (Nitrostat) pain #20 tabs metoprolol succinate 50 mg 50 mg PO BID #60 tabs 07/29/23 07/23/25 07/22/25 Rx tablet,extended release 24 hr pantoprazole 40 mg tablet,delayed 40 mg PO BID #180 tabs 08/24/23 07/23/25 07/22/25 Rx release rosuvastatin 20 mg tablet 20 mg PO BEDTIME #90 tabs 03/07/24 07/23/25 07/22/25 Rx loperamide 2 mg tablet 2 mg PO Q4H PRN loose stool #60 11/22/24 07/23/25 Unknown Rx (Anti-Diarrheal (loperamide)) tabs apixaban 5 mg tablet (Eliquis) 5 mg PO BID 01/05/25 07/23/25 07/22/25 History glipizide 10 mg tablet, extended 10 mg PO DAILY 01/05/25 07/23/25 07/22/25 History release 24 hr amlodipine 5 mg tablet 5 mg PO DAILY #90 tabs 02/10/25 07/23/25 07/22/25 Rx insulin aspart U-100 100 unit/mL 10 unit SUBCUT QID 06/07/25 07/23/25 07/22/25 History (3 mL) subcutaneous pen (Novolog FlexPen U-100 Insulin aspart) insulin glargine 100 unit/mL 20 unit SUBCUT BEDTIME 06/07/25 07/23/25 07/22/25 History subcutaneous solution (Lantus U-100 Insulin) isosorbide mononitrate 30 mg 30 mg PO DAILY 06/07/25 07/23/25 07/22/25 History tablet,extended release 24 hr diphenoxylate-atropine 2.5 1 tab PO QID PRN Diarrhea #60 tabs 06/19/25 07/23/25 Unknown Rx mg-0.025 mg tablet (Lomotil) oxycodone 10 mg tablet 10 mg PO Q6H PRN pain 30 days #120 07/19/25 07/23/25 Unknown Rx tabs acetaminophen 500 mg tablet 500 mg PO Q6H PRN Pain 07/23/25 07/23/25 Unknown History (Tylenol Extra Strength) aspirin 81 mg tablet,delayed 81 mg PO DAILY 07/23/25 07/23/25 07/22/25 History release duloxetine 30 mg capsule,delayed 30 mg PO DAILY 07/23/25 07/23/25 07/22/25 History release lidocaine 5 % topical ointment 1 ea topical QID PRN Pain 07/23/25 07/23/25 Unknown History loratadine 10 mg tablet 10 mg PO DAILY 07/23/25 07/23/25 07/22/25 History ondansetron HCl 4 mg tablet 4 mg PO Q6H PRN Nausea And Vomiting 07/23/25 07/23/25 Unknown History Allergies Allergy/AdvReac Type Severity Reaction Status Date / Time hydromorphone (From Dilaudid) Allergy ADR-Halluci Verified 07/19/25 08:32 nating Sulfa (Sulfonamide Allergy ALGY-Rash Verified 07/19/25 08:32 Antibiotics) Current Medications Generic Name Dose Route Start Last Admin Trade Name Freq PRN Reason Stop Dose Admin Acetaminophen 500 mg 07/23/25 16:18 07/23/25 16:39 Acetaminophen 500 Mg Tablet PO 500 mg Q6H PRN Administration MILD PAIN OR INCREASE TEMP Amlodipine Besylate 5 mg 07/24/25 05:00 07/24/25 05:32 Amlodipine 5 Mg Tablet PO 5 mg DAILY BEA Administration Apixaban 5 mg 07/23/25 17:00 07/24/25 05:32 Apixaban 5 Mg Tablet PO 5 mg BID BEA Administration Aspirin 81 mg 07/24/25 05:00 07/24/25 05:31 Aspirin 81 Mg Ec Tablet PO 81 mg DAILY BEA Administration Atorvastatin Calcium 80 mg 07/23/25 21:00 07/23/25 20:35 Atorvastatin 40 Mg Tablet PO 80 mg BEDTIME BEA Administration Diphenoxylate HCl/Atropine 1 tab 07/24/25 13:25 07/24/25 13:28 Diphenoxylate/Atropine Tablet PO 1 tab QID PRN Administration DIARRHEA Duloxetine HCl 30 mg 07/23/25 20:30 07/23/25 20:40 Duloxetine 30 Mg Capsule PO Not Given BEDTIME BEA Piperacillin Sod/Tazobactam 50 mls @ 12.5 mls/hr 07/23/25 14:00 07/24/25 13:23 Sod 3.375 gm/ Sodium Chloride IV 12.5 mls/hr Q8H BEA Administration Vancomycin HCl 1,250 mg in 250 mls @ 166.667 mls/hr 07/23/25 16:00 07/24/25 05:33 Vancocin IV Infused Q12H BEA Infusion Insulin Human Lispro 0 unit 07/23/25 18:00 07/24/25 11:45 Insulin Lispro 100 Unit/1 Ml SUBCUT 10 unit WM&BEDTIME BEA Administration Protocol Isosorbide Mononitrate 30 mg 07/24/25 05:00 07/24/25 05:32 Isosorbide Mononitrate Er 30 Mg Tablet PO 30 mg DAILY BEA Administration Loratadine 10 mg 07/24/25 05:00 07/24/25 05:32 Loratadine 10 Mg Tablet PO 10 mg DAILY BEA Administration Oxycodone/Acetaminophen 1 tab 07/23/25 16:03 07/24/25 13:23 Oxycodone-Apap 10-325 Mg Tablet PO 1 tab Q6H PRN Administration MODERATE PAIN Pantoprazole Sodium 40 mg 07/24/25 05:00 07/24/25 05:[address] 40 Mg Tablet PO 40 mg DAILY BEA Administration PFSH Acute PFSH: Medical History Pulmonary embolism GERD (gastroesophageal reflux disease) Malignant neoplasm of rectum Diabetes Dyslipidemia ASHD (arteriosclerotic heart disease) HTN (hypertension) Surgical History 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) History of low anterior resection of rectum (~05/2021) Port-A-Cath in place (09/26/20) History of colonoscopy with polypectomy H/O esophagogastroduodenoscopy S/P PTCA (percutaneous transluminal coronary angioplasty) Family History Father , AGE 56 CAD (coronary artery disease) Myocardial infarction Social History Smoking and tobacco/nicotine status: never used tobacco/nicotine Alcohol intake: never Household members: spouse Marital status: Vitals/I&O/Wt Last Vital Signs Temp 98.0 F 07/24/25 10:55 Pulse 93 07/24/25 10:55 Resp 18 07/24/25 13:23 BP 132/67 07/24/25 10:55 Pulse Ox 93 07/24/25 10:55 O2 Del Method Room Air 07/24/25 10:55 07/23/25 07/24/25 07/24/25 22:59 06:59 14:59 Intake Total 540 / 3288 300 / 3588 290 / 290 Output Total 901 / 901 100 / 1001 675 / 675 Balance -361 / 2387 200 / 2587 -385 / -385 Weight last 48 hrs Weight 260 lb Weight 260 lb Weight 260 lb Physical Exam Narrative: Benign abdominal examination the abdomen is soft is nontender there is an ileostomy in place with good output. The rectal examination shows a drain in place, the tissue around the drain appears to be healthy no other significant issues Data 07/24/25 02:58 07/24/25 02:58 Micro: Microbiology 07/23/25 06:04 Blood Culture - Preliminary Blood NEGATIVE TO DATE 07/23/25 06:02 Blood Culture - Preliminary Blood NEGATIVE TO DATE A&P Assessment and plan 1. Malignant neoplasm of rectum: Plan: No evidence of inflammatory infectious process from the surgical standpoint that may justify patient's symptoms. There is no evidence of drainage there is no evidence of recurrent perirectal abscess. CT scan of abdomen and pelvis was reviewed and is unremarkable for acute findings, chronic findings were noted. Recommend continues workup by medical team, otherwise patient can follow-up with his colorectal surgeon as outpatient. PDMP PDMP Reviewed: Not Reviewed Coding Level of Care Code Acute Code for Chg Fwd Diagnoses Malignant neoplasm of rectum C20
[2025-07-24] MEDS: metoprolol succinate ER (24 HR) 50 mg Tablet PO (17:23)
[2025-07-25] VITALS (7 sets, daily range): BP systolic 124–155; BP diastolic 63–78; PULSE 73–92; RESP 18; TEMP 36.5–36.8; O2SAT 92–97; BMI 35.2
[2025-07-25] MEDS: metoprolol succinate ER (24 HR) 50 mg Tablet PO (05:45)
[2025-07-25] MEDS: piperacillin-tazobactam 3.375 GM in sodium chloride 0.9% (plus) 50 ML IV (05:45)
[2025-07-25 05:46] LABS: Hematocrit 28.0 % (37-53); Hemoglobin 8.80 g/dL (11.27-16.99); Mean Corpuscular HGB Conc 31.4 g/dL (30-55); Mean Corpuscular Hemoglobin 31.2 pg (27-33); Mean Corpuscular Volume 99.3 fl (82-101); Nucleated Red Blood Cells % 0 %; Platelet Count 185 10^3/cmm (157-399); Red Blood Count 2.82 10^6/uL (3.85-5.65); White Blood Count 7.46 10^3/uL (3.29-11.43)
[2025-07-25 06:13] LABS: Anion Gap 14.5 (5-19); Blood Urea Nitrogen 9 mg/dL (8-23); Calcium 8.0 mg/dL (8.5-10.5); Carbon Dioxide 23 mmol/L (22-29); Chloride 105 mmol/L (98-107); Creatinine Clr Calc Pharmacy 84.6206; Glucose 242 mg/dL (65-115); Osmolality Calculated 295 mOsm/kg (285-295); Potassium 3.5 mmol/L (3.5-5.1); Sodium 139 mmol/L (136-145)
--- NOTE | 2025-07-25 09:17 | P.DS_ITS ---
Discharge Providers Date of Admission: 07/23/25 09:06 Date of Discharge: July 25, 2025 Attending Provider at Admission: Parveen Butler MD Attending Provider at Discharge: Parveen Butler MD Primary Care Provider: Kayleen Shea APN Diagnoses at Discharge Discharge Diagnosis 1. Acute metabolic encephalopathy: Details from hospital stay: Cause unknown. Acute viral syndrome suspected. 2. Malignant neoplasm of rectum: 3. Colostomy in place: 4. Type 2 diabetes mellitus with insulin therapy: 5. Essential hypertension: 6. ASHD (arteriosclerotic heart disease): Reason for Visit Reason for Visit: AMS Brief History: Patient presented to the ER with altered mental status. Given suspicion for sepsis, he was started on antibiotics. Otherwise, he was rehydrated with normal saline, and monitor closely. Hospital Course Hospital Course All other concomitant symptoms were treated empirically. The active chronic medical problems were treated with home medications, as adjusted; blood sugar was controlled with basal-prandial insulin. By the next day, patient's altered mental status completely resolved. No obvious source of bacterial infection, otherwise, was identified. Overall, patient responded well to treatment, and therefore deemed fit for discharge today. See my discharge orders and discharge instructions for more details. Physical Exam Narrative: General: Awake and alert patient. Resp: No obvious respiratory distress or difficulty breathing. Skin: No obvious rashes or new skin lesions. All other physical findings essentially within normal limits. Discharge Data Studies Completed and Pending Completed Studies During Hospitalization Category Date Time Status CT abdomen pelvis w con* [id number] Stat Cat Scan 07/23/25 06:[address] head wo con* [id number] Stat Cat Scan 07/23/25 05:49 Completed XR chest 1V portable [id number] Stat Exams 07/23/25 05:50 Completed Pending at discharge Category Date Time Status Basic Metabolic Panel AM LABS Lab 07/26/25 04:00 Ordered Basic Metabolic Panel AM LABS Lab 07/27/25 04:00 Ordered Blood Culture Stat Lab 07/23/25 06:04 Results Radiology Impressions Head CT 07/23/25 05:49 IMPRESSION: Mild small vessel disease. No evidence of acute intracranial process. Chest X-Ray 07/23/25 05:50 IMPRESSION: Minimal opacity at the medial right lung base. Abdomen/Pelvis CT 07/23/25 06:04 IMPRESSION: No acute subdiaphragmatic pathology. Vitals Last Vital Signs Temp 98.3 F 07/25/25 07:24 Pulse 75 07/25/25 07:24 Resp 18 07/25/25 07:24 BP 124/63 07/25/25 07:24 Pulse Ox 93 07/25/25 07:24 O2 Del Method Room Air 07/25/25 07:24 Discharge Plan Discharge Patient Disposition: Home Condition: Stable Prescriptions: New levofloxacin 750 mg tablet 750 mg PO DAILY 7 Days Qty: 10 0RF Continued glipizide 10 mg tablet extended release 24hr 10 mg PO DAILY Eliquis 5 mg tablet 5 mg PO BID oxycodone 10 mg tablet 10 mg PO Q6H PRN (Reason: pain) 30 Days Qty: 120 0RF insulin aspart U-100 [Novolog FlexPen U-100 Insulin] 100 unit/mL (3 mL) insulin pen 10 unit SUBCUT QID Rx Instructions: Sliding scale based off of sugar levels isosorbide mononitrate 30 mg tablet extended release 24 hr 30 mg PO DAILY insulin glargine [Lantus U-100 Insulin] 100 unit/mL solution 20 unit SUBCUT BEDTIME nitroglycerin [Nitrostat] 0.4 mg tablet, sublingual 0.4 mg SUBLINGUAL Q5M PRN (Reason: chest pain) Qty: 20 2RF Rx Instructions: do not exceed 3 doses per episode metoprolol succinate 50 mg tablet extended release 24 hr 50 mg PO BID Qty: 60 3RF pantoprazole 40 mg tablet,delayed release (DR/EC) 40 mg PO BID Qty: 180 0RF rosuvastatin 20 mg tablet 20 mg PO BEDTIME Qty: 90 3RF loperamide [Anti-Diarrheal (loperamide)] 2 mg tablet 2 mg PO Q4H MDD 8mg PRN (Reason: loose stool) Qty: 60 3RF Rx Instructions: take after each loose stool until symptoms controlled;max8mg daily amlodipine 5 mg tablet 5 mg PO DAILY Qty: 90 3RF diphenoxylate-atropine [Lomotil] 2.5-0.025 mg tablet 1 tab PO QID PRN (Reason: Diarrhea) Qty: 60 2RF aspirin 81 mg Tablet,Delayed Release (Dr/Ec) 81 mg PO DAILY ondansetron HCl 4 mg tablet 4 mg PO Q6H PRN (Reason: Nausea And Vomiting) acetaminophen [Tylenol Extra Strength] 500 mg Tablet 500 mg PO Q6H PRN (Reason: Pain) loratadine 10 mg Tablet 10 mg PO DAILY duloxetine 30 mg capsule,delayed release(DR/EC) 30 mg PO DAILY Rx Instructions: Stop gabapentin 1 day prior to starting cymbalta lidocaine 5 % ointment 1 ea topical QID PRN (Reason: Pain) Health Therapist OK for DC: Surgery Discharge Order = DC NOW: Discharge Order (Routine); Ordered 07/25/25 Ordered By: Parveen Butler Referrals: Kayleen Shea APN [Primary Care Provider, Nurse Practitioner] - 08/01/25 2:00 pm Discharge Diet: Usual diet Discharge Activity: Resume usual activity and Increase activity as tolerated Patient Instructions: Levofloxacin (By mouth) (Levaquin, Levaquin Leva-joseph), Altered Mental Status (ED), Opioid Safety, Patient Portal & Garcia Instructions Activity Restrictions/Additional Instructions: Follow-up with your surgeon in [place] as already scheduled in 8 days time. Follow-up with oncologist and other specialist as already scheduled next week. Otherwise, follow-up with PCP as needed Discharge Attestations Time Spent in Discharge Care*: less than 30 min Quality Metrics Clinical Quality Measures [ No reported AMI, CVA or VTE this stay] Coding Level of Care Code Acute Code for Chg Fwd Diagnoses Acute metabolic encephalopathy G93.41 Malignant neoplasm of rectum C20 [address] Z93.3 Type 2 diabetes mellitus with insulin therapy E11.9; Z79.4 Essential hypertension I10 Hypertension type: essential hypertension ASHD (arteriosclerotic heart disease) I25.10
[2025-07-25] MEDS: oxyCODONE-APAP 10-325 mg Tablet 1 TAB PO (11:16)
== END 2025-07-25 11:29 | disposition home or self-care (01) | DRG 871 ==
LOC: ER 09:09 → MEDSURG 09:52
PROVIDERS: Clinical Nurse Specialist Acute Care; Admitting Provider Family Medicine; Emergency Provider Emergency Medicine; PCP Nurse Practitioner Family; Visit Provider Family Medicine
DX: A41.9 Sepsis, unspecified organism (principal); G93.41 Metabolic encephalopathy; C20 Malignant neoplasm of rectum; C78.7 Secondary malignant neoplasm of liver and intrahepatic bile duct; E11.9 Type 2 diabetes mellitus without complications; I10 Essential (primary) hypertension; I25.10 Atherosclerotic heart disease of native coronary artery without angina pectoris; K21.9 Gastro-esophageal reflux disease without esophagitis; E78.5 Hyperlipidemia, unspecified; Z93.2 Ileostomy status; Z79.4 Long term (current) use of insulin; Z79.84 Long term (current) use of oral hypoglycemic drugs; Z79.01 Long term (current) use of anticoagulants; Z79.891 Long term (current) use of opiate analgesic; Z79.82 Long term (current) use of aspirin; Z95.5 Presence of coronary angioplasty implant and graft; Z86.711 Personal history of pulmonary embolism; Z92.21 Personal history of antineoplastic chemotherapy; Z95.828 Presence of other vascular implants and grafts
CPT/HCPCS: 36415; 36416; 36591; 70450; 71045; 74177; 80048; 80053; 81001; 82962; 83605; 83735; 84100; 85025; 87040; 87637; 93005; 96365; 96367; 96372; 97116; 97161; 97166; 99285; J1815; J2543; J3373; J7050; J7120; J9999

== ENCOUNTER 2025-08-16 08:06 | Oncology outpatient (recurring) (ONCR) | payer MEDICARE, SELFPAY ==
[2025-08-16 08:25] LABS: Hematocrit 31.5 % (37-53); Hemoglobin 10.20 g/dL (11.27-16.99); Mean Corpuscular HGB Conc 32.4 g/dL (30-55); Mean Corpuscular Hemoglobin 32.0 pg (27-33); Mean Corpuscular Volume 98.7 fl (82-101); Nucleated Red Blood Cells % 0 %; Platelet Count 164 10^3/cmm (157-399); Red Blood Count 3.19 10^6/uL (3.85-5.65); White Blood Count 7.18 10^3/uL (3.29-11.43)
[2025-08-16 08:42] LABS: Alanine Aminotransferase 9 U/L (0-41); Albumin Level 3.2 g/dL (3.5-5.2); Alkaline Phosphatase 84 U/L (40-130); Anion Gap 14.2 (5-19); Aspartate Amino Transferase 20 U/L (0-40); Blood Urea Nitrogen 27 mg/dL (8-23); Calcium 8.6 mg/dL (8.5-10.5); Carbon Dioxide 21 mmol/L (22-29); Chloride 105 mmol/L (98-107); Ferritin 264 ng/mL (30-400); Globulin 4.2 g/dL (1.3-4.6); Glucose 251 mg/dL (65-115); Iron 74 ug/dL (59-158); Osmolality Calculated 296 mOsm/kg (285-295); Potassium 4.2 mmol/L (3.5-5.1); Sodium 136 mmol/L (136-145); Total Iron Binding Capacity 184 mcg/dl; Total Protein 7.4 g/dL (6.6-8.7); Unsaturated Iron Binding 110 ug/dL (112-347)
[2025-08-16 09:43] LABS: Carcinoembryonic Antigen 355.0 ng/mL (0.0-4.7)
== END 2025-09-06 23:59 | disposition home or self-care (01) ==
PROVIDERS: PCP Nurse Practitioner Family; Visit Provider Internal Medicine
DX: C20 Malignant neoplasm of rectum (principal); C78.7 Secondary malignant neoplasm of liver and intrahepatic bile duct; D50.8 Other iron deficiency anemias; Z95.828 Presence of other vascular implants and grafts; Z79.899 Other long term (current) drug therapy; R97.0 Elevated carcinoembryonic antigen [CEA]; Z97.8 Presence of other specified devices
CPT/HCPCS: 80053; 82378; 82728; 83010; 83540; 83550; 83615; 85025; 85045; 99213